=== PATIENT | male | born 1990 | race Hispanic/Latino ===

== ENCOUNTER 2017-08-03 19:24 | Emergency (ER) | payer SELFPAY ==
--- NOTE | 2017-08-03 22:21 | Emergency Department Report ---
HPI - General Chief Complaint: Hyperglycemia Time Seen by Provider: 08/03/17 21:55 - HPI HPI: 26 year-old female presents to the emergency department with complaint of some weakness but he says he thinks is diabetic neuropathy. He says that he gets this numbness and weakness sensation in his arms to the point where he will try and lift something but has to drop it. He says that his eyelids droop in general lately they have been hanging lower than usual. Although he denies any vision problems. He says that he feels like his eyes are heavy. He feels like his jaw "locks up" and that he has some trouble chewing. There is a family member who is bedside who said that she had to help him get his seatbelt on recently. He has a history of insulin-dependent diabetes for which he takes Novolin 70/30 and says he has been compliant with his medication. He also says that he has a history of myasthenia gravis "which I have had since childhood." He does not have a primary care physician. He denies any illicit drug use, tobacco use or recent alcohol use. ED Past Medical Hx - Past Medical History Hx Diabetes: Yes Additional medical history: Myasthenia gravis - Surgical History Past Surgical History?: No - Social History Smoking Status: Never Smoker Substance Use Type: None ED Review of Systems ROS: Stated complaint: DIEBETES,BODY PAIN Other details as noted in HPI Comment: All other systems reviewed and negative Constitutional: weakness. denies: chills, fever Eyes: denies: eye pain, eye discharge, vision change ENT: denies: ear pain, throat pain Respiratory: denies: cough, shortness of breath, wheezing Cardiovascular: denies: chest pain, palpitations Gastrointestinal: denies: abdominal pain, nausea, diarrhea Genitourinary: denies: urgency, dysuria Musculoskeletal: denies: back pain, joint swelling, arthralgia Skin: denies: rash, lesions Neurological: weakness, numbness. denies: headache Physical Exam - Physical Exam Vital Signs: Vital Signs 08/03/17 19:44 Temperature 98.1 F Pulse Rate 107 H Respiratory 16 Rate Blood Pressure 139/92 O2 Sat by Pulse 99 Oximetry Physical Exam: GENERAL: The patient is well-developed well-nourished. HENT: Normocephalic. Atraumatic. Patient has moist mucous membranes. EYES: Extraocular motions are intact. Pupils equal reactive to light bilaterally. There is bilateral ptosis that is worse on the right than the left. NECK: Supple. Trachea is midline. CHEST/LUNGS: Clear to auscultation. There is no respiratory distress noted. HEART/CARDIOVASCULAR: Regular. There is no tachycardia. There is no murmur. ABDOMEN: Abdomen is soft, nontender. Patient has normal bowel sounds. There is no abdominal distention. SKIN: Skin is warm and dry. NEURO: The patient is awake, alert, and oriented. The patient is cooperative. The patient has no sensory deficits. The patient has normal speech and gait. He has some weakness of the proximal bilateral upper extremities. MUSCULOSKELETAL: There is no tenderness or deformity. There is no limitation range of motion. There is no evidence of acute injury. ED Course Vital Signs 08/03/17 19:44 Temperature 98.1 F Pulse Rate 107 H Respiratory 16 Rate Blood Pressure 139/92 O2 Sat by Pulse 99 Oximetry - Reevaluation(s) Reevaluation #1: After the patient was told that he will be admitted to the hospital for further evaluation of his uncontrolled diabetes and probable exacerbation of myasthenia gravis, the patient has decided that he does not want to be admitted and instead wants to leave the hospital. He feels as if nothing has been done for him, except for he has already seen both a emergency and internal medicine physician, had multiple labs, EKG, CT of the head, and his hyperglycemia has been treated. The patient has received 2 different doses of insulin and IV fluid. The patient understands that leaving AGAINST MEDICAL ADVICE could result in worsening of his uncontrolled diabetes and it could turn into diabetic ketoacidosis. He also has intermittent weakness and that could progress into issues with ambulation, causing falls, respiratory depression. Despite understanding of these risks, the patient has the capacity to make decisions for himself and has still decided to leave AGAINST MEDICAL ADVICE. Despite this fact, the patient was given a referral for local clinics, a neurologist, and has been encouraged to return to the emergency department if he changes his mind about admission, needs reevaluation, or with any acute distress. 08/04/17 02:34 ED Medical Decision Making - Lab Data Result diagrams: 08/03/17 Unknown 08/03/17 Unknown - EKG Data -: EKG Interpreted by Me EKG shows normal: sinus rhythm, axis, intervals, QRS complexes, ST-T waves ( early repolarization) Rate: normal - EKG Data When compared to previous EKG there are: previous EKG unavailable Interpretation: normal EKG (with early repolarization) - Radiology Data Radiology results: report reviewed EXAM: CT HEAD/BRAIN WO CON HISTORY: Weakness TECHNIQUE: Standard unenhanced CT of the head at 5.0 millimeter axial increments PRIORS: None. FINDINGS: The ventricular system is normal in size and configuration. There is no evidence for parenchymal volume loss. There is no evidence for mass lesion, mass effect, midline shift, acute intracranial hemorrhage, or acute ischemia/ infarction. Visualized paranasal sinuses demonstrates minimal mucosal thickening in the maxillary sinuses. IMPRESSION: Mild chronic maxillary sinusitis. No acute intracranial process noted. Transcribed By: [facility] Dictated By: MEGAN CARPENTER MD Electronically Authenticated By: MEGAN CARPENTER MD Signed Date/Time: 08/03/17 592 - Medical Decision Making The patient presents with a 2 week history of some intermittent weakness. On exam I noticed him to have bilateral ptosis that is worse on the right. There is no facial asymmetry and the forehead is not involved. It does not appear consistent with Reyez's palsy. There is a story of some intermittent weakness including having trouble holding onto things and needing help getting his seatbelt buckled. The patient himself thinks it is diabetic neuropathy but he also apparently has some questionable history of myasthenia gravis and this appears more consistent with what is going on. He had pulmonary function testing done that showed a normal forced vital capacity and he has no complaints of any shortness of breath so it does not appear to be affecting his diaphragm or his respiratory status. CT of the head does not show any bleed, shift, mass or any acute process. On top of all this, patient has hyperglycemia with a blood sugar of about 400. He does not appear to have any significant elevation in his anion gap and his blood sugar came down with some IV fluid and IV insulin. However the plan was going to be to admit the patient to the hospitalist service where potentially he would get started on Mestinon for the myasthenia gravis, possibly see neurology, and make sure that his diabetes is better controlled. At first the patient agreed to this but then started saying he refuses admission. I spoke to him in great detail about my concern for uncontrolled diabetes and the possibility of worsening weakness and his myasthenia gravis. Also stated my concern that he does not have follow-up set up at this time and that we can try and help him. However the patient is awake and alert, AA O 3 and has the capacity to make his own medical decisions. Despite the risks, which I explained could include respiratory depression, disability, diabetic coma, among others, the patient still does not want to stay in the hospital and has decided to sign out AGAINST MEDICAL ADVICE. Despite leaving AMA, the patient was given referrals for local primary care clinics, a neurologist and he understands that he can return if he changes his mind or with any acute distress. - Differential Diagnosis DKA, HHN K, myasthenia gravis, CVA, TIA Critical Care Time: No Critical care attestation.: If time is entered above; I have spent that time in minutes in the direct care of this critically ill patient, excluding procedure time. ED Disposition Clinical Impression: Myasthenia gravis, Hyperglycemia, Weakness Uncontrolled diabetes mellitus Qualifiers: Diabetes mellitus type: type 1 Diabetes mellitus complication status: with hyperglycemia Qualified Code(s): E10.65 - Type 1 diabetes mellitus with hyperglycemia Disposition: DC-07 LEFT AGAINST MED ADVICE Is pt being admited?: Yes Condition: Stable Instructions: Myasthenia Gravis (ED), Diabetic Hyperglycemia (ED) Additional Instructions: Return to the emergency department if you change your mind about admission for your myasthenia gravis, uncontrolled diabetes or with any acute distress. Referrals: CALI HERNANDEZ MD [Staff Physician] - 3-5 Days [facility] [Outside] - 3-5 Days [facility] [Outside] - 3-5 Days Forms: AMA Form
[2017-08-03 22:25] LABS: Basophils # (Auto) 0.1 K/mm3 (0.0-0.1); Basophils % (Auto) 0.9 % (0.0-1.8); Eosinophils # (Auto) 0.1 K/mm3 (0.0-0.4); Eosinophils % (Auto) 1.7 % (0.0-4.3); Hematocrit 44.9 % (35.5-45.6); Hemoglobin 14.6 gm/dl (11.8-15.2); Lymphocytes # (Auto) 1.3 K/mm3 (1.2-5.4); Lymphocytes % (Auto) 18.9 % (13.4-35.0); Mean Corpuscular HGB Conc 33 % (32-34); Mean Corpuscular Hemoglobin 30 pg (28-32); Mean Corpuscular Volume 93 fl (84-94); Monocytes # (Auto) 0.5 K/mm3 (0.0-0.8); Monocytes % (Auto) 6.8 % (0.0-7.3); Platelet Count 267 K/mm3 (140-440); Red Blood Count 4.81 M/mm3 (3.65-5.03)
[2017-08-03 22:45] LABS: Alanine Aminotransferase 12 units/L (7-56); Albumin 4.9 g/dL (3.9-5); BUN/Creatinine Ratio 17; Blood Urea Nitrogen 10 mg/dL (9-20); Calcium 9.8 mg/dL (8.4-10.2); Hemolysis Index 16
--- NOTE | 2017-08-03 23:01 | Cat Scan Report ---
FINAL REPORT EXAM: CT HEAD/BRAIN WO CON HISTORY: Weakness TECHNIQUE: Standard unenhanced CT of the head at 5.0 millimeter axial increments PRIORS: None. FINDINGS: The ventricular system is normal in size and configuration. There is no evidence for parenchymal volume loss. There is no evidence for mass lesion, mass effect, midline shift, acute intracranial hemorrhage, or acute ischemia/ infarction. Visualized paranasal sinuses demonstrates minimal mucosal thickening in the maxillary sinuses. IMPRESSION: Mild chronic maxillary sinusitis. No acute intracranial process noted.
[2017-08-03] MEDS ORDERED: NACL 0.9% 1000 ML 1,000 ML IV ONE (23:05)
[2017-08-04 03:07] VITALS: BP 118/76
== END 2017-08-04 03:00 | disposition left against medical advice (07) ==
LOC: ED 19:24
DX: G70.00 Myasthenia gravis without (acute) exacerbation (principal); E11.65 Type 2 diabetes mellitus with hyperglycemia
CPT/HCPCS: 36415; 70450; 80053; 82803; 82962; 84443; 84484; 85025; 93005; 93010; 96361; 96374; 96376; 99284; J7030; J1815

== ENCOUNTER 2019-08-18 22:58 | Inpatient (IN) | payer OTHER ==
[2019-08-18] MEDS ORDERED: DEXTROSE 50% IN WATER (25GM) 50 ML SYRINGE IV PRN (23:00)
[2019-08-18] MEDS ORDERED: SODIUM CHLORIDE 0.9% 1000 ML 1,000 ML IV ONE ×2 (23:00→23:03)
[2019-08-18] MEDS ORDERED: INSULIN REGULAR, HUMAN 100 UNITS in SODIUM CHLORIDE 0.9% 99 ML IV SCH (23:00)
[2019-08-18] MEDS ORDERED: ONDANSETRON 4 MG/2 ML INJ IV ONE (23:02)
[2019-08-18] MEDS ORDERED: TETANUS,DIPH,PERTUSS(ACELL) VACCINE 0.5 ML SYRINGE IM ONE (23:06)
--- NOTE | 2019-08-18 23:11 | Emergency Department Report ---
ED Syncope HPI - General Chief Complaint: Hyperglycemia Stated Complaint: HIGH BLOOD SUGAR/LOW BLOOD PRESSURE Time Seen by Provider: 08/18/19 23:00 Source: patient, EMS Exam Limitations: no limitations - History of Present Illness Initial Comments: 28-year-old male with a past medical history asthma and diabetes, myasthenia gravis, and hypertension presents to the hospital with complaints of elevated glucose for several days. Patient states his glucose has been reading high despite compliance with his insulin. He is having nausea, intermittent vomiting, and polyuria. Prior to arrival he passed out while sitting on the toilet. He fell forward striking his mouth and complains of anterior mouth pain. Patient denies headache, neck pain, chest pain, abdominal pain, focal numbness, or focal weakness. History of DKA in the past. PMD: [facility] clinic - Related Data Allergies/Adverse Reactions: Allergies No Known Allergies Allergy (Verified 06/02/18 09:31) Home Medications: Ambulatory Orders Amoxicillin/K Clav Tab [Augmentin 875 mg] 1 tab PO Q12HR #14 tab 06/02/18 Insulin NPH Hum/Reg Insulin Hm [HumuLIN 70-30 Vial] 20 units SUB-Q QPM 06/02/18 Insulin NPH Hum/Reg Insulin Hm [HumuLIN 70-30 Vial] 30 units SUB-Q QAM 06/02/18 Metoclopramide HCl [Reglan TAB] 5 mg PO TIDAC #21 tablet 06/02/18 ED Review of Systems ROS: Stated complaint: HIGH BLOOD SUGAR/LOW BLOOD PRESSURE Other details as noted in HPI Comment: All other systems reviewed and negative ED Past Medical Hx - Past Medical History Hx Diabetes: Yes Additional medical history: Myasthenia gravis - Surgical History Past Surgical History?: No - Social History Smoking Status: Never Smoker Substance Use Type: None - Medications Home Medications: Home Medications Medication Instructions Recorded Confirmed Last Taken Type Amoxicillin/K Clav Tab [Augmentin 1 tab PO Q12HR #14 tab 06/02/18 Unknown Rx 875 mg] Insulin NPH Hum/Reg Insulin Hm 20 units SUB-Q QPM 06/02/18 06/02/18 06/01/18 History [HumuLIN 70-30 Vial] Insulin NPH Hum/Reg Insulin Hm 30 units SUB-Q QAM 06/02/18 06/02/18 06/01/18 History [HumuLIN 70-30 Vial] Metoclopramide HCl [Reglan TAB] 5 mg PO TIDAC #21 tablet 06/02/18 Unknown Rx ED Physical Exam - General Limitations: No Limitations - Other Other exam information: General: No limitations, patient is alert in no acute distress Head exam: Atraumatic, normocephalic Eyes exam: Normal appearance ENT: Dry tongue, facial abrasion/laceration to the lower inner lip from dental trauma. Fractured tooth #8 appears acute, smaller fxt to tooth #9, missing tooth # 7 Neck exam: Normal inspection, full range of motion Respiratory exam: Clear to auscultation bilateral, no wheezes, rales, crackles Cardiovascular: Normal rate and rhythm Abdomen: Soft, nondistended, and nontender, with normal bowel sounds, no rebound, or guarding, Extremity: No deformity Back: Normal Inspection Neurologic: Alert, oriented x3, speech clear, no gross motor or sensory deficit Psychiatric: Normal mood, affect Skin: No rash ED Course Vital Signs 08/18/19 08/18/19 23:02 23:08 Temperature 98.2 F 98.2 F Pulse Rate 98 H 98 H Respiratory 17 17 Rate Blood Pressure 140/108 Blood Pressure 140/108 [Left] O2 Sat by Pulse 98 98 Oximetry - Reevaluation(s) Reevaluation #1: 08/19/19 00:50 ekg performed at this time ant t wave inv noted trop added to original blood work no cp ED Medical Decision Making - Lab Data Result diagrams: 08/19/19 00:01 08/18/19 23:09 - EKG Data -: EKG Interpreted by Hi EKG shows normal: sinus rhythm, intervals (qtc 529), ST-T waves (ant t wave inv) - EKG Data When compared to previous EKG there are: changes noted - Radiology Data Radiology results: report reviewed cxr: naf - Medical Decision Making Patient has significant hyperglycemia without acidosis and normal venous pH. Awaiting urine collection at time of disposition. Patient also has significant dehydration or renal sufficiency and mild hyperkalemia. Insulin drip initiated as well as IV normal saline hydration and Zofran for nausea. Patient received tetanus. Case discussed with hospitalist and patient will need admission for treatment. ekg shows changes, new ant t wave inv trop added and pending at dispo no cp - Differential Diagnosis DKA, hyperglycemia, hhnk, noncompliance Critical Care Time: Yes Critical care time in (mins) excluding proc time.: 35 Critical care attestation.: If time is entered above; I have spent that time in minutes in the direct care of this critically ill patient, excluding procedure time. ED Disposition Clinical Impression: Syncope, Dehydration, Insulin dependent diabetes mellitus, Hyperglycemia Disposition: OP ADMIT IP TO THIS HOSP Is pt being admited?: Yes Condition: Stable Time of Disposition: 00:28 (Dr Ibrahim/hosp)
--- NOTE | 2019-08-18 23:45 | XRay Report ---
CHEST 1 VIEW INDICATION: hyperglycemia, syncope. COMPARISON: None FINDINGS: Support devices: None. Heart: Within normal limits. Lungs/Pleura: No acute air space or interstitial disease. Additional findings: None. IMPRESSION: 1. No acute findings. Signer Name: Dante Selby MD Signed: 08/18/2019 11:41 PM Workstation Name: [id number]
[2019-08-18 23:52] LABS: Calcium 9.8 mg/dL (8.4-10.2)
[2019-08-19 00:12] LABS: Basophils % (Auto) 0.1 % (0.0-1.8); Hematocrit 52.4 % (35.5-45.6); Hemoglobin 16.8 gm/dl (11.8-15.2); Lymphocytes # (Auto) 1.1 K/mm3 (1.2-5.4); Lymphocytes % (Auto) 9.8 % (13.4-35.0); Mean Corpuscular HGB Conc 32 % (32-34); Mean Corpuscular Volume 94 fl (84-94); Monocytes # (Auto) 1.5 K/mm3 (0.0-0.8); Monocytes % (Auto) 13.1 % (0.0-7.3); Platelet Count 315 K/mm3 (140-440); Red Blood Count 5.58 M/mm3 (3.65-5.03); Red Cell Distribution Width 15.6 % (13.2-15.2)
[2019-08-19 00:17] LABS: Alanine Aminotransferase 9 units/L (7-56); Albumin 4.7 g/dL (3.9-5)
[2019-08-19 00:18] LABS: Bilirubin,Direct < 0.2 mg/dL (0-0.2)
[2019-08-19] MEDS ORDERED: DEXTROSE 50% IN WATER (25GM) 50 ML SYRINGE IV PRN ×2 (01:24→06:14)
[2019-08-19] MEDS ORDERED: ONDANSETRON 4 MG/2 ML INJ IV PRN (01:30)
[2019-08-19] MEDS ORDERED: SODIUM CHLORIDE 0.9% 1000 ML 1,000 ML IV SCH (01:30)
[2019-08-19] MEDS ORDERED: MORPHINE 4 MG/1 ML INJ IV PRN (01:30)
[2019-08-19] MEDS ORDERED: INSULIN REGULAR, HUMAN 100 UNITS in SODIUM CHLORIDE 0.9% 99 ML IV SCH ×2 (02:00)
[2019-08-19] MEDS ORDERED: D5W/0.45% NACL/KCL 20 MEQ 20 MEQ/1,000 ML BAG IV SCH (02:00)
[2019-08-19] MEDS ORDERED: ACETAMINOPHEN 325 MG TAB PO PRN (02:06)
[2019-08-19] MEDS ORDERED: SODIUM CHLORIDE 0.9% 1000 ML 1,000 ML ONE (02:11)
[2019-08-19 02:47] LABS: BUN/Creatinine Ratio 53; Blood Urea Nitrogen 63 mg/dL (9-20); Calcium 8.4 mg/dL (8.4-10.2); Hemolysis Index 5
[2019-08-19] MEDS ORDERED: SODIUM CHLORIDE 0.45% 1000 ML 1,000 ML IV ONE (03:18)
[2019-08-19 03:20] LABS: Bilirubin,Urine NEG (Negative); Blood,Urine NEG (Negative); Color,Urine Colorless (Yellow); Protein,Urine <15 mg/dL mg/dL (Negative); Urobilinogen,Urine < 2.0 mg/dL (<2.0); WBC,Urine < 1.0 /HPF (0.0-6.0)
[2019-08-19] MEDS: SODIUM CHLORIDE 0.45% 1000 ML 1,000 ML IV SCH ×3 (03:28→22:34)
[2019-08-19] MEDS ORDERED: SODIUM CHLORIDE 0.45% 1000 ML 1,000 ML IV SCH (04:00)
[2019-08-19 04:13] LABS: BUN/Creatinine Ratio 48; Blood Urea Nitrogen 58 mg/dL (9-20); Calcium 7.9 mg/dL (8.4-10.2); Hemolysis Index 6
[2019-08-19 05:58] LABS: BUN/Creatinine Ratio 52; Blood Urea Nitrogen 52 mg/dL (9-20); Calcium 8.2 mg/dL (8.4-10.2); Hemolysis Index 13
[2019-08-19] MEDS ORDERED: INSULIN GLARGINE 100 UNITS/ML SUB-Q ONE (06:16)
--- NOTE | 2019-08-19 07:35 | History and Physical Report ---
History of Present Illness Date of examination: 08/19/19 Date of admission: 08/19/19 00:33 Chief complaint: Elevated blood sugar History of present illness: Patient is a 28-year-old -Greek male with known history of diabetes mellitus presenting to the emergency room today complaining of elevated blood sugar at home. He has been compliant with his medication however blood sugar has been reading high. He has had some nausea and vomiting but denies any diarrhea denies any abdominal pain. Denies any fever or chills, no chest pain or shortness of breath. He was sitting on his commode at home today and had a syncopal episode. He had some bruises in his mouth and also had a crack on his teeth. Evaluation in the emergency room reveals blood sugar in the 1000s and also appears quite dehydrated. He was started on IV fluid and placed on insulin drip . Past History Past Medical History: diabetes, other (Myasthenia gravis) Past Surgical History: No surgical history Social history: no significant social history Family history: diabetes (Diabetes in grandmother) Medications and Allergies Allergies Allergy/AdvReac Type Severity Reaction Status Date / Time morphine Allergy Angioedema Verified 08/19/19 02:27 Home Medications Medication Instructions Recorded Confirmed Last Taken Type Amoxicillin/K Clav Tab [Augmentin 1 tab PO Q12HR #14 tab 06/02/18 Unknown Rx 875 mg] Insulin NPH Hum/Reg Insulin Hm 20 units SUB-Q QPM 06/02/18 06/02/18 06/01/18 History [HumuLIN 70-30 Vial] Insulin NPH Hum/Reg Insulin Hm 30 units SUB-Q QAM 06/02/18 06/02/18 06/01/18 History [HumuLIN 70-30 Vial] Metoclopramide HCl [Reglan TAB] 5 mg PO TIDAC #21 tablet 06/02/18 Unknown Rx Active Meds: Active Medications Acetaminophen (Tylenol) 650 mg PO Q4H PRN PRN Reason: Pain, Mild (1-3) Last Admin: 08/19/19 02:14 Dose: 650 mg Documented by: Dextrose (D50w (25gm) Syringe) 50 ml IV Q30MIN PRN; Protocol PRN Reason: Hypoglycemia Potassium Chloride/Dextrose/Sod Cl (D5w/0.45% Nacl/Kcl 20 Meq) 20 meq in 1,000 mls @ 125 mls/hr IV DIRECT BREANNE Sodium Chloride (Nacl 0.45% 1000 Ml) 1,000 mls @ 150 mls/hr IV DIRECT BREANNE Last Admin: 08/19/19 03:28 Dose: 150 mls/hr Documented by: Insulin Glargine (Lantus) 10 units SUB-Q QHS BREANNE Insulin Human Lispro (Humalog) 0 unit SUB-Q ACHS BREANNE; Protocol Ondansetron HCl (Zofran) 4 mg IV Q8H PRN PRN Reason: Nausea And Vomiting Sodium Chloride (Sodium Chloride Flush Syringe 10 Ml) 10 ml IV BID BREANNE Sodium Chloride (Sodium Chloride Flush Syringe 10 Ml) 10 ml IV PRN PRN PRN Reason: LINE FLUSH Review of Systems Constitutional: no weight loss, no weight gain, no fever, no chills Cardiovascular: no chest pain, no palpitations Respiratory: no cough, no shortness of breath Gastrointestinal: nausea, vomiting, no abdominal pain, no diarrhea Genitourinary Male: no dysuria, no hematuria Musculoskeletal: no neck pain, no low back pain Integumentary: no rash, no pruritis Neurological: syncope, no headaches, no change in mentation Exam - Constitutional Vitals: Temp Pulse Resp BP Pulse Ox 98.2 F 110 H 21 133/89 95 08/18/19 23:08 08/19/19 05:00 08/19/19 05:00 08/19/19 05:00 08/19/19 05:00 General appearance: Present: no acute distress, well-nourished - EENT Eyes: Present: PERRL, EOM intact ENT: hearing intact, clear oral mucosa, dentition normal - Neck Neck: Present: supple, normal ROM - Respiratory Respiratory effort: normal Respiratory: bilateral: CTA - Cardiovascular Rhythm: regular Heart Sounds: Present: S1 & S2 - Extremities Extremities: no ischemia, pulses symmetrical, No edema, Full ROM Peripheral Pulses: within normal limits - Abdominal General gastrointestinal: Present: soft, non-tender, non-distended, normal bowel sounds - Integumentary Integumentary: Present: clear, warm, dry - Musculoskeletal Musculoskeletal: strength equal bilaterally - Psychiatric Psychiatric: appropriate mood/affect, intact judgment & insight, cooperative - Neurologic Neurologic: CNII-XII intact, moves all extremities Results - Labs CBC & Chem 7: 08/19/19 00:01 08/19/19 05:24 Labs: Abnormal lab results 08/18/19 08/18/19 08/19/19 Range/Units 23:09 23:13 00:01 WBC 11.2 H (4.5-11.0) K/mm3 RBC 5.58 H (3.65-5.03) M/mm3 Hgb 16.8 H (11.8-15.2) gm/dl Hct 52.4 H (35.5-45.6) % RDW 15.6 H (13.2-15.2) % Lymph % (Auto) 9.8 L (13.4-35.0) % Cloud % (Auto) 13.1 H (0.0-7.3) % Lymph # 1.1 L (1.2-5.4) K/mm3 Cloud # 1.5 H (0.0-0.8) K/mm3 Seg Neutrophils % 77.0 H (40.0-70.0) % Seg Neutrophils # 8.6 H (1.8-7.7) K/mm3 Sodium 148 H (137-145) mmol/L Potassium 5.4 H (3.6-5.0) mmol/L Chloride 97.5 L (98-107) mmol/L Carbon Dioxide 31 H (22-30) mmol/L BUN 83 H (9-20) mg/dL Creatinine 1.9 H (0.8-1.5) mg/dL Glucose 1028 H* (75-100) mg/dL Calcium (8.4-10.2) mg/dL Phosphorus 5.50 H (2.5-4.5) mg/dL Magnesium 4.30 H (1.7-2.3) mg/dL Lipase 5 L (13-60) units/L 08/19/19 08/19/19 08/19/19 Range/Units 01:52 01:52 03:18 WBC (4.5-11.0) K/mm3 RBC (3.65-5.03) M/mm3 Hgb (11.8-15.2) gm/dl Hct (35.5-45.6) % RDW (13.2-15.2) % Lymph % (Auto) (13.4-35.0) % Cloud % (Auto) (0.0-7.3) % Lymph # (1.2-5.4) K/mm3 Cloud # (0.0-0.8) K/mm3 Seg Neutrophils % (40.0-70.0) % Seg Neutrophils # (1.8-7.7) K/mm3 Sodium 155 H 158 H (137-145) mmol/L Potassium (3.6-5.0) mmol/L Chloride 113.2 H 119.3 H (98-107) mmol/L Carbon Dioxide (22-30) mmol/L BUN 63 H 58 H (9-20) mg/dL Creatinine (0.8-1.5) mg/dL Glucose 577 H* 363 H (75-100) mg/dL Calcium 7.9 L (8.4-10.2) mg/dL Phosphorus 2.30 L D (2.5-4.5) mg/dL Magnesium 3.40 H (1.7-2.3) mg/dL Lipase (13-60) units/L 08/19/19 Range/Units 05:24 WBC (4.5-11.0) K/mm3 RBC (3.65-5.03) M/mm3 Hgb (11.8-15.2) gm/dl Hct (35.5-45.6) % RDW (13.2-15.2) % Lymph % (Auto) (13.4-35.0) % Cloud % (Auto) (0.0-7.3) % Lymph # (1.2-5.4) K/mm3 Cloud # (0.0-0.8) K/mm3 Seg Neutrophils % (40.0-70.0) % Seg Neutrophils # (1.8-7.7) K/mm3 Sodium 159 H (137-145) mmol/L Potassium (3.6-5.0) mmol/L Chloride 120.3 H (98-107) mmol/L Carbon Dioxide (22-30) mmol/L BUN 52 H (9-20) mg/dL Creatinine (0.8-1.5) mg/dL Glucose 156 H (75-100) mg/dL Calcium 8.2 L (8.4-10.2) mg/dL Phosphorus (2.5-4.5) mg/dL Magnesium (1.7-2.3) mg/dL Lipase (13-60) units/L Assessment and Plan - Patient Problems (1) Type 2 diabetes mellitus with hyperosmolar nonketotic hyperglycemia Current Visit: Yes Status: Acute Plan to address problem: Patient started on insulin drip. We will monitor blood glucose closely. (2) Syncope Current Visit: Yes Status: Acute Plan to address problem: Possibly secondary to dehydration. (3) DVT prophylaxis Current Visit: Yes Status: Acute Plan to address problem: We will place on subcutaneous heparin. (4) Full code status Current Visit: Yes Status: Acute
[2019-08-19] MEDS ORDERED: DEXTROSE 50% IN WATER (25GM) 50 ML SYRINGE IV ONE ×3 (09:26→09:44)
--- NOTE | 2019-08-19 10:54 | Event Note ---
Date: 08/19/19 Patient seen and examined. This is a follow-up from an admission earlier this morning. We will continue to plan as outlined in H&P. Patient with an episode of hypoglycemia and initiated D50. Time spent equals 35 minutes with greater than 50% of time spent on coordination of care
[2019-08-19] MEDS: INSULIN LISPRO 100 UNIT/ML SUB-Q SCH ×3 (11:29→22:34)
[2019-08-19] MEDS ORDERED: IBUPROFEN 600 MG TAB PO PRN (11:48)
--- NOTE | 2019-08-19 11:54 | Consultation ---
History of Present Illness Consult date: 08/19/19 History of present illness: PULMONARY AND CRITICAL CARE CONSULTATION DR. ANDRADE THANK YOU FOR ASKING US TO PARTICIPATE IN THE CARE OF THIS PATIENT. Patient is a 28-year-old -Burm[place] male with known history of diabetes mellitus presenting to the emergency room today complaining of elevated blood sugar at home. He has been compliant with his medication however blood sugar has been reading high. He has had some nausea and vomiting but denies any diarrhea denies any abdominal pain. Denies any fever or chills, no chest pain or shortness of breath. He was sitting on his commode at home today and had a syncopal episode. He had some bruises in his mouth and also had a crack on his teeth. Evaluation in the emergency room reveals blood sugar in the 1000s and also appears quite dehydrated. He was started on IV fluid and placed on insulin drip. Past History Past Medical History: diabetes, other (Myasthenia gravis) Past Surgical History: No surgical history Social history: no significant social history Family history: diabetes (Diabetes in grandmother) Medications and Allergies Allergies Allergy/AdvReac Type Severity Reaction Status Date / Time morphine Allergy Angioedema Verified 08/19/19 02:27 tomato Allergy Vomiting Verified 08/19/19 13:23 Home Medications Medication Instructions Recorded Confirmed Last Taken Type Amoxicillin/K Clav Tab [Augmentin 1 tab PO Q12HR #14 tab 06/02/18 Unknown Rx 875 mg] Insulin NPH Hum/Reg Insulin Hm 20 units SUB-Q QPM 06/02/18 06/02/18 06/01/18 History [HumuLIN 70-30 Vial] Insulin NPH Hum/Reg Insulin Hm 30 units SUB-Q QAM 06/02/18 06/02/18 06/01/18 History [HumuLIN 70-30 Vial] Metoclopramide HCl [Reglan TAB] 5 mg PO TIDAC #21 tablet 06/02/18 Unknown Rx Active Meds: Active Medications Acetaminophen (Tylenol) 650 mg PO Q4H PRN PRN Reason: Pain, Mild (1-3) Last Admin: 08/19/19 02:14 Dose: 650 mg Documented by: Dextrose (D50w (25gm) Syringe) 50 ml IV Q30MIN PRN; Protocol PRN Reason: Hypoglycemia Heparin Sodium (Porcine) (Heparin) 5,000 unit SUB-Q Q8HR BREANNE Potassium Chloride/Dextrose/Sod Cl (D5w/0.45% Nacl/Kcl 20 Meq) 20 meq in 1,000 mls @ 125 mls/hr IV DIRECT BREANNE Sodium Chloride (Nacl 0.45% 1000 Ml) 1,000 mls @ 150 mls/hr IV DIRECT BREANNE Last Admin: 08/19/19 11:38 Dose: 150 mls/hr Documented by: Ibuprofen (Ibuprofen) 600 mg PO Q6H PRN PRN Reason: Pain, Mild (1-3) Insulin Glargine (Lantus) 10 units SUB-Q QHS [facility] Insulin Human Lispro (Humalog) 0 unit SUB-Q ACHS BREANNE; Protocol Last Admin: 08/19/19 11:29 Dose: Not Given Documented by: Ondansetron HCl (Zofran) 4 mg IV Q8H PRN PRN Reason: Nausea And Vomiting Sodium Chloride (Sodium Chloride Flush Syringe 10 Ml) 10 ml IV BID [facility] Last Admin: 08/19/19 11:38 Dose: 10 ml Documented by: Sodium Chloride (Sodium Chloride Flush Syringe 10 Ml) 10 ml IV PRN PRN PRN Reason: LINE FLUSH Review of Systems All systems: negative Physical Examination Vital signs: Vital Signs Temp Pulse Resp BP Pulse Ox 98.2 F 98 H 17 140/108 98 08/18/19 23:02 08/18/19 23:02 08/18/19 23:02 08/18/19 23:02 08/18/19 23:02 Results - Laboratory Findings CBC and BMP: 08/19/19 00:01 08/19/19 11:21 Abnormal lab findings: Abnormal Labs 08/18/19 08/18/19 08/19/19 23:09 23:13 00:01 WBC 11.2 H RBC 5.58 H Hgb 16.8 H Hct 52.4 H RDW 15.6 H Lymph % (Auto) 9.8 L [place]bert % (Auto) 13.1 H Lymph # 1.1 L Colbert # 1.5 H Seg Neutrophils % 77.0 H Seg Neutrophils # 8.6 H Sodium 148 H Potassium 5.4 H Chloride 97.5 L Carbon Dioxide 31 H BUN 83 H Creatinine 1.9 H Glucose 1028 H* POC Glucose Calcium Phosphorus 5.50 H Magnesium 4.30 H Lipase 5 L 08/19/19 08/19/19 08/19/19 01:52 01:52 03:18 WBC RBC Hgb Hct RDW Lymph % (Auto) Colbert % (Auto) Lymph # Colbert # Seg Neutrophils % Seg Neutrophils # Sodium 155 H 158 H Potassium Chloride 113.2 H 119.3 H Carbon Dioxide BUN 63 H 58 H Creatinine Glucose 577 H* 363 H POC Glucose Calcium 7.9 L Phosphorus 2.30 L D Magnesium 3.40 H Lipase 08/19/19 08/19/19 05:24 05:24 WBC RBC Hgb Hct RDW Lymph % (Auto) Colbert % (Auto) Lymph # Colbert # Seg Neutrophils % Seg Neutrophils # Sodium 159 H Potassium Chloride 120.3 H Carbon Dioxide BUN 52 H Creatinine Glucose 156 H POC Glucose 171 H Calcium 8.2 L Phosphorus Magnesium Lipase - Diagnostic Findings Chest x-ray: report reviewed (NO ACUTE FINDINGS.), image reviewed Assessment and Plan - Patient Problems (1) Type 2 diabetes mellitus with hyperosmolar nonketotic hyperglycemia Current Visit: Yes Status: Acute (2) Dehydration Current Visit: Yes Status: Acute (3) Syncope Current Visit: Yes Status: Acute
[2019-08-19 12:08] LABS: BUN/Creatinine Ratio 46; Blood Urea Nitrogen 46 mg/dL (9-20); Calcium 8.9 mg/dL (8.4-10.2); Hemolysis Index 16
--- NOTE | 2019-08-19 14:18 | Event Note ---
Date: 08/19/19 Pt is alert and awake. No complaints of chest pain, shortness of breath, or cough. He denies smoking. Chest xray is normal with reported no acute findings. Since pt does no have any pulmonary symptoms, I am signing off the case. If pt needs any pulmonary help, please call us back.
[2019-08-19] MEDS: HEPARIN 5,000 UNIT/1 ML VIAL SUB-Q SCH ×2 (14:58→22:34)
[2019-08-19 16:47] LABS: BUN/Creatinine Ratio 42; Blood Urea Nitrogen 38 mg/dL (9-20); Calcium 8.5 mg/dL (8.4-10.2); Hemolysis Index 3
[2019-08-19 19:08] LABS: BUN/Creatinine Ratio 37; Blood Urea Nitrogen 37 mg/dL (9-20); Calcium 8.5 mg/dL (8.4-10.2); Hemolysis Index 5
[2019-08-19] MEDS ORDERED: INSULIN GLARGINE 100 UNITS/ML SUB-Q SCH (22:00)
[2019-08-19 23:31] LABS: BUN/Creatinine Ratio 39; Blood Urea Nitrogen 31 mg/dL (9-20); Calcium 8.2 mg/dL (8.4-10.2); Hemolysis Index 4
[2019-08-20 02:50] LABS: BUN/Creatinine Ratio 33; Blood Urea Nitrogen 26 mg/dL (9-20); Calcium 8.4 mg/dL (8.4-10.2); Hemolysis Index 5
[2019-08-20] MEDS: HEPARIN 5,000 UNIT/1 ML VIAL SUB-Q SCH (06:16)
[2019-08-20] MEDS: SODIUM CHLORIDE 0.45% 1000 ML 1,000 ML IV SCH (06:16)
--- NOTE | 2019-08-20 08:50 | Discharge Summary ---
Providers - Providers Date of Admission: 08/19/19 00:33 Date of discharge: 08/20/19 Attending physician: EMMANUEL ANDRADE 08/19/19 01:25 Consult to Dietitian/Nutrition [CONS] Routine Physician Instructions: Reason For Exam: Reason for Consult: Diet education 08/19/19 02:24 Consult to Physician [CONS] Routine Comment: Consulting Provider: CONSTANCE BENITEZ Physician Instructions: Reason For Exam: icu admission Primary care physician: CARDIAC MONITOR TECHNICIAN Hospitalization Reason for admission: hyperglycemia Condition: Stable Hospital course: Patient is a 28-year-old -N[place]ib[place] male with known history of diabetes mellitus who presented to the emergency room with complaints of elevated blood sugar at home. He has been compliant with his medication however blood sugar has been reading high. He has had some nausea and vomiting but denied any diarrhea or abdominal pain. The patient was admitted with diagnosis of hyperosmolar nonketotic hyperglycemia and treated with initially IV insulin drip. Patient blood sugar stabilized and patient was transferred to the floor. However, patient did have an episode of hypoglycemia because patient did not eat breakfast yesterday morning. Patient was monitored for 24 hours and blood sugars remained stable and thus will be discharged home. Dedicated discharge time 32 minutes. Disposition: DC-01 TO HOME OR SELFCARE Time spent for discharge: 32 - Discharge Diagnoses (1) Dehydration Status: Acute (2) Hyperglycemia Status: Acute (3) Insulin dependent diabetes mellitus Status: Acute (4) Type 2 diabetes mellitus with hyperosmolar nonketotic hyperglycemia Status: Acute Core Measure Documentation - Palliative Care Palliative Care/ Comfort Measures: Not Applicable - Core Measures Any of the following diagnoses?: none Exam - Constitutional Vitals: Temp Pulse Resp BP Pulse Ox 99.1 F 100 H 20 113/72 96 08/20/19 06:10 08/20/19 06:10 08/20/19 06:10 08/20/19 06:10 08/20/19 06:10 General appearance: Present: no acute distress, well-nourished - EENT Eyes: Present: PERRL ENT: hearing intact, clear oral mucosa - Neck Neck: Present: supple, normal ROM - Respiratory Respiratory effort: normal Respiratory: bilateral: CTA - Cardiovascular Heart Sounds: Present: S1 & S2. Absent: rub, click - Extremities Extremities: pulses symmetrical, No edema Peripheral Pulses: within normal limits - Abdominal General gastrointestinal: Present: soft, non-tender, non-distended, normal bowel sounds Male genitourinary: Present: normal - Integumentary Integumentary: Present: clear, warm, dry - Musculoskeletal Musculoskeletal: gait normal, strength equal bilaterally - Psychiatric Psychiatric: appropriate mood/affect, intact judgment & insight - Neurologic Neurologic: CNII-XII intact, moves all extremities Plan Activity: advance as tolerated Weight Bearing Status: Weight Bear as Tolerated Diet: diabetic Follow up with: PRIMARY CARE, [Primary Care Provider] - 7 Days Prescriptions: Insulin NPH Hum/Reg Insulin Hm [HumuLIN 70-30 Vial] 30 units SUB-Q QAM 30 Days vial Insulin NPH Hum/Reg Insulin Hm [HumuLIN 70-30 Vial] 20 units SUB-Q QPM 30 Days vial Metoclopramide HCl [Reglan TAB] 5 mg PO TIDAC #21 tablet
[2019-08-20] MEDS: INSULIN LISPRO 100 UNIT/ML SUB-Q SCH ×2 (09:27→12:44)
[2019-08-20 11:40] VITALS: BP 143/99
== END 2019-08-20 14:20 | disposition home or self-care (01) | DRG 639 ==
LOC: ED 22:58 → IMCU 08-19 00:33 → CC1 08-19 03:26 → 3A 08-19 07:58
PROVIDERS: ADMIT Internal Medicine Geriatric Medicine; ATTEND Hospitalist
PROC: 3E0234Z Introduction of Serum, Toxoid and Vaccine into Muscle, Percutaneous Approach (ICD-10-PCS; principal; 2019-08-18)
DX: E11.00 Type 2 diabetes mellitus with hyperosmolarity without nonketotic hyperglycemic-hyperosmolar coma (NKHHC) (principal); E86.0 Dehydration; R55 Syncope and collapse; E87.5 Hyperkalemia; I10 Essential (primary) hypertension; J45.909 Unspecified asthma, uncomplicated; Z79.4 Long term (current) use of insulin; Z83.3 Family history of diabetes mellitus; Z88.5 Allergy status to narcotic agent; Z79.899 Other long term (current) drug therapy
CPT/HCPCS: 36415; 71045; 80048; 80076; 81001; 82805; 82962; 83690; 83735; 84100; 84484; 85025; 90715; 93005; 93010; 96365; G0378; J1644; J1815; J2405; J7030

== ENCOUNTER 2019-09-24 09:52 | Inpatient (IN) | payer OTHER ==
[2019-09-24] MEDS ORDERED: SODIUM CHLORIDE 0.9% 1000 ML 1,000 ML IV ONE ×2 (10:33→11:36)
--- NOTE | 2019-09-24 10:33 | Emergency Department Report ---
ED General Adult HPI - General Chief complaint: Abdominal Pain Stated complaint: NAUSEA/VOMITING Time Seen by Provider: 09/24/19 10:29 Source: patient, EMS Mode of arrival: Stretcher Limitations: No Limitations - History of Present Illness Initial comments: 20-year-old male with a history of diabetes, hypertension myasthenia gravis presents with complaint of nausea and vomiting and diarrhea which began this morning. Patient denies fever. Patient states he has a prior history of DKA in the past. Patient received 4 mg of Zofran prior to arrival. Patient denies any recent travel denies any recent fever. Patient denies any recent close contacts who are quarantined. Patient states that he is able to drink a minimal amount of water but has had continued nausea and vomiting despite this. - Related Data Previous Rx's Medication Instructions Recorded Last Taken Type Amoxicillin/K Clav Tab [Augmentin 1 tab PO Q12HR #14 tab 06/02/18 Unknown Rx 875MG TAB] Insulin NPH Hum/Reg Insulin Hm 20 units SUB-Q QPM 30 Days vial 08/20/19 Unknown Rx [HumuLIN 70-30 Vial] Insulin NPH Hum/Reg Insulin Hm 30 units SUB-Q QAM 30 Days vial 08/20/19 Unknown Rx [HumuLIN 70-30 Vial] Metoclopramide HCl [Reglan TAB] 5 mg PO TIDAC #21 tablet 08/20/19 Unknown Rx Allergies Allergy/AdvReac Type Severity Reaction Status Date / Time morphine Allergy Angioedema Verified 08/19/19 02:27 tomato Allergy Vomiting Verified 08/19/19 13:23 ED Review of Systems ROS: Stated complaint: NAUSEA/VOMITING Other details as noted in HPI Constitutional: denies: chills, fever Eyes: denies: eye pain, eye discharge, vision change ENT: denies: ear pain, throat pain Respiratory: denies: cough, shortness of breath, wheezing Cardiovascular: denies: chest pain, palpitations Endocrine: no symptoms reported Gastrointestinal: nausea, vomiting, diarrhea Genitourinary: denies: urgency, dysuria Musculoskeletal: denies: back pain, joint swelling, arthralgia Skin: denies: rash, lesions Neurological: denies: headache, weakness, paresthesias Psychiatric: denies: anxiety, depression Hematological/Lymphatic: denies: easy bleeding, easy bruising ED Past Medical Hx - Past Medical History Hx Hypertension: Yes Hx Congestive Heart Failure: No Hx Diabetes: Yes Hx Asthma: No Additional medical history: Myasthenia gravis - Social History Smoking Status: Former Smoker - Medications Home Medications: Home Medications Medication Instructions Recorded Confirmed Last Taken Type Amoxicillin/K Clav Tab [Augmentin 1 tab PO Q12HR #14 tab 06/02/18 08/19/19 Unknown Rx 875MG TAB] Insulin NPH Hum/Reg Insulin Hm 20 units SUB-Q QPM 30 Days vial 08/20/19 Unknown Rx [HumuLIN 70-30 Vial] Insulin NPH Hum/Reg Insulin Hm 30 units SUB-Q QAM 30 Days vial 08/20/19 Unknown Rx [HumuLIN 70-30 Vial] Metoclopramide HCl [Reglan TAB] 5 mg PO TIDAC #21 tablet 08/20/19 Unknown Rx ED Physical Exam - General Limitations: No Limitations General appearance: alert, other (Uncomfortable; dehydration) - Head Head exam: Present: atraumatic, normocephalic - Eye Eye exam: Present: normal appearance - ENT ENT exam: Present: mucous membranes dry - Neck Neck exam: Present: normal inspection - Respiratory Respiratory exam: Present: normal lung sounds bilaterally. Absent: respiratory distress - Cardiovascular Cardiovascular Exam: Present: normal rhythm, tachycardia. Absent: systolic murmur, diastolic murmur, rubs, gallop - GI/Abdominal GI/Abdominal exam: Present: soft, tenderness (Mild diffuse), normal bowel sounds. Absent: guarding, rebound - Rectal Rectal exam: Present: deferred - Extremities Exam Extremities exam: Present: normal inspection - Back Exam Back exam: Present: normal inspection - Neurological Exam Neurological exam: Present: alert, oriented X3 - Psychiatric Psychiatric exam: Present: normal affect, normal mood - Skin Skin exam: Present: warm, dry, intact, normal color. Absent: rash ED Course Vital Signs 09/24/19 09/24/19 09/24/19 09:54 09:57 10:00 Temperature 98.2 F Pulse Rate 124 H 127 H Respiratory 17 16 13 Rate Blood Pressure 148/88 143/93 O2 Sat by Pulse 100 100 100 Oximetry 09/24/19 09/24/19 09/24/19 10:15 10:30 10:45 Temperature Pulse Rate 122 H 121 H 115 H Respiratory 25 H 12 12 Rate Blood Pressure 134/98 134/98 157/100 O2 Sat by Pulse 100 100 99 Oximetry 09/24/19 11:00 Temperature Pulse Rate 119 H Respiratory 11 L Rate Blood Pressure 156/94 O2 Sat by Pulse 100 Oximetry ED Medical Decision Making - Lab Data Result diagrams: 09/24/19 10:28 09/24/19 10:28 - Medical Decision Making Patient RECEIVED iv INSULIN WHILE IN THE e AND HAS RECEIVED TWO liter bolus of IV fluids. Patient noted to be in DKA and will receive insulin drip. Patient to be admitted to the hospitalist service for continued management and treatment. - Differential Diagnosis DKA; hyperosmolar hyperglycemic nonketotic state; dehydration; electrolyte Critical Care Time: Yes Critical care time in (mins) excluding proc time.: 40 Critical care attestation.: If time is entered above; I have spent that time in minutes in the direct care of this critically ill patient, excluding procedure time. Critical care time includes time spent with direct bedside care, frequent reassessment, physician consultation. ED Disposition Clinical Impression: Diabetic ketoacidosis, Dehydration Disposition: OP ADMIT IP TO THIS HOSP Is pt being admited?: Yes Does the pt Need Aspirin: No Condition: Stable Instructions: Diabetic Ketoacidosis (ED) Referrals: PRIMARY CARE, [Primary Care Provider] - 3-5 Days Time of Disposition: 11:34 Print Language: EMIRATI
[2019-09-24 10:52] LABS: Basophils % (Auto) 0.2 % (0.0-1.8); Hemoglobin 14.5 gm/dl (11.8-15.2); Lymphocytes # (Auto) 1.4 K/mm3 (1.2-5.4); Lymphocytes % (Auto) 11.8 % (13.4-35.0); Mean Corpuscular HGB Conc 32 % (32-34); Mean Corpuscular Volume 92 fl (84-94); Monocytes # (Auto) 0.5 K/mm3 (0.0-0.8); Monocytes % (Auto) 4.4 % (0.0-7.3); Platelet Count 389 K/mm3 (140-440); Red Blood Count 4.88 M/mm3 (3.65-5.03); Red Cell Distribution Width 16.1 % (13.2-15.2)
[2019-09-24] MEDS ORDERED: INSULIN REGULAR, HUMAN 100 UNITS/1 ML IV ONE (10:54)
[2019-09-24 11:02] LABS: INR 1.02 (0.87-1.13)
[2019-09-24 11:13] LABS: Alanine Aminotransferase 15 units/L (7-56); Albumin 4.9 g/dL (3.9-5); BUN/Creatinine Ratio 29; Blood Urea Nitrogen 23 mg/dL (9-20); Calcium 10.6 mg/dL (8.4-10.2); Hemolysis Index 7
[2019-09-24 11:15] LABS: Bilirubin,Direct < 0.2 mg/dL (0-0.2)
[2019-09-24] MEDS ORDERED: DEXTROSE 50% IN WATER (25GM) 50 ML SYRINGE IV PRN (11:25)
[2019-09-24] MEDS ORDERED: INSULIN REGULAR, HUMAN 100 UNITS in SODIUM CHLORIDE 0.9% 99 ML IV SCH ×2 (12:00→18:00)
[2019-09-24] MEDS ORDERED: SODIUM CHLORIDE 0.9% 1000 ML 1,000 ML ONE (12:11)
[2019-09-24 13:07] LABS: Bilirubin,Urine NEG (Negative); Blood,Urine SM (Negative); Color,Urine Straw (Yellow); Protein,Urine <15 mg/dL mg/dL (Negative); Urobilinogen,Urine < 2.0 mg/dL (<2.0); WBC,Urine < 1.0 /HPF (0.0-6.0)
[2019-09-24 13:20] LABS: BUN/Creatinine Ratio 30; Blood Urea Nitrogen 24 mg/dL (9-20); Hemolysis Index 7
[2019-09-24] MEDS: ONDANSETRON 4 MG/2 ML INJ IV PRN (15:33)
[2019-09-24] MEDS: D5W/0.45% NACL/KCL 20 MEQ 20 MEQ/1,000 ML BAG IV SCH ×2 (15:34→23:18)
[2019-09-24 15:48] LABS: BUN/Creatinine Ratio 34; Blood Urea Nitrogen 24 mg/dL (9-20); Calcium 9.9 mg/dL (8.4-10.2); Hemolysis Index 7
--- NOTE | 2019-09-24 17:21 | History and Physical Report ---
History of Present Illness Date of examination: 09/24/19 Date of admission: 09/24/19 11:29 Chief complaint: persistent vomiting since yesterday History of present illness: 20-year-old AAM with pmh of juvenile diabetes comes in for persistent vomiting since yesterday.Vomited about 6 to 7 times yesterday and today.Also some diarrhea since yesterday,Vomiting is prominent.Says he has been taking his insulin.Recently switched to Lantus and regular insulin.No fever or chillss.Says he has been compliant.No altered sensorium. Past History Past Medical History: diabetes (Type 1 DM), other (Myasthenia Gravis??) Past Surgical History: No surgical history Social history: smoking (in past) Family history: hypertension Medications and Allergies Allergies Allergy/AdvReac Type Severity Reaction Status Date / Time morphine Allergy Angioedema Verified 08/19/19 02:27 tomato Allergy Vomiting Verified 08/19/19 13:23 Home Medications Medication Instructions Recorded Confirmed Last Taken Type Amoxicillin/K Clav Tab [Augmentin 1 tab PO Q12HR #14 tab 06/02/18 09/24/19 09/22/19 Rx 875MG TAB] Insulin NPH Hum/Reg Insulin Hm 20 units SUB-Q QPM 30 Days vial 08/20/19 09/24/19 09/22/19 Rx [HumuLIN 70-30 Vial] Insulin NPH Hum/Reg Insulin Hm 30 units SUB-Q QAM 30 Days vial 08/20/19 09/24/19 09/23/19 Rx [HumuLIN 70-30 Vial] Metoclopramide HCl [Reglan TAB] 5 mg PO TIDAC #21 tablet 08/20/19 09/24/19 Unknown Rx Metoprolol 25 mg PO BID 09/24/19 09/24/19 09/22/19 History Active Meds: Active Medications Dextrose (D50w (25gm) Syringe) 0 ml IV Q30MIN PRN; Protocol PRN Reason: Hypoglycemia Insulin Human Regular 100 (units/ Sodium Chloride) 100 mls @ 1 mls/hr IV TITR BREANNE; Protocol Last Titration: 09/24/19 15:45 Dose: 4 units/hr, 4 mls/hr Documented by: Potassium Chloride/Dextrose/Sod Cl (D5w/0.45% Nacl/Kcl 20 Meq) 20 meq in 1,000 mls @ 125 mls/hr IV DIRECT BREANNE Last Admin: 09/24/19 15:34 Dose: 125 mls/hr Documented by: Ondansetron HCl (Zofran) 4 mg IV Q6H PRN PRN Reason: Nausea And Vomiting Last Admin: 09/24/19 15:33 Dose: 4 mg Documented by: Review of Systems All systems: negative Constitutional: no weight loss, no weight gain, no fever, no chills, no sweats, no night sweats Ears, nose, mouth and throat: no ear pain, no ear discharge, no tinnitis, no decreased hearing Cardiovascular: no chest pain, no orthopnea, no palpitations, no rapid/irregular heart beat, no edema, no syncope, no lightheadedness, no shortness of breath Respiratory: no cough, no cough with sputum, no excessive sputum, no hemoptysis, no shortness of breath, no dyspnea on exertion Gastrointestinal: abdominal pain, nausea, vomiting, diarrhea Genitourinary Male: no dysuria, no hematuria, no flank pain, no discharge, no urinary frequency, no urinary hesitancy, no nocturia, no incontinence, no erectile dysfunction, no genital pain Rectal: no pain Musculoskeletal: no neck stiffness, no neck pain, no shooting arm pain, no arm numbness/tingling Integumentary: no rash, no pruritis, no redness, no sores Neurological: no head injury, no seizures, no syncope Psychiatric: no anxiety, no memory loss, no change in sleep habits, no sleep disturbances, no insomnia, no hypersomnia, no change in appetite, no change in libido, no suicidal ideation Endocrine: excessive thirst, polydipsia, polyuria, no cold intolerance, no heat intolerance, no polyphagia Hematologic/Lymphatic: no easy bruising, no easy bleeding Allergic/Immunologic: no urticaria Exam - Constitutional Vitals: Temp Pulse Resp BP Pulse Ox 98.6 F 120 H 13 148/82 94 09/24/19 16:00 09/24/19 16:20 09/24/19 16:20 09/24/19 14:20 09/24/19 16:20 General appearance: Present: mild distress, well-nourished - EENT Eyes: Present: PERRL ENT: hearing intact, clear oral mucosa, other (Dry mucous membranes) - Neck Neck: Present: supple, normal ROM - Respiratory Respiratory effort: normal Respiratory: bilateral: CTA - Cardiovascular Heart rate: 78 Rhythm: regular Heart Sounds: Present: S1 & S2. Absent: rub, click - Extremities Extremities: no ischemia, pulses intact, pulses symmetrical, No edema Peripheral Pulses: within normal limits - Abdominal General gastrointestinal: Present: soft, non-tender, non-distended, normal bowel sounds Male genitourinary: Present: normal - Rectal Rectal Exam: deferred - Integumentary Integumentary: Present: clear, warm, dry - Musculoskeletal Musculoskeletal: gait normal, strength equal bilaterally - Psychiatric Psychiatric: appropriate mood/affect, intact judgment & insight - Neurologic Neurologic: CNII-XII intact, moves all extremities - Allied Health Allied health notes reviewed: nursing, case management Results - Labs CBC & Chem 7: 09/24/19 10:28 09/25/19 03:50 Labs: Laboratory Last Values WBC 11.7 K/mm3 (4.5-11.0) H 09/24/19 10:28 RBC 4.88 M/mm3 (3.65-5.03) 09/24/19 10:28 Hgb 14.5 gm/dl (11.8-15.2) 09/24/19 10:28 Hct 45.0 % (35.5-45.6) 09/24/19 10:28 MCV 92 fl (84-94) 09/24/19 10:28 MCH 30 pg (28-32) 09/24/19 10:28 MCHC 32 % (32-34) 09/24/19 10:28 RDW 16.1 % (13.2-15.2) H 09/24/19 10:28 Plt Count 389 K/mm3 (140-440) 09/24/19 10:28 Lymph % (Auto) 11.8 % (13.4-35.0) L 09/24/19 10:28 [place] % (Auto) 4.4 % (0.0-7.3) 09/24/19 10:28 Eos % (Auto) 0.0 % (0.0-4.3) 09/24/19 10:28 Baso % (Auto) 0.2 % (0.0-1.8) 09/24/19 10:28 Lymph # 1.4 K/mm3 (1.2-5.4) 09/24/19 10:28 [place] # 0.5 K/mm3 (0.0-0.8) 09/24/19 10:28 Eos # 0.0 K/mm3 (0.0-0.4) 09/24/19 10: Baso # 0.0 K/mm3 (0.0-0.1) 09/24/19 10:28 Seg Neutrophils % 83.6 % (40.0-70.0) H 09/24/19 10:28 Seg Neutrophils # 9.8 K/mm3 (1.8-7.7) H 09/24/19 10:28 PT 13.5 Sec. (12.2-14.9) 09/24/19 10:28 INR 1.02 (0.87-1.13) 09/24/19 10:28 Sodium 142 mmol/L (137-145) 09/24/19 15:03 Potassium 3.7 mmol/L (3.6-5.0) 09/24/19 15:03 Chloride 102.1 mmol/L (98-107) 09/24/19 15:03 Carbon Dioxide 17 mmol/L (22-30) L 09/24/19 15:03 Anion Gap 27 mmol/L 09/24/19 15:03 BUN 24 mg/dL (9-20) H 09/24/19 15:03 Creatinine 0.7 mg/dL (0.8-1.5) L 09/24/19 15:03 Estimated GFR > 60 ml/min 09/24/19 15:03 BUN/Creatinine Ratio 34 % 09/24/19 15:03 Glucose 231 mg/dL (75-100) H 09/24/19 15:03 POC Glucose 247 (70-105) H 09/24/19 15:56 Calcium 9.9 mg/dL (8.4-10.2) 09/24/19 15:03 Phosphorus 2.90 mg/dL (2.5-4.5) 09/24/19 12:02 Magnesium 1.80 mg/dL (1.7-2.3) 09/24/19 12:02 Total Bilirubin 0.40 mg/dL (0.1-1.2) 09/24/19 10:28 Direct Bilirubin < 0.2 mg/dL (0-0.2) 09/24/19 10:28 AST 14 units/L (5-40) 09/24/19 10:28 ALT 15 units/L (7-56) 09/24/19 10:28 Alkaline Phosphatase 95 units/L (35-129) 09/24/19 10:28 Total Protein 8.3 g/dL (6.3-8.2) H 09/24/19 10:28 Albumin 4.9 g/dL (3.9-5) 09/24/19 10:28 Albumin/Globulin Ratio 1.4 % 09/24/19 10:28 Amylase 56 units/L (27-131) 09/24/19 10:28 Lipase 4 units/L (13-60) L 09/24/19 10:28 Urine Color Straw (Yellow) 09/24/19 12:47 Urine Turbidity Clear (Clear) 09/24/19 12:47 Urine pH 5.0 (5.0-7.0) 09/24/19 12:47 Ur Specific [place] 1.030 (1.003-1.030) 09/24/19 12:47 Urine Protein <15 mg/dl mg/dL (Negative) 09/24/19 12:47 Urine Glucose (UA) >=500 mg/dL (Negative) 09/24/19 12:47 Urine Ketones 80 mg/dL (Negative) 09/24/19 12:47 Urine Blood Sm (Negative) 09/24/19 12:47 Urine Nitrite Neg (Negative) 09/24/19 12:47 Urine Bilirubin Neg (Negative) 09/24/19 12:47 Urine Urobilinogen < 2.0 mg/dL (<2.0) 09/24/19 12:47 Ur Leukocyte Esterase Neg (Negative) 09/24/19 12:47 Urine WBC (Auto) < 1.0 /HPF (0.0-6.0) 09/24/19 12:47 Urine RBC (Auto) 1.0 /HPF (0.0-6.0) 09/24/19 12:47 Short CBC 09/24/19 Range/Units 10:28 WBC 11.7 H (4.5-11.0) K/mm3 Hgb 14.5 (11.8-15.2) gm/dl Hct 45.0 (35.5-45.6) % Plt Count 389 (140-440) K/mm3 BMP 09/24/19 09/24/19 09/24/19 10:28 12:02 15:03 Sodium 137 144 D 142 Potassium 4.0 3.5 L 3.7 Chloride 92.5 L 101.4 102.1 Carbon Dioxide 14 L 17 L 17 L BUN 23 H 24 H 24 H Creatinine 0.8 0.8 0.7 L Glucose 450 H 344 H 231 H Calcium 10.6 H 10.0 9.9 09/24/19 09/24/19 09/25/19 19:00 21:30 00:02 Sodium 143 142 142 Potassium 3.7 3.9 3.9 Chloride 103.8 104.8 105.6 Carbon Dioxide 18 L 22 23 BUN 24 H 25 H 26 H Creatinine 0.7 L 0.7 L 0.7 L Glucose 181 H 171 H 178 H Calcium 10.1 9.5 9.4 09/25/19 03:50 Sodium 143 Potassium 3.7 Chloride 107.2 H Carbon Dioxide 23 BUN 27 H Creatinine 0.7 L Glucose 164 H Calcium 9.3 Liver Function 09/24/19 Range/Units 10:28 Total Bilirubin 0.40 (0.1-1.2) mg/dL Direct Bilirubin < 0.2 (0-0.2) mg/dL AST 14 (5-40) units/L ALT 15 (7-56) units/L Alkaline Phosphatase 95 (35-129) units/L Albumin 4.9 (3.9-5) g/dL Urine 09/24/19 Range/Units 12:47 Urine Color Straw (Yellow) Urine pH 5.0 (5.0-7.0) Ur Specific [place] 1.030 (1.003-1.030) Urine Protein <15 mg/dl (Negative) mg/dL Urine Glucose (UA) >=500 (Negative) mg/dL High/IV: Voiding Method Urinal IV Catheter Type [Left Upper INT / Saline Lock arm] IV Catheter Type [Left INT / Saline Lock Antecubital] Assessment and Plan Assessment and plan: Critical care time 35 minutes Advance Directives: Yes (Full code) VTE prophylaxis?: Chemical Plan of care discussed with patient/family: Yes - Patient Problems (1) Diabetic ketoacidosis Current Visit: Yes Status: Acute Qualifiers: Diabetes mellitus type: type 1 Diabetes mellitus complication detail: without coma Qualified Code(s): E10.10 - Type 1 diabetes mellitus with ketoacidosis without coma Plan to address problem: DKA protocol OV INsulin and IV FLuids for now NPO IV Zofran and IV Reglan Patient needs to be on 70/30 bid with regular insulin before Lunch for increased compliance. (2) Dehydration Current Visit: Yes Status: Acute Plan to address problem: IV fluids for now (3) HTN (hypertension) Current Visit: Yes Status: Chronic Qualifiers: Hypertension type: essential hypertension Qualified Code(s): I10 - Essential (primary) hypertension Plan to address problem: On Metoprolol (4) DVT prophylaxis Current Visit: No Status: Acute Plan to address problem: On Heparin and GI prophylaxis
[2019-09-24] MEDS ORDERED: POTASSIUM CHLORIDE 10 MEQ 10 MEQ/100 ML BAG IV PRN ×2 (18:00)
[2019-09-24 19:44] LABS: BUN/Creatinine Ratio 34; Blood Urea Nitrogen 24 mg/dL (9-20); Calcium 10.1 mg/dL (8.4-10.2); Hemolysis Index 8
[2019-09-24] MEDS ORDERED: LORazepam 2 MG/ML VIAL IV PRN (20:19)
[2019-09-24] MEDS: KETOROLAC 30 MG/1 ML INJ IV PRN (20:30)
[2019-09-24] MEDS: METOCLOPRAMIDE 10 MG/2 ML INJ IV PRN (20:31)
[2019-09-24] MEDS: METOPROLOL TARTRATE 25 MG TAB PO SCH (21:30)
[2019-09-24] MEDS ORDERED: NON-FORMULARY EACH (Metoprolol 25 MG) PO SCH (22:00)
[2019-09-24 22:03] LABS: BUN/Creatinine Ratio 36; Blood Urea Nitrogen 25 mg/dL (9-20); Calcium 9.5 mg/dL (8.4-10.2); Hemolysis Index 7
[2019-09-25 00:55] LABS: BUN/Creatinine Ratio 37; Blood Urea Nitrogen 26 mg/dL (9-20); Calcium 9.4 mg/dL (8.4-10.2); Hemolysis Index 5
[2019-09-25 04:16] LABS: BUN/Creatinine Ratio 39; Blood Urea Nitrogen 27 mg/dL (9-20); Calcium 9.3 mg/dL (8.4-10.2); Hemolysis Index 4
[2019-09-25] MEDS: INSULIN LISPRO 100 UNIT/ML SUB-Q SCH ×4 (08:58→22:46)
[2019-09-25] MEDS: METOPROLOL TARTRATE 25 MG TAB PO SCH ×2 (09:43→21:59)
[2019-09-25] MEDS: INSULIN NPH/REGULAR 70/30 INJ SUB-Q SCH ×2 (09:46→17:47)
[2019-09-25] MEDS ORDERED: PANTOPRAZOLE 40 MG TAB PO SCH (10:00)
[2019-09-25 10:22] LABS: BUN/Creatinine Ratio 38; Blood Urea Nitrogen 23 mg/dL (9-20); Calcium 9.3 mg/dL (8.4-10.2); Hemolysis Index 9
[2019-09-25] MEDS: METOCLOPRAMIDE 10 MG/2 ML INJ IV PRN ×2 (10:38→14:15)
[2019-09-25] MEDS: KETOROLAC 30 MG/1 ML INJ IV PRN ×2 (10:38→22:47)
[2019-09-25] MEDS: LOSARTAN 25 MG TAB PO SCH (11:53)
[2019-09-25] MEDS ORDERED: cloNIDine 0.1 MG TAB PO ONE (14:00)
[2019-09-25] MEDS: METOCLOPRAMIDE 10 MG/10 ML ORAL LIQD PO SCH ×3 (14:36→21:59)
[2019-09-25 14:45] LABS: BUN/Creatinine Ratio 38; Blood Urea Nitrogen 23 mg/dL (9-20); Calcium 9.4 mg/dL (8.4-10.2); Hemolysis Index 16
[2019-09-25 17:25] LABS: BUN/Creatinine Ratio 37; Blood Urea Nitrogen 22 mg/dL (9-20); Calcium 9.1 mg/dL (8.4-10.2); Hemolysis Index 8
[2019-09-25] MEDS ORDERED: INSULIN NPH/REGULAR 70/30 INJ SUB-Q SCH (18:00)
--- NOTE | 2019-09-25 19:31 | Progress Note ---
Assessment and Plan - Patient Problems (1) Dehydration Current Visit: Yes Status: Acute Plan to address problem: Patient dehydration secondary to DKA polyuria polyphagia. Will improve with aggressive IV hydration follow-up labs in a.m. (2) Diabetic ketoacidosis Current Visit: Yes Status: Acute Qualifiers: Diabetes mellitus type: type 1 Diabetes mellitus complication detail: without coma Qualified Code(s): E10.10 - Type 1 diabetes mellitus with ketoacidosis without coma Plan to address problem: Patient with diabetic ketoacidosis gap has closed. Unsure if patient was compliant with medications because usually when the insulin is introduced patient cannot really going to DKA patient will continue 70/30 insulin twice daily 30 units from home. (3) HTN (hypertension) Current Visit: Yes Status: Chronic Qualifiers: Hypertension type: essential hypertension Qualified Code(s): I10 - Essential (primary) hypertension Plan to address problem: Patient optimal control blood pressure at this particular time continue present medical management. Metoprolol. (4) Acute kidney injury Current Visit: Yes Status: Acute Plan to address problem: Has since resolved. IV hydration. History Interval history: Patient feels much better. States he could not sleep last night and therefore remains tired. Patient hospital course complicated by DKA. His gap has since resolved. Will place patient back on 70/30 insulin today. No acute concerns except epigastric pain. Patient states he takes Reglan and Protonix at home. Hospitalist Physical - Constitutional Vitals: Temp Pulse Resp BP Pulse Ox 98.3 F 101 H 22 143/101 98 09/25/19 16:21 09/25/19 16:21 09/25/19 16:21 09/25/19 16:21 09/25/19 16:21 General appearance: Present: no acute distress, well-nourished - EENT Eyes: Present: PERRL, EOM intact ENT: hearing intact, clear oral mucosa, dentition normal, other (ptosis common) - Neck Neck: Present: supple, normal ROM - Respiratory Respiratory effort: normal Respiratory: bilateral: CTA - Cardiovascular Rhythm: regular Heart Sounds: Present: S1 & S2 - Extremities Extremities: no ischemia, pulses intact, pulses symmetrical, No edema, normal temperature, normal color Peripheral Pulses: within normal limits - Abdominal General gastrointestinal: soft, non-tender, non-distended, normal bowel sounds, no hepatomegaly, no splenomegaly - Integumentary Integumentary: Present: clear, warm, dry. Absent: jaundice, rash, clammy - Psychiatric Psychiatric: appropriate mood/affect, intact judgment & insight, memory intact - Neurologic Neurologic: CNII-XII intact, moves all extremities Results - Labs CBC & Chem 7: 09/24/19 10:28 09/25/19 16:51 Labs: Laboratory Last Values WBC 11.7 K/mm3 (4.5-11.0) H 09/24/19 10: RBC 4.88 M/mm3 (3.65-5.03) 09/24/19 10:28 Hgb 14.5 gm/dl (11.8-15.2) 09/24/19 10: Hct 45.0 % (35.5-45.6) 09/24/19 10: MCV 92 fl (84-94) 09/24/19 10: MCH 30 pg (28-32) 09/24/19 10: MCHC 32 % (32-34) 09/24/19 10: RDW 16.1 % (13.2-15.2) H 09/24/19 10:28 Plt Count 389 K/mm3 (140-440) 09/24/19 10: Lymph % (Auto) 11.8 % (13.4-35.0) L 09/24/19 10: [place] % (Auto) 4.4 % (0.0-7.3) 09/24/19 10: Eos % (Auto) 0.0 % (0.0-4.3) 09/24/19 10: Baso % (Auto) 0.2 % (0.0-1.8) 09/24/19 10:28 Lymph # 1.4 K/mm3 (1.2-5.4) 09/24/19 10: [place] # 0.5 K/mm3 (0.0-0.8) 09/24/19 10: Eos # 0.0 K/mm3 (0.0-0.4) 09/24/19 10:28 Baso # 0.0 K/mm3 (0.0-0.1) 09/24/19 10:28 Seg Neutrophils % 83.6 % (40.0-70.0) H 09/24/19 10:28 Seg Neutrophils # 9.8 K/mm3 (1.8-7.7) H 09/24/19 10:28 PT 13.5 Sec. (12.2-14.9) 09/24/19 10:28 INR 1.02 (0.87-1.13) 09/24/19 10:28 Sodium 140 mmol/L (137-145) 09/25/19 16:51 Potassium 3.7 mmol/L (3.6-5.0) 09/25/19 16:51 Chloride 104.7 mmol/L (98-107) 09/25/19 16:51 Carbon Dioxide 22 mmol/L (22-30) 09/25/19 16:51 Anion Gap 17 mmol/L 09/25/19 16:51 BUN 22 mg/dL (9-20) H 09/25/19 16:51 Creatinine 0.6 mg/dL (0.8-1.5) L 09/25/19 16:51 Estimated GFR > 60 ml/min 09/25/19 16:51 BUN/Creatinine Ratio 37 % 09/25/19 16:51 Glucose 173 mg/dL (75-100) H 09/25/19 16:51 POC Glucose 138 (70-105) H 09/25/19 16:31 Hemoglobin A1c 10.4 % (4-6) H 09/24/19 19:00 Calcium 9.1 mg/dL (8.4-10.2) 09/25/19 16:51 Phosphorus 2.20 mg/dL (2.5-4.5) L D 09/24/19 19:00 Magnesium 1.70 mg/dL (1.7-2.3) 09/24/19 19:00 Total Bilirubin 0.40 mg/dL (0.1-1.2) 09/24/19 10:28 Direct Bilirubin < 0.2 mg/dL (0-0.2) 09/24/19 10:28 AST 14 units/L (5-40) 09/24/19 10:28 ALT 15 units/L (7-56) 09/24/19 10:28 Alkaline Phosphatase 95 units/L (35-129) 09/24/19 10:28 Total Protein 8.3 g/dL (6.3-8.2) H 09/24/19 10:28 Albumin 4.9 g/dL (3.9-5) 09/24/19 10:28 Albumin/Globulin Ratio 1.4 % 09/24/19 10:28 Amylase 56 units/L (27-131) 09/24/19 10:28 Lipase 4 units/L (13-60) L 09/24/19 10:28 Urine Color Straw (Yellow) 09/24/19 12:47 Urine Turbidity Clear (Clear) 09/24/19 12:47 Urine pH 5.0 (5.0-7.0) 09/24/19 12:47 Ur Specific [place] 1.030 (1.003-1.030) 09/24/19 12:47 Urine Protein <15 mg/dl mg/dL (Negative) 09/24/19 12:47 Urine Glucose (UA) >=500 mg/dL (Negative) 09/24/19 12:47 Urine Ketones 80 mg/dL (Negative) 09/24/19 12:47 Urine Blood Sm (Negative) 09/24/19 12:47 Urine Nitrite Neg (Negative) 09/24/19 12:47 Urine Bilirubin Neg (Negative) 09/24/19 12:47 Urine Urobilinogen < 2.0 mg/dL (<2.0) 09/24/19 12:47 Ur Leukocyte Esterase Neg (Negative) 09/24/19 12:47 Urine WBC (Auto) < 1.0 /HPF (0.0-6.0) 09/24/19 12:47 Urine RBC (Auto) 1.0 /HPF (0.0-6.0) 09/24/19 12:47 High/IV: Voiding Method Toilet IV Catheter Type [Left Upper INT / Saline Lock arm] IV Catheter Type [Left INT / Saline Lock Antecubital] Active Medications - Current Medications Current Medications: Generic Name Dose Route Start Last Admin Trade Name Freq PRN Reason Stop Dose Admin Dextrose 0 ml 09/24/19 11:25 D50w (25gm) Syringe IV Q30MIN PRN Hypoglycemia Protocol Insulin Human Isoph/Insulin Regular 20 unit 09/25/19 09:00 09/25/19 17:47 Humulin 70/30 SUB-Q 20 unit BIDDIAB BREANNE Administration Insulin Human Lispro 0 unit 09/25/19 09:00 09/25/19 17:15 Humalog SUB-Q Not Given ACHS [facility] Protocol Ketorolac Tromethamine 15 mg 09/24/19 20:17 09/25/19 10:38 Toradol IV 09/30/19 07:00 15 mg Q6H PRN Administration Pain, Mild (1-3) Losartan Potassium 25 mg 09/25/19 12:00 09/25/19 11:53 Cozaar PO 25 mg QDAY BREANNE Administration Metoclopramide HCl 10 mg 09/24/19 20:15 09/25/19 10:38 Reglan IV 10 mg Q6H PRN Administration Nausea And Vomiting Metoclopramide HCl 10 mg 09/25/19 14:15 09/25/19 17:48 Reglan PO 10 mg ACHS BREANNE Administration Metoprolol Tartrate 25 mg 09/24/19 22:00 09/25/19 09:43 Metoprolol PO 25 mg BID BREANNE Administration Ondansetron HCl 4 mg 09/24/19 15:09 09/24/19 15:33 Zofran IV 4 mg Q6H PRN Administration Nausea And Vomiting Pantoprazole Sodium 40 mg 09/25/19 10:00 09/25/19 09:43 Protonix PO 40 mg QDAY BREANNE Administration Nutrition/Malnutrition Assess - Dietary Evaluation Nutrition/Malnutrition Findings: Nutrition Notes Start: 09/24/19 12:42 Freq: Status: Active Protocol: Document 09/25/19 15:22 LM (Rec: 09/25/19 15:23 LM [email or web address]) Nutrition Notes Initial or Follow up Brief Note Current Diagnosis Diabetes,Hypertension Other Pertinent Diagnosis DKA, dehydration, Myasthenia Gravis Current Diet Consistent CHO Subjective/Other Information Unable to speak to pt. Diet advanced to consistent CHO. Nutrition Intervention Follow-Up By: 09/28/19 Additional Comments F/U for assessment, DM diet education needs
[2019-09-26] MEDS ORDERED: oxyCODONE /ACETAMINOPHEN 5-325MG TAB PO PRN (02:20)
[2019-09-26] MEDS: ONDANSETRON 4 MG/2 ML INJ IV PRN (02:58)
[2019-09-26] MEDS: KETOROLAC 30 MG/1 ML INJ IV PRN ×2 (06:02→12:53)
[2019-09-26] MEDS ORDERED: hydrALAZINE 20 MG/1 ML INJ IV ONE (07:10)
[2019-09-26] MEDS: METOCLOPRAMIDE 10 MG/10 ML ORAL LIQD PO SCH ×4 (08:00→22:00)
[2019-09-26] MEDS: INSULIN LISPRO 100 UNIT/ML SUB-Q SCH ×4 (08:54→22:00)
--- NOTE | 2019-09-26 09:33 | Progress Note ---
Assessment and Plan - Patient Problems (1) Dehydration Current Visit: Yes Status: Acute Plan to address problem: Most likely secondary to gastroparesis persistent nausea vomiting and recent DKA. Will start patient on aggressive IV fluid resuscitation. Attempt to treat gastroparesis Reglan and Zofran. (2) Diabetic ketoacidosis Current Visit: Yes Status: Acute Qualifiers: Diabetes mellitus type: type 1 Diabetes mellitus complication detail: without coma Qualified Code(s): E10.10 - Type 1 diabetes mellitus with ketoacidosis without coma Plan to address problem: Resolving with an insulin. Patient is gap is closed sugars normalized. Hospital course now complicated by gastroparesis. (3) HTN (hypertension) Current Visit: Yes Status: Chronic Qualifiers: Hypertension type: essential hypertension Qualified Code(s): I10 - Essential (primary) hypertension Plan to address problem: We will hold antihypertensives now. Patient nauseated vomiting. Will treat with IV because patient not able to tolerate p.o. IV hydralazine labetalol. (4) Acute kidney injury Current Visit: Yes Status: Acute Plan to address problem: Secondary to prerenal azotemia. Vasomotor nephropathy. (5) Gastroparesis due to DM Current Visit: Yes Status: Acute Plan to address problem: We will continue Reglan IV will add Protonix as well and also Zofran increased to 8 mg every 6 hours as needed. History Interval history: Patient hospital course complicated by persistent nausea and vomiting secondary to gastroparesis. Patient has had this in the past. Otherwise blood sugars are stable and gap is closed. Hospitalist Physical - Constitutional Vitals: Temp Pulse Resp BP Pulse Ox 98.4 F 107 H 18 176/117 99 09/26/19 06:25 09/26/19 07:06 09/26/19 07:07 09/26/19 07:07 09/26/19 07:06 General appearance: Present: no acute distress, well-nourished - EENT Eyes: Present: PERRL, EOM intact ENT: hearing intact, clear oral mucosa, dentition normal - Neck Neck: Present: supple, normal ROM - Respiratory Respiratory effort: normal Respiratory: bilateral: CTA - Cardiovascular Rhythm: regular - Extremities Extremities: no ischemia, pulses intact, pulses symmetrical, No edema, normal temperature, normal color Peripheral Pulses: within normal limits - Abdominal General gastrointestinal: soft, non-tender, non-distended - Integumentary Integumentary: Present: clear, warm, dry - Psychiatric Psychiatric: appropriate mood/affect - Neurologic Neurologic: CNII-XII intact Results - Labs CBC & Chem 7: 09/24/19 10:28 09/25/19 16:51 Labs: Laboratory Last Values WBC 11.7 K/mm3 (4.5-11.0) H 09/24/19 10:28 RBC 4.88 M/mm3 (3.65-5.03) 09/24/19 10:28 Hgb 14.5 gm/dl (11.8-15.2) 09/24/19 10:28 Hct 45.0 % (35.5-45.6) 09/24/19 10:28 MCV 92 fl (84-94) 09/24/19 10:28 MCH 30 pg (28-32) 09/24/19 10: MCHC 32 % (32-34) 09/24/19 10:28 RDW 16.1 % (13.2-15.2) H 09/24/19 10:28 Plt Count 389 K/mm3 (140-440) 09/24/19 10:28 Lymph % (Auto) 11.8 % (13.4-35.0) L 09/24/19 10:28 [place] % (Auto) 4.4 % (0.0-7.3) 09/24/19 10:28 Eos % (Auto) 0.0 % (0.0-4.3) 09/24/19 10:28 Baso % (Auto) 0.2 % (0.0-1.8) 09/24/19 10:28 Lymph # 1.4 K/mm3 (1.2-5.4) 09/24/19 10:28 [place] # 0.5 K/mm3 (0.0-0.8) 09/24/19 10:28 Eos # 0.0 K/mm3 (0.0-0.4) 09/24/19 10:28 Baso # 0.0 K/mm3 (0.0-0.1) 09/24/19 10:28 Seg Neutrophils % 83.6 % (40.0-70.0) H 09/24/19 10:28 Seg Neutrophils # 9.8 K/mm3 (1.8-7.7) H 09/24/19 10:28 PT 13.5 Sec. (12.2-14.9) 09/24/19 10:28 INR 1.02 (0.87-1.13) 09/24/19 10:28 Sodium 140 mmol/L (137-145) 09/25/19 16:51 Potassium 3.7 mmol/L (3.6-5.0) 09/25/19 16:51 Chloride 104.7 mmol/L (98-107) 09/25/19 16:51 Carbon Dioxide 22 mmol/L (22-30) 09/25/19 16:51 Anion Gap 17 mmol/L 09/25/19 16:51 BUN 22 mg/dL (9-20) H 09/25/19 16:51 Creatinine 0.6 mg/dL (0.8-1.5) L 09/25/19 16:51 Estimated GFR > 60 ml/min 09/25/19 16:51 BUN/Creatinine Ratio 37 % 09/25/19 16:51 Glucose 173 mg/dL (75-100) H 09/25/19 16:51 POC Glucose 194 (70-105) H 09/26/19 07:43 Hemoglobin A1c 10.4 % (4-6) H 09/24/19 19:00 Calcium 9.1 mg/dL (8.4-10.2) 09/25/19 16:51 Phosphorus 2.20 mg/dL (2.5-4.5) L D 09/24/19 19:00 Magnesium 1.70 mg/dL (1.7-2.3) 09/24/19 19:00 Total Bilirubin 0.40 mg/dL (0.1-1.2) 09/24/19 10:28 Direct Bilirubin < 0.2 mg/dL (0-0.2) 09/24/19 10:28 AST 14 units/L (5-40) 09/24/19 10:28 ALT 15 units/L (7-56) 09/24/19 10:28 Alkaline Phosphatase 95 units/L (35-129) 09/24/19 10:28 Total Protein 8.3 g/dL (6.3-8.2) H 09/24/19 10:28 Albumin 4.9 g/dL (3.9-5) 09/24/19 10:28 Albumin/Globulin Ratio 1.4 % 09/24/19 10:28 Amylase 56 units/L (27-131) 09/24/19 10:28 Lipase 4 units/L (13-60) L 09/24/19 10:28 Urine Color Straw (Yellow) 09/24/19 12:47 Urine Turbidity Clear (Clear) 09/24/19 12:47 Urine pH 5.0 (5.0-7.0) 09/24/19 12:47 Ur Specific [place] 1.030 (1.003-1.030) 09/24/19 12:47 Urine Protein <15 mg/dl mg/dL (Negative) 09/24/19 12:47 Urine Glucose (UA) >=500 mg/dL (Negative) 09/24/19 12:47 Urine Ketones 80 mg/dL (Negative) 09/24/19 12:47 Urine Blood Sm (Negative) 09/24/19 12:47 Urine Nitrite Neg (Negative) 09/24/19 12:47 Urine Bilirubin Neg (Negative) 09/24/19 12:47 Urine Urobilinogen < 2.0 mg/dL (<2.0) 09/24/19 12:47 Ur Leukocyte Esterase Neg (Negative) 09/24/19 12:47 Urine WBC (Auto) < 1.0 /HPF (0.0-6.0) 09/24/19 12:47 Urine RBC (Auto) 1.0 /HPF (0.0-6.0) 09/24/19 12:47 High/IV: Voiding Method Urinal IV Catheter Type [Left Upper INT / Saline Lock arm] IV Catheter Type [Left INT / Saline Lock Antecubital] Active Medications - Current Medications Current Medications: Generic Name Dose Route Start Last Admin Trade Name Freq PRN Reason Stop Dose Admin Dextrose 0 ml 09/24/19 11:25 D50w (25gm) Syringe IV Q30MIN PRN Hypoglycemia Protocol Insulin Human Isoph/Insulin Regular 20 unit 09/25/19 09:00 09/25/19 17:47 Humulin 70/30 SUB-Q 20 unit BIDDIAB BREANNE Administration Insulin Human Lispro 0 unit 09/25/19 09:00 09/26/19 08:54 Humalog SUB-Q Not Given ACHS [facility] Protocol Ketorolac Tromethamine 15 mg 09/24/19 20:17 09/26/19 06:02 Toradol IV 09/30/19 07:00 15 mg Q6H PRN Administration Pain, Mild (1-3) Losartan Potassium 25 mg 09/25/19 12:00 09/25/19 11:53 Cozaar PO 25 mg QDAY BREANNE Administration Metoclopramide HCl 10 mg 09/24/19 20:15 09/25/19 10:38 Reglan IV 10 mg Q6H PRN Administration Nausea And Vomiting Metoclopramide HCl 10 mg 09/25/19 14:15 09/25/19 21:59 Reglan PO 10 mg ACHS BREANNE Administration Metoprolol Tartrate 25 mg 09/24/19 22:00 09/25/19 21:59 Metoprolol PO 25 mg BID BREANNE Administration Ondansetron HCl 4 mg 09/24/19 15:09 09/26/19 02:58 Zofran IV 4 mg Q6H PRN Administration Nausea And Vomiting Oxycodone/Acetaminophen 1 tab 09/26/19 02:20 09/26/19 02:59 Percocet 5/325 PO 1 tab Q4H PRN Administration Pain, Moderate (4-6) Pantoprazole Sodium 40 mg 09/25/19 10:00 09/25/19 09:43 Protonix PO 40 mg QDAY BREANNE Administration Nutrition/Malnutrition Assess - Dietary Evaluation Nutrition/Malnutrition Findings: Nutrition Notes Start: 09/24/19 12:42 Freq: Status: Active Protocol: Document 09/25/19 15:22 LM (Rec: 09/25/19 15:23 LM [email or web address]) Nutrition Notes Initial or Follow up Brief Note Current Diagnosis Diabetes,Hypertension Other Pertinent Diagnosis DKA, dehydration, Myasthenia Gravis Current Diet Consistent CHO Subjective/Other Information Unable to speak to pt. Diet advanced to consistent CHO. Nutrition Intervention Follow-Up By: 09/28/19 Additional Comments F/U for assessment, DM diet education needs
[2019-09-26] MEDS ORDERED: ONDANSETRON 4 MG/2 ML INJ IV PRN (09:36)
[2019-09-26] MEDS: SODIUM CHLORIDE 0.9% 1000 ML 1,000 ML IV SCH ×2 (11:37→21:59)
[2019-09-26] MEDS: INSULIN NPH/REGULAR 70/30 INJ SUB-Q SCH ×2 (11:43→17:56)
[2019-09-26] MEDS: hydrALAZINE 20 MG/1 ML INJ IV SCH ×3 (11:43→23:54)
[2019-09-26] MEDS: LOSARTAN 25 MG TAB PO SCH (11:44)
[2019-09-26] MEDS: METOPROLOL TARTRATE 25 MG TAB PO SCH ×2 (11:44→22:00)
[2019-09-26] MEDS: PANTOPRAZOLE 40 MG INJ IV SCH (11:44)
[2019-09-26] MEDS: LORazepam 2 MG/ML VIAL IV PRN (12:52)
[2019-09-26 13:48] LABS: Alanine Aminotransferase 12 units/L (7-56); Albumin 4.3 g/dL (3.9-5); BUN/Creatinine Ratio 34; Blood Urea Nitrogen 24 mg/dL (9-20); Calcium 9.7 mg/dL (8.4-10.2); Hemolysis Index 6
[2019-09-27] MEDS: hydrALAZINE 20 MG/1 ML INJ IV SCH ×2 (05:27→12:29)
[2019-09-27] MEDS: SODIUM CHLORIDE 0.9% 1000 ML 1,000 ML IV SCH (05:28)
[2019-09-27] MEDS: METOCLOPRAMIDE 10 MG/10 ML ORAL LIQD PO SCH ×2 (07:30→11:30)
[2019-09-27] MEDS: INSULIN LISPRO 100 UNIT/ML SUB-Q SCH ×2 (07:30→11:30)
[2019-09-27] MEDS: INSULIN NPH/REGULAR 70/30 INJ SUB-Q SCH (08:47)
[2019-09-27] MEDS: LORazepam 2 MG/ML VIAL IV PRN (10:20)
[2019-09-27] MEDS: KETOROLAC 30 MG/1 ML INJ IV PRN (10:21)
[2019-09-27] MEDS: LOSARTAN 25 MG TAB PO SCH (10:22)
[2019-09-27] MEDS: PANTOPRAZOLE 40 MG INJ IV SCH (10:22)
[2019-09-27] MEDS: METOPROLOL TARTRATE 25 MG TAB PO SCH (10:22)
--- NOTE | 2019-09-27 11:41 | Discharge Summary ---
Providers - Providers Date of Admission: 09/24/19 11:29 Date of discharge: 09/27/19 Attending physician: RAINER SCHWARTZ 09/24/19 11:26 Consult to Dietitian/Nutrition [CONS] Routine Physician Instructions: Reason For Exam: DKA Reason for Consult: Nutrition Recommendations Reason for Consult: Poor oral intake 09/24/19 17:04 Consult to Dietitian/Nutrition [CONS] Routine Physician Instructions: Reason For Exam: DKA Reason for Consult: Nutrition Recommendations Reason for Consult: Diet education Primary care physician: [employer] Hospitalization Condition: Stable Hospital course: Patient was admitted for diabetic ketoacidosis transferred to ICU placed on insulin drip. Patient defervesced well gap closed was placed on home insulin 70/30 30 units twice daily. Patient did well with this. Hospital course was complicated by gastroparesis in which she had episodes nausea vomiting unable to keep any food down. Also complicated by panic attack. Patient responded very well to increased doses of Zofran. Aggressive IV fluid replacement Protonix IV and Ativan for anxiety. Patient stable has not had any vomiting able to tolerate foods today. Patient states he is at his baseline and usually does well with Reglan at home. Patient has long history of gastroparesis. States he knows how to deal with this. I suspect because his anxiety was high he had difficulty controlling this at this time. We will also discharged with Ativan as well. Patient told to follow-up with psychiatry as well. Disposition: DC-01 TO HOME OR SELFCARE - Discharge Diagnoses (1) Dehydration Status: Resolved Comment: secondary to DKA (2) Diabetic ketoacidosis Status: Acute Qualifiers: Diabetes mellitus type: type 1 Diabetes mellitus complication detail: without coma Qualified Code(s): E10.10 - Type 1 diabetes mellitus with ketoacidosis without coma Comment: Patient with diabetic ketoacidosis. Has since resolved with home insulin 70/30 30 units twice daily. Will discharge home with this. Gap is close no longer dehydrated. No nausea vomiting. (3) HTN (hypertension) Status: Chronic Qualifiers: Hypertension type: essential hypertension Qualified Code(s): I10 - Essent ial (primary) hypertension Comment: Now much more stable. Patient was treated with hydralazine yesterday because cannot hold food down. Now much better controlled since patient able to tolerate p.o. stable to discharge with his blood pressure. (4) Acute kidney injury Status: Acute Comment: Prerenal azotemia (5) Gastroparesis due to DM Status: Acute Comment: Will increase Zofran to 8 mg every 6 hours as needed. We will also give Protonix 40 mg twice daily follow-up with GI as outpatient. Core Measure Documentation - Palliative Care Palliative Care/ Comfort Measures: Not Applicable - Core Measures Any of the following diagnoses?: none Exam - Constitutional Vitals: Temp Pulse Resp BP Pulse Ox 97.9 F 106 H 16 147/101 98 09/27/19 05:10 09/27/19 05:10 09/27/19 05:10 09/27/19 05:10 09/27/19 05:10 General appearance: Present: no acute distress, well-nourished - EENT Eyes: Present: PERRL ENT: hearing intact, clear oral mucosa - Neck Neck: Present: supple, normal ROM - Respiratory Respiratory effort: normal Respiratory: bilateral: CTA - Cardiovascular Heart Sounds: Present: S1 & S2. Absent: rub, click - Extremities Extremities: pulses symmetrical, No edema Peripheral Pulses: within normal limits - Abdominal General gastrointestinal: Present: soft, non-tender, non-distended, normal bowel sounds Male genitourinary: Present: normal - Integumentary Integumentary: Present: clear, warm, dry - Musculoskeletal Musculoskeletal: gait normal, strength equal bilaterally - Psychiatric Psychiatric: appropriate mood/affect, intact judgment & insight - Neurologic Neurologic: CNII-XII intact, moves all extremities Plan Activity: no restrictions Weight Bearing Status: Full Weight Bearing Diet: diabetic Follow up with: PRIMARY CARE, [Primary Care Provider] - 3-5 Days Prescriptions: Losartan [Cozaar] 50 mg PO QDAY #30 tablet Insulin NPH Hum/Reg Insulin Hm [HumuLIN 70-30 Vial] 30 units SUB-Q QAM 30 Days vial Insulin NPH Hum/Reg Insulin Hm [HumuLIN 70-30 Vial] 20 units SUB-Q QPM 30 Days vial Metoprolol [Lopressor TAB] 25 mg PO BID #60 tablet Insulin NPH/Regular [NovoLIN 70/30] 30 unit SUB-Q BIDDIAB #1 units oxyCODONE /ACETAMINOPHEN [Percocet 5/325 mg] 1 tab PO Q4H PRN #20 tablet PRN Reason: Pain, Moderate (4-6) Metoclopramide HCl [Reglan TAB] 5 mg PO TIDAC #21 tablet
[2019-09-27 15:21] VITALS: BP 141/99
== END 2019-09-27 16:29 | disposition home or self-care (01) | DRG 638 ==
LOC: ED 09:52 → CC1 11:29 → 3A 09-25 15:03
PROVIDERS: ADMIT Internal Medicine; ATTEND Internal Medicine
DX: E10.10 Type 1 diabetes mellitus with ketoacidosis without coma (principal); N17.9 Acute kidney failure, unspecified; I10 Essential (primary) hypertension; E10.43 Type 1 diabetes mellitus with diabetic autonomic (poly)neuropathy; K31.84 Gastroparesis; F41.9 Anxiety disorder, unspecified; E86.0 Dehydration; G70.00 Myasthenia gravis without (acute) exacerbation; Z82.49 Family history of ischemic heart disease and other diseases of the circulatory system; Z87.891 Personal history of nicotine dependence; Z88.5 Allergy status to narcotic agent; Z91.018 Allergy to other foods; Z79.899 Other long term (current) drug therapy
CPT/HCPCS: 36415; 80048; 80053; 80076; 81001; 82150; 82962; 83036; 83690; 83735; 84100; 85025; 85610; 96360; G0378; C9113; J0360; J1815; J1885; J2060; J2405; J2765; J7030

== ENCOUNTER 2020-04-12 11:25 | Observation (INO) | payer SELFPAY ==
[2020-04-12] MEDS ORDERED: SODIUM CHLORIDE 0.9% 1000 ML 2,000 ML ONE (11:55)
--- NOTE | 2020-04-12 11:59 | Emergency Department Report ---
HPI - General Chief Complaint: Hyperglycemia Time Seen by Provider: 04/12/20 11:49 - HPI HPI: Room 19 The patient is a 79-year-old male present with a chief complaint of syncope. The patient states he has not had much of an appetite over the past week and has had decreased p.o. intake. Patient states this morning he got up to use the bathroom and while walking to the bathroom he lost consciousness. The patient states his next memory is waking up on the floor with EMS on scene. Patient denies any preceding symptoms. Patient denies chest pain, shortness of breath, nausea/vomiting or pain of any type. Patient denies diarrhea. Patient states he has been compliant with his insulin ED Past Medical Hx - Past Medical History Hx Hypertension: Yes Hx Diabetes: Yes Additional medical history: Myasthenia gravis - Social History Smoking Status: Never Smoker Substance Use Type: None - Medications Home Medications: Home Medications Medication Instructions Recorded Confirmed Last Taken Type Metoprolol 25 mg PO BID 09/24/19 09/24/19 09/22/19 History Insulin NPH Hum/Reg Insulin Hm 20 units SUB-Q QPM 30 Days vial 09/27/19 Unknown Rx [HumuLIN 70-30 Vial] Insulin NPH Hum/Reg Insulin Hm 30 units SUB-Q QAM 30 Days vial 09/27/19 Unknown Rx [HumuLIN 70-30 Vial] Insulin NPH/Regular [NovoLIN 70/30] 30 unit SUB-Q BIDDIAB #1 units 09/27/19 Unknown Rx LORazepam [Ativan] 0.5 mg PO QHS #30 tab 09/27/19 Unknown Rx Losartan [Cozaar] 50 mg PO QDAY #30 tablet 09/27/19 Unknown Rx Metoclopramide HCl [Reglan TAB] 5 mg PO TIDAC #21 tablet 09/27/19 Unknown Rx Metoprolol [Lopressor TAB] 25 mg PO BID #60 tablet 09/27/19 Unknown Rx Pantoprazole Sodium [Protonix] 40 mg PO HS #30 09/27/19 Unknown Rx oxyCODONE /ACETAMINOPHEN [Percocet 1 tab PO Q4H PRN #20 tablet 09/27/19 Unknown Rx 5/325 mg] ED Review of Systems ROS: Stated complaint: SYNCOPY Other details as noted in HPI Constitutional: denies: fever Eyes: denies: eye pain ENT: denies: throat pain Respiratory: denies: shortness of breath Cardiovascular: denies: chest pain, palpitations Endocrine: increased thirst Gastrointestinal: denies: abdominal pain, diarrhea Genitourinary: denies: dysuria Musculoskeletal: denies: back pain Neurological: denies: headache Physical Exam - Physical Exam Vital Signs: Vital Signs 04/12/20 11:38 Temperature 97.4 F L Pulse Rate 109 H Respiratory 17 Rate Blood Pressure 69/38 [Right] O2 Sat by Pulse 98 Oximetry Physical Exam: GENERAL: The patient is well-developed thin male lying on stretcher not appearing to be in acute distress HEENT: Normocephalic. Atraumatic. Extraocular motions are intact. NECK: Supple. Trachea midline CHEST/LUNGS: Clear to auscultation. There is no respiratory distress noted. HEART/CARDIOVASCULAR: Regular. There is no tachycardia. There is no gallop rub or murmur. ABDOMEN: Abdomen is soft, nontender. Patient has normal bowel sounds. There is no abdominal distention. SKIN: There is no rash. There is no edema. There is no diaphoresis. NEURO: The patient is awake, alert, and oriented. The patient is cooperative. The patient has no focal neurologic deficits. The patient has normal speech MUSCULOSKELETAL:There is no evidence of acute injury. ED Course Vital Signs 04/12/20 11:38 Temperature 97.4 F L Pulse Rate 109 H Respiratory 17 Rate Blood Pressure 69/38 [Right] O2 Sat by Pulse 98 Oximetry ED Medical Decision Making - Lab Data Result diagrams: 04/12/20 12:11 04/12/20 12:11 Laboratory Tests 04/12/20 04/12/20 04/12/20 11:48 12:11 12:11 WBC 7.2 RBC 4.81 Hgb 14.7 Hct 44.5 MCV 93 MCH 31 MCHC 33 RDW 15.5 H Plt Count 267 Lymph % (Auto) 22.7 [place] % (Auto) 8.0 H Eos % (Auto) 0.6 Baso % (Auto) 0.2 Lymph # (Auto) 1.6 [place] # (Auto) 0.6 Eos # (Auto) 0.0 Baso # (Auto) 0.0 Seg Neutrophils % 68.5 Seg Neutrophils # 4.9 D-Dimer < 135.00 VBG pH Sodium Potassium Chloride Carbon Dioxide Anion Gap BUN Creatinine Estimated GFR BUN/Creatinine Ratio Glucose POC Glucose 370 H Calcium Total Bilirubin AST ALT Alkaline Phosphatase Total Creatine Kinase CK-MB (CK-2) CK-MB (CK-2) Rel Index Troponin T Total Protein Albumin Albumin/Globulin Ratio Lipase 04/12/20 04/12/20 12:11 12:11 WBC RBC Hgb Hct MCV MCH MCHC RDW Plt Count Lymph % (Auto) [place] % (Auto) Eos % (Auto) Baso % (Auto) Lymph # (Auto) [place] # (Auto) Eos # (Auto) Baso # (Auto) Seg Neutrophils % Seg Neutrophils # D-Dimer VBG pH 7.437 H Sodium 148 H Potassium 3.8 Chloride 106.8 Carbon Dioxide 27 Anion Gap 18 BUN 28 H Creatinine 1.4 H Estimated GFR 60 BUN/Creatinine Ratio 20 Glucose 449 H POC Glucose Calcium 10.0 Total Bilirubin 0.40 AST 10 ALT 14 Alkaline Phosphatase 98 Total Creatine Kinase 63 CK-MB (CK-2) 1.4 CK-MB (CK-2) Rel Index 2.2 Troponin T < 0.010 Total Protein 7.4 Albumin 4.4 Albumin/Globulin Ratio 1.5 Lipase 8 L - Radiology Data Radiology results: report reviewed (CT head), image reviewed (CT head) Findings [facility] [address] [place] [address] Cat Scan Report Signed Patient: TIA KAUR MR#: [id number] : 1990 Acct:[id number] Age/Sex: 29 / M ADM Date: 04/12/20 Loc: ED Attending Dr: Ordering Physician: DELFIN TERRY MD Date of Service: 04/12/20 Procedure(s): CT head/brain wo con Accession Number(s): [id number] cc: DELFIN TERRY MD CT BRAIN: 04/12/2020 INDICATION / CLINICAL INFORMATION: Syncope. COMPARISON: 08/03/2017 FINDINGS: BRAIN/INTRACRANIAL STRUCTURES: Unenhanced CT images of the brain demonstrate no evidence of acute intracranial abnormality. Ventricles and sulci are slightly prominent in size for a patient of this age, which may be an indication of some mild underlying diffuse cerebral atrophy. There is no evidence of acute ischemic injury, hemorrhage, or mass. There are no abnormal extra-axial fluid collections. There is been no significant change when compared to 08/03/2017. EXTRACRANIAL STRUCTURES: Unremarkable. IMPRESSION: No acute abnormality. Mild cerebral atrophy. All CT scans at this location are performed using dose reduction to ALARA by means of automated exposure control. Signer Vance e: Dev Alegria MD Signed: 04/12/2020 1:26 PM Workstation Name: [id number] Transcribed By: MAREN Dictated By: Dev Alegria MD Electronically Authenticated By: Dev Alegria MD Signed Date/Time: 04/12/20 1326 DD/ 1324 TD/TT: - Differential Diagnosis Syncope, dehydration, DKA, ICH, ACS, PE Critical care attestation.: If time is entered above; I have spent that time in minutes in the direct care of this critically ill patient, excluding procedure time. ED Disposition Clinical Impression: Syncope, Dehydration Disposition: DC OP ADMIT IP TO THIS HOSP Is pt being admited?: Yes Does the pt Need Aspirin: No Condition: Fair Instructions: Syncope (ED) Time of Disposition: 14:16 (Hospitalist notified (Dr. Prieto))
[2020-04-12] MEDS ORDERED: SODIUM CHLORIDE 0.9% 1000 ML 1,000 ML IV ONE ×2 (12:02)
[2020-04-12 12:40] LABS: Basophils % (Auto) 0.2 % (0.0-1.8); Eosinophils % (Auto) 0.6 % (0.0-4.3); Hematocrit 44.5 % (35.5-45.6); Hemoglobin 14.7 gm/dl (11.8-15.2); Lymphocytes # (Auto) 1.6 K/mm3 (1.2-5.4); Lymphocytes % (Auto) 22.7 % (13.4-35.0); Mean Corpuscular HGB Conc 33 % (32-34); Mean Corpuscular Volume 93 fl (84-94); Monocytes # (Auto) 0.6 K/mm3 (0.0-0.8); Platelet Count 267 K/mm3 (140-440); Red Blood Count 4.81 M/mm3 (3.65-5.03); Red Cell Distribution Width 15.5 % (13.2-15.2)
[2020-04-12 12:59] LABS: Creatine Kinase MB 1.4 ng/mL (0.0-4.0)
[2020-04-12 13:01] LABS: Alanine Aminotransferase 14 units/L (7-56); Albumin 4.4 g/dL (3.9-5); BUN/Creatinine Ratio 20; Blood Urea Nitrogen 28 mg/dL (9-20); Hemolysis Index 5
--- NOTE | 2020-04-12 13:31 | Cat Scan Report ---
CT BRAIN: 04/12/2020 INDICATION / CLINICAL INFORMATION: Syncope. COMPARISON: 08/03/2017 FINDINGS: BRAIN/INTRACRANIAL STRUCTURES: Unenhanced CT images of the brain demonstrate no evidence of acute int racranial abnormality. Ventricles and sulci are slightly prominent in size for a patient of this age, which may be an indica tion of some mild underlying diffuse cerebral atrophy. There is no evidence of acute ischemic injury, hemorrhage, or mass. There are no abnormal extra-axial fluid collections. There is been no significant change when compared to 08/03/2017. EXTRACRANIAL STRUCTURES: Unremarkable. IMPRESSION: No acute abnormality. Mild cerebral atrophy. All CT scans at this location are performed using dose reduction to ALARA by means of automated expos ure control. Signer Name: Dev Alegria MD Signed: 04/12/2020 1:26 PM Workstation Name: [id number]
[2020-04-12] MEDS ORDERED: ONDANSETRON 4 MG/2 ML INJ IV PRN (15:23)
[2020-04-12] MEDS ORDERED: ALBUTEROL 2.5 MG/3 ML NEBU IH PRN (15:23)
[2020-04-12] MEDS ORDERED: ACETAMINOPHEN 325 MG TAB PO PRN (15:23)
[2020-04-12] MEDS ORDERED: SODIUM CHLORIDE 0.9% 1000 ML 2,000 ML IV ONE (15:24)
--- NOTE | 2020-04-12 15:25 | History and Physical Report ---
History of Present Illness Chief complaint: I just feel little weak History of present illness: 29 YO Male with Severe Malnutrition, DM, HTN, MG presents to ED for evaluation. Patient states that he has experienced weakness and diminished appetite over the past week as well as decreased free water intake. Patient states that he has experienced weakness for the past 2 days. Patient states that he got up this morning and while walking to his bathroom he experienced lightheadedness, and weakness which resulted in a loss of consciousness. The patient is a 79-year-old male present with a chief complaint of syncope. The patient states he has not had much of an appetite over the past week and has had decreased p.o. intake. Patient states this morning he got up to use the bathroom and while walking to the bathroom he lost consciousness. EMS was notified and upon arrival the patient was found to be in distress and subsequently transported to [facility] for further care and evaluation of the aforementioned symptoms. Patient seen and evaluated in the emergency department. Lab and imaging studies reviewed. Patient found to be hypotensive with a systolic blood pressure in the 70s while in the emergency department. Patient also fell out of his chair while undergoing triage. Patient treated with IV fluid resuscitation therapy with mild improvement in blood pressure. Patient acknowledges inability to tolerate oral diet. Patient found to have acute kidney injury volume depletion, complicated by hypotension. Patient placed in observation status and admitted to medical floor. Patient treated with IV fluid resuscitation therapy. Patient denies fever, chills, chest pain, palpitation, productive cough, skin rash, recent ill contacts, bright red blood per rectum, hematemesis, or known exposure COVID-19. All medication listed at time of admission has been reconciled. Prior admission on 09/24/2019 reviewed. Past History Past Medical History: diabetes, hypertension, other (See HPI) Past Surgical History: No surgical history, Other (Reviewed) Social history: single. denies: smoking, alcohol abuse, prescription drug abuse Family history: hypertension Medications and Allergies Allergies Allergy/AdvReac Type Severity Reaction Status Date / Time morphine Allergy Angioedema Verified 04/12/20 12:17 tomato Allergy Vomiting Verified 04/12/20 12:17 Home Medications Medication Instructions Recorded Confirmed Last Taken Type Metoprolol 25 mg PO BID 09/24/19 09/24/19 09/22/19 History Insulin NPH Hum/Reg Insulin Hm 20 units SUB-Q QPM 30 Days vial 09/27/19 Unknown Rx [HumuLIN 70-30 Vial] Insulin NPH Hum/Reg Insulin Hm 30 units SUB-Q QAM 30 Days vial 09/27/19 Unknown Rx [HumuLIN 70-30 Vial] Insulin NPH/Regular [NovoLIN 70/30] 30 unit SUB-Q BIDDIAB #1 units 09/27/19 Unknown Rx LORazepam [Ativan] 0.5 mg PO QHS #30 tab 09/27/19 Unknown Rx Losartan [Cozaar] 50 mg PO QDAY #30 tablet 09/27/19 Unknown Rx Metoclopramide HCl [Reglan TAB] 5 mg PO TIDAC #21 tablet 09/27/19 Unknown Rx Metoprolol [Lopressor TAB] 25 mg PO BID #60 tablet 09/27/19 Unknown Rx Pantoprazole Sodium [Protonix] 40 mg PO HS #30 granpkt. 09/27/19 Unknown Rx oxyCODONE /ACETAMINOPHEN [Percocet 1 tab PO Q4H PRN #20 tablet 09/27/19 Unknown Rx 5/325 mg] Active Meds: Active Medications Acetaminophen (Tylenol) 650 mg PO Q4H PRN PRN Reason: Pain MILD(1-3)/Fever >100.5/QUINTANILLA Albuterol (Proventil) 2.5 mg IH Q4HRT PRN PRN Reason: Shortness Of Breath Sodium Chloride (Nacl 0.9% 1000 Ml) 1,000 mls @ 125 mls/hr IV DIRECT BREANNE Sodium Chloride (Nacl 0.9% 1000 Ml) 2,000 mls @ 999 mls/hr IV BOLUS ONE Stop: 04/12/20 17:24 Ondansetron HCl (Zofran) 4 mg IV Q8H PRN PRN Reason: Nausea And Vomiting Sodium Chloride (Sodium Chloride Flush Syringe 10 Ml) 10 ml IV BID BREANNE Sodium Chloride (Sodium Chloride Flush Syringe 10 Ml) 10 ml IV PRN PRN PRN Reason: LINE FLUSH Review of Systems Constitutional: weakness, no weight loss, no weight gain, no fever, no chills Ears, nose, mouth and throat: no ear pain, no ear discharge, no tinnitis, no decreased hearing, no nose pain Cardiovascular: no chest pain, no orthopnea, no edema, no syncope Respiratory: no cough, no cough with sputum, no excessive sputum, no dyspnea on exertion Gastrointestinal: no abdominal pain, no nausea, no vomiting, no constipation, no melena Genitourinary Male: no hematuria, no flank pain, no discharge, no urinary frequency, no urinary hesitancy Rectal: no pain, no incontinence, no bleeding Musculoskeletal: no neck stiffness, no neck pain, no shooting arm pain Integumentary: no rash, no pruritis, no redness, no sores, no wounds, no ja undice Neurological: syncope, no head injury, no parathesias, no numbness, no tingling Psychiatric: no memory loss, no change in sleep habits, no sleep disturbances, no insomnia, no hypersomnia, no change in appetite, no change in libido Endocrine: no cold intolerance, no heat intolerance, no polyphagia, no excessive thirst, no polydipsia, no polyuria, no nocturia Hematologic/Lymphatic: no easy bruising, no easy bleeding Allergic/Immunologic: no urticaria, no allergic rhinitis Exam - Constitutional Vitals: Temp Pulse Resp BP Pulse Ox 97.4 F L 103 H 8 L 117/78 100 04/12/20 11:38 04/12/20 15:00 04/12/20 15:00 04/12/20 15:00 04/12/20 15:00 General appearance: Present: mild distress - EENT Eyes: Present: PERRL ENT: hearing intact, clear oral mucosa - Neck Neck: Present: supple, normal ROM - Respiratory Respiratory effort: normal Respiratory: bilateral: CTA - Cardiovascular Heart Sounds: Present: S1 & S2. Absent: rub, click - Extremities Extremities: pulses symmetrical, No edema Peripheral Pulses: within normal limits - Abdominal General gastrointestinal: Present: soft, non-tender, non-distended, normal bowel sounds Male genitourinary: Present: normal - Integumentary Integumentary: Present: clear, warm, dry - Musculoskeletal Musculoskeletal: gait normal, strength equal bilaterally - Psychiatric Psychiatric: appropriate mood/affect, intact judgment & insight - Neurologic Neurologic: CNII-XII intact, moves all extremities HEART Score - HEART Score Troponin: Troponin T < 0.010 ng/mL (0.00-0.029) 04/12/20 12:11 Results - Labs CBC & Chem 7: 04/12/20 12:11 04/12/20 12:11 Labs: Abnormal lab results 04/12/20 04/12/2020 Range/Units 11:48 12:11 12:11 RDW 15.5 H (13.2-15.2) % [place] % (Auto) 8.0 H (0.0-7.3) % VBG pH (7.320-7.420) Sodium 148 H (137-145) mmol/L BUN 28 H (9-20) mg/dL Creatinine 1.4 H (0.8-1.3) mg/dL Glucose 449 H (75-100) mg/dL POC Glucose 370 H (70-105) Lipase 8 L (13-60) units/L 04/12/20 Range/Units 12:11 RDW (13.2-15.2) % [place] % (Auto) (0.0-7.3) % VBG pH 7.437 H (7.320-7.420) Sodium (137-145) mmol/L BUN (9-20) mg/dL Creatinine (0.8-1.3) mg/dL Glucose (75-100) mg/dL POC Glucose (70-105) Lipase (13-60) units/L Assessment and Plan - Patient Problems (1) Acute kidney injury Current Visit: No Status: Acute Plan to address problem: BMP, IV fluid resuscitation therapy, repeat BMP in a.m., avoid nephrotoxic agents. (2) Volume depletion Current Visit: Yes Status: Acute Plan to address problem: BMP, IV fluid resuscitation therapy, encourage free water intake. (3) Severe malnutrition Current Visit: Yes Status: Acute Plan to address problem: Increase protein intake, supportive care. (4) Myasthenia gravis Current Visit: Yes Status: Acute Plan to address problem: Supportive care, outpatient neurology follow-up. (5) Diabetes mellitus Current Visit: Yes Status: Acute Plan to address problem: Sliding scale insulin therapy, Accu-Chek, consistent carbohydrate diet, hypoglycemia protocol (6) DVT prophylaxis Current Visit: No Status: Acute Plan to address problem: SCD to bilateral lower extremities while in bed, patient is ambulatory.
[2020-04-12] MEDS ORDERED: SODIUM CHLORIDE 0.9% 1000 ML 1,000 ML IV SCH (15:30)
[2020-04-12 17:10] VITALS: BP 115/87
--- NOTE | 2020-04-13 10:00 | Discharge Summary ---
Providers - Providers Date of Admission: 04/12/20 15:23 Attending physician: BRADLEY SILVER [facility] Condition: Fair Hospital course: 29 YO Male with Severe Malnutrition, DM, HTN, MG presented to ED for evaluation. Patient stated that he had experienced weakness and diminished appetite over the past week as well as decreased free water intake. Patient stated that he had experienced weakness for the past 2 days. Patient stated that he got up this morning and while walking to his bathroom he experienced lightheadedness, and weakness which resulted in a loss of consciousness. The patient stated he had not had much of an appetite over the past week and has had decreased p.o. intake. Patient stated this morning he got up to use the bathroom and while walking to the bathroom he lost consciousness. EMS was notified and upon arrival the patient was found to be in distress and subsequently transported to [facility] for further care and evaluation of the aforementioned symptoms. Patient seen and evaluated in the emergency department. Lab and imaging studies reviewed. Patient found to be hypotensive with a systolic blood pressure in the 70s while in the emergency department. Patient also fell out of his chair while undergoing triage. Patient treated with IV fluid resuscitation therapy with mild improvement in blood pressure. Patient acknowledged inability to tolerate oral diet. Patient found to have acute kidney injury volume depletion, complicated by hypotension. Patient placed in observation status and admitted to medical floor. Patient treated with IV fluid resuscitation therapy. Patient denies fever, chills, chest pain, palpitation, productive cough, skin rash, recent ill contacts, bright red blood per rectum, hematemesis, or known exposure COVID-19. All medication listed at time of admission has been reconciled. Prior admission on 09/24/2019 reviewed. Patient left AGAINST MEDICAL ADVICE prior to completion of work-up. Patient counseled regarding increased risk of worsening symptoms and even . Patient knowledges understanding instructions and signed out AMA. 35 minutes dedicated to patient discharge and coordination of care. Disposition: DC-07 LEFT AGAINST MED ADVICE - Discharge Diagnoses (1) Acute kidney injury Status: Acute Comment: Prerenal azotemia (2) Volume depletion Status: Acute (3) Severe malnutrition Status: Acute (4) Myasthenia gravis Status: Acute (5) Diabetes mellitus Status: Acute (6) DVT prophylaxis Status: Acute Core Measure Documentation - Palliative Care Palliative Care/ Comfort Measures: Not Applicable - Core Measures Any of the following diagnoses?: none Exam - Constitutional Vitals: Temp Pulse Resp BP Pulse Ox 97.4 F L 104 H 11 L 115/87 100 04/12/20 11:38 04/12/20 17:00 04/12/20 17:00 04/12/20 17:00 04/12/20 17:00 General appearance: Present: no acute distress, well-nourished - EENT Eyes: Present: PERRL ENT: hearing intact, clear oral mucosa - Neck Neck: Present: supple, normal ROM - Respiratory Respiratory effort: normal Respiratory: bilateral: CTA - Cardiovascular Heart Sounds: Present: S1 & S2. Absent: rub, click - Extremities Extremities: pulses symmetrical, No edema Peripheral Pulses: within normal limits - Abdominal General gastrointestinal: Present: soft, non-tender, non-distended, normal bowel sounds Male genitourinary: Present: normal - Integumentary Integumentary: Present: clear, warm, dry - Musculoskeletal Musculoskeletal: gait normal, strength equal bilaterally - Psychiatric Psychiatric: appropriate mood/affect, intact judgment & insight - Neurologic Neurologic: CNII-XII intact, moves all extremities Plan Follow up with: MELVA ORTIZ MD [Primary Care Provider] - 7 Days
== END 2020-04-12 17:09 | disposition left against medical advice (07) ==
LOC: ED 11:25 → 3A 15:23
PROVIDERS: ADMIT Internal Medicine; ATTEND Internal Medicine
DX: N17.9 Acute kidney failure, unspecified (principal); R55 Syncope and collapse; E86.0 Dehydration; E86.9 Volume depletion, unspecified; E11.65 Type 2 diabetes mellitus with hyperglycemia; E43 Unspecified severe protein-calorie malnutrition; G70.00 Myasthenia gravis without (acute) exacerbation; I10 Essential (primary) hypertension; Z79.4 Long term (current) use of insulin; Z79.899 Other long term (current) drug therapy; Z88.5 Allergy status to narcotic agent; Z91.018 Allergy to other foods
CPT/HCPCS: 36415; 70450; 80053; 82550; 82553; 82805; 82962; 83690; 84484; 85025; 85379; 93005; 96360; 96361; 99285; G0378; J7030

== ENCOUNTER 2020-10-27 07:06 | Inpatient (IN) | payer SELFPAY ==
--- NOTE | 2020-10-27 08:17 | Emergency Department Report ---
HPI - General Chief Complaint: Hyperglycemia Time Seen by Provider: 10/27/20 08:04 - HPI HPI: Room 22 The patient is a 29-year-old male present with a chief complaint of polyuria. The patient states he has been out of his diabetes medication for 1 day. Patient states for 1 day he has had polyuria and polydipsia. Patient states he feels as though he is dehydrated. At home the patient's glucometer read "high." Patient was administered 20 units of Humulin by the mother prior to arrival ED Past Medical Hx - Past Medical History Hx Hypertension: Yes Hx Diabetes: Yes Additional medical history: Myasthenia gravis - Surgical History Past Surgical History?: No - Family History Family history: no significant - Social History Smoking Status: Never Smoker Substance Use Type: None - Medications Home Medications: Home Medications Medication Instructions Recorded Confirmed Last Taken Type Metoprolol 25 mg PO BID 09/24/19 09/24/19 09/22/19 History Insulin NPH Hum/Reg Insulin Hm 20 units SUB-Q QPM 30 Days vial 09/27/19 Unknown Rx [HumuLIN 70-30 Vial] Insulin NPH Hum/Reg Insulin Hm 30 units SUB-Q QAM 30 Days vial 09/27/19 Un known Rx [HumuLIN 70-30 Vial] Insulin NPH/Regular [NovoLIN 70/30] 30 unit SUB-Q BIDDIAB #1 units 09/27/19 Unknown Rx LORazepam [Ativan] 0.5 mg PO QHS #30 tab 09/27/19 Unknown Rx Losartan [Cozaar] 50 mg PO QDAY #30 tablet 09/27/19 Unknown Rx Metoclopramide HCl [Reglan TAB] 5 mg PO TIDAC #21 tablet 09/27/19 Unknown Rx Metoprolol [Lopressor TAB] 25 mg PO BID #60 tablet 09/27/19 Unknown Rx Pantoprazole Sodium [Protonix] 40 mg PO HS #30 gran 09/27/19 Unknown Rx oxyCODONE /ACETAMINOPHEN [Percocet 1 tab PO Q4H PRN #20 tablet 09/27/19 Unknown Rx 5/325 mg] ED Review of Systems ROS: Stated complaint: HIGH BLOOD SUGAR Other details as noted in HPI Constitutional: malaise Eyes: denies: eye pain ENT: denies: throat pain Respiratory: no symptoms reported Cardiovascular: denies: chest pain Endocrine: increased thirst, increased urine Gastrointestinal: denies: abdominal pain Genitourinary: denies: dysuria Skin: denies: rash Neurological: denies: headache Physical Exam - Physical Exam Vital Signs: Vital Signs 10/27/20 07:41 Temperature 97.4 F L Pulse Rate 75 Respiratory 18 Rate Blood Pressure 129/85 [Right] O2 Sat by Pulse 100 Oximetry Physical Exam: GENERAL: The patient is a thin male lying on stretcher not appearing to be in acute distress HEENT: Normocephalic. Atraumatic. Extraocular motions are intact. NECK: Supple. Trachea midline CHEST/LUNGS: Clear to auscultation. There is no respiratory distress noted. HEART/CARDIOVASCULAR: Regular. There is no tachycardia. There is no gallop rub or murmur. ABDOMEN: Abdomen is soft, nontender. Patient has normal bowel sounds. There is no abdominal distention. SKIN: There is no rash. There is no edema. There is no diaphoresis. NEURO: The patient is awake, alert, and oriented. The patient is cooperative. The patient has no focal neurologic deficits. The patient has normal speech MUSCULOSKELETAL: There is no evidence of acute injury. ED Course Vital Signs 10/27/20 07:41 Temperature 97.4 F L Pulse Rate 75 Respiratory 18 Rate Blood Pressure 129/85 [Right] O2 Sat by Pulse 100 Oximetry ED Medical Decision Making - Lab Data Result diagrams: 10/27/20 08:10 10/27/20 08:10 Laboratory Tests 10/27/20 10/27/20 10/27/20 08:10 08:10 08:10 WBC 9.2 RBC 4.64 Hgb 13.8 Hct 51.8 H MCV 112 H MCH 30 MCHC 27 L RDW 17.0 H Plt Count 282 VBG pH 7.116 L* Sodium 139 Potassium 6.1 H* Chloride 88.6 L Carbon Dioxide 17 L Anion Gap 40 BUN 72 H Creatinine 2.2 H Estimated GFR 36 BUN/Creatinine Ratio 33 Calcium 9.7 Per lab glucose greater than 1600 - Differential Diagnosis DKA, hyperglycemia, dehydration Critical care attestation.: If time is entered above; I have spent that time in minutes in the direct care of this critically ill patient, excluding procedure time. ED Disposition Clinical Impression: DKA (diabetic ketoacidoses) Disposition: OP ADMIT IP TO THIS HOSP Is pt being admited?: Yes Does the pt Need Aspirin: No Condition: Fair Instructions: Diabetic Ketoacidosis (ED) Time of Disposition: 09:50 (Hospitalist paged)
[2020-10-27 08:31] LABS: Mean Corpuscular HGB Conc 27 % (32-34); Platelet Count 282 K/mm3 (140-440); Red Blood Count 4.64 M/mm3 (3.65-5.03)
[2020-10-27 08:34] LABS: Hematocrit 51.8 % (35.5-45.6); Hemoglobin 13.8 gm/dl (11.8-15.2); Mean Corpuscular Volume 112 fl (84-94)
[2020-10-27] MEDS ORDERED: SODIUM CHLORIDE 0.9% 1000 ML 1,000 ML IV ONE ×4 (08:40→13:09)
[2020-10-27 09:10] LABS: Calcium 9.7 mg/dL (8.4-10.2)
[2020-10-27] MEDS ORDERED: ALBUTEROL 2.5 MG/3 ML NEBU IH PRN (10:14)
[2020-10-27] MEDS ORDERED: oxyCODONE /ACETAMINOPHEN 5-325MG TAB PO PRN (10:14)
[2020-10-27] MEDS ORDERED: ACETAMINOPHEN 325 MG TAB PO PRN (10:14)
[2020-10-27] MEDS ORDERED: NALOXONE 0.4 MG/1 ML INJ IV PRN (10:14)
[2020-10-27] MEDS ORDERED: DEXTROSE 50% IN WATER (25GM) 50 ML SYRINGE IV PRN (10:14)
--- NOTE | 2020-10-27 10:17 | History and Physical Report ---
History of Present Illness Date of examination: 10/27/20 Date of admission: 10/27/20 Chief complaint: DKA History of present illness: Patient is a 29-year-old male with past medical history of diabetes mellitus, hypertension, myasthenia gravis presented to the hospital today with complaints of polyuria and was noted to have DKA and were requested to admit the patient for further evaluation. On my discussion with the patient he claims that he still has his medications at home that he did not run out but he told the ED doctor that he ran out for a day. He also told the ER doctor that his equivocal reading was reading high before he came to the hospital his mother had given him 20units. On arrival to the hospital he was noted to have a blood sugar of over 1600. He denies any chest pain nausea vomiting or diarrhea. In the past he has had problems with p.o. intake and has been admitted once before for volume depletion and hypotension which resolved promptly. He again denies any odynophagia or dysphagia at this time. Past History Past Medical History: hypertension, other (Myasthenia gravis) Past Surgical History: No surgical history Family history: no significant family history, diabetes Medications and Allergies Allergies Allergy/AdvReac Type Severity Reaction Status Date / Time morphine Allergy Angioedema Verified 04/12/20 12:17 tomato Allergy Vomiting Verified 04/12/20 12:17 Home Medications Medication Instructions Recorded Confirmed Last Taken Type Metoprolol 25 mg PO BID 09/24/19 10/27/20 09/22/19 History Insulin NPH Hum/Reg Insulin Hm 20 units SUB-Q QPM 30 Days vial 09/27/19 10/27/20 Unknown Rx [HumuLIN 70-30 Vial] Insulin NPH Hum/Reg Insulin Hm 30 units SUB-Q QAM 30 Days vial 09/27/19 10/27/20 Unknown Rx [HumuLIN 70-30 Vial] Insulin NPH/Regular [NovoLIN 70/30] 30 unit SUB-Q BIDDIAB #1 units 09/27/19 10/27/20 Unknown Rx LORazepam [Ativan] 0.5 mg PO QHS #30 tab 09/27/19 10/27/20 Unknown Rx Losartan [Cozaar] 50 mg PO QDAY #30 tablet 09/27/19 10/27/20 Unknown Rx Metoclopramide HCl [Reglan TAB] 5 mg PO TIDAC #21 tablet 09/27/19 10/27/20 Unknown Rx Metoprolol [Lopressor TAB] 25 mg PO BID #60 tablet 09/27/19 10/27/20 Unknown Rx Pantoprazole Sodium [Protonix] 40 mg PO HS #30 granpkt. 09/27/19 10/27/20 Unknown Rx oxyCODONE /ACETAMINOPHEN [Percocet 1 tab PO Q4H PRN #20 tablet 09/27/19 10/27/20 Unknown Rx 5/325 mg] Active Meds: Active Medications Acetaminophen (Acetaminophen 325 Mg Tab) 650 mg PO Q6H PRN PRN Reason: Pain MILD(1-3)/Fever >100.5/QUINTANILLA Albuterol (Albuterol 2.5 Mg/3 Ml Nebu) 2.5 mg IH Q3HRT PRN PRN Reason: Shortness Of Breath Dextrose (Dextrose 50% In Water (25gm) 50 Ml Syringe) 0 ml IV Q30MIN PRN; Protocol PRN Reason: Hypoglycemia Insulin Human Regular 100 (units/ Sodium Chloride) 100 mls @ 6 mls/hr IV TITR BREANNE; Protocol Oxycodone/Acetaminophen (Oxycodone /Acetaminophen 5-325mg Tab) 1 tab PO Q6H PRN PRN Reason: Pain, Moderate (4-6) Sodium Chloride (Sodium Chloride 0.9% 10 Ml Flush Syringe) 10 ml IV BID BREANNE Sodium Chloride (Sodium Chloride 0.9% 10 Ml Flush Syringe) 10 ml IV PRN PRN PRN Reason: LINE FLUSH Review of Systems Constitutional: weight loss, fatigue, weakness, lethargy, no weight gain, no fever, no chills, no sweats, no malaise, no chronic headaches, no poor appetite, no daytime sleepiness, no chronic pain, no other Ears, nose, mouth and throat: no ear pain Respiratory: no cough with sputum, no hemoptysis, no dyspnea on exertion, no w heezing Gastrointestinal: no abdominal pain, no vomiting, no change in bowel habits, no hematochezia, no belching, no dyspepsia/bloating Genitourinary Male: urinary frequency, polyuria, no hematuria, no flank pain, no discharge, no urinary hesitancy, no nocturia, no incontinence, no erectile dysfunction, no genital sores, no impotence, no urinary retention Rectal: no pain, no incontinence Musculoskeletal: no neck pain, no low back pain, no shooting leg pain, no morning stiffness, no myalgias Integumentary: no pruritis, no boils, no lesions, no depigmentation, no striae, no onychomycosis Neurological: no numbness, no seizures, no confusion Exam - Physical Exam Narrative exam: VITAL SIGNS: Reviewed. GENERAL: The patient appears currently cachectic and lethargic, Vital signs as documented. HEAD: No signs of head trauma. EYES: Pupils are equal. Extraocular motions intact. EARS: Hearing grossly intact. MOUTH: Oropharynx is normal. NECK: No adenopathy, no JVD. CHEST: Chest with clear breath sounds bilaterally. No wheezes, rales, or rhonchi. CARDIAC: Regular rate and rhythm. S1 and S2, without murmurs, gallops, or rubs. VASCULAR: No Edema. Peripheral pulses normal and equal in all extremities. ABDOMEN: Soft, non tender and non distended. No rebound or guarding, and no masses palpated. Bowel Sounds normal. MUSCULOSKELETAL: Good range of motion of all major joints. Extremities without clubbing, cyanosis or edema. NEUROLOGIC EXAM: Alert and oriented x 3 No focal sensory or strength deficits. Speech normal. Follows commands. PSYCHIATRIC: Mood normal. SKIN: detail exam as documented in skin assessment - Constitutional Vitals: Temp Pulse Resp BP Pulse Ox 97.4 F L 79 24 126/91 96 10/27/20 07:41 10/27/20 08:30 10/27/20 08:30 10/27/20 09:01 10/27/20 08:30 Results - Labs CBC & Chem 7: 10/27/20 08:10 10/27/20 11:27 Labs: Laboratory Last Values WBC 9.2 K/mm3 (4.5-11.0) 10/27/20 08:10 RBC 4.64 M/mm3 (3.65-5.03) 10/27/20 08:10 Hgb 13.8 gm/dl (11.8-15.2) 10/27/20 08:10 Hct 51.8 % (35.5-45.6) H 10/27/20 08:10 MCV 112 fl (84-94) H 10/27/20 08:10 MCH 30 pg (28-32) 10/27/20 08:10 MCHC 27 % (32-34) L 10/27/20 08:10 RDW 17.0 % (13.2-15.2) H 10/27/20 08:10 Plt Count 282 K/mm3 (140-440) 10/27/20 08:10 VBG pH 7.116 (7.320-7.420) L* 10/27/20 08:10 Sodium 139 mmol/L (137-145) 10/27/20 08:10 Potassium 6.1 mmol/L (3.6-5.0) H* 10/27/20 08:10 Chloride 88.6 mmol/L (98-107) L 10/27/20 08:10 Carbon Dioxide 17 mmol/L (22-30) L 10/27/20 08:10 Anion Gap 40 mmol/L 10/27/20 08:10 BUN 72 mg/dL (9-20) H 10/27/20 08:10 Creatinine 2.2 mg/dL (0.8-1.3) H 10/27/20 08:10 Estimated GFR 36 ml/min 10/27/20 08:10 BUN/Creatinine Ratio 33 % 10/27/20 08:10 Glucose 1654 mg/dL (75-100) H* 10/27/20 08:10 Calcium 9.7 mg/dL (8.4-10.2) 10/27/20 08:10 Assessment and Plan Assessment and plan: Patient is a 29-year-old male with past medical history of diabetes mellitus, hypertension, myasthenia gravis presented to the hospital today with complaints of polyuria and was noted to have DKA and were requested to admit the patient for further evaluation. On my discussion with the patient he claims that he still has his medications at home that he did not run out but he told the ED doctor that he ran out for a day. He also told the ER doctor that his equivocal reading was reading high before he came to the hospital his mother had given him 20units. On arrival to the hospital he was noted to have a blood sugar of over 1600. He denies any chest pain nausea vomiting or diarrhea. In the past he has had problems with p.o. intake and has been admitted once before for volume depletion and hypotension which resolved promptly. He again denies any odynophagia or dysphagia at this time. DKA Diabetes mellitus with uncontrolled blood sugar Severe protein calorie malnutrition Acute metabolic acidosis secondary to DKA Hypernatremia Acute kidney injury secondary to vasomotor nephropathy in the setting of DKA History of myasthenia gravis Plan Admit to the ICU DKA protocol Monitor bicarbonate level anticipate improvement with insulin drip but if the reverse is noted may need to give some supplemental medication. We will monitor renal function and if no improvement will obtain nephrology consultation [employer] consulted and discussed DVT and GI prophylaxis The high probability of a clinically significant, sudden or life threatening deterioration of the [endocrine] system(s) required my full and direct attention, intervention and personal management. The aggregate critical care time was [35] minutes. This time is in addition to time spent performing reported procedures but includes the following: [x] Data Review and interpretation [x] Patient assessment and monitoring of vital signs [x] Documentation [x] Medication orders and management Advance Directives: Yes Plan of care discussed with patient/family: Yes
[2020-10-27 10:43] LABS: Bilirubin,Urine NEG (Negative); Blood,Urine NEG (Negative); Color,Urine Straw (Yellow); Mucus,Urine FEW /HPF; Protein,Urine <15 mg/dL mg/dL (Negative); RBC,Urine < 1.0 /HPF (0.0-6.0); Urobilinogen,Urine < 2.0 mg/dL (<2.0)
[2020-10-27] MEDS: INSULIN REGULAR, HUMAN 100 UNITS in SODIUM CHLORIDE 0.9% 99 ML IV SCH ×2 (10:43→15:16)
[2020-10-27 15:10] LABS: Calcium 8.7 mg/dL (8.4-10.2)
[2020-10-27 16:28] LABS: Calcium 8.9 mg/dL (8.4-10.2)
[2020-10-27] MEDS ORDERED: LORazepam 2 MG/ML VIAL IV PRN ×2 (16:56)
[2020-10-27 16:58] LABS: Calcium 9.1 mg/dL (8.4-10.2)
[2020-10-27] MEDS: LORazepam 2 MG/ML VIAL IV PRN ×3 (17:20→21:25)
[2020-10-27 17:24] LABS: Band Neutrophils # (Manual) 0.2 K/mm3; Total Cells Counted 100
[2020-10-27 17:25] LABS: Large Platelets Rare; Ovalocytes Rare; Platelet Estimate Consistent w Auto; Tear Drop Cells Rare
[2020-10-27 17:31] LABS: Macrocytosis 1+
--- NOTE | 2020-10-27 18:23 | Consultation ---
History of Present Illness Consult date: 10/27/20 Requesting physician: CLARISA WHALEY Reason for consult: other (DKA) History of present illness: PULMONARY/CCM CONSULT NOTE (Full dictation # [id number]) Please see dictated notes for full details Past History Past Medical History: hypertension, other (Myasthenia gravis) Past Surgical History: No surgical history Family history: no significant family history, diabetes Medications and Allergies Allergies Allergy/AdvReac Type Severity Reaction Status Date / Time morphine Allergy Angioedema Verified 04/12/20 12:17 tomato Allergy Vomiting Verified 04/12/20 12:17 Home Medications Medication Instructions Recorded Confirmed Last Taken Type Metoprolol 25 mg PO BID 09/24/19 10/27/20 09/22/19 History Insulin NPH Hum/Reg Insulin Hm 20 units SUB-Q QPM 30 Days vial 09/27/19 10/27/20 Unknown Rx [HumuLIN 70-30 Vial] Insulin NPH Hum/Reg Insulin Hm 30 units SUB-Q QAM 30 Days vial 09/27/19 10/27/20 Unknown Rx [HumuLIN 70-30 Vial] Insulin NPH/Regular [NovoLIN 70/30] 30 unit SUB-Q BIDDIAB #1 units 09/27/19 10/27/20 Unknown Rx LORazepam [Ativan] 0.5 mg PO QHS #30 tab 09/27/19 10/27/20 Unknown Rx Losartan [Cozaar] 50 mg PO QDAY #30 tablet 09/27/19 10/27/20 Unknown Rx Metoclopramide HCl [Reglan TAB] 5 mg PO TIDAC #21 tablet 09/27/19 10/27/20 Unknown Rx Metoprolol [Lopressor TAB] 25 mg PO BID #60 tablet 09/27/19 10/27/20 Unknown Rx Pantoprazole Sodium [Protonix] 40 mg PO HS #30 granpkt.dr 09/27/19 10/27/20 Unknown Rx oxyCODONE /ACETAMINOPHEN [Percocet 1 tab PO Q4H PRN #20 tablet 09/27/19 10/27/20 Unknown Rx 5/325 mg] Active Meds: Active Medications Acetaminophen (Acetaminophen 325 Mg Tab) 650 mg PO Q6H PRN PRN Reason: Pain MILD(1-3)/Fever >100.5/QUINTANILLA Albuterol (Albuterol 2.5 Mg/3 Ml Nebu) 2.5 mg IH Q3HRT PRN PRN Reason: Shortness Of Breath Dextrose (Dextrose 50% In Water (25gm) 50 Ml Syringe) 0 ml IV Q30MIN PRN; Protocol PRN Reason: Hypoglycemia Insulin Human Regular 100 (units/ Sodium Chloride) 100 mls @ 6 mls/hr IV TITR BREANNE; Protocol Last Titration: 10/27/20 17:26 Dose: 14 units/hr, 14 mls/hr Documented by: Potassium Chloride/Dextrose/Sod Cl (D5w/0.45% Nacl/Kcl 20 Meq) 20 meq in 1,000 mls @ 125 mls/hr IV DIRECT BREANNE Sodium Chloride (Nacl 0.9% 1000 Ml) 1,000 mls @ 125 mls/hr IV ONCE ONE Stop: 10/27/20 21:08 Last Admin: 10/27/20 13:11 Dose: 125 mls/hr Documented by: Lorazepam (Lorazepam 2 Mg/Ml Vial) 2 mg IV Q1H PRN PRN Reason: CIWA-Ar 8-15 Last Admin: 10/27/20 17:20 Dose: 2 mg Documented by: Lorazepam (Lorazepam 2 Mg/Ml Vial) 2 mg IV Q1HR PRN PRN Reason: CIWA-Ar 8-15 Lorazepam (Lorazepam 2 Mg/Ml Vial) 4 mg IV Q1HR PRN PRN Reason: CIWA-Ar 16-25 Lorazepam (Lorazepam 2 Mg/Ml Vial) 4 mg IV Q15MIN PRN PRN Reason: CIWA-Ar >25 Naloxone HCl (Naloxone 0.4 Mg/1 Ml Inj) 0.1 mg IV Q2MIN PRN PRN Reason: Res Rate </= 8 or 02 SAT < 92% Oxycodone/Acetaminophen (Oxycodone /Acetaminophen 5-325mg Tab) 1 tab PO Q6H PRN PRN Reason: Pain, Moderate (4-6) Sodium Chloride (Sodium Chloride 0.9% 10 Ml Flush Syringe) 10 ml IV BID BREANNE Sodium Chloride (Sodium Chloride 0.9% 10 Ml Flush Syringe) 10 ml IV PRN PRN PRN Reason: LINE FLUSH Physical Examination Vital signs: Vital Signs Pulse Resp BP Pulse Ox 74 16 123/83 98 10/27/20 07:30 10/27/20 07:30 10/27/20 07:30 10/27/20 07:30 Results - Laboratory Findings CBC and BMP: 10/27/20 08:10 10/27/20 16:16 Abnormal lab findings: Abnormal Labs 10/27/20 10/27/20 10/27/20 08:10 08:10 08:10 Hct 51.8 H MCV 112 H MCHC 27 L RDW 17.0 H Seg Neuts % (Manual) 86.0 H Lymphocytes % (Manual) 5.0 L Seg Neutrophils # Man 7.9 H Lymphocytes # (Manual) 0.5 L VBG pH 7.116 L* Sodium Potassium 6.1 H* Chloride 88.6 L Carbon Dioxide 17 L BUN 72 H Creatinine 2.2 H Glucose 1654 H* POC Glucose Phosphorus Magnesium 10/27/20 10/27/20 10/27/20 10:25 11:27 12:00 Hct MCV MCHC RDW Seg Neuts % (Manual) Lymphocytes % (Manual) Seg Neutrophils # Man Lymphocytes # (Manual) VBG pH Sodium 150 H D Potassium Chloride 107.1 H Carbon Dioxide 12 L BUN 66 H Creatinine 2.0 H Glucose 1271 H* POC Glucose > 600 H Phosphorus 9.00 H Magnesium 3.70 H 10/27/20 10/27/20 10/27/20 12:57 14:11 15:02 Hct MCV MCHC RDW Seg Neuts % (Manual) Lymphocytes % (Manual) Seg Neutrophils # Man Lymphocytes # (Manual) VBG pH Sodium 158 H D Potassium 3.4 L D Chloride 117.4 H Carbon Dioxide BUN 57 H Creatinine 1.6 H Glucose 653 H* POC Glucose > 600 H > 600 H Phosphorus Magnesium 10/27/20 10/27/20 10/27/20 15:08 16:16 17:13 Hct MCV MCHC RDW Seg Neuts % (Manual) Lymphocytes % (Manual) Seg Neutrophils # Man Lymphocytes # (Manual) VBG pH Sodium 155 H Potassium Chloride 117.9 H Carbon Dioxide 21 L BUN 56 H Creatinine 1.6 H Glucose 502 H* POC Glucose 536 H 363 H Phosphorus Magnesium
[2020-10-27] MEDS: D5W/0.45% NACL/KCL 20 MEQ 20 MEQ/1,000 ML BAG IV SCH (19:17)
[2020-10-27] MEDS ORDERED: hydrALAZINE 20 MG/1 ML INJ IV PRN (19:23)
--- NOTE | 2020-10-27 20:01 | XRay Report ---
CHEST 1 VIEW INDICATION / CLINICAL INFORMATION: hypoxemic respiratory failure. FINDINGS: SUPPORT DEVICES: None. HEART / MEDIASTINUM: No significant abnormality. LUNGS / PLEURA: No significant pulmonary or pleural abnormality. No pneumothorax. ADDITIONAL FINDINGS: No significant additional findings. IMPRESSION: 1. No acute findings. Signer Name: Lion Tran MD Signed: 10/27/2020 7:56 PM Workstation Name: [id number]
[2020-10-27 20:58] LABS: Calcium 9.4 mg/dL (8.4-10.2)
[2020-10-27 21:02] LABS: Alanine Aminotransferase 12 units/L (7-56); Albumin 3.9 g/dL (3.9-5)
[2020-10-27 21:08] LABS: Bilirubin,Direct < 0.2 mg/dL (0-0.2)
--- NOTE | 2020-10-27 21:11 | Consultation ---
PULMONARY CRITICAL CARE CONSULT NOTE CONSULTING PHYSICIAN: Dr. Hansel Perez. REASON FOR CONSULTATION: Diabetic ketoacidosis. CHIEF COMPLAINT AND HISTORY OF PRESENT ILLNESS: As follows: The patient is a now 29-year-old male with a past medical history significant amongst other things for diabetes type 2, but also myasthenia gravis, who presented to the hospital complaining of polyuria, polydipsia. He was evaluated, diagnosed with diabetic ketoacidosis. He denied medication noncompliance. He was found with a serum blood glucose of over 1600. He was started on DKA protocol, brought into the intensive care unit. When I stopped by to see him, he was resting in bed peacefully, lethargic, but maintaining his oxygenation and ventilation as far as we could tell clinically. I do not have any history of vomiting or overt aspiration. The above of the history is as much as I can get of the history. PAST MEDICAL HISTORY: Hypertension, myasthenia gravis, diabetes. PAST SURGICAL HISTORY: None according to the records. MEDICATIONS: He was on at the time I stopped by to see him, according to medication physician record included the following: Tylenol 650 mg p.o. q.6 hours p.r.n. mild pain or fevers, albuterol 2.5 mg nebulized q.3 hours p.r.n. shortness of breath, insulin drip was going at 14 units per hour IV. He had been agitated earlier and started on a CIWA protocol, that is an alcohol withdrawal protocol. Percocet 5 mg/325 mg p.o. q. 6 hours p.r.n. moderate pain. He was on D5 half NS drip earlier at 125 per hour, I believe as part of the protocol. ALLERGIES: INCLUDE MORPHINE AND TOMATOES, NATURE OF THIS ALLERGY IS UNKNOWN. DIET: Thin gentleman, acute weight loss or gain history is unknown. FAMILY AND SOCIAL HISTORY: Apparently lives in the community. Alcohol, tobacco, or illicit drug use or abuse history is unknown. There is a family history of diabetes according to the records. REVIEW OF SYSTEMS: Unobtainable secondary to patient's medical and mental condition. Since he has been here, no gross hematochezia or melena, no gross hematuria, no hematemesis, no hemoptysis, no witnessed seizures. He has been intermittently agitated. There is a questionable history of alcohol abuse. Complete 13-system review of systems obtained as best as I could. Pertinent positives and/or negatives as in body of history above, otherwise noncontributory. PHYSICAL EXAMINATION: VITAL SIGNS: At presentation, he was afebrile, temperature 97.4 degrees Fahrenheit, pulse of 74, respiratory rate of 16, blood pressure 123/83, O2 sats were 98%, inspired oxygen concentration at that time was not recorded. When I stopped by to see him, his O2 sats were 98% on 2 liters nasal cannula. GENERAL: He is a young thin male, normocephalic, atraumatic, resting in bed without significantly increased respiratory effort at rest. HEAD, EYES, EARS, NOSE AND THROAT: Anicteric. No conjunctival erythema. Oropharynx was dry. No gross jugular venous distention, no thyromegaly. NECK: Grossly, there were no palpable lymph nodes in the supraclavicular or submandibular lymph node chains. LUNGS: Auscultation of both lung white unremarkable. Lungs were clear bilaterally. No wheezing, no rhonchi. HEART: Heart sounds 1 and 2 are heard, regular rate and rhythm at time of my evaluation without overt rubs or murmurs. ABDOMEN: Soft, flat. Bowel sounds are positive, nontender, no palpable hepatosplenomegaly. EXTREMITIES: Without overt digital clubbing, no cyanosis, no pedal edema. Pedal pulses are 2+ bilaterally. NEUROLOGIC: Pupils are equal, round, about 2-3 mm, sluggishly reactive to light. Extraocular muscle movements could not be assessed. He moves all 4 extremities spontaneously, but he was somnolent/sedated at the time of my examination. SKIN: Normal turgor in the areas examined without overt cellulitis or rash. Please see the wound care nurse's notes for full description of his skin. PSYCHIATRIC: Mood and affect could not be assessed. LABORATORY DATA: From my review are as follows: Admission white cell count 9200, hemoglobin 13.8, hematocrit 51.8, platelet count 282. No significant band forms on the manual differential. Venous blood gas at presentation showed a pH of 7.12. Serum sodium was 150, potassium 4.7, chloride 107, bicarbonate was 12, BUN was 66, creatinine was 2.0, glucose was 1271. Phosphorus 9.0, magnesium 3.7. Urinalysis unremarkable except for spilling glucose. No blood cultures. No radiographic studies for my review. ASSESSMENT: 1. Diabetic ketoacidosis. 2. History of myasthenia gravis. 3. Severe metabolic acidosis at presentation. 4. Hypernatremia. 5. Possible alcohol withdrawal. 6. Acute hypoxemic respiratory failure. PLAN: We will keep him in the intensive care unit and keep him on IV insulin therapy. Continue per protocol. I will be starting GI and DVT prophylaxis in this gentleman. I do note the history of myasthenia gravis. We will keep a close eye out for evidence of hypoventilation, especially with him on the CIWA protocol and potentially at risk for receiving Ativan. I will order an arterial blood gas now to get a better understanding of his ventilation. Flu and pneumonia vaccination will be addressed per protocol. Alcohol abuse counseling will be done. Once he is doing better and recovered from the diabetic ketoacidosis we will follow him clinically off antibiotics. Thank you very much for the consult. We will follow along and make further recommendations as picture progresses/becomes clearer. He is critically ill on life-sustaining interventions including the IV insulin therapy, at high risk of from endocrinological system and possible respiratory system decompensation. At this time, I spent about 35-40 minutes of critical care time without overlap and excluding any procedural time that may be necessary. I will also order a chest x-ray. We will follow along. We will make further recommendations as picture progresses/becomes clearer. JOB# [id number] ADOLPH/FRANCISCA HARDWICK
[2020-10-28] MEDS: D5W/0.45% NACL/KCL 20 MEQ 20 MEQ/1,000 ML BAG IV SCH (03:31)
[2020-10-28] MEDS ORDERED: INSULIN LISPRO 100 UNIT/ML SUB-Q SCH (06:00)
[2020-10-28 08:10] LABS: Hematocrit 36.3 % (35.5-45.6); Hemoglobin 12.3 gm/dl (11.8-15.2); Mean Corpuscular HGB Conc 34 % (32-34); Mean Corpuscular Volume 91 fl (84-94); Platelet Count 245 K/mm3 (140-440); Red Blood Count 3.97 M/mm3 (3.65-5.03); Red Cell Distribution Width 15.1 % (13.2-15.2)
[2020-10-28 08:24] LABS: BUN/Creatinine Ratio 34; Blood Urea Nitrogen 41 mg/dL (9-20); Calcium 9.3 mg/dL (8.4-10.2); Hemolysis Index 64
[2020-10-28] MEDS ORDERED: INSULIN NPH/REGULAR 70/30 INJ SUB-Q SCH ×2 (09:00→17:00)
[2020-10-28] MEDS: METOPROLOL TARTRATE 25 MG TAB PO SCH ×2 (09:04→22:05)
[2020-10-28] MEDS: ENOXAPARIN 40 MG/0.4 ML INJ SUB-Q SCH (09:05)
[2020-10-28] MEDS ORDERED: ENOXAPARIN 30 MG/0.3 ML INJ SUB-Q SCH (10:00)
[2020-10-28] MEDS ORDERED: FAMOTIDINE 20 MG/2 ML INJ IV SCH (10:00)
[2020-10-28 12:22] LABS: BUN/Creatinine Ratio 32; Blood Urea Nitrogen 35 mg/dL (9-20); Hemolysis Index 8
[2020-10-28] MEDS: DEXTROSE 5% IN WATER 1,000 ML IV SCH (12:25)
[2020-10-28] MEDS: LORazepam 2 MG/ML VIAL IV PRN ×2 (12:25→23:07)
[2020-10-28] MEDS: INSULIN LISPRO 100 UNIT/ML SUB-Q SCH ×3 (12:35→22:00)
--- NOTE | 2020-10-28 14:20 | Progress Note ---
<RASHIDA ARBOLEDAPadmaja - Last Filed: 10/28/20 15:42> Assessment and Plan Assessment and plan: 29-year-old male with diabetes mellitus, hypertension, myasthenia gravis who was admitted for DKA and electrolyte imbalances DKA Diabetes mellitus with uncontrolled blood sugar Severe protein calorie malnutrition Acute metabolic acidosis secondary to DKA Hypernatremia Acute kidney injury secondary to vasomotor nephropathy in the setting of DKA History of myasthenia gravis Plan -[facility] and nephrology consulted, appreciate recommendations -S/p DKA protocol -Free water oral intake 500 mL every 2 hours -D5 water drip -Trend BMP -CIWA protocol -Hemoglobin A1c pending GI/DVT prophylaxis: Protonix, SCDs to bilateral lower extremities while in bed, Lovenox subcu Disposition: transfer to [facility] The high probability of a clinically significant, sudden or life threatening deterioration of the [endocrine] system(s) required my full and direct attention, intervention and personal management. The aggregate critical care time was [35] minutes. This time is in addition to time spent performing reported procedures but includes the following: [x] Data Review and interpretation [x] Patient assessment and monitoring of vital signs [x] Documentation [x] Medication orders and management History Interval history: This is a 29-year-old male with diabetes mellitus, hypertension and myasthenia gravis who presented to the emergency department on 10/27 with complaints of polyuria. Work-up in the emergency department revealed a blood glucose level of 1654, hypochloremia, high anion gap metabolic acidosis, acute kidney injury, hypophosphatemia and hypomagnesemia. Patient was initiated on the DKA protocol and admitted to the hospitalist service with consults to [facility]. 10/28: Given persistent hypernatremia nephrology was consulted today. Patient's anion gap was closed and he was started on a consistent carbohydrate diet however the patient is somewhat agitated and p.o. intake would be unreliable so he was started on a clear liquid diet in addition. Patient has been transitioned to sliding scale insulin and long-acting. He is also been started on D5 W and we will encourage PO intake (per nephrology he will need to have 500 mL every 2 hours) Hospitalist Physical - Constitutional Vitals: Temp Pulse Resp BP Pulse Ox 98.5 F 89 13 113/79 78 L 10/28/20 07:47 10/28/20 12:15 10/28/20 12:15 10/28/20 13:00 10/28/20 13:00 General appearance: Present: no acute distress - EENT Eyes: Present: PERRL, EOM intact ENT: hearing intact, clear oral mucosa - Neck Neck: Present: supple, normal ROM - Respiratory Respiratory effort: normal Respiratory: bilateral: CTA - Cardiovascular Rhythm: regular Heart Sounds: Present: S1 & S2. Absent: systolic murmur, diastolic murmur - Extremities Extremities: no ischemia, pulses intact, pulses symmetrical, No edema, normal temperature, normal color, Full ROM Peripheral Pulses: within normal limits - Abdominal General gastrointestinal: soft, non-tender, non-distended, normal bowel sounds - Integumentary Integumentary: Present: clear, warm - Psychiatric Psychiatric: appropriate mood/affect, cooperative - Neurologic Neurologic: CNII-XII intact, no focal deficits, moves all extremities - Allied Health Allied health notes reviewed: nursing, social work Results - Labs CBC & Chem 7: 10/28/20 07:08 10/28/20 11:43 Labs: Laboratory Last Values WBC 12.4 K/mm3 (4.5-11.0) H 10/28/20 07:08 RBC 3.97 M/mm3 (3.65-5.03) 10/28/20 07:08 Hgb 12.3 gm/dl (11.8-15.2) 10/28/20 07:08 Hct 36.3 % (35.5-45.6) D 10/28/20 07:08 MCV 91 fl (84-94) 10/28/20 07:08 MCH 31 pg (28-32) 10/28/20 07:08 MCHC 34 % (32-34) 10/28/20 07:08 RDW 15.1 % (13.2-15.2) 10/28/20 07:08 Plt Count 245 K/mm3 (140-440) 10/28/20 07:08 Add Manual Diff Complete 10/27/20 08:10 Total Counted 100 10/27/20 08:10 Seg Neuts % (Manual) 86.0 % (40.0-70.0) H 10/27/20 08:10 Band Neutrophils % 2.0 % 10/27/20 08:10 Lymphocytes % (Manual) 5.0 % (13.4-35.0) L 10/27/20 08:10 Monocytes % (Manual) 4.0 % (0.0-7.3) 10/27/20 08:10 Eosinophils % (Manual) 1.0 % (0.0-4.3) 10/27/20 08:10 Metamyelocytes % 2.0 % 10/27/20 08:10 Nucleated RBC % Not Reportable 10/27/20 08:10 Seg Neutrophils # Man 7.9 K/mm3 (1.8-7.7) H 10/27/20 08:10 Band Neutrophils # 0.2 K/mm3 10/27/20 08:10 Lymphocytes # (Manual) 0.5 K/mm3 (1.2-5.4) L 10/27/20 08:10 Abs React Lymphs (Man) 0.0 K/mm3 10/27/20 08:10 Monocytes # (Manual) 0.4 K/mm3 (0.0-0.8) 10/27/20 08:10 Eosinophils # (Manual) 0.1 K/mm3 (0.0-0.4) 10/27/20 08:10 Basophils # (Manual) 0.0 K/mm3 (0.0-0.1) 10/27/20 08:10 Metamyelocytes # 0.2 K/mm3 10/27/20 08:10 Myelocytes # 0.0 K/mm3 10/27/20 08:10 Promyelocytes # 0.0 K/mm3 10/27/20 08:10 Blast Cells # 0.0 K/mm3 10/27/20 08:10 WBC Morphology Not Reportable 10/27/20 08:10 Hypersegmented Neuts Not Reportable 10/27/20 08:10 Hyposegmented Neuts Not Reportable 10/27/20 08:10 Hypogranular Neuts Not Reportable 10/27/20 08:10 Smudge Cells Not Reportable 10/27/20 08:10 Toxic Granulation Not Reportable 10/27/20 08:10 Toxic Vacuolation Not Reportable 10/27/20 08:10 Dohle Bodies Not Reportable 10/27/20 08:10 Pelger-Huet Anomaly Not Reportable 10/27/20 08:10 Emily Rods Not Reportable 10/27/20 08:10 Platelet Estimate Consistent w auto 10/27/20 08:10 Clumped Platelets Not Reportable 10/27/20 08:10 Plt Clumps, EDTA Not Reportable 10/27/20 08:10 Large Platelets Rare 10/27/20 08:10 Giant Platelets Not Reportable 10/27/20 08:10 Platelet Satelliting Not Reportable 10/27/20 08:10 Plt Morphology Comment Not Reportable 10/27/20 08:10 RBC Morphology Not Reportable 10/27/20 08:10 Dimorphic RBCs Not Reportable 10/27/20 08:10 Polychromasia Not Reportable 10/27/20 08:10 Hypochromasia Not Reportable 10/27/20 08:10 Poikilocytosis Not Reportable 10/27/20 08:10 Anisocytosis Not Reportable 10/27/20 08:10 Microcytosis Not Reportable 10/27/20 08:10 Macrocytosis 1+ 10/27/20 08:10 Spherocytes Not Reportable 10/27/20 08:10 Pappenheimer Bodies Not Reportable 10/27/20 08:10 Sickle Cells Not Reportable 10/27/20 08:10 Target Cells Not Reportable 10/27/20 08:10 Tear Drop Cells Rare 10/27/20 08:10 Ovalocytes Rare 10/27/20 08:10 Helmet Cells Not Reportable 10/27/20 08:10 [place] Bodies Not Reportable 10/27/20 08:10 [place] Rings Not Reportable 10/27/20 08:10 Phi Cells Not Reportable 10/27/20 08:10 Bite Cells Not Reportable 10/27/20 08:10 Crenated Cell Not Reportable 10/27/20 08:10 Elliptocytes Not Reportable 10/27/20 08:10 Acanthocytes (Spur) Not Reportable 10/27/20 08:10 Rouleaux Not Reportable 10/27/20 08:10 Hemoglobin C Crystals Not Reportable 10/27/20 08:10 Schistocytes Not Reportable 10/27/20 08:10 Malaria parasites Not Reportable 10/27/20 08:10 Adniel Bodies Not Reportable 10/27/20 08:10 Hem Pathologist Commnt No 10/27/20 08:10 ABG pH 7.378 (7.320-7.450) 10/27/20 19:38 POC ABG pCO2 50.1 mmHg (32.0-48.0) H 10/27/20 19:38 POC ABG pO2 141.2 mmHg (83-108) H 10/27/20 19:38 POC ABG HCO3 28.8 10/27/20 19:38 ABG O2 Saturation 98.9 (0-100) 10/27/20 19:38 POC ABG Base Excess 2.8 10/27/20 19:38 ABG Hemoglobin 13.4 (12.0-17.5) 10/27/20 19:38 ABG Oxyhemoglobin 97.8 (94-98) 10/27/20 19:38 ABG Methemoglobin 0.3 (0.0-1.5) 10/27/20 19:38 ABG Sodium 165.0 mmol/L (136.0-145.0) H 10/27/20 19:38 ABG Potassium 3.6 mmol/L (3.40-4.50) 10/27/20 19:38 ABG Chloride 127.0 mmol/L (98-107) H 10/27/20 19:38 ABG Glucose 99 mg/dL (65-95) H 10/27/20 19:38 VBG pH 7.116 (7.320-7.420) L* 10/27/20 08:10 Carboxyhemoglobin 0.8 (0.5-1.5) 10/27/20 19:38 FiO2 % 28 10/27/20 19:38 Sodium 159 mmol/L (137-145) H 10/28/20 11:43 Potassium 3.8 mmol/L (3.6-5.0) 10/28/20 11:43 Chloride 121.5 mmol/L (98-107) H 10/28/20 11:43 Carbon Dioxide 27 mmol/L (22-30) 10/28/20 11:43 Anion Gap 14 mmol/L 10/28/20 11:43 BUN 35 mg/dL (9-20) H 10/28/20 11:43 Creatinine 1.1 mg/dL (0.8-1.3) 10/28/20 11:43 Estimated GFR > 60 ml/min 10/28/20 11:43 BUN/Creatinine Ratio 32 % 10/28/20 11:43 Glucose 265 mg/dL (75-100) H 10/28/20 11:43 POC Glucose 239 mg/dL (70-105) H 10/28/20 11:51 Calcium 9.0 mg/dL (8.4-10.2) 10/28/20 11:43 Phosphorus 3.50 mg/dL (2.5-4.5) D 10/27/20 20:26 Magnesium 2.80 mg/dL (1.7-2.3) H 10/27/20 20:26 Total Bilirubin 0.20 mg/dL (0.1-1.2) 10/27/20 20:26 Direct Bilirubin < 0.2 mg/dL (0-0.2) 10/27/20 20:26 Indirect Bilirubin 0.0 mg/dL 10/27/20 20:26 AST 11 units/L (5-40) 10/27/20 20:26 ALT 12 units/L (7-56) 10/27/20 20:26 Alkaline Phosphatase 98 units/L (35-129) 10/27/20 20:26 Ammonia 46.0 umol/L (25-60) 10/27/20 20:26 Total Protein 6.3 g/dL (6.3-8.2) 10/27/20 20:26 Albumin 3.9 g/dL (3.9-5) 10/27/20 20:26 Albumin/Globulin Ratio 1.6 % 10/27/20 20:26 Arterial Blood Glucose 99 mg/dL (65-95) H 10/27/20 19:38 Arterial Blood Ionized Calcium 5.1 mg/dL (4.6-5.3) 10/27/20 19:38 Urine Color Straw (Yellow) 10/27/20 Unknown Urine Turbidity Clear (Clear) 10/27/20 Unknown Urine pH 5.0 (5.0-7.0) 10/27/20 Unknown Ur Specific [place] 1.027 (1.003-1.030) 10/27/20 Unknown Urine Protein <15 mg/dl mg/dL (Negative) 10/27/20 Unknown Urine Glucose (UA) >=500 mg/dL (Negative) 10/27/20 Unknown Urine Ketones 20 mg/dL (Negative) 10/27/20 Unknown Urine Blood Neg (Negative) 10/27/20 Unknown Urine Nitrite Neg (Negative) 10/27/20 Unknown Urine Bilirubin Neg (Negative) 10/27/20 Unknown Urine Urobilinogen < 2.0 mg/dL (<2.0) 10/27/20 Unknown Ur Leukocyte Esterase Neg (Negative) 10/27/20 Unknown Urine WBC (Auto) 3.0 /HPF (0.0-6.0) 10/27/20 Unknown Urine RBC (Auto) < 1.0 /HPF (0.0-6.0) 10/27/20 Unknown Urine Mucus Few /HPF 10/27/20 Unknown Active Medications - Current Medications Current Medications: Generic Name Dose Route Start Last Admin Trade Name Freq PRN Reason Stop Dose Admin Acetaminophen 650 mg 10/27/20 10:14 Acetaminophen 325 Mg Tab PO Q6H PRN Pain MILD(1-3)/Fever >100.5/QUINTANILLA Albuterol 2.5 mg 10/27/20 10:14 Albuterol 2.5 Mg/3 Ml Nebu IH Q3HRT PRN Shortness Of Breath Dextrose 0 ml 10/27/20 10:14 Dextrose 50% In Water (25gm) 50 Ml Syringe IV Q30MIN PRN Hypoglycemia Protocol Enoxaparin Sodium 40 mg 10/28/20 10:00 10/28/20 09:05 Enoxaparin 40 Mg/0.4 Ml Inj SUB-Q 40 mg QDAY@1000 BREANNE Administration Hydralazine HCl 10 mg 10/27/20 19:23 10/27/20 20:07 Hydralazine 20 Mg/1 Ml Inj IV 10 mg Q4HR PRN Administration Blood Pressure Dextrose 1,000 mls @ 75 mls/hr 10/28/20 09:00 10/28/20 12:25 D5w IV 125 mls/hr DIRECT BREANNE Administration Insulin Human Isoph/Insulin Regular 14 unit 10/29/20 08:00 Insulin Nph/Regular 70/30 Inj SUB-Q QDDIAB BREANNE Insulin Human Isoph/Insulin Regular 14 unit 10/29/20 17:00 Insulin Nph/Regular 70/30 Inj SUB-Q QPMDIAB BREANNE Insulin Human Lispro 0 unit 10/28/20 11:30 10/28/20 12:35 Insulin Lispro 100 Unit/Ml SUB-Q Not Given ACHS BREANNE Protocol Labetalol HCl 10 mg 10/27/20 21:03 10/27/20 21:25 Labetalol 20 Mg/4 Ml Inj IV 10 mg Q4H PRN Administration Blood Pressure Lorazepam 2 mg 10/27/20 16:56 10/28/20 12:25 Lorazepam 2 Mg/Ml Vial IV 2 mg Q1HR PRN Administration CIWA-Ar 8-15 Lorazepam 4 mg 10/27/20 16:56 Lorazepam 2 Mg/Ml Vial IV Q1HR PRN CIWA-Ar 16-25 Lorazepam 4 mg 10/27/20 16:56 Lorazepam 2 Mg/Ml Vial IV Q15MIN PRN CIWA-Ar >25 Metoprolol Tartrate 25 mg 10/28/20 10:00 10/28/20 09:04 Metoprolol Tartrate 25 Mg Tab PO 25 mg BID BREANNE Administration Naloxone HCl 0.1 mg 10/27/20 10:14 Naloxone 0.4 Mg/1 Ml Inj IV Q2MIN PRN Res Rate </= 8 or 02 SAT < 92% Oxycodone/Acetaminophen 1 tab 10/27/20 10:14 Oxycodone /Acetaminophen 5-325mg Tab PO Q6H PRN Pain, Moderate (4-6) Pantoprazole Sodium 40 mg 10/28/20 22:00 Pantoprazole 40 Mg Tab PO QHS BREANNE Sodium Chloride 10 ml 10/27/20 22:00 10/28/20 09:05 Sodium Chloride 0.9% 10 Ml Flush Syringe IV 10 ml BID BREANNE Administration Sodium Chloride 10 ml 10/27/20 10:14 Sodium Chloride 0.9% 10 Ml Flush Syringe IV PRN PRN LINE FLUSH Nutrition/Malnutrition Assess - Dietary Evaluation Nutrition/Malnutrition Findings: Nutrition Notes Start: 10/28/20 11:21 Freq: Status: Active Protocol: Document 10/28/20 11:21 CW (Rec: 10/28/20 11:43 CW [id number]) Nutrition Notes Need for Assessment generated from: MST Initial or Follow up Assessment Current Diagnosis Diabetes,Hypertension Other Pertinent Diagnosis Covid 19 PUI, DKA Current Diet NPO Labs/Tests Na 164 BUN 41 BG 272 (1654 on adm) BP 149/9/8 Pertinent Medications Insulin gtt, humalog D5 1/2 NS w/ KCl 20mEq at 125 ml/hr 3L of NS Height 5 ft 11 in Weight 52.9 kg [place] Body Weight (kg) 78.18 BMI 16.2 Weight Status Underweight Subjective/Other Information Mst screen for weight loss and MD consult for diet education . Diet educatio previous attempted by this RD team 1 year ago, multiple diabetes related handouts provided. Attempted to reinforce previos diet education and obtain nutrional hx but pt did not answer phone x2. Per RN esperanza, pt has slight mental cognition abnormalities at this time. Burn Absent Trauma Absent Current % PO Fair (50-74%) #1 Nutrition Diagnosis Limited adherence to nutrition -related recommendations Etiology excessive carbohydrate intake As Evidenced by Signs and Symptoms hx of pt refusing previous diet education Is patient on ventilator? No Is Patient Ambulatory and/or Out of Bed No REE-([facility]-confined to bed) 1821.504 Kcal/Kg value to use for calculation 38 Approximate Energy Requirements Using 2009 kcal/Kg Calculation Used for Recommendations Kcal/kg Additional Notes protein needs: 42 - 53g (1 - 1 .2g/kgBW) fluid needs: 1 ml/kcal Nutrition Intervention Change Diet Order: Cardiac Consistent Carbohydrate diet when medically feasible Goal #1 Understand importance of a following a consistent carbohydrat diet Goal #2 diet advancement Anticipated Discharge Needs: Cardiac Consistent Carbohydrate diet Follow-Up By: 10/31/20 Additional Comments F/U for diet education, diet advancement, intakes <REDDY LIMA R - Last Filed: 10/28/20 19:47> Assessment and Plan Assessment and plan: I saw and evaluated the patient. I agree with the findings and the plan of care as documented in the Nurse Practitioner's~note, Hospitalist Physical - Constitutional Vitals: Temp Pulse Resp BP Pulse Ox 98 F 105 H 14 138/82 98 10/28/20 12:00 10/28/20 18:00 10/28/20 18:00 10/28/20 17:00 10/28/20 18:00 Results - Labs CBC & Chem 7: 10/28/20 07:08 10/28/20 15:55 Labs: Laboratory Last Values WBC 12.4 K/mm3 (4.5-11.0) H 10/28/20 07:08 RBC 3.97 M/mm3 (3.65-5.03) 10/28/20 07:08 Hgb 12.3 gm/dl (11.8-15.2) 10/28/20 07:08 Hct 36.3 % (35.5-45.6) D 10/28/20 07:08 MCV 91 fl (84-94) 10/28/20 07:08 MCH 31 pg (28-32) 10/28/20 07:08 MCHC 34 % (32-34) 10/28/20 07:08 RDW 15.1 % (13.2-15.2) 10/28/20 07:08 Plt Count 245 K/mm3 (140-440) 10/28/20 07:08 Add Manual Diff Complete 10/27/20 08:10 Total Counted 100 10/27/20 08:10 Seg Neuts % (Manual) 86.0 % (40.0-70.0) H 10/27/20 08:10 Band Neutrophils % 2.0 % 10/27/20 08:10 Lymphocytes % (Manual) 5.0 % (13.4-35.0) L 10/27/20 08:10 Monocytes % (Manual) 4.0 % (0.0-7.3) 10/27/20 08:10 Eosinophils % (Manual) 1.0 % (0.0-4.3) 10/27/20 08:10 Metamyelocytes % 2.0 % 10/27/20 08:10 Nucleated RBC % Not Reportable 10/27/20 08:10 Seg Neutrophils # Man 7.9 K/mm3 (1.8-7.7) H 10/27/20 08:10 Band Neutrophils # 0.2 K/mm3 10/27/20 08:10 Lymphocytes # (Manual) 0.5 K/mm3 (1.2-5.4) L 10/27/20 08:10 Abs React Lymphs (Man) 0.0 K/mm3 10/27/20 08:10 Monocytes # (Manual) 0.4 K/mm3 (0.0-0.8) 10/27/20 08:10 Eosinophils # (Manual) 0.1 K/mm3 (0.0-0.4) 10/27/20 08:10 Basophils # (Manual) 0.0 K/mm3 (0.0-0.1) 10/27/20 08:10 Metamyelocytes # 0.2 K/mm3 10/27/20 08:10 Myelocytes # 0.0 K/mm3 10/27/20 08:10 Promyelocytes # 0.0 K/mm3 10/27/20 08:10 Blast Cells # 0.0 K/mm3 10/27/20 08:10 WBC Morphology Not Reportable 10/27/20 08:10 Hypersegmented Neuts Not Reportable 10/27/20 08:10 Hyposegmented Neuts Not Reportable 10/27/20 08:10 Hypogranular Neuts Not Reportable 10/27/20 08:10 Smudge Cells Not Reportable 10/27/20 08:10 Toxic Granulation Not Reportable 10/27/20 08:10 Toxic Vacuolation Not Reportable 10/27/20 08:10 Dohle Bodies Not Reportable 10/27/20 08:10 Pelger-Huet Anomaly Not Reportable 10/27/20 08:10 Emily Rods Not Reportable 10/27/20 08:10 Platelet Estimate Consistent w auto 10/27/20 08:10 Clumped Platelets Not Reportable 10/27/20 08:10 Plt Clumps, EDTA Not Reportable 10/27/20 08:10 Large Platelets Rare 10/27/20 08:10 Giant Platelets Not Reportable 10/27/20 08:10 Platelet Satelliting Not Reportable 10/27/20 08:10 Plt Morphology Comment Not Reportable 10/27/20 08:10 RBC Morphology Not Reportable 10/27/20 08:10 Dimorphic RBCs Not Reportable 10/27/20 08:10 Polychromasia Not Reportable 10/27/20 08:10 Hypochromasia Not Reportable 10/27/20 08:10 Poikilocytosis Not Reportable 10/27/20 08:10 Anisocytosis Not Reportable 10/27/20 08:10 Microcytosis Not Reportable 10/27/20 08:10 Macrocytosis 1+ 10/27/20 08:10 Spherocytes Not Reportable 10/27/20 08:10 Pappenheimer Bodies Not Reportable 10/27/20 08:10 Sickle Cells Not Reportable 10/27/20 08:10 Target Cells Not Reportable 10/27/20 08:10 Tear Drop Cells Rare 10/27/20 08:10 Ovalocytes Rare 10/27/20 08:10 Helmet Cells Not Reportable 10/27/20 08:10 [place] Bodies Not Reportable 10/27/20 08:10 [place] Rings Not Reportable 10/27/20 08:10 Phi Cells Not Reportable 10/27/20 08:10 Bite Cells Not Reportable 10/27/20 08:10 Crenated Cell Not Reportable 10/27/20 08:10 Elliptocytes Not Reportable 10/27/20 08:10 Acanthocytes (Spur) Not Reportable 10/27/20 08:10 Rouleaux Not Reportable 10/27/20 08:10 Hemoglobin C Crystals Not Reportable 10/27/20 08:10 Schistocytes Not Reportable 10/27/20 08:10 Malaria parasites Not Reportable 10/27/20 08:10 Daniel Bodies Not Reportable 10/27/20 08:10 Hem Pathologist Commnt No 10/27/20 08:10 ABG pH 7.378 (7.320-7.450) 10/27/20 19:38 POC ABG pCO2 50.1 mmHg (32.0-48.0) H 10/27/20 19:38 POC ABG pO2 141.2 mmHg (83-108) H 10/27/20 19:38 POC ABG HCO3 28.8 10/27/20 19:38 ABG O2 Saturation 98.9 (0-100) 10/27/20 19:38 POC ABG Base Excess 2.8 10/27/20 19:38 ABG Hemoglobin 13.4 (12.0-17.5) 10/27/20 19:38 ABG Oxyhemoglobin 97.8 (94-98) 10/27/20 19:38 ABG Methemoglobin 0.3 (0.0-1.5) 10/27/20 19:38 ABG Sodium 165.0 mmol/L (136.0-145.0) H 10/27/20 19:38 ABG Potassium 3.6 mmol/L (3.40-4.50) 10/27/20 19:38 ABG Chloride 127.0 mmol/L (98-107) H 10/27/20 19:38 ABG Glucose 99 mg/dL (65-95) H 10/27/20 19:38 VBG pH 7.116 (7.320-7.420) L* 10/27/20 08:10 Carboxyhemoglobin 0.8 (0.5-1.5) 10/27/20 19:38 FiO2 % 28 10/27/20 19:38 Sodium 159 mmol/L (137-145) H 10/28/20 15:55 Potassium 3.3 mmol/L (3.6-5.0) L 10/28/20 15:55 Chloride 124.7 mmol/L (98-107) H 10/28/20 15:55 Carbon Dioxide 28 mmol/L (22-30) 10/28/20 15:55 Anion Gap 10 mmol/L 10/28/20 15:55 BUN 30 mg/dL (9-20) H 10/28/20 15:55 Creatinine 0.9 mg/dL (0.8-1.3) 10/28/20 15:55 Estimated GFR > 60 ml/min 10/28/20 15:55 BUN/Creatinine Ratio 33 % 10/28/20 15:55 Glucose 91 mg/dL (75-100) 10/28/20 15:55 POC Glucose 84 mg/dL (70-105) 10/28/20 16:51 Hemoglobin A1c 11.4 % (4-6) H 10/28/20 15:55 Calcium 8.9 mg/dL (8.4-10.2) 10/28/20 15:55 Phosphorus 3.50 mg/dL (2.5-4.5) D 10/27/20 20:26 Magnesium 2.80 mg/dL (1.7-2.3) H 10/27/20 20:26 Total Bilirubin 0.20 mg/dL (0.1-1.2) 10/27/20 20:26 Direct Bilirubin < 0.2 mg/dL (0-0.2) 10/27/20 20:26 Indirect Bilirubin 0.0 mg/dL 10/27/20 20:26 AST 11 units/L (5-40) 10/27/20 20:26 ALT 12 units/L (7-56) 10/27/20 20:26 Alkaline Phosphatase 98 units/L (35-129) 10/27/20 20:26 Ammonia 46.0 umol/L (25-60) 10/27/20 20:26 Total Protein 6.3 g/dL (6.3-8.2) 10/27/20 20:26 Albumin 3.9 g/dL (3.9-5) 10/27/20 20:26 Albumin/Globulin Ratio 1.6 % 10/27/20 20:26 Arterial Blood Glucose 99 mg/dL (65-95) H 10/27/20 19:38 Arterial Blood Ionized Calcium 5.1 mg/dL (4.6-5.3) 10/27/20 19:38 Urine Color Straw (Yellow) 10/27/20 Unknown Urine Turbidity Clear (Clear) 10/27/20 Unknown Urine pH 5.0 (5.0-7.0) 10/27/20 Unknown Ur Specific [place] 1.027 (1.003-1.030) 10/27/20 Unknown Urine Protein <15 mg/dl mg/dL (Negative) 10/27/20 Unknown Urine Glucose (UA) >=500 mg/dL (Negative) 10/27/20 Unknown Urine Ketones 20 mg/dL (Negative) 10/27/20 Unknown Urine Blood Neg (Negative) 10/27/20 Unknown Urine Nitrite Neg (Negative) 10/27/20 Unknown Urine Bilirubin Neg (Negative) 10/27/20 Unknown Urine Urobilinogen < 2.0 mg/dL (<2.0) 10/27/20 Unknown Ur Leukocyte Esterase Neg (Negative) 10/27/20 Unknown Urine WBC (Auto) 3.0 /HPF (0.0-6.0) 10/27/20 Unknown Urine RBC (Auto) < 1.0 /HPF (0.0-6.0) 10/27/20 Unknown Urine Mucus Few /HPF 10/27/20 Unknown Coronavirus (PCR) Negative (Negative) 10/27/20 09:32 Active Medications - Current Medications Current Medications: Generic Name Dose Route Start Last Admin Trade Name Freq PRN Reason Stop Dose Admin Acetaminophen 650 mg 10/27/20 10:14 Acetaminophen 325 Mg Tab PO Q6H PRN Pain MILD(1-3)/Fever >100.5/QUINTANILLA Albuterol 2.5 mg 10/27/20 10:14 Albuterol 2.5 Mg/3 Ml Nebu IH Q3HRT PRN Shortness Of Breath Dextrose 50 ml 10/28/20 14:27 Dextrose 50% In Water (25gm) 50 Ml Syringe IV Q30MIN PRN Hypoglycemia Protocol Enoxaparin Sodium 40 mg 10/28/20 10:00 10/28/20 09:05 Enoxaparin 40 Mg/0.4 Ml Inj SUB-Q 40 mg QDAY@1000 BREANNE Administration Hydralazine HCl 10 mg 10/27/20 19:23 10/27/20 20:07 Hydralazine 20 Mg/1 Ml Inj IV 10 mg Q4HR PRN Administration Blood Pressure Dextrose 1,000 mls @ 75 mls/hr 10/28/20 09:00 10/28/20 12:25 D5w IV 125 mls/hr DIRECT BREANNE Administration Insulin Human Isoph/Insulin Regular 14 unit 10/29/20 08:00 Insulin Nph/Regular 70/30 Inj SUB-Q QDDIAB BREANNE Insulin Human Isoph/Insulin Regular 14 unit 10/29/20 17:00 Insulin Nph/Regular 70/30 Inj SUB-Q QPMDIAB BREANNE Insulin Human Lispro 0 unit 10/28/20 11:30 10/28/20 17:25 Insulin Lispro 100 Unit/Ml SUB-Q Not Given ACHS [facility] Protocol Insulin Human Regular 0 units 10/28/20 16:30 10/28/20 17:25 Insulin Regular, Human 100 Units/1 Ml SUB-Q Not Given ACHS [facility] Protocol Labetalol HCl 10 mg 10/27/20 21:03 10/27/20 21:25 Labetalol 20 Mg/4 Ml Inj IV 10 mg Q4H PRN Administration Blood Pressure Lorazepam 2 mg 10/27/20 16:56 10/28/20 12:25 Lorazepam 2 Mg/Ml Vial IV 2 mg Q1HR PRN Administration CIWA-Ar 8-15 Lorazepam 4 mg 10/27/20 16:56 Lorazepam 2 Mg/Ml Vial IV Q1HR PRN CIWA-Ar 16-25 Lorazepam 4 mg 10/27/20 16:56 Lorazepam 2 Mg/Ml Vial IV Q15MIN PRN CIWA-Ar >25 Metoprolol Tartrate 25 mg 10/28/20 10:00 10/28/20 09:04 Metoprolol Tartrate 25 Mg Tab PO 25 mg BID BREANNE Administration Naloxone HCl 0.1 mg 10/27/20 10:14 Naloxone 0.4 Mg/1 Ml Inj IV Q2MIN PRN Res Rate </= 8 or 02 SAT < 92% Oxycodone/Acetaminophen 1 tab 10/27/20 10:14 Oxycodone /Acetaminophen 5-325mg Tab PO Q6H PRN Pain, Moderate (4-6) Pantoprazole Sodium 40 mg 10/28/20 22:00 Pantoprazole 40 Mg Tab PO QHS BREANNE Sodium Chloride 10 ml 10/27/20 22:00 10/28/20 09:05 Sodium Chloride 0.9% 10 Ml Flush Syringe IV 10 ml BID BREANNE Administration Sodium Chloride 10 ml 10/27/20 10:14 Sodium Chloride 0.9% 10 Ml Flush Syringe IV PRN PRN LINE FLUSH Nutrition/Malnutrition Assess - Dietary Evaluation Nutrition/Malnutrition Findings: Nutrition Notes Start: 10/28/20 11:21 Freq: Status: Active Protocol: Document 10/28/20 11:21 CW (Rec: 10/28/20 11:43 CW [id number]) Nutrition Notes Need for Assessment generated from: MST Initial or Follow up Assessment Current Diagnosis Diabetes,Hypertension Other Pertinent Diagnosis Covid 19 PUI, DKA Current Diet NPO Labs/Tests Na 164 BUN 41 BG 272 (1654 on adm) BP 149/9/8 Pertinent Medications Insulin gtt, humalog D5 1/2 NS w/ KCl 20mEq at 125 ml/hr 3L of NS Height 5 ft 11 in Weight 52.9 kg [place] Body Weight (kg) 78.18 BMI 16.2 Weight Status Underweight Subjective/Other Information Mst screen for weight loss and MD consult for diet education . Diet educatio previous attempted by this RD team 1 year ago, multiple diabetes related handouts provided. Attempted to reinforce previos diet education and obtain nutrional hx but pt did not answer phone x2. Per RN esperanza, pt has slight mental cognition abnormalities at this time. Burn Absent Trauma Absent Current % PO Fair (50-74%) #1 Nutrition Diagnosis Limited adherence to nutrition -related recommendations Etiology excessive carbohydrate intake As Evidenced by Signs and Symptoms hx of pt refusing previous diet education Is patient on ventilator? No Is Patient Ambulatory and/or Out of Bed No REE-([facility] [facility] bed[facility] 1821.504 Kcal/Kg value to use for calculation 38 Approximate Energy Requirements Using 2010 kcal/Kg Calculation Used for Recommendations Kcal/kg Additional Notes protein needs: 42 - 53g (1 - 1 .2g/kgBW) fluid needs: 1 ml/kcal Nutrition Intervention Change Diet Order: Cardiac Consistent Carbohydrate diet when medically feasible Goal #1 Understand importance of a following a consistent carbohydrat diet Goal #2 diet advancement Anticipated Discharge Needs: Cardiac Consistent Carbohydrate diet Follow-Up By: 10/31/20 Additional Comments F/U for diet education, diet advancement, intakes
[2020-10-28] MEDS ORDERED: DEXTROSE 50% IN WATER (25GM) 50 ML SYRINGE IV PRN (14:27)
[2020-10-28 16:48] LABS: BUN/Creatinine Ratio 33; Blood Urea Nitrogen 30 mg/dL (9-20); Calcium 8.9 mg/dL (8.4-10.2); Hemolysis Index 3
[2020-10-28] MEDS ORDERED: POTASSIUM CHLORIDE ER 20 MEQ TAB PO ONE (16:58)
--- NOTE | 2020-10-28 17:12 | Progress Note ---
Assessment and Plan Diabetic ketoacidosis. History of myasthenia gravis. Severe metabolic acidosis at presentation. Hypernatremia. Possible alcohol withdrawal. Acute hypoxemic respiratory failure. - replace potassium per protocol - COVID-19 test negative - transfer to [facility] and watch overnight re: Myaesthenia Gravis issues (not on any treat; watch closely for hypoventilatioin while lethargic & hypernatremic) - D5W @ 75 mls/hr for hypernatremia - continue to watch for for DT's - supplemental oxygen to keep O2 sats > 90% - prn bronchodilators (MILAGROS) with pulm hygiene per RT - avoid nephrotoxins, renally dose all medications - continue mobility protocols to prevent pressure ulcers - PT/OT as tolerated - Wound care per RN/WCT - continue accuchecks with glycemic control per SSI for target blood glucose < 180 mg/dL - tobacco abstinence counseled at the bedside - home oxygen evaluation at discharge - GI & VTE prophylaxis - Flu & pneumovax per protocol - prn analgesia per pain score - continue other care per attending / other consultants ... re-evaluate in am & prn I have spent ( >35 ) minutes with the patient w/ >50% of the time spent counseling and/or coordinating care for this patient. Counseling topics and/or how time was spent coordinating patient's care is outlined in the impression and plan above. Subjective Date of service: 10/28/20 Principal diagnosis: DKA; H/O MG; Met. Acidosis; Hypernatremia; Ac. hypoxemic r marcelina failure Interval history: Patient is seen today for: DKA; H/O myasthenia gravis; Severe metabolic acidosis at presentation; Hypernatremia; Possible alcohol withdrawal; Acute hypoxemic respiratory failure. Seen and examined at bedside; 24hour events reviewed; nursing and respiratory care staff consulted; no adverse overnight events reported to me; resting peacefully in bed; weaned off IV insulin; No N/V/F/C Objective Vital Signs - 12hr 10/28/20 10/28/20 10/28/20 06:00 07:00 07:47 Temperature 98.5 F Pulse Rate 102 H 101 H Pulse Rate [ From Monitor] Respiratory 13 16 Rate Blood Pressure 137/100 151/107 O2 Sat by Pulse 100 100 Oximetry 10/28/20 10/28/20 10/28/20 08:00 08:11 09:00 Temperature Pulse Rate 104 H 106 H 102 H Pulse Rate [ 106 H From Monitor] Respiratory 18 11 L 12 Rate Blood Pressure 145/101 138/98 O2 Sat by Pulse 93 Oximetry 10/28/20 10/28/20 10/28/20 09:04 10:00 11:00 Temperature Pulse Rate 102 H 137 H 94 H Pulse Rate [ From Monitor] Respiratory 11 L 14 Rate Blood Pressure 138/98 149/98 149/108 O2 Sat by Pulse 99 Oximetry 10/28/20 10/28/20 10/28/20 12:00 12:15 13:00 Temperature 98 F Pulse Rate 90 89 Pulse Rate [ 89 From Monitor] Respiratory 7 L 13 Rate Blood Pressure 125/92 113/79 O2 Sat by Pulse 99 100 78 L Oximetry 10/28/20 10/28/20 10/28/20 14:00 15:00 15:31 Temperature Pulse Rate 95 H 94 H 94 H Pulse Rate [ From Monitor] Respiratory 13 14 Rate Blood Pressure 129/85 135/82 O2 Sat by Pulse 97 Oximetry 10/28/20 10/28/20 10/28/20 16:00 16:24 17:00 Temperature Pulse Rate 96 H 98 H Pulse Rate [ 97 H From Monitor] Respiratory 22 20 22 Rate Blood Pressure 125/80 138/82 O2 Sat by Pulse 97 98 Oximetry Constitutional: no acute distress Eyes: non-icteric ENT: oropharynx moist Neck: supple, no lymphadenopathy, no JVD Effort: mildly labored Ascultation: Bilateral: clear Percussion: Bilateral: not dull Cardiovascular: regular rate and rhythm Gastrointestinal: normoactive bowel sounds, soft, non-tender, non-distended Integumentary: normal Extremities: no cyanosis, no edema, pulses normal, no ischemia or petechiae Neurologic: non-focal exam (grossly), pupils equal and round, CN II-XII normal, motor strength normal and (weak) Psychiatric: mood appropriate, affect normal CBC and BMP: 10/28/20 07:08 10/29/20 11:09 ABG, PT/INR, D-dimer: ABG ABG pH 7.378 (7.320-7.450) 10/27/20 19:38 POC ABG pCO2 50.1 mmHg (32.0-48.0) H 10/27/20 19:38 POC ABG pO2 141.2 mmHg (83-108) H 10/27/20 19:38 POC ABG HCO3 28.8 10/27/20 19:38 ABG O2 Saturation 98.9 (0-100) 10/27/20 19:38 Abnormal lab findings: Abnormal Labs 10/27/20 10/27/20 10/27/20 08:10 08:10 08:10 WBC Hct 51.8 H MCV 112 H MCHC 27 L RDW 17.0 H Seg Neuts % (Manual) 86.0 H Lymphocytes % (Manual) 5.0 L Seg Neutrophils # Man 7.9 H Lymphocytes # (Manual) 0.5 L POC ABG pCO2 POC ABG pO2 ABG Sodium ABG Chloride ABG Glucose VBG pH 7.116 L* Sodium Potassium 6.1 H* Chloride 88.6 L Carbon Dioxide 17 L BUN 72 H Creatinine 2.2 H Glucose 1654 H* POC Glucose Phosphorus Magnesium Arterial Blood Glucose 10/27/20 10/27/20 10/27/20 10:25 11:27 12:00 WBC Hct MCV MCHC RDW Seg Neuts % (Manual) Lymphocytes % (Manual) Seg Neutrophils # Man Lymphocytes # (Manual) POC ABG pCO2 POC ABG pO2 ABG Sodium ABG Chloride ABG Glucose VBG pH Sodium 150 H D Potassium Chloride 107.1 H Carbon Dioxide 12 L BUN 66 H Creatinine 2.0 H Glucose 1271 H* POC Glucose > 600 H Phosphorus 9.00 H Magnesium 3.70 H Arterial Blood Glucose 10/27/20 10/27/20 10/27/20 12:57 14:11 15:02 WBC Hct MCV MCHC RDW Seg Neuts % (Manual) Lymphocytes % (Manual) Seg Neutrophils # Man Lymphocytes # (Manual) POC ABG pCO2 POC ABG pO2 ABG Sodium ABG Chloride ABG Glucose VBG pH Sodium 158 H D Potassium 3.4 L D Chloride 117.4 H Carbon Dioxide BUN 57 H Creatinine 1.6 H Glucose 653 H* POC Glucose > 600 H > 600 H Phosphorus Magnesium Arterial Blood Glucose 10/27/20 10/27/20 10/27/20 15:08 16:11 16:16 WBC Hct MCV MCHC RDW Seg Neuts % (Manual) Lymphocytes % (Manual) Seg Neutrophils # Man Lymphocytes # (Manual) POC ABG pCO2 POC ABG pO2 ABG Sodium ABG Chloride ABG Glucose VBG pH Sodium 155 H Potassium Chloride 117.9 H Carbon Dioxide 21 L BUN 56 H Creatinine 1.6 H Glucose 502 H* POC Glucose 536 H 448 H Phosphorus Magnesium Arterial Blood Glucose 10/27/20 10/27/20 10/27/20 17:13 18:13 18:49 WBC Hct MCV MCHC RDW Seg Neuts % (Manual) Lymphocytes % (Manual) Seg Neutrophils # Man Lymphocytes # (Manual) POC ABG pCO2 POC ABG pO2 ABG Sodium ABG Chloride ABG Glucose VBG pH Sodium Potassium Chloride Carbon Dioxide BUN Creatinine Glucose POC Glucose 363 H 293 H 227 H Phosphorus Magnesium Arterial Blood Glucose 10/27/20 10/27/20 10/27/20 19:38 20:26 20:26 WBC Hct MCV MCHC RDW Seg Neuts % (Manual) Lymphocytes % (Manual) Seg Neutrophils # Man Lymphocytes # (Manual) POC ABG pCO2 50.1 H POC ABG pO2 141.2 H ABG Sodium 165.0 H ABG Chloride 127.0 H ABG Glucose 99 H VBG pH Sodium 164 H* D Potassium Chloride 123.4 H Carbon Dioxide BUN 51 H Creatinine 1.4 H Glucose 163 H POC Glucose Phosphorus Magnesium 2.80 H Arterial Blood Glucose 99 H 10/27/20 10/27/20 10/28/20 21:03 22:08 05:23 WBC Hct MCV MCHC RDW Seg Neuts % (Manual) Lymphocytes % (Manual) Seg Neutrophils # Man Lymphocytes # (Manual) POC ABG pCO2 POC ABG pO2 ABG Sodium ABG Chloride ABG Glucose VBG pH Sodium Potassium Chloride Carbon Dioxide BUN Creatinine Glucose POC Glucose 113 H 115 H 259 H Phosphorus Magnesium Arterial Blood Glucose 10/28/20 10/28/20 10/28/20 07:08 07:08 11:43 WBC 12.4 H Hct MCV MCHC RDW Seg Neuts % (Manual) Lymphocytes % (Manual) Seg Neutrophils # Man Lymphocytes # (Manual) POC ABG pCO2 POC ABG pO2 ABG Sodium ABG Chloride ABG Glucose VBG pH Sodium 164 H* 159 H Potassium Chloride 124.2 H 121.5 H Carbon Dioxide BUN 41 H 35 H Creatinine Glucose 272 H 265 H POC Glucose Phosphorus Magnesium Arterial Blood Glucose 10/28/20 10/28/20 11:51 15:55 WBC Hct MCV MCHC RDW Seg Neuts % (Manual) Lymphocytes % (Manual) Seg Neutrophils # Man Lymphocytes # (Manual) POC ABG pCO2 POC ABG pO2 ABG Sodium ABG Chloride ABG Glucose VBG pH Sodium 159 H Potassium 3.3 L Chloride 124.7 H Carbon Dioxide BUN 30 H Creatinine Glucose POC Glucose 239 H Phosphorus Magnesium Arterial Blood Glucose Allied health notes reviewed: nursing
[2020-10-28] MEDS: INSULIN REGULAR, HUMAN 100 UNITS/1 ML SUB-Q SCH ×2 (17:25→22:00)
[2020-10-28] MEDS ORDERED: POTASSIUM CHLORIDE 20 MEQ PACKET FEEDTUBE ONE ×2 (18:00→23:15)
--- NOTE | 2020-10-28 21:52 | Consultation ---
History of Present Illness - Reason for Consult Consult date: 10/28/20 hypernatremia - History of Present Illness This is a 29-year-old man with diabetes mellitus1, hypertension, myasthenia gravis who presented to the hospital with complaints of polyuria. Subsequent workup was notable for diabetic ketoacidosis and he was subsequently admitted for further management. Nephrology was consulted for hypernatremia. He notes generalized weakness, fatigue and polyuria. Past History Past Medical History: hypertension, other (Myasthenia gravis) Past Surgical History: No surgical history Family history: no significant family history, diabetes Medications and Allergies Allergies Allergy/AdvReac Type Severity Reaction Status Date / Time morphine Allergy Angioedema Verified 04/12/20 12:17 tomato Allergy Vomiting Verified 04/12/20 12:17 Home Medications Medication Instructions Recorded Confirmed Last Taken Type Metoprolol 25 mg PO BID 09/24/19 10/27/20 09/22/19 History Insulin NPH Hum/Reg Insulin Hm 20 units SUB-Q QPM 30 Days vial 09/27/19 10/27/20 Unknown Rx [HumuLIN 70-30 Vial] Insulin NPH Hum/Reg Insulin Hm 30 units SUB-Q QAM 30 Days vial 09/27/19 10/27/20 Unknown Rx [HumuLIN 70-30 Vial] Insulin NPH/Regular [NovoLIN 70/30] 30 unit SUB-Q BIDDIAB #1 units 09/27/19 10/27/20 Unknown Rx LORazepam [Ativan] 0.5 mg PO QHS #30 tab 09/27/19 10/27/20 Unknown Rx Losartan [Cozaar] 50 mg PO QDAY #30 tablet 09/27/19 10/27/20 Unknown Rx Metoclopramide HCl [Reglan TAB] 5 mg PO TIDAC #21 tablet 09/27/19 10/27/20 Unknown Rx Metoprolol [Lopressor TAB] 25 mg PO BID #60 tablet 09/27/19 10/27/20 Unknown Rx Pantoprazole Sodium [Protonix] 40 mg PO HS #30 09/27/19 10/27/20 Unknown Rx oxyCODONE /ACETAMINOPHEN [Percocet 1 tab PO Q4H PRN #20 tablet 09/27/19 10/27/20 Unknown Rx 5/325 mg] Active Meds: Active Medications Acetaminophen (Acetaminophen 325 Mg Tab) 650 mg PO Q6H PRN PRN Reason: Pain MILD(1-3)/Fever >100.5/QUINTANILLA Albuterol (Albuterol 2.5 Mg/3 Ml Nebu) 2.5 mg IH Q3HRT PRN PRN Reason: Shortness Of Breath Dextrose (Dextrose 50% In Water (25gm) 50 Ml Syringe) 50 ml IV Q30MIN PRN; Protocol PRN Reason: Hypoglycemia Enoxaparin Sodium (Enoxaparin 40 Mg/0.4 Ml Inj) 40 mg SUB-Q QDAY@1000 BREANNE Last Admin: 10/28/20 09:05 Dose: 40 mg Documented by: Hydralazine HCl (Hydralazine 20 Mg/1 Ml Inj) 10 mg IV Q4HR PRN PRN Reason: Blood Pressure Last Admin: 10/27/20 20:07 Dose: 10 mg Documented by: Dextrose (D5w) 1,000 mls @ 75 mls/hr IV DIRECT BREANNE Last Admin: 10/28/20 12:25 Dose: 125 mls/hr Documented by: Insulin Human Isoph/Insulin Regular (Insulin Nph/Regular 70/30 Inj) 14 unit SUB-Q QDDIAB BREANNE Insulin Human Isoph/Insulin Regular (Insulin Nph/Regular 70/30 Inj) 14 unit SUB-Q QPMDIAB BREANNE Insulin Human Lispro (Insulin Lispro 100 Unit/Ml) 0 unit SUB-Q ACHS BREANNE; Protocol Last Admin: 10/28/20 17:25 Dose: Not Given Documented by: Insulin Human Regular (Insulin Regular, Human 100 Units/1 Ml) 0 units SUB-Q ACHS [facility]; Protocol Last Admin: 10/28/20 17:25 Dose: Not Given Documented by: Labetalol HCl (Labetalol 20 Mg/4 Ml Inj) 10 mg IV Q4H PRN PRN Reason: Blood Pressure Last Admin: 10/27/20 21:25 Dose: 10 mg Documented by: Lorazepam (Lorazepam 2 Mg/Ml Vial) 2 mg IV Q1HR PRN PRN Reason: WINSTON-Eric 8-15 Last Admin: 10/28/20 12:25 Dose: 2 mg Documented by: Lorazepam (Lorazepam 2 Mg/Ml Vial) 4 mg IV Q1HR PRN PRN Reason: WINSTON-Eric 16- Lorazepam (Lorazepam 2 Mg/Ml Vial) 4 mg IV Q15MIN PRN PRN Reason: CIWA-Ar >25 Metoprolol Tartrate (Metoprolol Tartrate 25 Mg Tab) 25 mg PO BID [facility] Last Admin: 10/28/20 09:04 Dose: 25 mg Documented by: Naloxone HCl (Naloxone 0.4 Mg/1 Ml Inj) 0.1 mg IV Q2MIN PRN PRN Reason: Res Rate </= 8 or 02 SAT < 92% Oxycodone/Acetaminophen (Oxycodone /Acetaminophen 5-325mg Tab) 1 tab PO Q6H PRN PRN Reason: Pain, Moderate (4-6) Pantoprazole Sodium (Pantoprazole 40 Mg Tab) 40 mg PO QHS [facility] Sodium Chloride (Sodium Chloride 0.9% 10 Ml Flush Syringe) 10 ml IV BID [facility] Last Admin: 10/28/20 09:05 Dose: 10 ml Documented by: Sodium Chloride (Sodium Chloride 0.9% 10 Ml Flush Syringe) 10 ml IV PRN PRN PRN Reason: LINE FLUSH Review of Systems Constitutional: weakness, malaise Ears, nose, mouth and throat: no nasal congestion, no nasal discharge Cardiovascular: no chest pain, no orthopnea Respiratory: no cough, no shortness of breath Gastrointestinal: no vomiting, no diarrhea Genitourinary Male: no dysuria, no hematuria Musculoskeletal: no neck stiffness, no neck pain Integumentary: no rash, no redness Neurological: weakness, no paralysis Psychiatric: no anxiety, no paranoia Endocrine: polyuria Hematologic/Lymphatic: no easy bruising, no easy bleeding Exam - Vital Signs Vital signs: Vital Signs Pulse Resp BP Pulse Ox 74 16 123/83 98 10/27/20 07:30 10/27/20 07:30 10/27/20 07:30 10/27/20 07:30 Results - Lab Results 10/28/20 07:08 10/28/20 15:55 Most recent lab results ABG pH 7.378 (7.320-7.450) 10/27/20 19:38 ABG O2 Saturation 98.9 (0-100) 10/27/20 19:38 Calcium 8.9 mg/dL (8.4-10.2) 10/28/20 15:55 Phosphorus 3.50 mg/dL (2.5-4.5) D 10/27/20 20:26 Magnesium 2.80 mg/dL (1.7-2.3) H 10/27/20 20:26 Assessment and Plan Assessment Severe hyponatremia Hypokalemia Diabetes mellitus type 1 Recommendations Continue IV hydration with half-normal Needs free water, recommend oral hydration with 250 ml every 2 hour Replete potassium Keep glucose less than 140-180
[2020-10-28] MEDS: PANTOPRAZOLE 40 MG TAB PO SCH (22:05)
[2020-10-29] MEDS: DEXTROSE 5% IN WATER 1,000 ML IV SCH ×2 (01:05→15:00)
[2020-10-29 01:38] LABS: BUN/Creatinine Ratio 23; Blood Urea Nitrogen 23 mg/dL (9-20); Calcium 9.1 mg/dL (8.4-10.2); Hemolysis Index 7
[2020-10-29] MEDS: LORazepam 2 MG/ML VIAL IV PRN ×2 (06:38→23:36)
[2020-10-29] MEDS ORDERED: INSULIN NPH/REGULAR 70/30 INJ SUB-Q SCH ×3 (08:00→17:00)
[2020-10-29] MEDS: INSULIN REGULAR, HUMAN 100 UNITS/1 ML SUB-Q SCH ×4 (08:52→23:36)
[2020-10-29] MEDS: INSULIN LISPRO 100 UNIT/ML SUB-Q SCH ×2 (08:52→12:41)
[2020-10-29] MEDS: ENOXAPARIN 40 MG/0.4 ML INJ SUB-Q SCH (09:01)
[2020-10-29] MEDS: METOPROLOL TARTRATE 25 MG TAB PO SCH ×2 (09:01→23:36)
[2020-10-29 11:42] LABS: BUN/Creatinine Ratio 17; Blood Urea Nitrogen 17 mg/dL (9-20); Calcium 8.8 mg/dL (8.4-10.2); Hemolysis Index 8
--- NOTE | 2020-10-29 12:31 | Progress Note ---
Assessment and Plan 29-year-old male with diabetes mellitus, hypertension, myasthenia gravis who was admitted for DKA and electrolyte imbalances DKA Diabetes mellitus with uncontrolled blood sugar Severe protein calorie malnutrition Acute metabolic acidosis secondary to DKA Severe hypernatremia Acute kidney injury secondary to vasomotor nephropathy in the setting of DKA History of myasthenia gravis Hypertension Plan -[facility] and nephrology consulted, appreciate recommendations -S/p DKA protocol, continue to adjust insulin doses for better glycemic control -Free water oral intake 500 mL every 2 hours -D5 water drip, follow serum sodium -Trend BMP, metoprolol twice daily -Continue CIWA protocol -Hemoglobin A1c 11.4 -Need diabetic education before discharge GI/DVT prophylaxis: Protonix, SCDs to bilateral lower extremities while in bed, Lovenox subcu Disposition: transfer to [facility] The high probability of a clinically significant, sudden or life threatening deterioration of the [endocrine] system(s) required my full and direct attention, intervention and personal management. The aggregate critical care time was [35] minutes. This time is in addition to time spent performing reported procedures but includes the following: [x] Data Review and interpretation [x] Patient assessment and monitoring of vital signs [x] Documentation [x] Medication orders and management Brief history: This is a 29-year-old male with diabetes mellitus, hypertension and myasthenia gravis who presented to the emergency department on 10/27 with complaints of polyuria. Work-up in the emergency department revealed a blood glucose level of 1654, hypochloremia, high anion gap metabolic acidosis, acute kidney injury, hypophosphatemia and hypomagnesemia. Patient was initiated on the DKA protocol and admitted to the hospitalist service with consults to [facility]. 10/28: Given persistent hypernatremia nephrology was consulted today. Patient's anion gap was closed and he was started on a consistent carbohydrate diet however the patient is somewhat agitated and p.o. intake would be unreliable so he was started on a clear liquid diet in addition. Patient has been transitioned to sliding scale insulin and long-acting. He is also been started on D5 W and we will encourage PO intake (per nephrology he will need to have 500 mL every 2 hours) 10/29: Patient was agitated last night and wanted to get out from the bed, he is currently on restraint appears lethargic. Sodium level improved -153 today, continue clear liquid diet as long as patient on D5W. Continue to follow sodium level. When sodium level normalizes drops below 150 with change to D5W to half-normal saline we will start consistent carb diet and adjust insulin doses according to blood glucose level. Hospitalist Physical General appearance: Present: Lethargic - EENT Eyes: Present: PERRL, EOM intact ENT: hearing intact, clear oral mucosa - Neck Neck: Present: supple, normal ROM - Respiratory Respiratory effort: normal Respiratory: bilateral: CTA - Cardiovascular Rhythm: regular Heart Sounds: Present: S1 & S2. Absent: systolic murmur, diastolic murmur - Extremities Extremities: no ischemia, pulses intact, pulses symmetrical, No edema, normal temperature, normal color, Full ROM Peripheral Pulses: within normal limits - Abdominal General gastrointestinal: soft, non-tender, non-distended, normal bowel sounds - Integumentary Integumentary: Present: clear, warm - Psychiatric Psychiatric: No appropriate mood/affect, slightly agitated - Neurologic Neurologic: CNII-XII intact, no focal deficits, moves all extremities - Allied Health Allied health notes reviewed: nursing, social work Subjective Date of service: 10/29/20 Principal diagnosis: DKA; H/O MG; Met. Acidosis; Hypernatremia; Ac. hypoxemic resp failure Interval history: Patient seen and examined. Medical records and medication list reviewed. No acute event overnight noted by the RN. Patient appears lethargic and currently restrained. Patient is tolerating clear liquid diet. Discussed plan of care at bedside with patient's RN Call patient family with phone number that is listed in the chart but unable to reach out to anyone. Objective - Constitutional Vitals: Vital Signs - 12hr 10/29/20 10/29/20 10/29/20 01:00 02:00 03:00 Temperature Pulse Rate 96 H 97 H 99 H Pulse Rate [ From Monitor] Respiratory 14 17 20 Rate Blood Pressure 138/99 131/98 142/96 O2 Sat by Pulse 99 Oximetry 10/29/20 10/29/20 10/29/20 04:00 05:00 06:00 Temperature 99.2 F Pulse Rate 99 H 100 H 102 H Pulse Rate [ 97 H From Monitor] Respiratory 20 12 13 Rate Blood Pressure 146/98 144/94 140/95 O2 Sat by Pulse 98 Oximetry 10/29/20 10/29/2010/29/21 07:00 08:00 09:00 Temperature 98.8 F Pulse Rate 101 H 103 H 104 H Pulse Rate [ From Monitor] Respiratory 18 13 22 Rate Blood Pressure 149/104 157/104 158/110 O2 Sat by Pulse 77 L Oximetry 10/29/20 10/29/20 10/29/20 09:01 10:00 11:00 Temperature Pulse Rate 106 H 93 H 97 H Pulse Rate [ From Monitor] Respiratory 21 24 Rate Blood Pressure 158/110 134/93 134/95 O2 Sat by Pulse 99 Oximetry - Labs CBC & Chem 7: 10/30/20 05:01 10/30/20 05:01 Labs: Abnormal lab results 10/28/20 10/28/20 10/28/20 Range/Units 11:51 15:55 15:55 Sodium 159 H (137-145) mmol/L Potassium 3.3 L (3.6-5.0) mmol/L Chloride 124.7 H (98-107) mmol/L BUN 30 H (9-20) mg/dL Glucose (75-100) mg/dL POC Glucose 239 H (70-105) mg/dL Hemoglobin A1c 11.4 H (4-6) % 10/28/20 10/29/20 10/29/20 Range/Units 21:56 00:44 08:19 Sodium 157 H (137-145) mmol/L Potassium (3.6-5.0) mmol/L Chloride 120.6 H (98-107) mmol/L BUN 23 H (9-20) mg/dL Glucose 124 H (75-100) mg/dL POC Glucose 120 H 357 H (70-105) mg/dL Hemoglobin A1c (4-6) % 10/29/20 Range/Units 11:09 Sodium 150 H (137-145) mmol/L Potassium (3.6-5.0) mmol/L Chloride 113.5 H (98-107) mmol/L BUN (9-20) mg/dL Glucose 213 H (75-100) mg/dL POC Glucose (70-105) mg/dL Hemoglobin A1c (4-6) %
--- NOTE | 2020-10-29 15:15 | Progress Note ---
Assessment and Plan Diabetic ketoacidosis. History of myasthenia gravis. Severe metabolic acidosis at presentation. Hypernatremia. Possible alcohol withdrawal. Acute hypoxemic respiratory failure. - stat glucose in 30's - 1 amp D50 - get stat ABG and address - deploy BIPAP scheduled qhs with prn daytime use - place feeding tube and begin glucerna - reduce dose of scheduled insulin - continue to watch in IMCU overnight - continue D5W @ 75 mls/hr for hypernatremia till tube feeds started - continue care as below otherwise; - continue to watch for for DT's - supplemental oxygen to keep O2 sats > 90% - prn bronchodilators (MILAGROS) with pulm hygiene per RT - avoid nephrotoxins, renally dose all medications - continue mobility protocols to prevent pressure ulcers - PT/OT as tolerated - Wound care per RN/WCT - continue accuchecks with glycemic control per SSI for target blood glucose < 180 mg/dL - tobacco abstinence counseled at the bedside - home oxygen evaluation at discharge - GI & VTE prophylaxis - Flu & pneumovax per protocol - prn analgesia per pain score - continue other care per attending / other consultants ... re-evaluate in am & prn I have spent ( >35 ) minutes with the patient w/ >50% of the time spent counseling and/or coordinating care for this patient. Counseling topics and/or how time was spent coordinating patient's care is outlined in the impression and plan above. Subjective Date of service: 10/29/20 Principal diagnosis: DKA; H/O MG; Met. Acidosis; Hypernatremia; Ac. hypoxemic resp failure Interval history: Patient is seen today for: DKA; H/O myasthenia gravis; Severe metabolic acidosis at presentation; Hypernatremia; Possible alcohol withdrawal; Acute hypoxemic respiratory failure. Seen and examined at bedside; 24hour events reviewed; nursing and respiratory care staff consulted; no adverse overnight events reported to me; resting peacefully in bed; lethargic really with sleep disordered breathing evident; no emesis or overt aspiration; afebrile Objective Vital Signs - 12hr 10/29/20 10/29/20 10/29/20 04:00 05:00 06:00 Temperature 99.2 F Pulse Rate 99 H 100 H 102 H Pulse Rate [ 97 H From Monitor] Respiratory 20 12 13 Rate Blood Pressure 146/98 144/94 140/95 O2 Sat by Pulse 98 Oximetry 10/29/20 10/29/20 10/29/20 07:00 08:00 09:00 Temperature 98.8 F Pulse Rate 101 H 103 H 104 H Pulse Rate [ From Monitor] Respiratory 18 13 22 Rate Blood Pressure 149/104 157/104 158/110 O2 Sat by Pulse 77 L Oximetry 10/29/20 10/29/20 10/29/20 09:01 10:00 11:00 Temperature Pulse Rate 106 H 93 H 97 H Pulse Rate [ From Monitor] Respiratory 21 24 Rate Blood Pressure 158/110 134/93 134/95 O2 Sat by Pulse 99 Oximetry 10/29/20 10/29/20 10/29/20 12:00 13:00 14:00 Temperature Pulse Rate 98 H 96 H 85 Pulse Rate [ From Monitor] Respiratory 16 15 35 H Rate Blood Pressure 125/91 143/96 124/80 O2 Sat by Pulse Oximetry Constitutional: no acute distress, other (lethargic) Eyes: non-icteric ENT: oropharynx moist Neck: supple, no lymphadenopathy, no JVD Effort: mildly labored Ascultation: Bilateral: clear, other (snoring with referred upper airway sounds) Percussion: Bilateral: not dull Cardiovascular: regular rate and rhythm Gastrointestinal: normoactive bowel sounds, soft, non-tender, non-distended Integumentary: normal Extremities: no cyanosis, no edema, pulses normal, no ischemia or petechiae Neurologic: non-focal exam (grossly), pupils equal and round, CN II-XII normal, motor strength normal and (weak) Psychiatric: other (unable to assess re: AMS) CBC and BMP: 10/28/20 07:08 10/29/20 11:09 ABG, PT/INR, D-dimer: ABG ABG pH 7.378 (7.320-7.450) 10/27/20 19:38 POC ABG pCO2 50.1 mmHg (32.0-48.0) H 10/27/20 19:38 POC ABG pO2 141.2 mmHg (83-108) H 10/27/20 19:38 POC ABG HCO3 28.8 10/27/20 19:38 ABG O2 Saturation 98.9 (0-100) 10/27/20 19:38 Abnormal lab findings: Abnormal Labs 10/27/20 10/27/20 10/27/20 08:10 08:10 08:10 WBC Hct 51.8 H MCV 112 H MCHC 27 L RDW 17.0 H Seg Neuts % (Manual) 86.0 H Lymphocytes % (Manual) 5.0 L Seg Neutrophils # Man 7.9 H Lymphocytes # (Manual) 0.5 L POC ABG pCO2 POC ABG pO2 ABG Sodium ABG Chloride ABG Glucose VBG pH 7.116 L* Sodium Potassium 6.1 H* Chloride 88.6 L Carbon Dioxide 17 L BUN 72 H Creatinine 2.2 H Glucose 1654 H* POC Glucose Hemoglobin A1c Phosphorus Magnesium Arterial Blood Glucose 10/27/20 10/27/20 10/27/20 10:25 11:27 12:00 WBC Hct MCV MCHC RDW Seg Neuts % (Manual) Lymphocytes % (Manual) Seg Neutrophils # Man Lymphocytes # (Manual) POC ABG pCO2 POC ABG pO2 ABG Sodium ABG Chloride ABG Glucose VBG pH Sodium 150 H D Potassium Chloride 107.1 H Carbon Dioxide 12 L BUN 66 H Creatinine 2.0 H Glucose 1271 H* POC Glucose > 600 H Hemoglobin A1c Phosphorus 9.00 H Magnesium 3.70 H Arterial Blood Glucose 10/27/20 10/27/20 10/27/20 12:57 14:11 15:02 WBC Hct MCV MCHC RDW Seg Neuts % (Manual) Lymphocytes % (Manual) Seg Neutrophils # Man Lymphocytes # (Manual) POC ABG pCO2 POC ABG pO2 ABG Sodium ABG Chloride ABG Glucose VBG pH Sodium 158 H D Potassium 3.4 L D Chloride 117.4 H Carbon Dioxide BUN 57 H Creatinine 1.6 H Glucose 653 H* POC Glucose > 600 H > 600 H Hemoglobin A1c Phosphorus Magnesium Arterial Blood Glucose 10/27/20 10/27/20 10/27/20 15:08 16:11 16:16 WBC Hct MCV MCHC RDW Seg Neuts % (Manual) Lymphocytes % (Manual) Seg Neutrophils # Man Lymphocytes # (Manual) POC ABG pCO2 POC ABG pO2 ABG Sodium ABG Chloride ABG Glucose VBG pH Sodium 155 H Potassium Chloride 117.9 H Carbon Dioxide 21 L BUN 56 H Creatinine 1.6 H Glucose 502 H* POC Glucose 536 H 448 H Hemoglobin A1c Phosphorus Magnesium Arterial Blood Glucose 10/27/20 10/27/2021 17:13 18:13 18:49 WBC Hct MCV MCHC RDW Seg Neuts % (Manual) Lymphocytes % (Manual) Seg Neutrophils # Man Lymphocytes # (Manual) POC ABG pCO2 POC ABG pO2 ABG Sodium ABG Chloride ABG Glucose VBG pH Sodium Potassium Chloride Carbon Dioxide BUN Creatinine Glucose POC Glucose 363 H 293 H 227 H Hemoglobin A1c Phosphorus Magnesium Arterial Blood Glucose 10/27/20 10/27/20 10/27/20 19:38 20:26 20:26 WBC Hct MCV MCHC RDW Seg Neuts % (Manual) Lymphocytes % (Manual) Seg Neutrophils # Man Lymphocytes # (Manual) POC ABG pCO2 50.1 H POC ABG pO2 141.2 H ABG Sodium 165.0 H ABG Chloride 127.0 H ABG Glucose 99 H VBG pH Sodium 164 H* D Potassium Chloride 123.4 H Carbon Dioxide BUN 51 H Creatinine 1.4 H Glucose 163 H POC Glucose Hemoglobin A1c Phosphorus Magnesium 2.80 H Arterial Blood Glucose 99 H 10/27/20 10/27/20 10/28/20 21:03 22:08 05:23 WBC Hct MCV MCHC RDW Seg Neuts % (Manual) Lymphocytes % (Manual) Seg Neutrophils # Man Lymphocytes # (Manual) POC ABG pCO2 POC ABG pO2 ABG Sodium ABG Chloride ABG Glucose VBG pH Sodium Potassium Chloride Carbon Dioxide BUN Creatinine Glucose POC Glucose 113 H 115 H 259 H Hemoglobin A1c Phosphorus Magnesium Arterial Blood Glucose 10/28/20 10/28/20 10/28/20 07:08 07:08 11:43 WBC 12.4 H Hct MCV MCHC RDW Seg Neuts % (Manual) Lymphocytes % (Manual) Seg Neutrophils # Man Lymphocytes # (Manual) POC ABG pCO2 POC ABG pO2 ABG Sodium ABG Chloride ABG Glucose VBG pH Sodium 164 H* 159 H Potassium Chloride 124.2 H 121.5 H Carbon Dioxide BUN 41 H 35 H Creatinine Glucose 272 H 265 H POC Glucose Hemoglobin A1c Phosphorus Magnesium Arterial Blood Glucose 10/28/20 10/28/20 10/28/20 11:51 15:55 15:55 WBC Hct MCV MCHC RDW Seg Neuts % (Manual) Lymphocytes % (Manual) Seg Neutrophils # Man Lymphocytes # (Manual) POC ABG pCO2 POC ABG pO2 ABG Sodium ABG Chloride ABG Glucose VBG pH Sodium 159 H Potassium 3.3 L Chloride 124.7 H Carbon Dioxide BUN 30 H Creatinine Glucose POC Glucose 239 H Hemoglobin A1c 11.4 H Phosphorus Magnesium Arterial Blood Glucose 10/28/20 10/29/20 10/29/20 21:56 00:44 08:19 WBC Hct MCV MCHC RDW Seg Neuts % (Manual) Lymphocytes % (Manual) Seg Neutrophils # Man Lymphocytes # (Manual) POC ABG pCO2 POC ABG pO2 ABG Sodium ABG Chloride ABG Glucose VBG pH Sodium 157 H Potassium Chloride 120.6 H Carbon Dioxide BUN 23 H Creatinine Glucose 124 H POC Glucose 120 H 357 H Hemoglobin A1c Phosphorus Magnesium Arterial Blood Glucose 10/29/20 10/29/20 11:09 11:34 WBC Hct MCV MCHC RDW Seg Neuts % (Manual) Lymphocytes % (Manual) Seg Neutrophils # Man Lymphocytes # (Manual) POC ABG pCO2 POC ABG pO2 ABG Sodium ABG Chloride ABG Glucose VBG pH Sodium 150 H Potassium Chloride 113.5 H Carbon Dioxide BUN Creatinine Glucose 213 H POC Glucose 152 H Hemoglobin A1c Phosphorus Magnesium Arterial Blood Glucose Chest x-ray: other (none today) Allied health notes reviewed: nursing
[2020-10-29] MEDS ORDERED: LIPASE 10,500/PROTEASE 25,000/AMYLASE 43,750 (UNITS) DR CAP FEEDTUBE PRN (16:06)
[2020-10-29] MEDS ORDERED: SIMPLE SYRUP 15 ML FEEDTUBE PRN ×2 (16:06)
[2020-10-29] MEDS ORDERED: SODIUM BICARBONATE 325 MG TAB FEEDTUBE PRN (16:06)
[2020-10-29 16:09] LABS: BUN/Creatinine Ratio 18; Blood Urea Nitrogen 14 mg/dL (9-20); Calcium 9.3 mg/dL (8.4-10.2); Hemolysis Index 10
--- NOTE | 2020-10-29 18:25 | XRay Report ---
ABDOMEN 1 VIEW INDICATION / CLINICAL INFORMATION: gastric tube placement. COMPARISON: None available. FINDINGS: TUBES / LINES: Esophagogastric tube tip and sidehole project over the left upper quadrant abdomen. BOWEL GAS PATTERN: No significant abnormality. FREE AIR / EXTRALUMINAL GAS: None seen. ADDITIONAL FINDINGS: No significant additional findings. IMPRESSION: 1. Esophagogastric tube in expected position. Signer Name: Vidal Ramirez MD Signed: 10/29/2020 6:20 PM Workstation Name: [id number]
--- NOTE | 2020-10-29 18:46 | Event Note ---
Date: 10/29/20 Continue oral and IV hydration Replete potassium Michelle Levy MD
[2020-10-29] MEDS ORDERED: POTASSIUM CHLORIDE ER 20 MEQ TAB PO ONE ×2 (19:47→23:52)
[2020-10-29] MEDS: PANTOPRAZOLE 40 MG TAB PO SCH (23:36)
--- NOTE | 2020-10-30 03:40 | XRay Report ---
ABDOMEN 1 VIEW(S) INDICATION / CLINICAL INFORMATION: Evaluate NG tube position. COMPARISON: Yesterday FINDINGS: TUBES / LINES: NG tube has been slightly retracted in the proximal stomach. Recommend advancing the t ube another 5 cm. BOWEL GAS PATTERN: No significant abnormality. FREE AIR / EXTRALUMINAL GAS: None seen. ADDITIONAL FINDINGS: No significant additional findings. IMPRESSION: 1. NGT as above. Signer Name: Dante Selby MD Signed: 10/30/2020 3:36 AM Workstation Name: [id number]
[2020-10-30 05:34] LABS: Basophils % (Auto) 0.1 % (0.0-1.8); Eosinophils % (Auto) 0.3 % (0.0-4.3); Hematocrit 35.8 % (35.5-45.6); Hemoglobin 11.3 gm/dl (11.8-15.2); Lymphocytes # (Auto) 0.8 K/mm3 (1.2-5.4); Lymphocytes % (Auto) 13.1 % (13.4-35.0); Mean Corpuscular HGB Conc 32 % (32-34); Mean Corpuscular Volume 93 fl (84-94); Monocytes # (Auto) 0.6 K/mm3 (0.0-0.8); Monocytes % (Auto) 9.6 % (0.0-7.3); Platelet Count 127 K/mm3 (140-440); Red Blood Count 3.84 M/mm3 (3.65-5.03); Red Cell Distribution Width 15.7 % (13.2-15.2)
[2020-10-30 05:52] LABS: BUN/Creatinine Ratio 24; Blood Urea Nitrogen 22 mg/dL (9-20); Calcium 8.6 mg/dL (8.4-10.2); Hemolysis Index 2
[2020-10-30] MEDS: INSULIN REGULAR, HUMAN 100 UNITS/1 ML SUB-Q SCH ×4 (06:31→22:18)
[2020-10-30] MEDS ORDERED: SODIUM CHLORIDE 0.9% 1000 ML 1,000 ML IV ONE (08:00)
[2020-10-30] MEDS ORDERED: INSULIN NPH/REGULAR 70/30 INJ SUB-Q SCH ×3 (08:00→09:18)
[2020-10-30] MEDS ORDERED: INSULIN REGULAR, HUMAN 100 UNITS/1 ML SUB-Q SCH (08:00)
[2020-10-30] MEDS: ENOXAPARIN 40 MG/0.4 ML INJ SUB-Q SCH (09:09)
[2020-10-30] MEDS: METOPROLOL TARTRATE 25 MG TAB PO SCH ×2 (09:09→22:20)
--- NOTE | 2020-10-30 11:25 | Progress Note ---
Assessment and Plan 29-year-old male with diabetes mellitus, hypertension, myasthenia gravis who was admitted for DKA and electrolyte imbalances DKA, BG was 1654 on admission Diabetes mellitus with uncontrolled blood sugar Severe protein calorie malnutrition Acute metabolic acidosis secondary to DKA Severe hypernatremia Acute kidney injury secondary to vasomotor nephropathy in the setting of DKA History of myasthenia gravis Hypertension Plan -[facility] and nephrology consulted, appreciate recommendations -S/p DKA protocol, continue to adjust insulin doses for better glycemic control -encourage Free water oral intake 500 mL every 2 hours -s/p D5 water drip, adjust insulin doses -Trend BMP, metoprolol twice daily -Continue CIWA protocol -Hemoglobin A1c 11.4 -Need diabetic education before discharge GI/DVT prophylaxis: Protonix, SCDs to bilateral lower extremities while in bed, Lovenox subcu Disposition: transfer to [facility] Brief history: This is a 29-year-old male with diabetes mellitus, hypertension and myasthenia gravis who presented to the emergency department on 10/27 with complaints of polyuria. Work-up in the emergency department revealed a blood glucose level of 1654, hypochloremia, high anion gap metabolic acidosis, acute kidney injury, hypophosphatemia and hypomagnesemia. Patient was initiated on the DKA protocol and admitted to the hospitalist service with consults to [facility]. 10/28: Given persistent hypernatremia nephrology was consulted today. Patient's anion gap was closed and he was started on a consistent carbohydrate diet however the patient is somewhat agitated and p.o. intake would be unreliable so he was started on a clear liquid diet in addition. Patient has been transitioned to sliding scale insulin and long-acting. He is also been started on D5 W and we will encourage PO intake (per nephrology he will need to have 500 mL every 2 hours) 10/29: Patient was agitated last night and wanted to get out from the bed, he is currently on restraint appears lethargic. Sodium level improved -153 today, continue clear liquid diet as long as patient on D5W. Continue to follow sodium level. When sodium level normalizes drops below 150 with change to D5W to half- normal saline we will start consistent carb diet and adjust insulin doses according to blood glucose level. 10/30: BG was >600 this am. stop D5w today, Na level improved. increase insulin dose, change fluid to 1/2 NS. Monitor BG. Transfer the pt to telemetry when BG improves. cont to follow clinically. Hospitalist Physical General appearance: Present: Lethargic - EENT Eyes: Present: PERRL, EOM intact ENT: hearing intact, clear oral mucosa - Neck Neck: Present: supple, normal ROM - Respiratory Respiratory effort: normal Respiratory: bilateral: CTA - Cardiovascular Rhythm: regular Heart Sounds: Present: S1 & S2. Absent: systolic murmur, diastolic murmur - Extremities Extremities: no ischemia, pulses intact, pulses symmetrical, No edema, normal temperature, normal color, Full ROM Peripheral Pulses: within normal limits - Abdominal General gastrointestinal: soft, non-tender, non-distended, normal bowel sounds - Integumentary Integumentary: Present: clear, warm - Psychiatric Psychiatric: No appropriate mood/affect, slightly agitated - Neurologic Neurologic: CNII-XII intact, no focal deficits, moves all extremities - Allied Health Allied health notes reviewed: nursing, social work Subjective Date of service: 10/30/20 Principal diagnosis: DKA; H/O MG; Met. Acidosis; Hypernatremia; Ac. hypoxemic resp failure Interval history: Patient seen and examined. Medical records and medication list reviewed. No acute event overnight noted by the RN. Patient wanted to leave AMA but counselled him that he is not stable for discharge b/o abnormal electrolytes and BG level Discussed plan of care at bedside with patient's RN Call patient family with phone number that is listed in the chart but unable to reach out to anyone. Objective - Constitutional Vitals: Vital Signs - 12hr 10/29/20 10/30/20 10/30/20 23:36 00:00 01:00 Temperature Pulse Rate 101 H 94 H 84 Pulse Rate [ 97 H From Monitor] Respiratory 20 22 Rate Blood Pressure 125/92 155/114 108/73 O2 Sat by Pulse 98 99 Oximetry 10/30/20 10/30/20 10/30/20 02:00 03:00 04:00 Temperature Pulse Rate 81 88 90 Pulse Rate [ 97 H From Monitor] Respiratory 21 13 17 Rate Blood Pressure 110/82 156/112 150/106 O2 Sat by Pulse 98 100 100 Oximetry 10/30/20 10/30/20 10/30/20 05:00 06:00 07:00 Temperature Pulse Rate 89 92 H 96 H Pulse Rate [ From Monitor] Respiratory 16 19 15 Rate Blood Pressure 149/104 139/102 131/98 O2 Sat by Pulse 99 Oximetry 10/30/20 10/30/20 10/30/20 07:51 08:00 09:00 Temperature 97.9 F Pulse Rate 97 H 95 H Pulse Rate [ 81 From Monitor] Respiratory 22 Rate Blood Pressure 126/98 108/68 O2 Sat by Pulse 100 100 Oximetry 10/30/20 10:00 Temperature Pulse Rate 100 H Pulse Rate [ From Monitor] Respiratory Rate Blood Pressure 125/84 O2 Sat by Pulse Oximetry - Labs CBC & Chem 7: 10/30/20 05:01 10/30/20 05:01 Labs: Abnormal lab results 10/29/20 10/29/20 10/29/20 Range/Units 11:09 11:34 15:40 Hgb (11.8-15.2) gm/dl RDW (13.2-15.2) % Plt Count (140-440) K/mm3 Lymph % (Auto) (13.4-35.0) % [place] % (Auto) (0.0-7.3) % Lymph # (Auto) (1.2-5.4) K/mm3 Seg Neutrophils % (40.0-70.0) % POC ABG pO2 (83-108) mmHg ABG Hemoglobin (12.0-17.5) ABG Sodium (136.0-145.0) mmol/L ABG Chloride (98-107) mmol/L ABG Glucose (65-95) mg/dL Carboxyhemoglobin (0.5-1.5) Sodium 150 H 153 H (137-145) mmol/L Potassium 3.0 L (3.6-5.0) mmol/L Chloride 113.5 H 116.6 H (98-107) mmol/L BUN (9-20) mg/dL Glucose 213 H 18 L* (75-100) mg/dL POC Glucose 152 H (70-105) mg/dL Arterial Blood Glucose (65-95) mg/dL 10/29/20 10/29/20 10/29/20 Range/Units 15:56 16:29 21:39 Hgb (11.8-15.2) gm/dl RDW (13.2-15.2) % Plt Count (140-440) K/mm3 Lymph % (Auto) (13.4-35.0) % [place] % (Auto) (0.0-7.3) % Lymph # (Auto) (1.2-5.4) K/mm3 Seg Neutrophils % (40.0-70.0) % POC ABG pO2 108.1 H (83-108) mmHg ABG Hemoglobin 11.9 L (12.0-17.5) ABG Sodium 150.3 H (136.0-145.0) mmol/L ABG Chloride 115.0 H (98-107) mmol/L ABG Glucose 123 H (65-95) mg/dL Carboxyhemoglobin 0.4 L (0.5-1.5) Sodium (137-145) mmol/L Potassium (3.6-5.0) mmol/L Chloride (98-107) mmol/L BUN (9-20) mg/dL Glucose (75-100) mg/dL POC Glucose 38 L 128 H (70-105) mg/dL Arterial Blood Glucose 123 H (65-95) mg/dL 10/30/20 10/30/20 10/30/20 Range/Units 05:01 05:01 06:08 Hgb 11.3 L (11.8-15.2) gm/dl RDW 15.7 H (13.2-15.2) % Plt Count 127 L (140-440) K/mm3 Lymph % (Auto) 13.1 L (13.4-35.0) % [place] % (Auto) 9.6 H (0.0-7.3) % Lymph # (Auto) 0.8 L (1.2-5.4) K/mm3 Seg Neutrophils % 76.9 H (40.0-70.0) % POC ABG pO2 (83-108) mmHg ABG Hemoglobin (12.0-17.5) ABG Sodium (136.0-145.0) mmol/L ABG Chloride (98-107) mmol/L ABG Glucose (65-95) mg/dL Carboxyhemoglobin (0.5-1.5) Sodium (137-145) mmol/L Potassium (3.6-5.0) mmol/L Chloride (98-107) mmol/L BUN 22 H (9-20) mg/dL Glucose 682 H* (75-100) mg/dL POC Glucose > 600 H (70-105) mg/dL Arterial Blood Glucose (65-95) mg/dL 10/30/20 10/30/20 10/30/20 Range/Units 07:27 08:45 09:45 Hgb (11.8-15.2) gm/dl RDW (13.2-15.2) % Plt Count (140-440) K/mm3 Lymph % (Auto) (13.4-35.0) % [place] % (Auto) (0.0-7.3) % Lymph # (Auto) (1.2-5.4) K/mm3 Seg Neutrophils % (40.0-70.0) % POC ABG pO2 (83-108) mmHg ABG Hemoglobin (12.0-17.5) ABG Sodium (136.0-145.0) mmol/L ABG Chloride (98-107) mmol/L ABG Glucose (65-95) mg/dL Carboxyhemoglobin (0.5-1.5) Sodium (137-145) mmol/L Potassium (3.6-5.0) mmol/L Chloride (98-107) mmol/L BUN (9-20) mg/dL Glucose (75-100) mg/dL POC Glucose > 600 H 486 H 375 H (70-105) mg/dL Arterial Blood Glucose (65-95) mg/dL
[2020-10-30] MEDS: SODIUM CHLORIDE 0.45% 1000 ML 1,000 ML IV SCH (12:00)
--- NOTE | 2020-10-30 13:26 | Progress Note ---
Assessment and Plan Diabetic ketoacidosis. History of myasthenia gravis. Severe metabolic acidosis at presentation. Hypernatremia. Possible alcohol withdrawal. Acute hypoxemic respiratory failure. - D5W stopped - insulin dose increased as now hyperglycemic - tolerating oral meals now - continue BIPAP scheduled qhs with prn daytime use - continue care as below otherwise; - continue to watch for for DT's - supplemental oxygen to keep O2 sats > 90% - prn bronchodilators (MILAGROS) with pulm hygiene per RT - avoid nephrotoxins, renally dose all medications - continue mobility protocols to prevent pressure ulcers - PT/OT as tolerated - Wound care per RN/WCT - continue accuchecks with glycemic control per SSI for target blood glucose < 180 mg/dL - tobacco abstinence counseled at the bedside - home oxygen evaluation at discharge - GI & VTE prophylaxis - Flu & pneumovax per protocol - prn analgesia per pain score - continue other care per attending / other consultants ... re-evaluate in am & prn .... to transfer to medical floor Subjective Date of service: 10/30/20 Principal diagnosis: DKA; H/O MG; Met. Acidosis; Hypernatremia; Ac. hypoxemic resp failure Interval history: Patient is seen today for: DKA; H/O myasthenia gravis; Severe metabolic acidosis at presentation; Hypernatremia; Possible alcohol withdrawal; Acute hypoxemic respiratory failure. Seen and examined at bedside; 24hour events reviewed; nursing and respiratory care staff consulted; no adverse overnight events reported to me; resting peacefully in bed; doing better; no more hypoglycemic spells Objective Vital Signs - 12hr 10/30/20 10/30/20 10/30/20 02:00 03:00 04:00 Temperature Pulse Rate 81 88 90 Pulse Rate [ 97 H From Monitor] Respiratory 21 13 17 Rate Blood Pressure 110/82 156/112 150/106 O2 Sat by Pulse 98 100 100 Oximetry 10/30/20 10/30/20 10/30/20 05:00 06:00 07:00 Temperature Pulse Rate 89 92 H 96 H Pulse Rate [ From Monitor] Respiratory 16 19 15 Rate Blood Pressure 149/104 139/102 131/98 O2 Sat by Pulse 99 Oximetry 10/30/20 10/30/20 10/30/20 07:51 08:00 09:00 Temperature 97.9 F Pulse Rate 97 H 95 H Pulse Rate [ 81 From Monitor] Respiratory 22 Rate Blood Pressure 126/98 108/68 O2 Sat by Pulse 100 100 Oximetry 10/30/20 10/30/20 10/30/20 10:00 11:00 12:00 Temperature Pulse Rate 100 H 95 H 93 H Pulse Rate [ 81 From Monitor] Respiratory 19 14 Rate Blood Pressure 125/84 106/67 111/77 O2 Sat by Pulse 100 Oximetry 10/30/20 12:33 Temperature 98.2 F Pulse Rate Pulse Rate [ From Monitor] Respiratory Rate Blood Pressure O2 Sat by Pulse Oximetry Constitutional: no acute distress Eyes: non-icteric ENT: oropharynx moist Neck: supple, no lymphadenopathy, no JVD Effort: mildly labored Ascultation: Bilateral: clear Percussion: Bilateral: not dull Cardiovascular: regular rate and rhythm Gastrointestinal: normoactive bowel sounds, soft, non-tender, non-distended Integumentary: normal Extremities: no cyanosis, no edema, pulses normal, no ischemia or petechiae Neurologic: non-focal exam (grossly), pupils equal and round, CN II-XII normal, motor strength normal and (weak) Psychiatric: mood appropriate, affect normal CBC and BMP: 10/30/20 05:01 10/30/20 05:01 ABG, PT/INR, D-dimer: ABG ABG pH 7.412 (7.320-7.450) 10/29/20 16:29 POC ABG pCO2 47.3 mmHg (32.0-48.0) 10/29/20 16:29 POC ABG pO2 108.1 mmHg (83-108) H 10/29/20 16:29 POC ABG HCO3 29.4 10/29/20 16:29 ABG O2 Saturation 98.3 (0-100) 10/29/20 16:29 Abnormal lab findings: Abnormal Labs 10/27/20 10/27/20 10/27/20 08:10 08:10 08:10 WBC Hgb Hct 51.8 H MCV 112 H MCHC 27 L RDW 17.0 H Plt Count Lymph % (Auto) [place] % (Auto) Lymph # (Auto) Seg Neutrophils % Seg Neuts % (Manual) 86.0 H Lymphocytes % (Manual) 5.0 L Seg Neutrophils # Man 7.9 H Lymphocytes # (Manual) 0.5 L POC ABG pCO2 POC ABG pO2 ABG Hemoglobin ABG Sodium ABG Chloride ABG Glucose VBG pH 7.116 L* Carboxyhemoglobin Sodium Potassium 6.1 H* Chloride 88.6 L Carbon Dioxide 17 L BUN 72 H Creatinine 2.2 H Glucose 1654 H* POC Glucose Hemoglobin A1c Phosphorus Magnesium Arterial Blood Glucose 10/27/20 10/27/20 10/27/20 10:25 11:27 12:00 WBC Hgb Hct MCV MCHC RDW Plt Count Lymph % (Auto) [place] % (Auto) Lymph # (Auto) Seg Neutrophils % Seg Neuts % (Manual) Lymphocytes % (Manual) Seg Neutrophils # Man Lymphocytes # (Manual) POC ABG pCO2 POC ABG pO2 ABG Hemoglobin ABG Sodium ABG Chloride ABG Glucose VBG pH Carboxyhemoglobin Sodium 150 H D Potassium Chloride 107.1 H Carbon Dioxide 12 L BUN 66 H Creatinine 2.0 H Glucose 1271 H* POC Glucose > 600 H Hemoglobin A1c Phosphorus 9.00 H Magnesium 3.70 H Arterial Blood Glucose 10/27/20 10/27/20 10/27/20 12:57 14:11 15:02 WBC Hgb Hct MCV MCHC RDW Plt Count Lymph % (Auto) [place] % (Auto) Lymph # (Auto) Seg Neutrophils % Seg Neuts % (Manual) Lymphocytes % (Manual) Seg Neutrophils # Man Lymphocytes # (Manual) POC ABG pCO2 POC ABG pO2 ABG Hemoglobin ABG Sodium ABG Chloride ABG Glucose VBG pH Carboxyhemoglobin Sodium 158 H D Potassium 3.4 L D Chloride 117.4 H Carbon Dioxide BUN 57 H Creatinine 1.6 H Glucose 653 H* POC Glucose > 600 H > 600 H Hemoglobin A1c Phosphorus Magnesium Arterial Blood Glucose 10/27/20 10/27/20 10/27/20 15:08 16:11 16:16 WBC Hgb Hct MCV MCHC RDW Plt Count Lymph % (Auto) [place] % (Auto) Lymph # (Auto) Seg Neutrophils % Seg Neuts % (Manual) Lymphocytes % (Manual) Seg Neutrophils # Man Lymphocytes # (Manual) POC ABG pCO2 POC ABG pO2 ABG Hemoglobin ABG Sodium ABG Chloride ABG Glucose VBG pH Carboxyhemoglobin Sodium 155 H Potassium Chloride 117.9 H Carbon Dioxide 21 L BUN 56 H Creatinine 1.6 H Glucose 502 H* POC Glucose 536 H 448 H Hemoglobin A1c Phosphorus Magnesium Arterial Blood Glucose 10/27/20 10/27/20 10/27/20 17:13 18:13 18:49 WBC Hgb Hct MCV MCHC RDW Plt Count Lymph % (Auto) [place] % (Auto) Lymph # (Auto) Seg Neutrophils % Seg Neuts % (Manual) Lymphocytes % (Manual) Seg Neutrophils # Man Lymphocytes # (Manual) POC ABG pCO2 POC ABG pO2 ABG Hemoglobin ABG Sodium ABG Chloride ABG Glucose VBG pH Carboxyhemoglobin Sodium Potassium Chloride Carbon Dioxide BUN Creatinine Glucose POC Glucose 363 H 293 H 227 H Hemoglobin A1c Phosphorus Magnesium Arterial Blood Glucose 10/27/20 10/27/20 10/27/20 19:38 20:26 20:26 WBC Hgb Hct MCV MCHC RDW Plt Count Lymph % (Auto) [place] % (Auto) Lymph # (Auto) Seg Neutrophils % Seg Neuts % (Manual) Lymphocytes % (Manual) Seg Neutrophils # Man Lymphocytes # (Manual) POC ABG pCO2 50.1 H POC ABG pO2 141.2 H ABG Hemoglobin ABG Sodium 165.0 H ABG Chloride 127.0 H ABG Glucose 99 H VBG pH Carboxyhemoglobin Sodium 164 H* D Potassium Chloride 123.4 H Carbon Dioxide BUN 51 H Creatinine 1.4 H Glucose 163 H POC Glucose Hemoglobin A1c Phosphorus Magnesium 2.80 H Arterial Blood Glucose 99 H 10/27/20 10/27/20 10/28/20 21:03 22:08 05:23 WBC Hgb Hct MCV MCHC RDW Plt Count Lymph % (Auto) [place] % (Auto) Lymph # (Auto) Seg Neutrophils % Seg Neuts % (Manual) Lymphocytes % (Manual) Seg Neutrophils # Man Lymphocytes # (Manual) POC ABG pCO2 POC ABG pO2 ABG Hemoglobin ABG Sodium ABG Chloride ABG Glucose VBG pH Carboxyhemoglobin Sodium Potassium Chloride Carbon Dioxide BUN Creatinine Glucose POC Glucose 113 H 115 H 259 H Hemoglobin A1c Phosphorus Magnesium Arterial Blood Glucose 10/28/20 10/28/20 10/28/20 07:08 07:08 11:43 WBC 12.4 H Hgb Hct MCV MCHC RDW Plt Count Lymph % (Auto) [place] % (Auto) Lymph # (Auto) Seg Neutrophils % Seg Neuts % (Manual) Lymphocytes % (Manual) Seg Neutrophils # Man Lymphocytes # (Manual) POC ABG pCO2 POC ABG pO2 ABG Hemoglobin ABG Sodium ABG Chloride ABG Glucose VBG pH Carboxyhemoglobin Sodium 164 H* 159 H Potassium Chloride 124.2 H 121.5 H Carbon Dioxide BUN 41 H 35 H Creatinine Glucose 272 H 265 H POC Glucose Hemoglobin A1c Phosphorus Magnesium Arterial Blood Glucose 10/28/20 10/28/20 10/28/20 11:51 15:55 15:55 WBC Hgb Hct MCV MCHC RDW Plt Count Lymph % (Auto) [place] % (Auto) Lymph # (Auto) Seg Neutrophils % Seg Neuts % (Manual) Lymphocytes % (Manual) Seg Neutrophils # Man Lymphocytes # (Manual) POC ABG pCO2 POC ABG pO2 ABG Hemoglobin ABG Sodium ABG Chloride ABG Glucose VBG pH Carboxyhemoglobin Sodium 159 H Potassium 3.3 L Chloride 124.7 H Carbon Dioxide BUN 30 H Creatinine Glucose POC Glucose 239 H Hemoglobin A1c 11.4 H Phosphorus Magnesium Arterial Blood Glucose 10/28/20 10/29/20 10/29/20 21:56 00:44 08:19 WBC Hgb Hct MCV MCHC RDW Plt Count Lymph % (Auto) [place] % (Auto) Lymph # (Auto) Seg Neutrophils % Seg Neuts % (Manual) Lymphocytes % (Manual) Seg Neutrophils # Man Lymphocytes # (Manual) POC ABG pCO2 POC ABG pO2 ABG Hemoglobin ABG Sodium ABG Chloride ABG Glucose VBG pH Carboxyhemoglobin Sodium 157 H Potassium Chloride 120.6 H Carbon Dioxide BUN 23 H Creatinine Glucose 124 H POC Glucose 120 H 357 H Hemoglobin A1c Phosphorus Magnesium Arterial Blood Glucose 10/29/20 10/29/20 10/29/20 11:09 11:34 15:40 WBC Hgb Hct MCV MCHC RDW Plt Count Lymph % (Auto) [place] % (Auto) Lymph # (Auto) Seg Neutrophils % Seg Neuts % (Manual) Lymphocytes % (Manual) Seg Neutrophils # Man Lymphocytes # (Manual) POC ABG pCO2 POC ABG pO2 ABG Hemoglobin ABG Sodium ABG Chloride ABG Glucose VBG pH Carboxyhemoglobin Sodium 150 H 153 H Potassium 3.0 L Chloride 113.5 H 116.6 H Carbon Dioxide BUN Creatinine Glucose 213 H 18 L* POC Glucose 152 H Hemoglobin A1c Phosphorus Magnesium Arterial Blood Glucose 10/29/20 10/29/20 10/29/20 15:56 16:29 21:39 WBC Hgb Hct MCV MCHC RDW Plt Count Lymph % (Auto) [place] % (Auto) Lymph # (Auto) Seg Neutrophils % Seg Neuts % (Manual) Lymphocytes % (Manual) Seg Neutrophils # Man Lymphocytes # (Manual) POC ABG pCO2 POC ABG pO2 108.1 H ABG Hemoglobin 11.9 L ABG Sodium 150.3 H ABG Chloride 115.0 H ABG Glucose 123 H VBG pH Carboxyhemoglobin 0.4 L Sodium Potassium Chloride Carbon Dioxide BUN Creatinine Glucose POC Glucose 38 L 128 H Hemoglobin A1c Phosphorus Magnesium Arterial Blood Glucose 123 H 10/30/20 10/30/20 10/30/20 05:01 05:01 06:08 WBC Hgb 11.3 L Hct MCV MCHC RDW 15.7 H Plt Count 127 L Lymph % (Auto) 13.1 L [place] % (Auto) 9.6 H Lymph # (Auto) 0.8 L Seg Neutrophils % 76.9 H Seg Neuts % (Manual) Lymphocytes % (Manual) Seg Neutrophils # Man Lymphocytes # (Manual) POC ABG pCO2 POC ABG pO2 ABG Hemoglobin ABG Sodium ABG Chloride ABG Glucose VBG pH Carboxyhemoglobin Sodium Potassium Chloride Carbon Dioxide BUN 22 H Creatinine Glucose 682 H* POC Glucose > 600 H Hemoglobin A1c Phosphorus Magnesium Arterial Blood Glucose 10/30/20 10/30/20 10/30/20 07:27 08:45 09:45 WBC Hgb Hct MCV MCHC RDW Plt Count Lymph % (Auto) [place] % (Auto) Lymph # (Auto) Seg Neutrophils % Seg Neuts % (Manual) Lymphocytes % (Manual) Seg Neutrophils # Man Lymphocytes # (Manual) POC ABG pCO2 POC ABG pO2 ABG Hemoglobin ABG Sodium ABG Chloride ABG Glucose VBG pH Carboxyhemoglobin Sodium Potassium Chloride Carbon Dioxide BUN Creatinine Glucose POC Glucose > 600 H 486 H 375 H Hemoglobin A1c Phosphorus Magnesium Arterial Blood Glucose Allied health notes reviewed: nursing
[2020-10-30] MEDS: INSULIN NPH/REGULAR 70/30 INJ SUB-Q SCH ×2 (16:51→16:54)
--- NOTE | 2020-10-30 17:55 | Progress Note ---
Assessment and Plan Assessment Severe hypernatremia Hypokalemia Diabetes mellitus type 1 Recommendations Hold further IVF Maintain oral hydration Replete potassium prn Keep glucose less than 140-180 Will sign off. Please call with questions Subjective Date of service: 10/30/20 Principal diagnosis: DKA; H/O MG; Met. Acidosis; Hypernatremia; Ac. hypoxemic resp failure Interval history: Transfer to the floor Tolerating diet Objective - Exam Narrative Exam: General: No acute distress HEENT: Oral mucosa moist Neck: Supple, no JVD Chest: Clear to auscultation bilaterally Heart: RRR, S1 and S2, no pericardial rub Abdomen: Soft, nontender, no renal bruit Extremity: No peripheral cyanosis, edema Neurological: Alert, awake, no asterixis Dermatology: No skin rash Psych: No agitation Musculoskeletal: No joint effusion - Vital Signs Vital signs: Vital Signs - 12hr 10/30/20 10/30/20 10/30/20 06:00 07:00 07:51 Temperature 97.9 F Pulse Rate 92 H 96 H Pulse Rate [ From Monitor] Respiratory 19 15 Rate Blood Pressure 139/102 131/98 O2 Sat by Pulse 99 Oximetry 10/30/20 10/30/20 10/30/20 08:00 09:00 10:00 Temperature Pulse Rate 97 H 95 H 100 H Pulse Rate [ 81 From Monitor] Respiratory 22 Rate Blood Pressure 126/98 108/68 125/84 O2 Sat by Pulse 100 100 Oximetry 10/30/20 10/30/20 10/30/20 11:00 12:00 12:33 Temperature 98.2 F Pulse Rate 95 H 91 H Pulse Rate [ 81 From Monitor] Respiratory 19 14 Rate Blood Pressure 106/67 111/77 O2 Sat by Pulse 100 Oximetry 10/30/20 10/30/20 10/30/20 13:00 14:00 15:00 Temperature Pulse Rate 88 90 92 H Pulse Rate [ From Monitor] Respiratory Rate Blood Pressure 107/73 113/80 84/52 O2 Sat by Pulse 100 100 Oximetry 10/30/20 10/30/20 10/30/20 15:57 16:00 17:00 Temperature Pulse Rate 95 H 102 H Pulse Rate [ 81 From Monitor] Respiratory 14 Rate Blood Pressure 120/84 84/52 O2 Sat by Pulse 99 99 81 L Oximetry - Lab 10/30/20 05:01 10/30/20 05:01 Most recent lab results ABG pH 7.412 (7.320-7.450) 10/29/20 16:29 ABG O2 Saturation 98.3 (0-100) 10/29/20 16:29 Calcium 8.6 mg/dL (8.4-10.2) 10/30/20 05:01 Phosphorus 3.50 mg/dL (2.5-4.5) D 10/27/20 20:26 Magnesium 2.80 mg/dL (1.7-2.3) H 10/27/20 20:26 Medications & Allergies - Medications Allergies/Adverse Reactions: Allergies morphine Allergy (Verified 04/12/20 12:17) Angioedema tomato Allergy (Verified 04/12/20 12:17) Vomiting Home Medications: Home Medications Medication Instructions Recorded Confirmed Last Taken Type Metoprolol 25 mg PO BID 09/24/19 10/27/20 09/22/19 History Insulin NPH Hum/Reg Insulin Hm 20 units SUB-Q QPM 30 Days vial 09/27/19 1 Unknown Rx [HumuLIN 70-30 Vial] Insulin NPH Hum/Reg Insulin Hm 30 units SUB-Q QAM 30 Days vial 09/27/19 10/27/20 Unknown Rx [HumuLIN 70-30 Vial] Insulin NPH/Regular [NovoLIN 70/30] 30 unit SUB-Q BIDDIAB #1 units 09/27/19 10/27/20 Unknown Rx LORazepam [Ativan] 0.5 mg PO QHS #30 tab 09/27/19 10/27/20 Unknown Rx Losartan [Cozaar] 50 mg PO QDAY #30 tablet 09/27/19 10/27/20 Unknown Rx Metoclopramide HCl [Reglan TAB] 5 mg PO TIDAC #21 tablet 09/27/19 10/27/20 Unknown Rx Metoprolol [Lopressor TAB] 25 mg PO BID #60 tablet 09/27/19 10/27/20 Unknown Rx Pantoprazole Sodium [Protonix] 40 mg PO HS #30 granpkt. 09/27/19 10/27/20 Unknown Rx oxyCODONE /ACETAMINOPHEN [Percocet 1 tab PO Q4H PRN #20 tablet 09/27/19 10/27/20 Unknown Rx 5/325 mg] Active Medications: Generic Name Dose Route Start Last Admin Trade Name Freq PRN Reason Stop Dose Admin Acetaminophen 650 mg 10/27/20 10:14 Acetaminophen 325 Mg Tab PO Q6H PRN Pain MILD(1-3)/Fever >100.5/QUINTANILLA Albuterol 2.5 mg 10/27/20 10:14 Albuterol 2.5 Mg/3 Ml Nebu IH Q3HRT PRN Shortness Of Breath Lipase/Protease/Amylase 1 each 10/29/20 16:06 Lipase 10,500/Protease 25,000/Amylase 43,750 (Units) Dr Anderson FEEDTUBE PRN PRN For Clogged Feeding Tube Dextrose 50 ml 10/28/20 14:27 10/29/20 15:50 Dextrose 50% In Water (25gm) 50 Ml Syringe IV 50 ml Q30MIN PRN Administration Hypoglycemia Protocol Enoxaparin Sodium 40 mg 10/28/20 10:00 10/30/20 09:09 Enoxaparin 40 Mg/0.4 Ml Inj SUB-Q 40 mg QDAY@1000 BREANNE Administration Hydralazine HCl 10 mg 10/27/20 19:23 10/27/20 20:07 Hydralazine 20 Mg/1 Ml Inj IV 10 mg Q4HR PRN Administration Blood Pressure Sodium Chloride 1,000 mls @ 125 mls/hr 10/30/20 10:00 10/30/20 12:00 Nacl 0.45% 1000 Ml IV 125 mls/hr DIRECT BREANNE Administration Insulin Human Isoph/Insulin Regular 20 unit 10/30/20 09:18 Insulin Nph/Regular 70/30 Inj SUB-Q QDDIAB BREANNE Insulin Human Isoph/Insulin Regular 15 unit 10/30/20 09:18 10/30/20 16:54 Insulin Nph/Regular 70/30 Inj SUB-Q 15 unit QPMDIAB BREANNE Administration Insulin Human Regular 0 units 10/28/20 16:30 10/30/20 16:50 Insulin Regular, Human 100 Units/1 Ml SUB-Q Not Given ACHS BREANNE Protocol Labetalol HCl 10 mg 10/27/20 21:03 10/27/20 21:25 Labetalol 20 Mg/4 Ml Inj IV 10 mg Q4H PRN Administration Blood Pressure Lorazepam 2 mg 10/27/20 16:56 10/29/20 23:36 Lorazepam 2 Mg/Ml Vial IV 2 mg Q1HR PRN Administration WINSTON-Eric 8- Lorazepam 4 mg 10/27/20 16:56 10/29/20 09:39 Lorazepam 2 Mg/Ml Vial IV 4 mg Q1HR PRN Administration CIWA-Ar 16-25 Lorazepam 4 mg 10/27/20 16:56 Lorazepam 2 Mg/Ml Vial IV Q15MIN PRN CIWA-Ar >25 Metoprolol Tartrate 25 mg 10/28/20 10:00 10/30/20 09:09 Metoprolol Tartrate 25 Mg Tab PO 25 mg BID BREANNE Administration Naloxone HCl 0.1 mg 10/27/20 10:14 Naloxone 0.4 Mg/1 Ml Inj IV Q2MIN PRN Res Rate </= 8 or 02 SAT < 92% Oxycodone/Acetaminophen 1 tab 10/27/20 10:14 Oxycodone /Acetaminophen 5-325mg Tab PO Q6H PRN Pain, Moderate (4-6) Pantoprazole Sodium 40 mg 10/28/20 22:00 10/29/20 23:36 Pantoprazole 40 Mg Tab PO 40 mg QHS BREANNE Administration Simple Syrup 15 ml 10/29/20 16:06 Simple Syrup 15 Ml FEEDTUBE PRN PRN Hypoglycemia Simple Syrup 30 ml 10/29/20 16:06 Simple Syrup 15 Ml FEEDTUBE PRN PRN Hypoglycemia Sodium Bicarbonate 325 mg 10/29/20 16:06 Sodium Bicarbonate 325 Mg Tab FEEDTUBE PRN PRN For Clogged Feeding Tube Sodium Chloride 10 ml 10/27/20 22:00 10/30/20 09:09 Sodium Chloride 0.9% 10 Ml Flush Syringe IV 10 ml BID BREANNE Administration Sodium Chloride 10 ml 10/27/20 10:14 Sodium Chloride 0.9% 10 Ml Flush Syringe IV PRN PRN LINE FLUSH
[2020-10-30] MEDS: PANTOPRAZOLE 40 MG TAB PO SCH (22:20)
[2020-10-31] MEDS: SODIUM CHLORIDE 0.45% 1000 ML 1,000 ML IV SCH ×2 (01:36→10:04)
[2020-10-31] MEDS: INSULIN REGULAR, HUMAN 100 UNITS/1 ML SUB-Q SCH ×2 (07:30→11:30)
[2020-10-31 08:27] LABS: BUN/Creatinine Ratio 18; Blood Urea Nitrogen 14 mg/dL (9-20); Hemolysis Index 5
[2020-10-31] MEDS ORDERED: POTASSIUM CHLORIDE ER 20 MEQ TAB PO NR (10:00)
[2020-10-31] MEDS: ENOXAPARIN 40 MG/0.4 ML INJ SUB-Q SCH (10:03)
[2020-10-31] MEDS: METOPROLOL TARTRATE 25 MG TAB PO SCH (10:03)
--- NOTE | 2020-10-31 12:36 | Progress Note ---
Assessment and Plan Diabetic ketoacidosis. History of myasthenia gravis. Severe metabolic acidosis at presentation. Hypernatremia. Possible alcohol withdrawal. Acute hypoxemic respiratory failure. - D5W stopped - insulin dose increased as now hyperglycemic - tolerating oral meals now - continue BIPAP scheduled qhs with prn daytime use - continue care as below otherwise; - continue to watch for for DT's - supplemental oxygen to keep O2 sats > 90% - prn bronchodilators (MILARGOS) with pulm hygiene per RT - avoid nephrotoxins, renally dose all medications - continue mobility protocols to prevent pressure ulcers - PT/OT as tolerated - Wound care per RN/WCT - continue accuchecks with glycemic control per SSI for target blood glucose < 180 mg/dL - tobacco abstinence counseled at the bedside - home oxygen evaluation at discharge - GI & VTE prophylaxis - Flu & pneumovax per protocol - prn analgesia per pain score - continue other care per attending / other consultants ... re-evaluate in am & prn Subjective Date of service: 10/31/20 Principal diagnosis: DKA; H/O MG; Met. Acidosis; Hypernatremia; Ac. hypoxemic resp failure Interval history: Patient is seen today for: DKA; H/O myasthenia gravis; Severe metabolic acidosis at presentation; Hypernatremia; Possible alcohol withdrawal; Acute hypoxemic respiratory failure. Seen and examined at bedside; 24hour events reviewed; nursing and respiratory care staff consulted; no adverse overnight events reported to me; resting peacefully in bed; Objective Vital Signs - 12hr 10/31/20 10/31/20 10/31/20 01:19 01:43 03:56 Temperature 99.7 F H Pulse Rate 96 H 99 H 93 H Respiratory 18 18 Rate Blood Pressure 129/80 Blood Pressure 118/61 [Right] O2 Sat by Pulse 99 99 Oximetry Constitutional: no acute distress Eyes: non-icteric ENT: oropharynx moist Neck: supple, no lymphadenopathy, no JVD Effort: mildly labored Ascultation: Bilateral: clear, other (snoring with referred upper airway sounds) Percussion: Bilateral: not dull Cardiovascular: regular rate and rhythm Gastrointestinal: normoactive bowel sounds, soft, non-tender, non-distended Integumentary: normal Extremities: no cyanosis, no edema, pulses normal, no ischemia or petechiae Neurologic: non-focal exam (grossly), pupils equal and round, CN II-XII normal, motor strength normal and (weak) Psychiatric: mood appropriate, affect normal CBC and BMP: 10/30/20 05:01 10/31/20 07:48 ABG, PT/INR, D-dimer: ABG ABG pH 7.412 (7.320-7.450) 10/29/20 16:29 POC ABG pCO2 47.3 mmHg (32.0-48.0) 10/29/20 16:29 POC ABG pO2 108.1 mmHg (83-108) H 10/29/20 16:29 POC ABG HCO3 29.4 10/29/20 16:29 ABG O2 Saturation 98.3 (0-100) 10/29/20 16:29 Abnormal lab findings: Abnormal Labs 10/27/20 10/27/20 10/27/20 08:10 08:10 08:10 WBC Hgb Hct 51.8 H MCV 112 H MCHC 27 L RDW 17.0 H Plt Count Lymph % (Auto) [place] % (Auto) Lymph # (Auto) Seg Neutrophils % Seg Neuts % (Manual) 86.0 H Lymphocytes % (Manual) 5.0 L Seg Neutrophils # Man 7.9 H Lymphocytes # (Manual) 0.5 L POC ABG pCO2 POC ABG pO2 ABG Hemoglobin ABG Sodium ABG Chloride ABG Glucose VBG pH 7.116 L* Carboxyhemoglobin Sodium Potassium 6.1 H* Chloride 88.6 L Carbon Dioxide 17 L BUN 72 H Creatinine 2.2 H Glucose 1654 H* POC Glucose Hemoglobin A1c Calcium Phosphorus Magnesium Arterial Blood Glucose 10/27/20 10/27/20 10/27/20 10:25 11:27 12:00 WBC Hgb Hct MCV MCHC RDW Plt Count Lymph % (Auto) [place] % (Auto) Lymph # (Auto) Seg Neutrophils % Seg Neuts % (Manual) Lymphocytes % (Manual) Seg Neutrophils # Man Lymphocytes # (Manual) POC ABG pCO2 POC ABG pO2 ABG Hemoglobin ABG Sodium ABG Chloride ABG Glucose VBG pH Carboxyhemoglobin Sodium 150 H D Potassium Chloride 107.1 H Carbon Dioxide 12 L BUN 66 H Creatinine 2.0 H Glucose 1271 H* POC Glucose > 600 H Hemoglobin A1c Calcium Phosphorus 9.00 H Magnesium 3.70 H Arterial Blood Glucose 10/27/20 10/27/20 10/27/20 12:57 14:11 15:02 WBC Hgb Hct MCV MCHC RDW Plt Count Lymph % (Auto) [place] % (Auto) Lymph # (Auto) Seg Neutrophils % Seg Neuts % (Manual) Lymphocytes % (Manual) Seg Neutrophils # Man Lymphocytes # (Manual) POC ABG pCO2 POC ABG pO2 ABG Hemoglobin ABG Sodium ABG Chloride ABG Glucose VBG pH Carboxyhemoglobin Sodium 158 H D Potassium 3.4 L D Chloride 117.4 H Carbon Dioxide BUN 57 H Creatinine 1.6 H Glucose 653 H* POC Glucose > 600 H > 600 H Hemoglobin A1c Calcium Phosphorus Magnesium Arterial Blood Glucose 10/27/20 10/27/20 10/27/20 15:08 16:11 16:16 WBC Hgb Hct MCV MCHC RDW Plt Count Lymph % (Auto) [place] % (Auto) Lymph # (Auto) Seg Neutrophils % Seg Neuts % (Manual) Lymphocytes % (Manual) Seg Neutrophils # Man Lymphocytes # (Manual) POC ABG pCO2 POC ABG pO2 ABG Hemoglobin ABG Sodium ABG Chloride ABG Glucose VBG pH Carboxyhemoglobin Sodium 155 H Potassium Chloride 117.9 H Carbon Dioxide 21 L BUN 56 H Creatinine 1.6 H Glucose 502 H* POC Glucose 536 H 448 H Hemoglobin A1c Calcium Phosphorus Magnesium Arterial Blood Glucose 10/27/20 10/27/20 10/27/20 17:13 18:13 18:49 WBC Hgb Hct MCV MCHC RDW Plt Count Lymph % (Auto) [place] % (Auto) Lymph # (Auto) Seg Neutrophils % Seg Neuts % (Manual) Lymphocytes % (Manual) Seg Neutrophils # Man Lymphocytes # (Manual) POC ABG pCO2 POC ABG pO2 ABG Hemoglobin ABG Sodium ABG Chloride ABG Glucose VBG pH Carboxyhemoglobin Sodium Potassium Chloride Carbon Dioxide BUN Creatinine Glucose POC Glucose 363 H 293 H 227 H Hemoglobin A1c Calcium Phosphorus Magnesium Arterial Blood Glucose 10/27/20 10/27/20 10/27/20 19:38 20:26 20:26 WBC Hgb Hct MCV MCHC RDW Plt Count Lymph % (Auto) [place] % (Auto) Lymph # (Auto) Seg Neutrophils % Seg Neuts % (Manual) Lymphocytes % (Manual) Seg Neutrophils # Man Lymphocytes # (Manual) POC ABG pCO2 50.1 H POC ABG pO2 141.2 H ABG Hemoglobin ABG Sodium 165.0 H ABG Chloride 127.0 H ABG Glucose 99 H VBG pH Carboxyhemoglobin Sodium 164 H* D Potassium Chloride 123.4 H Carbon Dioxide BUN 51 H Creatinine 1.4 H Glucose 163 H POC Glucose Hemoglobin A1c Calcium Phosphorus Magnesium 2.80 H Arterial Blood Glucose 99 H 10/27/20 10/27/20 10/28/20 21:03 22:08 05:23 WBC Hgb Hct MCV MCHC RDW Plt Count Lymph % (Auto) [place] % (Auto) Lymph # (Auto) Seg Neutrophils % Seg Neuts % (Manual) Lymphocytes % (Manual) Seg Neutrophils # Man Lymphocytes # (Manual) POC ABG pCO2 POC ABG pO2 ABG Hemoglobin ABG Sodium ABG Chloride ABG Glucose VBG pH Carboxyhemoglobin Sodium Potassium Chloride Carbon Dioxide BUN Creatinine Glucose POC Glucose 113 H 115 H 259 H Hemoglobin A1c Calcium Phosphorus Magnesium Arterial Blood Glucose 10/28/20 10/28/20 10/28/20 07:08 07:08 11:43 WBC 12.4 H Hgb Hct MCV MCHC RDW Plt Count Lymph % (Auto) [place] % (Auto) Lymph # (Auto) Seg Neutrophils % Seg Neuts % (Manual) Lymphocytes % (Manual) Seg Neutrophils # Man Lymphocytes # (Manual) POC ABG pCO2 POC ABG pO2 ABG Hemoglobin ABG Sodium ABG Chloride ABG Glucose VBG pH Carboxyhemoglobin Sodium 164 H* 159 H Potassium Chloride 124.2 H 121.5 H Carbon Dioxide BUN 41 H 35 H Creatinine Glucose 272 H 265 H POC Glucose Hemoglobin A1c Calcium Phosphorus Magnesium Arterial Blood Glucose 10/28/20 10/28/20 10/28/20 11:51 15:55 15:55 WBC Hgb Hct MCV MCHC RDW Plt Count Lymph % (Auto) [place] % (Auto) Lymph # (Auto) Seg Neutrophils % Seg Neuts % (Manual) Lymphocytes % (Manual) Seg Neutrophils # Man Lymphocytes # (Manual) POC ABG pCO2 POC ABG pO2 ABG Hemoglobin ABG Sodium ABG Chloride ABG Glucose VBG pH Carboxyhemoglobin Sodium 159 H Potassium 3.3 L Chloride 124.7 H Carbon Dioxide BUN 30 H Creatinine Glucose POC Glucose 239 H Hemoglobin A1c 11.4 H Calcium Phosphorus Magnesium Arterial Blood Glucose 10/28/20 10/29/20 10/29/20 21:56 00:44 08:19 WBC Hgb Hct MCV MCHC RDW Plt Count Lymph % (Auto) [place] % (Auto) Lymph # (Auto) Seg Neutrophils % Seg Neuts % (Manual) Lymphocytes % (Manual) Seg Neutrophils # Man Lymphocytes # (Manual) POC ABG pCO2 POC ABG pO2 ABG Hemoglobin ABG Sodium ABG Chloride ABG Glucose VBG pH Carboxyhemoglobin Sodium 157 H Potassium Chloride 120.6 H Carbon Dioxide BUN 23 H Creatinine Glucose 124 H POC Glucose 120 H 357 H Hemoglobin A1c Calcium Phosphorus Magnesium Arterial Blood Glucose 10/29/20 10/29/20 10/29/20 11:09 11:34 15:40 WBC Hgb Hct MCV MCHC RDW Plt Count Lymph % (Auto) [place] % (Auto) Lymph # (Auto) Seg Neutrophils % Seg Neuts % (Manual) Lymphocytes % (Manual) Seg Neutrophils # Man Lymphocytes # (Manual) POC ABG pCO2 POC ABG pO2 ABG Hemoglobin ABG Sodium ABG Chloride ABG Glucose VBG pH Carboxyhemoglobin Sodium 150 H 153 H Potassium 3.0 L Chloride 113.5 H 116.6 H Carbon Dioxide BUN Creatinine Glucose 213 H 18 L* POC Glucose 152 H Hemoglobin A1c Calcium Phosphorus Magnesium Arterial Blood Glucose 10/29/20 10/29/20 10/29/20 15:56 16:29 21:39 WBC Hgb Hct MCV MCHC RDW Plt Count Lymph % (Auto) [place] % (Auto) Lymph # (Auto) Seg Neutrophils % Seg Neuts % (Manual) Lymphocytes % (Manual) Seg Neutrophils # Man Lymphocytes # (Manual) POC ABG pCO2 POC ABG pO2 108.1 H ABG Hemoglobin 11.9 L ABG Sodium 150.3 H ABG Chloride 115.0 H ABG Glucose 123 H VBG pH Carboxyhemoglobin 0.4 L Sodium Potassium Chloride Carbon Dioxide BUN Creatinine Glucose POC Glucose 38 L 128 H Hemoglobin A1c Calcium Phosphorus Magnesium Arterial Blood Glucose 123 H 10/30/20 10/30/20 10/30/20 05:01 05:01 06:08 WBC Hgb 11.3 L Hct MCV MCHC RDW 15.7 H Plt Count 127 L Lymph % (Auto) 13.1 L [place] % (Auto) 9.6 H Lymph # (Auto) 0.8 L Seg Neutrophils % 76.9 H Seg Neuts % (Manual) Lymphocytes % (Manual) Seg Neutrophils # Man Lymphocytes # (Manual) POC ABG pCO2 POC ABG pO2 ABG Hemoglobin ABG Sodium ABG Chloride ABG Glucose VBG pH Carboxyhemoglobin Sodium Potassium Chloride Carbon Dioxide BUN 22 H Creatinine Glucose 682 H* POC Glucose > 600 H Hemoglobin A1c Calcium Phosphorus Magnesium Arterial Blood Glucose 10/30/20 10/30/20 10/30/20 07:27 08:45 09:45 WBC Hgb Hct MCV MCHC RDW Plt Count Lymph % (Auto) [place] % (Auto) Lymph # (Auto) Seg Neutrophils % Seg Neuts % (Manual) Lymphocytes % (Manual) Seg Neutrophils # Man Lymphocytes # (Manual) POC ABG pCO2 POC ABG pO2 ABG Hemoglobin ABG Sodium ABG Chloride ABG Glucose VBG pH Carboxyhemoglobin Sodium Potassium Chloride Carbon Dioxide BUN Creatinine Glucose POC Glucose > 600 H 486 H 375 H Hemoglobin A1c Calcium Phosphorus Magnesium Arterial Blood Glucose 10/30/20 10/30/20 10/31/20 11:56 21:29 07:48 WBC Hgb Hct MCV MCHC RDW Plt Count Lymph % (Auto) [place] % (Auto) Lymph # (Auto) Seg Neutrophils % Seg Neuts % (Manual) Lymphocytes % (Manual) Seg Neutrophils # Man Lymphocytes # (Manual) POC ABG pCO2 POC ABG pO2 ABG Hemoglobin ABG Sodium ABG Chloride ABG Glucose VBG pH Carboxyhemoglobin Sodium Potassium 3.4 L D Chloride Carbon Dioxide BUN Creatinine Glucose 373 H POC Glucose 201 H 119 H Hemoglobin A1c Calcium 8.0 L Phosphorus Magnesium Arterial Blood Glucose 10/31/20 08:17 WBC Hgb Hct MCV MCHC RDW Plt Count Lymph % (Auto) [place] % (Auto) Lymph # (Auto) Seg Neutrophils % Seg Neuts % (Manual) Lymphocytes % (Manual) Seg Neutrophils # Man Lymphocytes # (Manual) POC ABG pCO2 POC ABG pO2 ABG Hemoglobin ABG Sodium ABG Chloride ABG Glucose VBG pH Carboxyhemoglobin Sodium Potassium Chloride Carbon Dioxide BUN Creatinine Glucose POC Glucose 347 H Hemoglobin A1c Calcium Phosphorus Magnesium Arterial Blood Glucose Allied health notes reviewed: nursing
--- NOTE | 2020-10-31 13:11 | Discharge Summary ---
Providers - Providers Date of Admission: 10/27/20 09:55 Date of discharge: 10/31/20 Attending physician: REDDY LIMA 10/27/20 10:14 Consult to Dietitian/Nutrition [CONS] Routine Physician Instructions: Reason For Exam: Reason for Consult: Diet education Consult to Physician [CONS] Routine Comment: Consulting Provider: CONSTANCE BENITEZ Physician Instructions: Reason For Exam: DKA 10/28/20 09:23 Consult to Physician [CONS] Routine Comment: Consulting Provider: BRAVO COLEMAN Physician Instructions: Reason For Exam: Hypernatremia 10/29/20 16:06 Consult to Dietitian/Nutrition [CONS] Routine Physician Instructions: Reason For Exam: Reason for Consult: Write/Manage Tube Feeding Consult to Dietitian/Nutrition [CONS] Routine Physician Instructions: Assess nutrtn needs, initiate, modify, manage TF Reason For Exam: Reason for Consult: Write/Manage Tube Feeding Reason for Consult: Write/Manage Tube Feeding 10/31/20 11:13 Physical Therapy Evaluation and Treat [CONS] Routine Comment: Reason For Exam: Debility Primary care physician: ENGINE [employer]SEM[employer]Y SUPERVISOR Hospitalization Condition: Fair Pertinent studies: Chest x-ray, abdomen x-ray Hospital course: This is a 29-year-old male with diabetes mellitus, hypertension and myasthenia gravis who presented to the emergency department on 10/27 with complaints of polyuria. Work-up in the emergency department revealed a blood glucose level of 1654, hypochloremia, high anion gap metabolic acidosis, acute kidney injury, hypophosphatemia and hypomagnesemia. Patient was initiated on the DKA protocol and admitted to the hospitalist service with consults to CCM. -CCM and nephrology consulted, appreciate recommendations -S/p DKA protocol, continue to adjust insulin doses for better glycemic control -encourage Free water oral intake 500 mL every 2 hours -s/p D5 water drip and encourage Free water oral intake 500 mL every 2 hours for hypernatremia, -adjusted insulin doses for better glycemic control -Trended BMP, started on metoprolol twice daily -Placed on CIWA protocol for alcohol withdrawal -Hemoglobin A1c 11.4 -Provided diabetic education before discharge Daily clinical course: 10/28: Given persistent hypernatremia nephrology was consulted today. Patient's anion gap was closed and he was started on a consistent carbohydrate diet however the patient is somewhat agitated and p.o. intake would be unreliable so he was started on a clear liquid diet in addition. Patient has been transitioned to sliding scale insulin and long-acting. He is also been started on D5 W and we will encourage PO intake (per nephrology he will need to have 500 mL every 2 hours) 10/29: Patient was agitated last night and wanted to get out from the bed, he is currently on restraint appears lethargic. Sodium level improved -153 today, continue clear liquid diet as long as patient on D5W. Continue to follow sodium level. When sodium level normalizes drops below 150 with change to D5W to half-normal saline we will start consistent carb diet and adjust insulin doses according to blood glucose level. 10/30: BG was >600 this am. stop D5w today, Na level improved. increase insulin dose, change fluid to 1/2 NS. Monitor BG. Transfer the pt to telemetry when BG improves. cont to follow clinically. 10/31: Sodium and creatinine level stable. Blood glucose significantly improved. Adjusted insulin doses for appropriate glycemic control. Patient was recommended to be compliant with his insulin regimen. Home health was set up. Patient was discharged home in stable condition with outpatient follow-up. Disposition: [id number] TO HOME OR SELFCARE Final Discharge Diagnosis (Prints w/discharge instructions): DKA, BG was 1654 on admission. Diabetes mellitus with uncontrolled blood sugar. Severe protein calorie malnutrition. Acute metabolic acidosis secondary to DKA. Severe hypernatremia. Acute kidney injury secondary to vasomotor nephropathy in the setting of DKA. History of myasthenia gravis. Hypertension. Noncompliance Core Measure Documentation - Palliative Care Palliative Care/ Comfort Measures: Not Applicable - Core Measures Any of the following diagnoses?: none Exam - Physical Exam Narrative exam: General appearance: Present: No acute distress - EENT Eyes: Present: PERRL, EOM intact ENT: hearing intact, clear oral mucosa - Neck Neck: Present: supple, normal ROM - Respiratory Respiratory effort: normal Respiratory: bilateral: CTA - Cardiovascular Rhythm: regular Heart Sounds: Present: S1 & S2. Absent: systolic murmur, diastolic murmur - Extremities Extremities: no ischemia, pulses intact, pulses symmetrical, No edema, normal temperature, normal color, Full ROM Peripheral Pulses: within normal limits - Abdominal General gastrointestinal: soft, non-tender, non-distended, normal bowel sounds - Integumentary Integumentary: Present: clear, warm - Psychiatric Psychiatric: No appropriate mood/affect, slightly agitated - Neurologic Neurologic: CNII-XII intact, no focal deficits, moves all extremities - Allied Health Allied health notes reviewed: nursing, social work - Constitutional Vitals: Temp Pulse Resp BP Pulse Ox 99.7 F H 93 H 18 129/80 99 10/31/20 03:56 10/31/20 03:56 10/31/20 03:56 10/31/20 03:56 10/31/20 03:56 Plan Activity: advance as tolerated Weight Bearing Status: Weight Bear as Tolerated Diet: diabetic Special Instructions: record daily BP diary, record blood sugar diary Follow up with: PRIMARY CAREMD [Primary Care Provider] - 3-5 Days LANDEN FAM MD [Staff Physician] - 7 Days Prescriptions: Insulin NPH/Regular [NovoLIN 70/30] 18 unit SUB-Q QDDIAB 30 Days Insulin NPH/Regular [NovoLIN 70/30] 18 unit SUB-Q QPMDIAB 30 Days Metoclopramide HCl [Reglan TAB] 5 mg PO TIDAC #21 tablet
[2020-10-31 13:31] VITALS: BP 160/102
[2020-10-31] MEDS ORDERED: INSULIN NPH/REGULAR 70/30 INJ SUB-Q SCH (17:00)
[2020-11-01] MEDS ORDERED: INSULIN NPH/REGULAR 70/30 INJ SUB-Q SCH (08:00)
== END 2020-10-31 16:43 | disposition home or self-care (01) | DRG 637 ==
LOC: ED 07:06 → CC1 09:55 → IMCU 10-28 18:26 → 3A 10-30 16:41
PROVIDERS: ADMIT Internal Medicine; ATTEND Internal Medicine
PROC: 5A09357 Assistance with Respiratory Ventilation, Less than 24 Consecutive Hours, Continuous Positive Airway Pressure (ICD-10-PCS; principal; 2020-10-31)
DX: E10.10 Type 1 diabetes mellitus with ketoacidosis without coma (principal); N17.0 Acute kidney failure with tubular necrosis; E43 Unspecified severe protein-calorie malnutrition; G93.41 Metabolic encephalopathy; J96.01 Acute respiratory failure with hypoxia; E87.0 Hyperosmolality and hypernatremia; Z68.1 Body mass index [BMI] 19.9 or less, adult; Z20.822 Contact with and (suspected) exposure to COVID-19; E83.39 Other disorders of phosphorus metabolism; E83.42 Hypomagnesemia; Z91.14 Patient's other noncompliance with medication regimen; Z88.5 Allergy status to narcotic agent; Z91.018 Allergy to other foods; Z79.4 Long term (current) use of insulin; Z79.899 Other long term (current) drug therapy; Z83.3 Family history of diabetes mellitus
CPT/HCPCS: 36415; 71045; 74018; 80048; 80076; 81001; 82140; 82805; 82962; 83036; 83735; 84100; 85007; 85025; 85027; 94660; 96365; 96375; G0378; J0360; J1650; J1815; J2060; J7030; J7070; U0003

== ENCOUNTER 2021-01-10 22:00 | Observation (INO) | payer OTHER ==
[2021-01-10] MEDS ORDERED: PANTOPRAZOLE 40 MG INJ IV ONE (23:21)
[2021-01-10] MEDS ORDERED: METOCLOPRAMIDE 10 MG/2 ML INJ IV ONE (23:21)
[2021-01-10] MEDS ORDERED: LACTATED RINGERS 1,000 ML IV ONE (23:21)
[2021-01-10] MEDS ORDERED: LORazepam 2 MG/ML VIAL IV PRN ×3 (23:22)
--- NOTE | 2021-01-10 23:23 | Emergency Department Report ---
ED General Adult HPI - General Chief complaint: Weakness Stated complaint: Abdominal pain, nausea vomiting, back pain and upper shoulder pain PUI?: No Time Seen by Provider: 01/10/21 23:19 Source: patient, EMS ( EMS documentation not available at time of chart dictation ), RN notes reviewed, old records reviewed Mode of arrival: Stretcher Limitations: Physical Limitation - History of Present Illness Initial comments: The patient is a 30-year-old gentleman. He has a past medical history of myasthenia gravis, diabetic ketoacidosis. He has been admitted to this hospital multiple times in the past for diabetic ketoacidosis and dehydration. It is also suspected as per recent discharge summaries that he may have a component of alcoholism, and possible alcohol withdrawal. Recent hemoglobin A1c has been over 10.5. The patient presents to the ER today with a complaint of abdominal cramping, nausea vomiting, and upper back pain/upper shoulder pain. These particular set of symptoms have been going on for the past day or so. He denies headache and neck pain. He denies chest pain. He has no significant shortness of breath. He denies Covid symptomatology. His symptoms occasionally get better with a hot bath and a hot shower. He has mild muscle cramps, but denies focal extremity weakness/numbness. -: Gradual Location: back, abdomen Radiation: other (Pain radiates from the lower back up to the bilateral shoulder blades) Quality: aching Consistency: constant Improves with: rest Worsens with: movement - Related Data Home Medications Medication Instructions Recorded Confirmed Last Taken Metoprolol 25 mg PO BID 09/24/19 10/27/20 09/22/19 Previous Rx's Medication Instructions Recorded Last Taken Type Pantoprazole Sodium [Protonix] 40 mg PO HS #30 granpkt. 09/27/19 Unknown Rx Insulin NPH/Regular [NovoLIN 70/30] 18 unit SUB-Q QDDIAB 30 Days 10/31/20 Unk nown Rx Insulin NPH/Regular [NovoLIN 70/30] 18 unit SUB-Q QPMDIAB 30 Days 10/31/20 Unknown Rx Insulin Regular, Human [HumuLIN R] See Protocol SUB-Q ACHS 30 Days 10/31/20 Unknown Rx Metoclopramide HCl [Reglan TAB] 5 mg PO TIDAC #21 tablet 10/31/20 Unknown Rx Allergies Allergy/AdvReac Type Severity Reaction Status Date / Time codeine Allergy Hives Verified 01/10/21 23:46 morphine Allergy Angioedema Verified 01/10/21 23:46 tomato Allergy Vomiting Verified 01/10/21 23:46 ED Review of Systems ROS: Stated complaint: HYPERGLYCEMIA, N/V Other details as noted in HPI Constitutional: malaise, weakness. denies: fever Eyes: denies: vision change ENT: denies: epistaxis Respiratory: denies: cough Cardiovascular: palpitations. denies: chest pain Gastrointestinal: nausea, vomiting Musculoskeletal: back pain Neurological: weakness ED Past Medical Hx - Past Medical History Hx Hypertension: Yes Hx Congestive Heart Failure: No Hx Diabetes: Yes Hx Asthma: No Additional medical history: Myasthenia gravis - Social History Smoking Status: Never Smoker - Medications Home Medications: Home Medications Medication Instructions Recorded Confirmed Last Taken Type Metoprolol 25 mg PO BID 09/24/19 10/27/20 09/22/19 History Pantoprazole Sodium [Protonix] 40 mg PO HS #30 09/27/19 10/27/20 Unknown Rx Insulin NPH/Regular [NovoLIN 70/30] 18 unit SUB-Q QDDIAB 30 Days 10/31/20 Unknown Rx Insulin NPH/Regular [NovoLIN 70/30] 18 unit SUB-Q QPMDIAB 30 Days 10/31/20 Unknown Rx Insulin Regular, Human [HumuLIN R] See Protocol SUB-Q ACHS 30 Days 10/31/20 Unknown Rx Metoclopramide HCl [Reglan TAB] 5 mg PO TIDAC #21 tablet 10/31/20 Unknown Rx ED Physical Exam - General Limitations: Physical Limitation General appearance: alert, anxious, in distress - Head Head exam: Present: atraumatic, normocephalic - Eye Eye exam: Present: normal appearance, EOMI. Absent: nystagmus - ENT ENT exam: Present: normal exam, normal orophraynx, mucous membranes moist, normal external ear exam - Neck Neck exam: Present: normal inspection, full ROM. Absent: tenderness, meningismus - Respiratory Respiratory exam: Present: normal lung sounds bilaterally. Absent: respiratory distress, wheezes, rales, rhonchi, stridor, decreased breath sounds - Cardiovascular Cardiovascular Exam: Present: normal rhythm, tachycardia, normal heart sounds. Absent: bradycardia, irregular rhythm, systolic murmur, diastolic murmur, rubs, gallop - GI/Abdominal GI/Abdominal exam: Present: soft, tenderness, pulsatile mass. Absent: distended, guarding, rebound, rigid - Rectal Rectal exam: Present: deferred - Extremities Exam Extremities exam: Present: normal inspection, full ROM, other (2+ pulses noted in the bilateral upper and lower extremities. There is no palpable cord. negative Homans sign. Muscular compartments are soft. The pelvis is stable.). Absent: pedal edema, calf tenderness - Back Exam Back exam: Present: normal inspection. Absent: tenderness, CVA tenderness (R), CVA tenderness (L), paraspinal tenderness, vertebral tenderness - Neurological Exam Neurological exam: Present: alert, other (No facial droop. Tongue midline. Ext raocular movements intact bilaterally. Facial sensation intact to light touch in V1, V2, V3 distribution bilaterally. 5 and a 5 strength in 4 extremities. Sensation intact to light touch in 4 extremities.). Absent: motor sensory deficit - Psychiatric Psychiatric exam: Present: anxious - Skin Skin exam: Present: warm, dry, intact, normal color. Absent: rash ED Course Vital Signs 01/10/21 01/10/21 01/10/21 23:36 23:37 23:46 Temperature 98.3 F 98.3 F Pulse Rate 120 H 119 H 118 H Respiratory 12 Rate Blood Pressure 142/98 Blood Pressure 143/95 [Left] O2 Sat by Pulse 99 100 Oximetry 01/11/21 01/11/21 01/11/21 01:03 02:00 03:55 Temperature Pulse Rate 107 H 100 H 113 H Respiratory 12 12 14 Rate Blood Pressure Blood Pressure 113/62 136/88 166/97 [Left] O2 Sat by Pulse 100 100 100 Oximetry 01/11/21 04:17 Temperature Pulse Rate 116 H Respiratory 13 Rate Blood Pressure Blood Pressure 168/106 [Left] O2 Sat by Pulse 100 Oximetry - Reevaluation(s) Reevaluation #1: 01/11/21 00:49 Differential diagnosis, including but not limited to: Hyperglycemia, diabetic ketoacidosis, hyperosmolar state, metabolic acidosis, dehydration, narcotic bowel syndrome, cyclic vomiting syndrome, gastroparesis, cannabinoid hyperemesis syndrome, AAA/aortic disease, mechanical back pain Assessment and plan: 30-year-old gentleman, who is tachycardic, initially actively nauseous, retching, appears to be uncomfortable, with abdominal cramping, nausea, vomiting, lower back pain that radiates up to his bilateral shoulder blades. He is quite slender, but also has a pulsatile abdominal mass. Obtain emergent CT angiogram chest, abdomen, pelvis to exclude aortic disease. Treat supportively and symptomatically. Patient believes he can tolerate hydromorphone. Start IV fluids, and initiate insulin therapy. Laboratory studies demonstrate leukocytosis and hemoconcentration, likely secondary to nausea and vomiting, likely secondary to a combination of the aforementioned. He does appear to have a metabolic acidosis. Patient will be admitted to the medical service once initial diagnostics have resulted. Place patient on alcohol withdrawal protocol empirically. The patient at this moment is clinically sober, awake, alert, and exhibits decision-making capacity. He does not meet criteria for 1013 hold or involuntary hold at this time. Reevaluation #2: 01/11/21 00:54 We appreciate that the patient is ruling in for systemic inflammatory response syndrome. This is likely physiologic response secondary to his hyperglycemic crisis. We do not suspect invasive bacterial illness at this time 01/11/21 02:47 CT angiogram shows esophagitis, no dissection, or aneurysm. Mildly dilated aortic root noted, less than 6 cm. With current dimensions, this will be followed and observed. Hospital physician, Dr. Hodge to admit to [facility] ED Medical Decision Making - Lab Data Result diagrams: 01/10/21 23:35 01/11/21 03:16 Vital Signs 01/10/21 01/10/21 01/10/21 23:36 23:37 23:46 Temperature 98.3 F 98.3 F Pulse Rate 120 H 119 H 118 H Respiratory 12 Rate Blood Pressure 142/98 Blood Pressure 143/95 [Left] O2 Sat by Pulse 99 100 Oximetry Temp Pulse Resp BP Pulse Ox 98.3 F 118 H 12 143/95 100 01/10/21 23:46 01/10/21 23:46 01/10/21 23:37 01/10/21 23:46 01/10/21 23:46 Lab Results 01/10/21 01/10/21 01/10/21 Range/Units 23:35 23:35 23:35 WBC 18.5 H (4.5-11.0) K/mm3 RBC 4.20 (3.65-5.03) M/mm3 Hgb 11.5 L (11.8-15.2) gm/dl Hct 35.9 (35.5-45.6) % MCV 85 (84-94) fl MCH 27 L (28-32) pg MCHC 32 (32-34) % RDW 17.6 H (13.2-15.2) % Plt Count 450 H (140-440) K/mm3 VBG pH (7.320-7.420) Sodium 139 (137-145) mmol/L Potassium 4.2 (3.6-5.0) mmol/L Chloride 94.7 L (98-107) mmol/L Carbon Dioxide 21 L (22-30) mmol/L Anion Gap 28 mmol/L BUN 31 H (9-20) mg/dL Creatinine 1.0 (0.8-1.3) mg/dL Estimated GFR > 60 ml/min BUN/Creatinine Ratio 31 % Glucose 399 H (75-100) mg/dL POC Glucose (70-105) mg/dL Calcium 10.3 H (8.4-10.2) mg/dL Magnesium 2.20 (1.7-2.3) mg/dL Total Bilirubin 0.30 (0.1-1.2) mg/dL AST 15 (5-40) units/L ALT 17 (7-56) units/L Alkaline Phosphatase 117 (35-129) units/L Total Creatine Kinase 132 (55-170) units/L Troponin T < 0.010 (0.00-0.029) ng/mL Total Protein 8.1 (6.3-8.2) g/dL Albumin 4.8 (3.9-5) g/dL Albumin/Globulin Ratio 1.5 % Lipase 12 L (13-60) units/L Salicylates (2.8-20.0) mg/dL Acetaminophen (10.0-30.0) ug/mL Plasma/Serum Alcohol (0-0.07) % 01/10/21 01/10/21 01/10/21 Range/Units 23:35 23:35 23:35 WBC (4.5-11.0) K/mm3 RBC (3.65-5.03) M/mm3 Hgb (11.8-15.2) gm/dl Hct (35.5-45.6) % MCV (84-94) fl MCH (28-32) pg MCHC (32-34) % RDW (13.2-15.2) % Plt Count (140-440) K/mm3 VBG pH 7.375 (7.320-7.420) Sodium (137-145) mmol/L Potassium (3.6-5.0) mmol/L Chloride (98-107) mmol/L Carbon Dioxide (22-30) mmol/L Anion Gap mmol/L BUN (9-20) mg/dL Creatinine (0.8-1.3) mg/dL Estimated GFR ml/min BUN/Creatinine Ratio % Glucose (75-100) mg/dL POC Glucose (70-105) mg/dL Calcium (8.4-10.2) mg/dL Magnesium (1.7-2.3) mg/dL Total Bilirubin (0.1-1.2) mg/dL AST (5-40) units/L ALT (7-56) units/L Alkaline Phosphatase (35-129) units/L Total Creatine Kinase (55-170) units/L Troponin T (0.00-0.029) ng/mL Total Protein (6.3-8.2) g/dL Albumin (3.9-5) g/dL Albumin/Globulin Ratio % Lipase (13-60) units/L Salicylates 6.2 (2.8-20.0) mg/dL Acetaminophen (10.0-30.0) ug/mL Plasma/Serum Alcohol < 0.01 (0-0.07) % 01/10/21 01/10/21 Range/Units 23:35 23:54 WBC (4.5-11.0) K/mm3 RBC (3.65-5.03) M/mm3 Hgb (11.8-15.2) gm/dl Hct (35.5-45.6) % MCV (84-94) fl MCH (28-32) pg MCHC (32-34) % RDW (13.2-15.2) % Plt Count (140-440) K/mm3 VBG pH (7.320-7.420) Sodium (137-145) mmol/L Potassium (3.6-5.0) mmol/L Chloride (98-107) mmol/L Carbon Dioxide (22-30) mmol/L Anion Gap mmol/L BUN (9-20) mg/dL Creatinine (0.8-1.3) mg/dL Estimated GFR ml/min BUN/Creatinine Ratio % Glucose (75-100) mg/dL POC Glucose 361 H (70-105) mg/dL Calcium (8.4-10.2) mg/dL Magnesium (1.7-2.3) mg/dL Total Bilirubin (0.1-1.2) mg/dL AST (5-40) units/L ALT (7-56) units/L Alkaline Phosphatase (35-129) units/L Total Creatine Kinase (55-170) units/L Troponin T (0.00-0.029) ng/mL Total Protein (6.3-8.2) g/dL Albumin (3.9-5) g/dL Albumin/Globulin Ratio % Lipase (13-60) units/L Salicylates (2.8-20.0) mg/dL Acetaminophen 5.0 L (10.0-30.0) ug/mL Plasma/Serum Alcohol (0-0.07) % - EKG Data -: EKG Interpreted by Vt EKG shows normal: sinus rhythm Rate: tachycardia - EKG Data 01/11/21 00:48 EKG interpreted at 23: 24 This is a sinus rhythm, tachycardia, 120 bpm. QTC prolonged, 496 ms. High left ventricular voltage. Symmetric peak T waves. Poor R wave progression. Abnormal EKG. Not a STEMI. Negatively deflected QRS complex aVL. When compared to prior EKG from 04/12/2020; poor R wave progression V3 is new. Otherwise, unchanged from prior, symmetric peak T waves in V4, V5 also more prominent - Radiology Data Radiology results: pending, report reviewed, image reviewed CTA CHEST, ABDOMEN, AND PELVIS (AORTIC DISSECTION FOLLOW-UP) INDICATION / CLINICAL INFORMATION: Patient complains of ACUTE UPPER BACK and shoulder pain. Clinical concern for aortic dissection of the chest abdomen and pelvis. TECHNIQUE: Axial CT images were obtained through the chest, abdomen, and pelvis before and after injection of 100 mL IV contrast. 3 plane MIP and/or 3D reconst ructions were produced. All CT scans at this location are performed using CT dose reduction for ALARA by means of automated exposure control. Exam limited within the mid abdominal region secondary to motion artifact. COMPARISON: None available. FINDINGS: Arterial measurements are unchanged from recent prior CTA dated . Please see the original CTA report for further details. HEART: - Size: Normal. - [place] Coronary Atherosclerosis: None. - Pericardium: No pericardial effusion. THORACIC AORTA: - Dissection: No dissection. - Aneurysm: Mildly dilated aortic root measuring about 4.4 cm in diameter. - Atherosclerosis: No significant atherosclerosis. GREAT VESSELS: No acute abnormality. No sig nificant atherosclerosis. PULMONARY ARTERIES: No pulmonary emboli. CHEST VEINS: Single SVC of normal caliber as visualized to the right of midline. No significant abnormality. ABDOMINAL AORTA: - Dissection: No dissection. - Aneurysm: No aneurysm or pseudoaneurysm. - Atherosclerosis: Mild atherosc lerosis. CELIAC TRUNK: No significant abnormality. SUPERIOR MESENTERIC ARTERY: No significant abnormality. RENAL ARTERIES: No significant abnormality. INFERIOR MESENTERIC ARTERY: No significant abnormality. RIGHT ILIAC ARTERIES: No acute abnormality. No significant atherosclerosis. LEFT ILIAC ARTERIES: No acute abnormality. No significant atherosclerosis. RIGHT FEMORAL ARTERIES: No acute abnormality. No significant atherosclerosis. LEFT FEMORAL ARTERIES: No acute abnormality. No significant atherosclerosis. ABDOMINOPELVIC VEINS: Single IVC of normal caliber to the right of midline. No significant abnormality. ADDITIONAL CHEST FINDINGS: Mild mucosal thickening of the mid and distal th oracic esophagus concerning for esophagitis.. ADDITIONAL ABDOMINOPELVIC FINDINGS: No significant additional findings. Few sigmoid diverticula SKELETAL SYSTEM: No significant abnormality. IMPRESSION: 1. No thoracic or abdominal aortic dissection. 2. Mildly dilated aortic root. 3. Thickened thoracic esophagus concerning for esophagitis Signer Name: Lion Tran MD Signed: 01/11/2021 1:27 AM Workstation Name: [id number] Critical Care Time: Yes Critical care time in (mins) excluding proc time.: 35 Critical care attestation.: If time is entered above; I have spent that time in minutes in the direct care of this critically ill patient, excluding procedure time. ED Disposition Clinical Impression: Hyperglycemia, Volume depletion, Metabolic acidosis, Back pain, Abdominal pulsatile mass Disposition: OP ADMIT IP TO THIS HOSP Is pt being admited?: Yes Does the pt Need Aspirin: No Condition: Good
[2021-01-10 23:55] LABS: Hematocrit 35.9 % (35.5-45.6); Hemoglobin 11.5 gm/dl (11.8-15.2); Mean Corpuscular HGB Conc 32 % (32-34); Mean Corpuscular Volume 85 fl (84-94); Platelet Count 450 K/mm3 (140-440); Red Cell Distribution Width 17.6 % (13.2-15.2)
[2021-01-11 00:18] LABS: Alanine Aminotransferase 17 units/L (7-56); Albumin 4.8 g/dL (3.9-5); BUN/Creatinine Ratio 31; Blood Urea Nitrogen 31 mg/dL (9-20); Calcium 10.3 mg/dL (8.4-10.2); Hemolysis Index 31
[2021-01-11] MEDS ORDERED: HYDROmorphone 1 MG/1 ML INJ IV ONE (00:18)
[2021-01-11] MEDS ORDERED: INSULIN REGULAR, HUMAN 100 UNITS/1 ML IV ONE (00:27)
[2021-01-11] MEDS ORDERED: LACTATED RINGERS 1,000 ML IV ONE (00:55)
[2021-01-11 01:03] LABS: Bilirubin,Urine NEG (Negative); Blood,Urine SM (Negative); Color,Urine Straw (Yellow); Protein,Urine <15 mg/dL mg/dL (Negative); Urobilinogen,Urine < 2.0 mg/dL (<2.0)
[2021-01-11 01:11] LABS: Amphetamine Screen,Urine Negative; Benzodiazepines Screen,Urine Negative; Cocaine Screen,Urine Negative; Methadone Screen,Urine Negative; Opiate Screen,Urine Negative
[2021-01-11 01:18] LABS: Total Cells Counted 100
[2021-01-11 01:19] LABS: RBC Morphology Normal
[2021-01-11 01:26] LABS: Cannabinoid Screen,Urine Positive
--- NOTE | 2021-01-11 02:32 | Cat Scan Report ---
CTA CHEST, ABDOMEN, AND PELVIS (AORTIC DISSECTION FOLLOW-UP) INDICATION / CLINICAL INFORMATION: Patient complains of ACUTE UPPER BACK and shoulder pain. Clinical concern for aortic dissection of the chest abdomen and pelvis. TECHNIQUE: Axial CT images were obtained through the chest, abdomen, and pelvis before and after inje ction of 100 mL IV contrast. 3 plane MIP and/or 3D reconstructions were produced. All CT scans at [facility] location are performed using CT dose reduction for ALARA by means of automated exposure control. Ex am limited within the mid abdominal region secondary to motion artifact. COMPARISON: None available. FINDINGS: Arterial measurements are unchanged from recent prior CTA dated . Please see the original CTA report for further details. HEART: - Size: Normal. - [place] Coronary Atherosclerosis: None. - Pericardium: No pericardial effusion. THORACIC AORTA: - Dissection: No dissection. - Aneurysm: Mildly dilated aortic root measuring about 4.4 cm in diameter. - Atherosclerosis: No significant atherosclerosis. GREAT VESSELS: No acute abnormality. No significant atherosclerosis. PULMONARY ARTERIES: No pulmonary emboli. CHEST VEINS: Single SVC of normal caliber as visualized to the right of midline. No significant abnor mality. ABDOMINAL AORTA: - Dissection: No dissection. - Aneurysm: No aneurysm or pseudoaneurysm. - Atherosclerosis: Mild atherosclerosis. CELIAC TRUNK: No significant abnormality. SUPERIOR MESENTERIC ARTERY: No significant abnormality. RENAL ARTERIES: No significant abnormality. INFERIOR MESENTERIC ARTERY: No significant abnormality. RIGHT ILIAC ARTERIES: No acute abnormality. No significant atherosclerosis. LEFT ILIAC ARTERIES: No acute abnormality. No significant atherosclerosis. RIGHT FEMORAL ARTERIES: No acute abnormality. No significant atherosclerosis. LEFT FEMORAL ARTERIES: No acute abnormality. No significant atherosclerosis. ABDOMINOPELVIC VEINS: Single IVC of normal caliber to the right of midline. No significant abnormalit y. ADDITIONAL CHEST FINDINGS: Mild mucosal thickening of the mid and distal thoracic esophagus concernin g for esophagitis.. ADDITIONAL ABDOMINOPELVIC FINDINGS: No significant additional findings. Few sigmoid diverticula SKELETAL SYSTEM: No significant abnormality. IMPRESSION: 1. No thoracic or abdominal aortic dissection. 2. Mildly dilated aortic root. 3. Thickened thoracic esophagus concerning for esophagitis Signer Name: Lion Tran MD Signed: 01/11/2021 2:27 AM Workstation Name: [id number]
--- NOTE | 2021-01-11 02:32 | Cat Scan Report ---
CTA CHEST, ABDOMEN, AND PELVIS (AORTIC DISSECTION FOLLOW-UP) INDICATION / CLINICAL INFORMATION: Patient complains of ACUTE UPPER BACK and shoulder pain. Clinical concern for aortic dissection of the chest abdomen and pelvis. TECHNIQUE: Axial CT images were obtained through the chest, abdomen, and pelvis before and after inje ction of 100 mL IV contrast. 3 plane MIP and/or 3D reconstructions were produced. All CT scans at [facility] s location are performed using CT dose reduction for ALARA by means of automated exposure control. Ex am limited within the mid abdominal region secondary to motion artifact. COMPARISON: None available. FINDINGS: Arterial measurements are unchanged from recent prior CTA dated . Please see the original CTA report for further details. HEART: - Size: Normal. - [place] Coronary Atherosclerosis: None. - Pericardium: No pericardial effusion. THORACIC AORTA: - Dissection: No dissection. - Aneurysm: Mildly dilated aortic root measuring about 4.4 cm in diameter. - Atherosclerosis: No significant atherosclerosis. GREAT VESSELS: No acute abnormality. No significant atherosclerosis. PULMONARY ARTERIES: No pulmonary emboli. CHEST VEINS: Single SVC of normal caliber as visualized to the right of midline. No significant abnor mality. ABDOMINAL AORTA: - Dissection: No dissection. - Aneurysm: No aneurysm or pseudoaneurysm. - Atherosclerosis: Mild atherosclerosis. CELIAC TRUNK: No significant abnormality. SUPERIOR MESENTERIC ARTERY: No significant abnormality. RENAL ARTERIES: No significant abnormality. INFERIOR MESENTERIC ARTERY: No significant abnormality. RIGHT ILIAC ARTERIES: No acute abnormality. No significant atherosclerosis. LEFT ILIAC ARTERIES: No acute abnormality. No significant atherosclerosis. RIGHT FEMORAL ARTERIES: No acute abnormality. No significant atherosclerosis. LEFT FEMORAL ARTERIES: No acute abnormality. No significant atherosclerosis. ABDOMINOPELVIC VEINS: Single IVC of normal caliber to the right of midline. No significant abnormalit y. ADDITIONAL CHEST FINDINGS: Mild mucosal thickening of the mid and distal thoracic esophagus concernin g for esophagitis.. ADDITIONAL ABDOMINOPELVIC FINDINGS: No significant additional findings. Few sigmoid diverticula SKELETAL SYSTEM: No significant abnormality. IMPRESSION: 1. No thoracic or abdominal aortic dissection. 2. Mildly dilated aortic root. 3. Thickened thoracic esophagus concerning for esophagitis Signer Name: Lion Tran MD Signed: 01/11/2021 2:27 AM Workstation Name: [id number]
[2021-01-11 03:44] LABS: BUN/Creatinine Ratio 34; Blood Urea Nitrogen 31 mg/dL (9-20); Calcium 10.2 mg/dL (8.4-10.2); Hemolysis Index 6
[2021-01-11] MEDS ORDERED: MORPHINE 2 MG/1 ML INJ IV PRN (04:53)
[2021-01-11] MEDS ORDERED: ALBUTEROL 2.5 MG/3 ML NEBU IH PRN (04:53)
[2021-01-11] MEDS ORDERED: ACETAMINOPHEN 325 MG TAB PO PRN (04:53)
[2021-01-11] MEDS ORDERED: DEXTROSE 50% IN WATER (25GM) 50 ML SYRINGE IV PRN (04:53)
[2021-01-11] MEDS ORDERED: hydrALAZINE 20 MG/1 ML INJ IV PRN (04:56)
[2021-01-11] MEDS ORDERED: SODIUM CHLORIDE 0.9% 1000 ML 1,000 ML IV SCH (05:00)
--- NOTE | 2021-01-11 05:01 | History and Physical Report ---
History of Present Illness Date of examination: 01/11/21 Date of admission: 01/11/21 02:48 Chief complaint: Abdominal pain, nausea vomiting back pain and upper shoulder pain and weakness History of present illness: 30-year-old male with past medical history of myasthenia gravis, diabetic ketoacidosis and alcoholism was brought to the emergency room because of abd ominal cramping, nausea vomiting, and upper back pain/upper shoulder pain. These particular set of symptoms have been going on for the past day or so. He denies headache and neck pain. He denies chest pain. He has no significant shortness of breath. He denies Covid symptomatology. His symptoms occasionally get better with a hot bath and a hot shower. Patient also complaining of mild muscle cramps, but denies focal extremity weakness/numbness. In the emergency room patient is found to have WBC of 18.5 bicarb 21, BUN 31 and creatinine 1.0 glucose 399 ketones was negative Past History Past Medical History: diabetes, other (Myasthenia gravis and alcoholism) Medications and Allergies Allergies Allergy/AdvReac Type Severity Reaction Status Date / Time codeine Allergy Hives Verified 01/10/21 23:46 morphine Allergy Angioedema Verified 01/10/21 23:46 tomato Allergy Vomiting Verified 01/10/21 23:46 Home Medications Medication Instructions Recorded Confirmed Last Taken Type Metoprolol 25 mg PO BID 09/24/19 10/27/20 09/22/19 History Pantoprazole Sodium [Protonix] 40 mg PO HS #30 carlospkt 09/27/19 10/27/20 Unknown Rx Insulin NPH/Regular [NovoLIN 70/30] 18 unit SUB-Q QDDIAB 30 Days 10/31/20 Unknown Rx Insulin NPH/Regular [NovoLIN 70/30] 18 unit SUB-Q QPMDIAB 30 Days 10/31/20 Unknown Rx Insulin Regular, Human [HumuLIN R] See Protocol SUB-Q ACHS 30 Days 10/31/20 Unknown Rx Metoclopramide HCl [Reglan TAB] 5 mg PO TIDAC #21 tablet 10/31/20 Unknown Rx Active Meds: Active Medications Acetaminophen (Acetaminophen 325 Mg Tab) 650 mg PO Q4H PRN PRN Reason: Pain MILD(1-3)/Fever >100.5/QUINTANILLA Dextrose (Dextrose 50% In Water (25gm) 50 Ml Syringe) 50 ml IV Q30MIN PRN; Protocol PRN Reason: Hypoglycemia Lorazepam (Lorazepam 2 Mg/Ml Vial) 2 mg IV Q1HR PRN PRN Reason: CIWA-Ar 8-15 Lorazepam (Lorazepam 2 Mg/Ml Vial) 4 mg IV Q1HR PRN PRN Reason: CIWA-Ar 16-25 Lorazepam (Lorazepam 2 Mg/Ml Vial) 4 mg IV Q15MIN PRN PRN Reason: CIWA-Ar >25 Ondansetron HCl (Ondansetron 4 Mg/2 Ml Inj) 4 mg IV Q8H PRN PRN Reason: Nausea And Vomiting Sodium Chloride (Sodium Chloride 0.9% 10 Ml Flush Syringe) 10 ml IV BID BREANNE Sodium Chloride (Sodium Chloride 0.9% 10 Ml Flush Syringe) 10 ml IV PRN PRN PRN Reason: LINE FLUSH Review of Systems Gastrointestinal: abdominal pain, nausea, vomiting Musculoskeletal: other (Back pain/upper shoulder pain and muscle cramps) Exam - Constitutional Vitals: Temp Pulse Resp BP Pulse Ox 98.3 F 116 H 13 168/106 100 01/10/21 23:46 01/11/21 04:17 01/11/21 04:17 01/11/21 04:17 01/11/21 04:17 General appearance: Present: no acute distress, well-nourished - EENT Eyes: Present: PERRL ENT: hearing intact, clear oral mucosa - Neck Neck: Present: supple, normal ROM - Respiratory Respiratory effort: normal Respiratory: bilateral: CTA - Cardiovascular Heart Sounds: Present: S1 & S2. Absent: rub, click - Extremities Extremities: pulses symmetrical, No edema Peripheral Pulses: within normal limits - Abdominal General gastrointestinal: Present: soft, non-tender, non-distended, normal bowel sounds Male genitourinary: Present: normal - Integumentary Integumentary: Present: clear, warm, dry - Musculoskeletal Musculoskeletal: gait normal, strength equal bilaterally - Psychiatric Psychiatric: appropriate mood/affect, intact judgment & insight - Neurologic Neurologic: CNII-XII intact, moves all extremities HEART Score - HEART Score Troponin: Troponin T < 0.010 ng/mL (0.00-0.029) 01/10/21 23:35 Results - Labs CBC & Chem 7: 01/10/21 23:35 01/11/21 03:16 Labs: Laboratory Last Values WBC 18.5 K/mm3 (4.5-11.0) H 01/10/21 23:35 RBC 4.20 M/mm3 (3.65-5.03) 01/10/21 23:35 Hgb 11.5 gm/dl (11.8-15.2) L 01/10/21 23:35 Hct 35.9 % (35.5-45.6) 01/10/21 23:35 MCV 85 fl (84-94) 01/10/21 23:35 MCH 27 pg (28-32) L 01/10/21 23:35 MCHC 32 % (32-34) 01/10/21 23:35 RDW 17.6 % (13.2-15.2) H 01/10/21 23:35 Plt Count 450 K/mm3 (140-440) H 01/10/21 23:35 Add Manual Diff Complete 01/10/21 23:35 Total Counted 100 01/10/21 23:35 Seg Neuts % (Manual) 78.0 % (40.0-70.0) H 01/10/21 23:35 Lymphocytes % (Manual) 14.0 % (13.4-35.0) 01/10/21 23:35 Monocytes % (Manual) 8.0 % (0.0-7.3) H 01/10/21 23:35 Nucleated RBC % Not Reportable 01/10/21 23:35 Seg Neutrophils # Man 14.4 K/mm3 (1.8-7.7) H 01/10/21 23:35 Band Neutrophils # 0.0 K/mm3 01/10/21 23:35 Lymphocytes # (Manual) 2.6 K/mm3 (1.2-5.4) 01/10/21 23:35 Abs React Lymphs (Man) 0.0 K/mm3 01/10/21 23:35 Monocytes # (Manual) 1.5 K/mm3 (0.0-0.8) H 01/10/21 23:35 Eosinophils # (Manual) 0.0 K/mm3 (0.0-0.4) 01/10/21 23:35 Basophils # (Manual) 0.0 K/mm3 (0.0-0.1) 01/10/21 23:35 Metamyelocytes # 0.0 K/mm3 01/10/21 23:35 Myelocytes # 0.0 K/mm3 01/10/21 23:35 Promyelocytes # 0.0 K/mm3 01/10/21 23:35 Blast Cells # 0.0 K/mm3 01/10/21 23:35 WBC Morphology Not Reportable 01/10/21 23:35 Hypersegmented Neuts Not Reportable 01/10/21 23:35 Hyposegmented Neuts Not Reportable 01/10/21 23:35 Hypogranular Neuts Not Reportable 01/10/21 23:35 Smudge Cells Not Reportable 01/10/21 23:35 Toxic Granulation Not Reportable 01/10/21 23:35 Toxic Vacuolation Not Reportable 01/10/21 23:35 Dohle Bodies Not Reportable 01/10/21 23:35 Pelger-Huet Anomaly Not Reportable 01/10/21 23:35 Emily Rods Not Reportable 01/10/21 23:35 Platelet Estimate Not Reportable 01/10/21 23:35 Clumped Platelets Not Reportable 01/10/21 23:35 Plt Clumps, EDTA Not Reportable 01/10/21 23:35 Large Platelets Not Reportable 01/10/21 23:35 Giant Platelets Not Reportable 01/10/21 23:35 Platelet Satelliting Not Reportable 01/10/21 23:35 Plt Morphology Comment Not Reportable 01/10/21 23:35 RBC Morphology Normal 01/10/21 23:35 Dimorphic RBCs Not Reportable 01/10/21 23:35 Polychromasia Not Reportable 01/10/21 23:35 Hypochromasia Not Reportable 01/10/21 23:35 Poikilocytosis Not Reportable 01/10/21 23:35 Anisocytosis Not Reportable 01/10/21 23:35 Microcytosis Not Reportable 01/10/21 23:35 Macrocytosis Not Reportable 01/10/21 23:35 Spherocytes Not Reportable 01/10/21 23:35 Pappenheimer Bodies Not Reportable 01/10/21 23:35 Sickle Cells Not Reportable 01/10/21 23:35 Target Cells Not Reportable 01/10/21 23:35 Tear Drop Cells Not Reportable 01/10/21 23:35 Ovalocytes Not Reportable 01/10/21 23:35 Helmet Cells Not Reportable 01/10/21 23:35 Elliott-[place] Bodies Not Reportable 01/10/21 23:35 [place] Rings Not Reportable 01/10/21 23:35 Carrie[place] Cells Not Reportable 01/10/21 23:35 Bite Cells Not Reportable 01/10/21 23:35 Crenated Cell Not Reportable 01/10/21 23:35 Elliptocytes Not Reportable 01/10/21 23:35 Acanthocytes (Spur) Not Reportable 01/10/21 23:35 Rouleaux Not Reportable 01/10/21 23:35 Hemoglobin C Crystals Not Reportable 01/10/21 23:35 Schistocytes Not Reportable 01/10/21 23:35 Malaria parasites Not Reportable 01/10/21 23:35 Daniel Bodies Not Reportable 01/10/21 23:35 Hem Pathologist Commnt No 01/10/21 23:35 VBG pH 7.375 (7.320-7.420) 01/10/21 23:35 Sodium 141 mmol/L (137-145) 01/11/21 03:16 Potassium 4.1 mmol/L (3.6-5.0) 01/11/21 03:16 Chloride 100.2 mmol/L (98-107) 01/11/21 03:16 Carbon Dioxide 26 mmol/L (22-30) 01/11/21 03:16 Anion Gap 19 mmol/L 01/11/21 03:16 BUN 31 mg/dL (9-20) H 01/11/21 03:16 Creatinine 0.9 mg/dL (0.8-1.3) 01/11/21 03:16 Estimated GFR > 60 ml/min 01/11/21 03:16 BUN/Creatinine Ratio 34 % 01/11/21 03:16 Glucose 245 mg/dL (75-100) H 01/11/21 03:16 POC Glucose 229 mg/dL (70-105) H 01/11/21 03:59 Ketones Quantitative Negative (Negative) 01/11/21 03:16 Calcium 10.2 mg/dL (8.4-10.2) 01/11/21 03:16 Magnesium 2.20 mg/dL (1.7-2.3) 01/10/21 23:35 Total Bilirubin 0.30 mg/dL (0.1-1.2) 01/10/21 23:35 AST 15 units/L (5-40) 01/10/21 23:35 ALT 17 units/L (7-56) 01/10/21 23:35 Alkaline Phosphatase 117 units/L (35-129) 01/10/21 23:35 Total Creatine Kinase 132 units/L (55-170) 01/10/21 23:35 Troponin T < 0.010 ng/mL (0.00-0.029) 01/10/21 23:35 Total Protein 8.1 g/dL (6.3-8.2) 01/10/21 23:35 Albumin 4.8 g/dL (3.9-5) 01/10/21 23:35 Albumin/Globulin Ratio 1.5 % 01/10/21 23:35 Lipase 12 units/L (13-60) L 01/10/21 23:35 Urine Color Straw (Yellow) 01/11/21 00:55 Urine Turbidity Clear (Clear) 01/11/21 00:55 Urine pH 5.0 (5.0-7.0) 01/11/21 00:55 Ur Specific Hessel 1.026 (1.003-1.030) 01/11/21 00:55 Urine Protein <15 mg/dl mg/dL (Negative) 01/11/21 00:55 Urine Glucose (UA) >=500 mg/dL (Negative) 01/11/21 00:55 Urine Ketones 80 mg/dL (Negative) 01/11/21 00:55 Urine Blood Sm (Negative) 01/11/21 00:55 Urine Nitrite Neg (Negative) 01/11/21 00:55 Urine Bilirubin Neg (Negative) 01/11/21 00:55 Urine Urobilinogen < 2.0 mg/dL (<2.0) 01/11/21 00:55 Ur Leukocyte Esterase Neg (Negative) 01/11/21 00:55 Urine WBC (Auto) 1.0 /HPF (0.0-6.0) 01/11/21 00:55 Urine RBC (Auto) 1.0 /HPF (0.0-6.0) 01/11/21 00:55 Salicylates 6.2 mg/dL (2.8-20.0) 01/10/21 23:35 Urine Opiates Screen Negative 01/11/21 00:45 Urine Methadone Screen Negative 01/11/21 00:45 Acetaminophen 5.0 ug/mL (10.0-30.0) L 01/10/21 23:35 Ur Barbiturates Screen Negative 01/11/21 00:45 Ur Phencyclidine Scrn Negative 01/11/21 00:45 Ur Amphetamines Screen Negative 01/11/21 00:45 U Benzodiazepines Scrn Negative 01/11/21 00:45 Urine Cocaine Screen Negative 01/11/21 00:45 U Marijuana (THC) Screen Positive 01/11/21 00:45 Drugs of Abuse Note Disclamer 01/11/21 00:45 Plasma/Serum Alcohol < 0.01 % (0-0.07) 01/10/21 23:35 - Imaging and Cardiology CT scan - abdomen: report reviewed Assessment and Plan VTE prophylaxis?: Chemical Plan of care discussed with patient/family: Yes - Patient Problems (1) Insulin dependent diabetes mellitus Current Visit: No Status: Acute Plan to address problem: Admit the patient to the medical floor. Put the patient on 1800 kcal ADA diet. Humalog sliding scale high dose with Accu-Chek coverage before meals and at bedtime. We continue the home medication. Diabetic education. Recheck CBC BMP in the morning (2) Metabolic acidosis Current Visit: Yes Status: Acute Plan to address problem: Most likely secondary to diabetes we will put the patient normal saline at the rate of 125 cc/h and Humalog sliding scale high dose. Diabetic education recheck BMP in the morning (3) Volume depletion Current Visit: Yes Status: Acute Plan to address problem: Slowly rehydrate the patient. Normal saline at the rate of 125 cc/h recheck BMP in the morning (4) Myasthenia gravis Current Visit: No Status: Acute Plan to address problem: Stable we will continue the home medication (5) Back pain Current Visit: Yes Status: Acute Plan to address problem: Tylenol 650 mg p.o. every 6 hours as needed. Morphine 2 mg IV every 4 hours as needed. We will monitor the blood pressure closely (6) Leukocytosis Current Visit: Yes Status: Acute Plan to address problem: Rocephin 2 g IV daily. Normal saline at the rate of 125 cc/h. We will recheck the CBC in the morning (7) DVT prophylaxis Current Visit: No Status: Acute Plan to address problem: Heparin 5000 units subcu every 8 hours for DVT prophylaxis. Pepcid 20 mg IV every 12 hours for GI prophylaxis. Patient is a full code
[2021-01-11] MEDS: HYDROmorphone 1 MG/1 ML INJ IV PRN (06:08)
[2021-01-11] MEDS ORDERED: amLODIPine 5 MG TAB PO ONE (06:22)
[2021-01-11] MEDS: HEPARIN 5,000 UNIT/1 ML VIAL SUB-Q SCH ×3 (06:26→22:21)
[2021-01-11] MEDS: cefTRIAXone/NS 2 GM/100 ML 2 GM/100 ML BAG IV SCH (06:26)
[2021-01-11] MEDS: INSULIN NPH/REGULAR 70/30 INJ SUB-Q SCH ×2 (09:52→17:40)
[2021-01-11] MEDS: FAMOTIDINE 20 MG/2 ML INJ IV SCH ×2 (09:54→22:21)
[2021-01-11] MEDS: METOCLOPRAMIDE 10 MG TAB PO SCH ×3 (09:55→16:50)
[2021-01-11] MEDS: METOPROLOL TARTRATE 25 MG TAB PO SCH ×2 (09:55→22:20)
--- NOTE | 2021-01-11 09:59 | Electrocardiograph Report ---
[facility] Test Date: 2021-01-10 Test Time: 23:24:38 Pat Name: TIA KAUR Department: Room: A379 1 Gender: M Day Care Supervisor: FOREIGN : 1990 Requested By: KEHINDE HUGGINS Order Number: [id number] Reading MD: Hadley Tucker Measurements Intervals [place] Rate: 120 P: 34 OK: 137 QRS: 86 QRSD: 89 T: 64 QT: 351 QTc: 496 Interpretive Statements Sinus tachycardia non specific st-t No previous ECG available for comparison Electronically Signed On 01-11-2021 9:58:46 EDT by Hadley Tucker
[2021-01-11] MEDS: INSULIN LISPRO 100 UNIT/ML SUB-Q SCH ×4 (10:24→22:21)
--- NOTE | 2021-01-11 10:53 | Event Note ---
Date: 01/11/21 Patient was seen and evaluated this morning. Patient admitted earlier this morning for hyperglycemia and persistent nausea and vomiting. Patient's nausea and vomiting is getting better. Abdominal pain is getting better. Patient started on clear liquid diet and advance as tolerated. Possible discharge in a.m. if he continue to improve.
[2021-01-11] MEDS: D5W/0.45% NACL 1,000 ML IV SCH (22:27)
[2021-01-12] MEDS: cefTRIAXone/NS 2 GM/100 ML 2 GM/100 ML BAG IV SCH (05:40)
[2021-01-12] MEDS: D5W/0.45% NACL 1,000 ML IV SCH ×3 (05:41→20:55)
[2021-01-12] MEDS: HEPARIN 5,000 UNIT/1 ML VIAL SUB-Q SCH ×3 (05:41→21:01)
[2021-01-12] MEDS: ONDANSETRON 4 MG/2 ML INJ IV PRN ×2 (07:46→13:28)
[2021-01-12 07:53] LABS: Basophils # (Auto) 0.1 K/mm3 (0.0-0.1); Basophils % (Auto) 0.6 % (0.0-1.8); Eosinophils % (Auto) 0.4 % (0.0-4.3); Hematocrit 30.4 % (35.5-45.6); Hemoglobin 10.2 gm/dl (11.8-15.2); Lymphocytes # (Auto) 1.7 K/mm3 (1.2-5.4); Lymphocytes % (Auto) 13.9 % (13.4-35.0); Mean Corpuscular HGB Conc 34 % (32-34); Mean Corpuscular Volume 83 fl (84-94); Monocytes # (Auto) 0.8 K/mm3 (0.0-0.8); Monocytes % (Auto) 6.6 % (0.0-7.3); Platelet Count 361 K/mm3 (140-440); Red Blood Count 3.68 M/mm3 (3.65-5.03); Red Cell Distribution Width 17.5 % (13.2-15.2)
[2021-01-12 08:10] LABS: Blood Urea Nitrogen 10 mg/dL (9-20); Calcium 9.1 mg/dL (8.4-10.2)
[2021-01-12] MEDS: METOCLOPRAMIDE 10 MG TAB PO SCH ×3 (08:13→17:30)
[2021-01-12] MEDS: INSULIN NPH/REGULAR 70/30 INJ SUB-Q SCH ×2 (08:14→17:30)
[2021-01-12] MEDS: HYDROmorphone 1 MG/1 ML INJ IV PRN ×3 (08:14→21:18)
[2021-01-12] MEDS: INSULIN LISPRO 100 UNIT/ML SUB-Q SCH ×4 (08:15→23:16)
[2021-01-12 08:27] LABS: BUN/Creatinine Ratio 17
[2021-01-12] MEDS: FAMOTIDINE 20 MG/2 ML INJ IV SCH (10:31)
[2021-01-12] MEDS: METOPROLOL TARTRATE 25 MG TAB PO SCH ×2 (10:31→21:00)
[2021-01-12] MEDS: FAMOTIDINE 20 MG TAB PO SCH ×2 (10:35→21:00)
--- NOTE | 2021-01-12 17:59 | Progress Note ---
Assessment and Plan - Patient Problems (1) Back pain Current Visit: Yes Status: Acute Plan to address problem: Pain resolving currently. Continue to treat as needed morphine (2) Leukocytosis Current Visit: Yes Status: Acute Plan to address problem: Secondary to hypoglycemia no clear evidence of infection no fever at this time. Will follow CBC a.m. (3) Metabolic acidosis Current Visit: Yes Status: Acute Plan to address problem: Secondary to hyperglycemia resolving. (4) Acute kidney injury Current Visit: No Status: Acute Plan to address problem: Secondary to prerenal azotemia uncontrolled blood sugars as well as contraction with nausea and vomiting. (5) Gastroparesis due to DM Current Visit: No Status: Acute Plan to address problem: We will continue patient on Reglan also add Zofran for control of nausea from gastroparesis. (6) Insulin dependent diabetes mellitus Current Visit: No Status: Acute Plan to address problem: Patient blood sugars remain suboptimally controlled. Will advance as tolerated. Much better than admission. (7) Myasthenia gravis Current Visit: No Status: Acute Plan to address problem: Continue supportive care. Subjective Date of service: 01/12/21 Principal diagnosis: Hyperglycemia Interval history: 30-year-old male with past medical history of myasthenia gravis, diabetic ketoacidosis and alcoholism was brought to the emergency room because of abdominal cramping, nausea vomiting, and upper back pain/upper shoulder pain. These particular set of symptoms have been going on for the past day or so. He denies headache and neck pain. He denies chest pain. He has no significant shortness of breath. He denies Covid symptomatology. His symptoms occasionally get better with a hot bath and a hot shower. Patient also complaining of mild muscle cramps, but denies focal extremity weakness/numbness. In the emergency room patient is found to have WBC of 18.5 bicarb 21, BUN 31 and creatinine 1.0 glucose 399 ketones was negative Patient complains today of nausea. Unable to hold any food down. Symptoms consistent with gastroparesis. Objective - Constitutional Vitals: Vital Signs - 12hr 01/12/21 01/12/21 01/12/21 08:38 10:27 10:31 Pulse Rate 97 H 94 H O2 Sat by Pulse 99 100 Oximetry General appearance: Present: no acute distress, well-nourished - EENT Eyes: PERRL, EOM intact ENT: hearing intact, clear oral mucosa Ears: bilateral: normal - Neck Neck: supple, normal ROM - Respiratory Respiratory effort: normal Respiratory: bilateral: CTA - Breasts Breasts: normal - Cardiovascular Rhythm: regular Heart Sounds: Present: S1 & S2. Absent: gallop, rub Extremities: pulses intact, No edema, normal color, Full ROM - Gastrointestinal General gastrointestinal: Present: soft, non-tender, non-distended, normal bowel sounds - Genitourinary Male genitourinary: normal - Integumentary Integumentary: clear, warm, dry - Musculoskeletal Musculoskeletal: 1, strength equal bilaterally - Neurologic Neurologic: moves all extremities - Psychiatric Psychiatric: memory intact, appropriate mood/affect, intact judgment & insight - Labs CBC & Chem 7: 01/12/21 07:15 01/12/21 07:15 Labs: Abnormal lab results 01/11/21 01/12/21 01/12/21 Range/Units 21:41 00:08 07:15 WBC 12.5 H (4.5-11.0) K/mm3 Hgb 10.2 L (11.8-15.2) gm/dl Hct 30.4 L (35.5-45.6) % MCV 83 L (84-94) fl RDW 17.5 H (13.2-15.2) % Seg Neutrophils % 78.5 H (40.0-70.0) % Seg Neutrophils # 9.8 H (1.8-7.7) K/mm3 Potassium (3.6-5.0) mmol/L Creatinine (0.8-1.3) mg/dL Glucose (75-100) mg/dL POC Glucose 58 L 204 H (70-105) mg/dL 01/12/21 01/12/21 01/12/21 Range/Units 07:15 07:23 10:26 WBC (4.5-11.0) K/mm3 Hgb (11.8-15.2) gm/dl Hct (35.5-45.6) % MCV (84-94) fl RDW (13.2-15.2) % Seg Neutrophils % (40.0-70.0) % Seg Neutrophils # (1.8-7.7) K/mm3 Potassium 3.5 L (3.6-5.0) mmol/L Creatinine 0.6 L (0.8-1.3) mg/dL Glucose 295 H (75-100) mg/dL POC Glucose 271 H 164 H (70-105) mg/dL 01/12/21 Range/Units 16:33 WBC (4.5-11.0) K/mm3 Hgb (11.8-15.2) gm/dl Hct (35.5-45.6) % MCV (84-94) fl RDW (13.2-15.2) % Seg Neutrophils % (40.0-70.0) % Seg Neutrophils # (1.8-7.7) K/mm3 Potassium (3.6-5.0) mmol/L Creatinine (0.8-1.3) mg/dL Glucose (75-100) mg/dL POC Glucose 148 H (70-105) mg/dL HEART Score - HEART Score Troponin: Troponin T < 0.010 ng/mL (0.00-0.029) 01/10/21 23:35
[2021-01-12] MEDS: hydrALAZINE 20 MG/1 ML INJ IV PRN (18:47)
[2021-01-13] MEDS: HYDROmorphone 1 MG/1 ML INJ IV PRN ×2 (02:19→09:51)
[2021-01-13] MEDS: ONDANSETRON 4 MG/2 ML INJ IV PRN (02:19)
[2021-01-13] MEDS: D5W/0.45% NACL 1,000 ML IV SCH (02:23)
[2021-01-13] MEDS: cefTRIAXone/NS 2 GM/100 ML 2 GM/100 ML BAG IV SCH (05:08)
[2021-01-13] MEDS: HEPARIN 5,000 UNIT/1 ML VIAL SUB-Q SCH ×3 (05:09→13:11)
[2021-01-13] MEDS: hydrALAZINE 20 MG/1 ML INJ IV PRN (05:48)
[2021-01-13] MEDS: INSULIN NPH/REGULAR 70/30 INJ SUB-Q SCH (09:40)
[2021-01-13] MEDS: INSULIN LISPRO 100 UNIT/ML SUB-Q SCH ×2 (09:40→13:11)
[2021-01-13] MEDS: METOCLOPRAMIDE 10 MG TAB PO SCH ×2 (09:41→13:12)
[2021-01-13] MEDS: FAMOTIDINE 20 MG TAB PO SCH (09:41)
[2021-01-13] MEDS ORDERED: NIFEdipine XL 60 MG TAB PO SCH (10:00)
[2021-01-13] MEDS ORDERED: LOSARTAN 50 MG TAB PO SCH (10:00)
--- NOTE | 2021-01-13 12:21 | Discharge Summary ---
Providers - Providers Date of Admission: 01/11/21 02:48 Date of discharge: 01/13/21 Attending physician: RAINER SCHWARTZ 01/11/21 04:53 Consult to Dietitian/Nutrition [CONS] Routine Physician Instructions: Reason For Exam: Reason for Consult: Diet education Primary care physician: [employer] Hospitalization Condition: Good Hospital course: 30-year-old male with history of hypertension, diabetes, gastroparesis presented with persistent nausea and vomiting and abdominal pain. It was discovered that it was secondary gastroparesis. Patient was treated with more aggressive blood glucose control as well as judicious intravascular volume replacement and treatment of nausea and vomiting with Reglan and Zofran. After 24 hours patient began to feel much better abdominal pain resolved nausea resolved. Patient hospital course was complicated by uncontrolled blood pressure amlodipine was discontinued patient was placed on Procardia 60 mg XL once daily as well as losartan 50 mg 1 tab p.o. daily follow-up primary care physician in 5 to 7 days. Patient also given Zofran for nausea. Already had insulin doses at home and has adequate follow-up. Disposition: DC- TO HOME OR SELFCARE Final Discharge Diagnosis (Prints w/discharge instructions): Gastroparesis uncontrolled diabetes. - Discharge Diagnoses (1) Back pain Status: Acute Comment: Resolved secondary to nausea and vomiting. (2) Leukocytosis Status: Acute Comment: Secondary to DKA hyperglycemia is resolved. (3) Metabolic acidosis Status: Acute Comment: Secondary to DKA. Patient also had contraction alkalosis as well. (4) Acute kidney injury Status: Acute Comment: Prerenal azotemia (5) Gastroparesis due to DM Status: Acute Comment: Will increase Zofran to 8 mg every 6 hours as needed. We will also give Protonix 40 mg twice daily follow-up with GI as outpatient. (6) Insulin dependent diabetes mellitus Status: Acute (7) Myasthenia gravis Status: Acute Core Measure Documentation - Palliative Care Palliative Care/ Comfort Measures: Not Applicable - Core Measures Any of the following diagnoses?: none Exam - Constitutional Vitals: Temp Pulse Resp BP Pulse Ox 97.3 F L 91 H 18 189/130 98 01/13/21 03:43 01/13/21 05:48 01/13/21 03:43 01/13/21 05:48 01/13/21 03:43 General appearance: Present: no acute distress, well-nourished - EENT Eyes: Present: PERRL ENT: hearing intact, clear oral mucosa - Neck Neck: Present: supple, normal ROM - Respiratory Respiratory effort: normal Respiratory: bilateral: CTA - Cardiovascular Heart Sounds: Present: S1 & S2. Absent: rub, click - Extremities Extremities: pulses symmetrical, No edema Peripheral Pulses: within normal limits - Abdominal General gastrointestinal: Present: soft, non-tender, non-distended, normal bowel sounds Male genitourinary: Present: normal - Integumentary Integumentary: Present: clear, warm, dry - Musculoskeletal Musculoskeletal: gait normal, strength equal bilaterally - Psychiatric Psychiatric: appropriate mood/affect, intact judgment & insight - Neurologic Neurologic: CNII-XII intact, moves all extremities Plan Activity: no restrictions, other (Can only full liquid diet for the next 24 hours and advance as tolerated.) Diet: diabetic, other (Full liquid advance as tolerated patient understands.) Follow up with: PRIMARY CARE, [Primary Care Provider] - 3-5 Days Prescriptions: Losartan [Cozaar] 100 mg PO QDAY #30 tablet Insulin NPH/Regular [NovoLIN 70/30] 18 unit SUB-Q QDDIAB 30 Days units Famotidine [Pepcid] 20 mg PO BID #60 tablet NIFEdipine XL [Procardia Xl] 60 mg PO QDAY #30 tablet Metoclopramide HCl [Reglan TAB] 5 mg PO TIDAC #21 tablet
[2021-01-13 14:29] VITALS: BP 118/85
== END 2021-01-13 16:55 | disposition home or self-care (01) ==
LOC: ED 22:00 → 3A 01-11 02:48
PROVIDERS: ADMIT Hospitalist; ATTEND Internal Medicine
DX: E87.2 Acidosis (principal); E11.9 Type 2 diabetes mellitus without complications; N17.9 Acute kidney failure, unspecified; K31.84 Gastroparesis; E86.9 Volume depletion, unspecified; M54.9 Dorsalgia, unspecified; R19.00 Intra-abdominal and pelvic swelling, mass and lump, unspecified site; G70.00 Myasthenia gravis without (acute) exacerbation; D72.829 Elevated white blood cell count, unspecified; Z79.4 Long term (current) use of insulin; Z79.899 Other long term (current) drug therapy; Z98.890 Other specified postprocedural states
CPT/HCPCS: 36415; 71275; 74174; 80048; 80053; 80307; 81001; 82010; 82550; 82805; 82962; 83036; 83690; 83735; 84484; 85007; 85025; 87040; 93005; 96361; 96365; 96366; 96372; 96375; 96376; 99291; C9113; G0378; J0360; J0696; J1170; J1644; J2060; J2405; J2765; J7030; J7120; Q9967; 80320; J7070; G0480; J1815

== ENCOUNTER 2021-08-24 13:10 | Emergency (ER) | payer SELFPAY ==
[2021-08-24] MEDS ORDERED: KETOROLAC 30 MG/1 ML INJ IV ONE (13:20)
[2021-08-24] MEDS ORDERED: ONDANSETRON 4 MG/2 ML INJ IV ONE (13:20)
[2021-08-24 13:47] LABS: Basophils % (Auto) 0.4 % (0.0-1.8); Eosinophils % (Auto) 0.2 % (0.0-4.3); Hematocrit 42.8 % (35.5-45.6); Hemoglobin 13.8 gm/dl (11.8-15.2); Lymphocytes # (Auto) 1.6 K/mm3 (1.2-5.4); Lymphocytes % (Auto) 17.6 % (13.4-35.0); Mean Corpuscular HGB Conc 32 % (32-34); Mean Corpuscular Volume 82 fl (84-94); Monocytes # (Auto) 0.8 K/mm3 (0.0-0.8); Monocytes % (Auto) 8.5 % (0.0-7.3); Platelet Count 359 K/mm3 (140-440); Red Blood Count 5.23 M/mm3 (3.65-5.03)
[2021-08-24 13:48] LABS: Red Cell Distribution Width 20.2 % (13.2-15.2)
--- NOTE | 2021-08-24 13:56 | Emergency Department Report ---
ED General Adult HPI - General Stated complaint: WEAKNESS/NAUSEA/HIGH GLUCOSE Time Seen by Provider: 08/24/21 13:17 - History of Present Illness Initial comments: Chief complaint: Weakness, back pain, nausea vomiting HPI: This is a 30-year-old male history of insulin-dependent diabetes, gastroparesis due to diabetes mellitus, myasthenia gravis who presents with 3 days of weakness left back pain and vomiting. Severe sharp left back pain without radiation. He denies fever, chest pain, abdominal pain. -: Gradual, days(s) (3 days) Location: back (Left back) Severity scale (0 -10): 7 Quality: sharp, dull Consistency: constant Improves with: none Worsens with: none Associated Symptoms: malaise, nausea/vomiting - Related Data Previous Rx's Medication Instructions Recorded Last Taken Type Pantoprazole Sodium [Protonix] 40 mg PO HS #30 granpkt. 09/27/19 Unknown Rx Insulin NPH/Regular [NovoLIN 70/30] 18 unit SUB-Q QPMDIAB 30 Days 10/31/20 Unknown Rx Insulin Regular, Human [HumuLIN R] See Protocol SUB-Q ACHS 30 Days 10/31/20 Unknown Rx Famotidine [Pepcid] 20 mg PO BID #60 tablet 01/13/21 Unknown Rx Insulin NPH/Regular [NovoLIN 70/30] 18 unit SUB-Q QDDIAB 30 Days units 01/13/21 Unknown Rx Losartan [Cozaar] 100 mg PO QDAY #30 tablet 01/13/21 Unknown Rx Metoclopramide HCl [Reglan TAB] 5 mg PO TIDAC #21 tablet 01/13/21 Unknown Rx NIFEdipine XL [Procardia Xl] 60 mg PO QDAY #30 tablet 01/13/21 Unknown Rx Losartan [Cozaar] 100 mg PO QDAY #30 08/24/21 Unknown Rx Metoclopramide HCl [Reglan TAB] 5 mg PO TIDAC #120 08/24/21 Unknown Rx NIFEdipine XL [Procardia Xl] 60 mg PO Q24H #30 tab 08/24/21 Unknown Rx Allergies Allergy/AdvReac Type Severity Reaction Status Date / Time codeine Allergy Hives Verified 01/10/21 23:46 morphine Allergy Angioedema Verified 01/10/21 23:46 tomato Allergy Vomiting Verified 01/10/21 23:46 ED Review of Systems ROS: Stated complaint: WEAKNESS/NAUSEA/HIGH GLUCOSE Other details as noted in HPI Comment: All other systems reviewed and negative Constitutional: malaise. denies: chills, fever Respiratory: denies: cough, shortness of breath Gastrointestinal: nausea, vomiting. denies: abdominal pain Musculoskeletal: back pain ED Past Medical Hx - Past Medical History Previous Medical History?: Yes Hx Hypertension: Yes Hx Congestive Heart Failure: No Hx Diabetes: Yes Hx Asthma: No Additional medical history: Myasthenia gravis - Surgical History Past Surgical History?: No - Social History Smoking Status: Never Smoker Substance Use Type: None - Medications Home Medications: Home Medications Medication Instructions Recorded Confirmed Last Taken Type Pantoprazole Sodium [Protonix] 40 mg PO HS #30 09/27/19 10/27/20 Unknown Rx Insulin NPH/Regular [NovoLIN 70/30] 18 unit SUB-Q QPMDIAB 30 Days 10/31/20 Unknown Rx Insulin Regular, Human [HumuLIN R] See Protocol SUB-Q ACHS 30 Days 10/31/20 Unknown Rx Famotidine [Pepcid] 20 mg PO BID #60 tablet 01/13/21 Unknown Rx Insulin NPH/Regular [NovoLIN 70/30] 18 unit SUB-Q QDDIAB 30 Days units 01/13/21 Unknown Rx Losartan [Cozaar] 100 mg PO QDAY #30 tablet 01/13/21 Unknown Rx Metoclopramide HCl [Reglan TAB] 5 mg PO TIDAC #21 tablet 01/13/21 Unknown Rx NIFEdipine XL [Procardia Xl] 60 mg PO QDAY #30 tablet 01/13/21 Unknown Rx Losartan [Cozaar] 100 mg PO QDAY #30 08/24/21 Unknown Rx Metoclopramide HCl [Reglan TAB] 5 mg PO TIDAC #120 08/24/21 Unknown Rx NIFEdipine XL [Procardia Xl] 60 mg PO Q24H #30 tab 08/24/21 Unknown Rx ED Physical Exam - General Limitations: No Limitations General appearance: alert, in no apparent distress - Head Head exam: Present: atraumatic, normocephalic - Eye Eye exam: Present: normal appearance - ENT ENT exam: Present: mucous membranes moist - Neck Neck exam: Present: normal inspection, full ROM - Respiratory Respiratory exam: Present: normal lung sounds bilaterally. Absent: respiratory distress, wheezes, rales, rhonchi - Cardiovascular Cardiovascular Exam: Present: regular rate, normal rhythm, normal heart sounds. Absent: systolic murmur, diastolic murmur, rubs, gallop - GI/Abdominal GI/Abdominal exam: Present: soft, normal bowel sounds. Absent: distended, tenderness, guarding, rebound - Rectal Rectal exam: Present: deferred - Extremities Exam Extremities exam: Present: normal inspection - Neurological Exam Neurological exam: Present: alert, oriented X3 - Psychiatric Psychiatric exam: Present: normal affect, normal mood - Skin Skin exam: Present: warm, dry, intact, normal color. Absent: rash ED Course Vital Signs 08/24/21 08/24/21 08/24/21 15:31 15:35 15:40 Pulse Rate 116 H 119 H Respiratory 18 Rate Blood Pressure Blood Pressure 141/117 [Left] O2 Sat by Pulse 100 100 Oximetry 08/24/21 08/24/21 08/24/21 15:44 15:46 16:00 Pulse Rate 114 H 115 H Respiratory 11 L 12 Rate Blood Pressure 141/117 176/135 Blood Pressure [Left] O2 Sat by Pulse 100 96 100 Oximetry 08/24/21 08/24/21 08/24/21 16:16 16:56 17:00 Pulse Rate 118 H 116 H 114 H Respiratory 11 L 13 9 L Rate Blood Pressure 176/135 147/121 147/121 Blood Pressure [Left] O2 Sat by Pulse 100 100 99 Oximetry 08/24/21 08/24/21 08/24/21 17:16 17:30 17:46 Pulse Rate 116 H 112 H 111 H Respiratory 6 L 9 L 13 Rate Blood Pressure 147/121 140/113 140/113 Blood Pressure [Left] O2 Sat by Pulse 100 90 94 Oximetry 08/24/21 08/24/21 08/24/21 18:00 18:16 18:30 Pulse Rate 112 H 109 H 108 H Respiratory 8 L 8 L 9 L Rate Blood Pressure 135/100 135/100 180/126 Blood Pressure [Left] O2 Sat by Pulse 100 99 99 Oximetry 08/24/21 18:45 Pulse Rate 110 H Respiratory Rate Blood Pressure Blood Pressure [Left] O2 Sat by Pulse Oximetry ED Medical Decision Making - Lab Data Result diagrams: 08/24/21 13:32 08/24/21 13:32 - Radiology Data Radiology results: report reviewed Patient Name: TIA KAUR Gender: Male Date of : 1990 Referring Provider: JUAN LUIS BROWN Organization: [facility] Accession Number: [id number] Requested Date: August 24, 2021 13:18 Report Status: Final Requested Procedure: 1 Procedure Description: CT abdomen pelvis wo con Modality: CT Findings Reporting MD: Teddy Estrada Dictation Time: August 24, 2021 15:45 Relations Mgr: Not available Project Systems Engineer Date: CT ABDOMEN AND PELVIS WITHOUT CONTRAST INDICATION / CLINICAL INFORMATION: back pain. TECHNIQUE: Axial CT images were obtained through the abdomen and pelvis without IV contrast. All CT scans at this location are performed using CT dose reduction for ALARA by means of automated exposure control. COMPARISON: 02/10/2021. FINDINGS: LOWER CHEST: No significant abnormality LIVER: No significant abnormality GALLBLADDER/BILIARY TREE: No significant abnormality PANCREAS: No significant abnormality SPLEEN: No significant abnormality ADRENALS: No significant abnormality KIDNEYS / URETER: No significant abnormality. There is no urolithiasis or hydronephrosis. URINARY BLADDER: No significant abnormality REPRODUCTIVE ORGANS: No significant abnormality STOMACH / BOWEL: Small bowel is normal in caliber. The colon is unremarkable. The appendix is normal in caliber. LYMPH NODES: No significant adenopathy. VASCULATURE: No significant abnormality. OTHER: No free air, free fluid, or focal fluid collection is identified. SKELETAL SYSTEM: No acute osseous findings. IMPRESSION: No acute abnormality of the abdomen or pelvis. Signer Name: Teddy Estrada MD Signed: 08/24/2021 3:45 PM Workstation Name: [id number] - Medical Decision Making 1. Dehydration in the setting of gastroparesis: No vomiting observed in emergency department. Patient received 2 L normal saline. 2. Back pain without trauma: CT abdomen pelvis ruled out ureteral stone. 3. Hypertensive urgency without evidence of endorgan damage. Prescribed Reglan. Prescribed nifedipine. Prescribed losartan. Patient informed me that he is unemployed without health insurance. It has been difficult to obtain medical care. Critical care attestation.: If time is entered above; I have spent that time in minutes in the direct care of this critically ill patient, excluding procedure time. ED Disposition Clinical Impression: Hypertensive urgency, Insulin dependent diabetes mellitus, Gastroparesis due to DM, Dehydration Disposition: HOME / SELF CARE / HOMELESS Is pt being admited?: No Does the pt Need Aspirin: No Condition: Stable Instructions: Diabetes Mellitus Type 2 in Adults (ED), Gastroparesis, Dehy dration, Adult Prescriptions: Losartan [Cozaar] 100 mg PO QDAY #30 NIFEdipine XL [Procardia Xl] 60 mg PO Q24H #30 tab Metoclopramide HCl [Reglan TAB] 5 mg PO TIDAC #120 Referrals: SHARITA JACKSON MD [Staff Physician] - 3-5 Days
[2021-08-24 14:09] LABS: Alanine Aminotransferase 8 units/L (7-56); Albumin 4.4 g/dL (3.9-5); BUN/Creatinine Ratio 39; Blood Urea Nitrogen 47 mg/dL (9-20); Calcium 9.5 mg/dL (8.4-10.2); Hemolysis Index 5
[2021-08-24 14:13] LABS: Bilirubin,Direct < 0.2 mg/dL (0-0.2)
[2021-08-24] MEDS ORDERED: KETOROLAC 30 MG/1 ML INJ ONE (15:55)
[2021-08-24] MEDS ORDERED: ONDANSETRON 4 MG/2 ML INJ ONE (15:55)
[2021-08-24] MEDS ORDERED: SODIUM CHLORIDE 0.9% 1000 ML 1,000 ML IV ONE ×2 (16:07)
--- NOTE | 2021-08-24 16:49 | Cat Scan Report ---
CT ABDOMEN AND PELVIS WITHOUT CONTRAST INDICATION / CLINICAL INFORMATION: back pain. TECHNIQUE: Axial CT images were obtained through the abdomen and pelvis without IV contrast. All CT scans at this location are performed using CT dose reduction for ALARA by means of automated exposure control. COMPARISON: 02/10/2021. FINDINGS: LOWER CHEST: No significant abnormality LIVER: No significant abnormality GALLBLADDER/BILIARY TREE: No significant abnormality PANCREAS: No significant abnormality SPLEEN: No significant abnormality ADRENALS: No significant abnormality KIDNEYS / URETER: No significant abnormality. There is no urolithiasis or hydronephrosis. URINARY BLADDER: No significant abnormality REPRODUCTIVE ORGANS: No significant abnormality STOMACH / BOWEL: Small bowel is normal in caliber. The colon is unremarkable. The appendix is normal in caliber. LYMPH NODES: No significant adenopathy. VASCULATURE: No significant abnormality. OTHER: No free air, free fluid, or focal fluid collection is identified. SKELETAL SYSTEM: No acute osseous findings. IMPRESSION: No acute abnormality of the abdomen or pelvis. Signer Name: Teddy Estrada MD Signed: 08/24/2021 4:45 PM Workstation Name: [id number]
[2021-08-24 19:52] VITALS: BP 181/130
== END 2021-08-24 19:54 | disposition home or self-care (01) ==
LOC: ED 13:10
DX: I16.0 Hypertensive urgency (principal); E11.9 Type 2 diabetes mellitus without complications; E11.43 Type 2 diabetes mellitus with diabetic autonomic (poly)neuropathy; E86.0 Dehydration; Z88.5 Allergy status to narcotic agent; Z91.018 Allergy to other foods
CPT/HCPCS: 36415; 74176; 80048; 80076; 82962; 83690; 85025; 96361; 96374; 96375; 99284; J1885; J2405; J7030; Q0162

== ENCOUNTER 2021-12-18 15:01 | Inpatient (IN) | payer SELFPAY ==
[2021-12-18] MEDS ORDERED: SODIUM CHLORIDE 0.9% 1000 ML 1,000 ML IV ONE (15:12)
[2021-12-18] MEDS ORDERED: SODIUM CHLORIDE 0.9% 1000 ML 2,000 ML IV ONE ×2 (15:12→17:21)
[2021-12-18] MEDS ORDERED: SODIUM CHLORIDE 0.9% 1000 ML 3,000 ML ONE (15:13)
--- NOTE | 2021-12-18 15:13 | Emergency Department Report ---
ED General Adult HPI - General Chief complaint: Weakness Stated complaint: HYPERGLYCEMIA Time Seen by Provider: 12/18/21 15:06 Source: patient, EMS (Verbal report received from emergency medical services. EMS documentation not available at time of chart dictation ), RN notes reviewed, old records reviewed Mode of arrival: Stretcher Limitations: Physical Limitation - History of Present Illness Initial comments: The patient was evaluated in the emergency department for symptoms described in the history of present illness. He/she was evaluated in the context of the global COVID-19 pandemic, which necessitated consideration that the patient might be at risk for infection with the virus that causes COVID-19. Institutional protocols and algorithms that pertain to the evaluation of patients at risk for COVID-19 are in a state of rapid change based on information released by regulatory bodies including the CDC and federal and state organizations. These policies and algorithms were followed during the patient's care in the emergency department. Please note that these policies, procedures and recommendations changed on a rapid basis. This patient is a 31-year-old gentleman, with a history of poorly controlled diabetes mellitus, hemoglobin A1c of 11.6, gastroparesis, dehydration and hypertension, possible myasthenia gravis, who presents to the department today with EMS, with the patient and EMS particularly complaint of weakness, malaise and fatigue. The patient reports left-sided shoulder pain where he fell onto his shoulder. He did not hit his head. He reports his father caught him. He endorses mild nausea. He denies headache, neck pain, chest pain, abdominal pain, urinary symptoms, hematemesis and bright red blood per rectum. Patient has been admitted to this hospital multiple times for dehydration, hypoglycemia, and diabetic ketoacidosis. The patient does not believe he had a fever. The patient is not COVID-19 vac cinated. EMS reports low blood pressure in the field, as well as very high blood sugar. -: Gradual Consistency: constant Improves with: none Worsens with: movement - Related Data Previous Rx's Medication Instructions Recorded Last Taken Type Pantoprazole Sodium [Protonix] 40 mg PO HS #30 09/27/19 Unknown Rx Insulin NPH/Regular [NovoLIN 70/30] 18 unit SUB-Q QPMDIAB 30 Days 10/31/20 Unknown Rx Insulin Regular, Human [HumuLIN R] See Protocol SUB-Q ACHS 30 Days 10/31/20 Unknown Rx Famotidine [Pepcid] 20 mg PO BID #60 tablet 01/13/21 Unknown Rx Insulin NPH/Regular [NovoLIN 70/30] 18 unit SUB-Q QDDIAB 30 Days units 01/13/21 Unknown Rx Losartan [Cozaar] 100 mg PO QDAY #30 tablet 01/13/21 Unknown Rx Metoclopramide HCl [Reglan TAB] 5 mg PO TIDAC #21 tablet 01/13/21 Unknown Rx NIFEdipine XL [Procardia Xl] 60 mg PO QDAY #30 tablet 01/13/21 Unknown Rx Losartan [Cozaar] 100 mg PO QDAY #30 08/24/21 Unknown Rx Metoclopramide HCl [Reglan TAB] 5 mg PO TIDAC #120 08/24/21 Unknown Rx NIFEdipine XL [Procardia Xl] 60 mg PO Q24H #30 tab 08/24/21 Unknown Rx Allergies Allergy/AdvReac Type Severity Reaction Status Date / Time codeine Allergy Hives Verified 01/10/21 23:46 morphine Allergy Angioedema Verified 01/10/21 23:46 tomato Allergy Vomiting Verified 01/10/21 23:46 ED Review of Systems ROS: Stated complaint: HYPERGLYCEMIA Other details as noted in HPI Constitutional: malaise, weakness. denies: fever Eyes: denies: eye discharge Respiratory: denies: cough Cardiovascular: denies: chest pain Gastrointestinal: denies: abdominal pain, hematemesis, melena, hematochezia Neurological: weakness Hematological/Lymphatic: denies: easy bleeding ED Past Medical Hx - Past Medical History Hx Hypertension: Yes Hx Congestive Heart Failure: No Hx Diabetes: Yes Hx Asthma: No Additional medical history: Myasthenia gravis - Social History Smoking Status: Never Smoker Substance Use Type: None - Medications Home Medications: Home Medications Medication Instructions Recorded Confirmed Last Taken Type Pantoprazole Sodium [Protonix] 40 mg PO HS #30 09/27/19 10/27/20 Unknown Rx Insulin NPH/Regular [NovoLIN 70/30] 18 unit SUB-Q QPMDIAB 30 Days 10/31/20 Unknown Rx Insulin Regular, Human [HumuLIN R] See Protocol SUB-Q ACHS 30 Days 10/31/20 Unknown Rx Famotidine [Pepcid] 20 mg PO BID #60 tablet 01/13/21 Unknown Rx Insulin NPH/Regular [NovoLIN 70/30] 18 unit SUB-Q QDDIAB 30 Days units 01/13/21 Unknown Rx Losartan [Cozaar] 100 mg PO QDAY #30 tablet 01/13/21 Unknown Rx Metoclopramide HCl [Reglan TAB] 5 mg PO TIDAC #21 tablet 01/13/21 Unknown Rx NIFEdipine XL [Procardia Xl] 60 mg PO QDAY #30 tablet 01/13/21 Unknown Rx Losartan [Cozaar] 100 mg PO QDAY #30 08/24/21 Unknown Rx Metoclopramide HCl [Reglan TAB] 5 mg PO TIDAC #120 08/24/21 Unknown Rx NIFEdipine XL [Procardia Xl] 60 mg PO Q24H #30 tab 08/24/21 Unknown Rx ED Physical Exam - General Limitations: Physical Limitation General appearance: alert, other (The patient is listless but arousable) - Head Head exam: Present: atraumatic, normocephalic - Eye Eye exam: Present: normal appearance, PERRL, EOMI. Absent: nystagmus - ENT ENT exam: Present: normal orophraynx, mucous membranes dry, normal external ear exam - Neck Neck exam: Present: normal inspection, full ROM. Absent: tenderness, meningismus - Respiratory Respiratory exam: Present: normal lung sounds bilaterally. Absent: respiratory distress, wheezes, rales, rhonchi, stridor, decreased breath sounds - Cardiovascular Cardiovascular Exam: Present: regular rate, normal rhythm, normal heart sounds. Absent: bradycardia, tachycardia, irregular rhythm, systolic murmur, diastolic murmur, rubs, gallop - GI/Abdominal GI/Abdominal exam: Present: soft. Absent: distended, tenderness, guarding, rebound, rigid, pulsatile mass - Rectal Rectal exam: Present: normal inspection, normal rectal tone, heme (-) stool, normal prostate, other (Chaperoned by Annalisa Hayward). Absent: black stool, bloody stool, fecal impaction, hemorrhoids, mass, tenderness, prostate tenderness, prostate enlargement - Extremities Exam Extremities exam: Present: normal inspection, full ROM, other (2+ pulses noted in the bilateral upper and lower extremities. There is no palpable cord. negative Homans sign. Muscular compartments are soft. The pelvis is stable.). Absent: pedal edema, calf tenderness - Back Exam Back exam: Present: normal inspection. Absent: tenderness, CVA tenderness (R), CVA tenderness (L), paraspinal tenderness, vertebral tenderness - Neurological Exam Neurological exam: Present: alert, oriented X3, other (No facial droop. Tongue midline. Extraocular movements intact bilaterally. Facial sensation intact to light touch in V1, V2, V3 distribution bilaterally. 5 and a 5 strength in 4 extremities. Sensation intact to light touch in 4 extremities.) - Psychiatric Psychiatric exam: Present: flat affect - Skin Skin exam: Present: warm ED Course Vital Signs 12/18/21 12/18/21 12/18/21 15:16 15:31 15:45 Temperature Pulse Rate 76 77 78 Respiratory 8 L 7 L 14 Rate Blood Pressure 51/31 58/28 Blood Pressure [Left] O2 Sat by Pulse 100 100 99 Oximetry 12/18/21 15:53 Temperature 97.7 F Pulse Rate 75 Respiratory 10 L Rate Blood Pressure Blood Pressure 91/64 [Left] O2 Sat by Pulse 100 Oximetry - Reevaluation(s) Reevaluation #1: 12/18/21 15:59 Differential diagnosis, including but not limited to: Dehydration, DKA, hyperglycemia state, electrolyte derangement, thyroid derangement, pneumonia, UTI Assessment and plan: 31-year-old gentleman with hypotension, weakness and hyperglycemia, consistent with prior episodes of hypotension, weakness and hyperglycemia. Place patient on quality assurance monitor final. Obtain x-ray of the chest. EKG reviewed and appreciated. Obtain appropriate laboratory studies. Start aggressive IV fluid resuscitation. Patient is listless but arousable, and not encephalopathic. Reassess after laboratory studies and initial volume resuscitation have been initiated. Anticipate admission to the medical service. I discussed this with the patient. He is agreeable to this plan of care Reevaluation #2: 12/18/21 18:24 The patient is reexamined. He feels much improved. Venous pH is pending. He is found to have hyperglycemia as expected, along with renal insufficiency. He also has a lactic acidosis which I suspect is a type II lactic acidosis, likely secondary to hyperglycemia, dehydration, and renal insufficiency. He reports that he feels "a lot better." Mild anemia appreciated. No blood on rectal exam. Guaiac pending. IV fluids have been ordered, ceftriaxone ordered, although I do not suspect invasive bacterial infection at this time. Insulin has been ordered. Endorsed to hospital physician, Dr. Prieto, who will assume care. Patient endorses agreeability to being admitted. Admitting diagnosis renal insufficiency, hyperglycemia, type II lactic acidosis, dehydration ED Medical Decision Making - Lab Data Result diagrams: 12/18/21 17:04 12/18/21 17:04 Vital Signs 12/18/21 12/18/21 12/18/21 15:16 15:31 15:45 Temperature Pulse Rate 76 77 78 Respiratory 8 L 7 L 14 Rate Blood Pressure 51/31 58/28 Blood Pressure [Left] O2 Sat by Pulse 100 100 99 Oximetry 12/18/21 15:53 Temperature 97.7 F Pulse Rate 75 Respiratory 10 L Rate Blood Pressure Blood Pressure 91/64 [Left] O2 Sat by Pulse 100 Oximetry Lab Results 12/18/21 12/18/21 12/18/21 Range/Units 17:04 17:04 17:04 WBC 8.4 (4.5-11.0) K/mm3 RBC 3.35 L (3.65-5.03) M/mm3 Hgb 9.1 L (11.8-15.2) gm/dl Hct 27.9 L (35.5-45.6) % MCV 83 L (84-94) fl MCH 27 L (28-32) pg MCHC 33 (32-34) % RDW 20.0 H (13.2-15.2) % Plt Count 321 (140-440) K/mm3 Lymph % (Auto) 20.1 (13.4-35.0) % [place] % (Auto) 7.9 H (0.0-7.3) % Eos % (Auto) 0.4 (0.0-4.3) % Baso % (Auto) 0.2 (0.0-1.8) % Lymph # (Auto) 1.7 (1.2-5.4) K/mm3 [place] # (Auto) 0.7 (0.0-0.8) K/mm3 Eos # (Auto) 0.0 (0.0-0.4) K/mm3 Baso # (Auto) 0.0 (0.0-0.1) K/mm3 Seg Neutrophils % 71.4 H (40.0-70.0) % Seg Neutrophils # 6.0 (1.8-7.7) K/mm3 PT 14.8 (12.2-14.9) Sec. INR 1.04 (0.87-1.13) Sodium 148 H (137-145) mmol/L Potassium 3.8 (3.6-5.0) mmol/L Chloride 107.0 (98-107) mmol/L Carbon Dioxide 26 (22-30) mmol/L Anion Gap 19 mmol/L BUN 56 H (9-20) mg/dL Creatinine 3.1 H (0.8-1.3) mg/dL Estimated GFR 29 ml/min BUN/Creatinine Ratio 18 % Glucose 435 H (75-100) mg/dL Lactic Acid (0.7-2.0) mmol/L Calcium 8.9 (8.4-10.2) mg/dL Phosphorus 2.80 (2.5-4.5) mg/dL Magnesium 2.50 H (1.7-2.3) mg/dL Total Bilirubin < 0.20 (0.1-1.2) mg/dL AST 6 (5-40) units/L ALT 5 L (7-56) units/L Alkaline Phosphatase 97 (35-129) units/L Total Creatine Kinase 46 L (55-170) units/L Troponin T < 0.010 (0.00-0.029) ng/mL Total Protein 6.0 L (6.3-8.2) g/dL Albumin 3.7 L (3.9-5) g/dL Albumin/Globulin Ratio 1.6 % TSH (0.270-4.200) mlU/mL 12/18/21 12/18/21 Range/Units 17:04 17:04 WBC (4.5-11.0) K/mm3 RBC (3.65-5.03) M/mm3 Hgb (11.8-15.2) gm/dl Hct (35.5-45.6) % MCV (84-94) fl MCH (28-32) pg MCHC (32-34) % RDW (13.2-15.2) % Plt Count (140-440) K/mm3 Lymph % (Auto) (13.4-35.0) % [place] % (Auto) (0.0-7.3) % Eos % (Auto) (0.0-4.3) % Baso % (Auto) (0.0-1.8) % Lymph # (Auto) (1.2-5.4) K/mm3 [place] # (Auto) (0.0-0.8) K/mm3 Eos # (Auto) (0.0-0.4) K/mm3 Baso # (Auto) (0.0-0.1) K/mm3 Seg Neutrophils % (40.0-70.0) % Seg Neutrophils # (1.8-7.7) K/mm3 PT (12.2-14.9) Sec. INR (0.87-1.13) Sodium (137-145) mmol/L Potassium (3.6-5.0) mmol/L Chloride (98-107) mmol/L Carbon Dioxide (22-30) mmol/L Anion Gap mmol/L BUN (9-20) mg/dL Creatinine (0.8-1.3) mg/dL Estimated GFR ml/min BUN/Creatinine Ratio % Glucose (75-100) mg/dL Lactic Acid 4.50 H* (0.7-2.0) mmol/L Calcium (8.4-10.2) mg/dL Phosphorus (2.5-4.5) mg/dL Magnesium (1.7-2.3) mg/dL Total Bilirubin (0.1-1.2) mg/dL AST (5-40) units/L ALT (7-56) units/L Alkaline Phosphatase (35-129) units/L Total Creatine Kinase (55-170) units/L Troponin T (0.00-0.029) ng/mL Total Protein (6.3-8.2) g/dL Albumin (3.9-5) g/dL Albumin/Globulin Ratio % TSH 1.010 (0.270-4.200) mlU/mL - EKG Data -: EKG Interpreted by Ri EKG shows normal: sinus rhythm Rate: normal - EKG Data 12/18/21 15:58 The EKG is interpreted at 15: 15 Sinus rhythm, 75 bpm. Normal axis, normal P wave axis, high left ventricular voltage, nonspecific T wave inversions and abnormalities. The QTC is prolonged at 5 5 5 ms. The patient denies chest pain. This is an abnormal EKG. This is not a STEMI - Radiology Data Radiology results: pending, report reviewed, image reviewed CHEST 1 VIEW 12/18/2021 3:53 PM INDICATION / CLINICAL INFORMATION: Weakness. COMPARISON: 10/27/2020 FINDINGS: SUPPORT DEVICES: None. HEART / MEDIASTINUM: No significant abnormality. LUNGS / PLEURA: No significant pulmonary or pleural abnormality. No pneumothorax. ADDITIONAL FINDINGS: No significant additional findings. IMPRESSION: 1. No acute findings. Signer Name: Roger Espinal Jr, MD Signed: 12/18/2021 3:06 PM Workstation Name: [id number] Critical Care Time: Yes Critical care time in (mins) excluding proc time.: 35 Critical care attestation.: If time is entered above; I have spent that time in minutes in the direct care of this critically ill patient, excluding procedure time. ED Disposition Clinical Impression: Volume depletion, Hyperglycemia, Acute renal insufficiency, Severe malnutrition Disposition: 09 ADMITTED INPATIENT Is pt being admited?: Yes Does the pt Need Aspirin: No Condition: Fair Referrals: PRIMARY CAREMD [Primary Care Provider] - 3-5 Days
--- NOTE | 2021-12-18 16:10 | XRay Report ---
CHEST 1 VIEW 12/18/2021 3:53 PM INDICATION / CLINICAL INFORMATION: Weakness. COMPARISON: 10/27/2020 FINDINGS: SUPPORT DEVICES: None. HEART / MEDIASTINUM: No significant abnormality. LUNGS / PLEURA: No significant pulmonary or pleural abnormality. No pneumothorax. ADDITIONAL FINDINGS: No significant additional findings. IMPRESSION: 1. No acute findings. Signer Name: Roger Espinal Jr, MD Signed: 12/18/2021 4:06 PM Workstation Name: [id number]
[2021-12-18 17:35] LABS: Basophils % (Auto) 0.2 % (0.0-1.8); Eosinophils % (Auto) 0.4 % (0.0-4.3); Hematocrit 27.9 % (35.5-45.6); Hemoglobin 9.1 gm/dl (11.8-15.2); Lymphocytes # (Auto) 1.7 K/mm3 (1.2-5.4); Lymphocytes % (Auto) 20.1 % (13.4-35.0); Mean Corpuscular HGB Conc 33 % (32-34); Mean Corpuscular Volume 83 fl (84-94); Monocytes # (Auto) 0.7 K/mm3 (0.0-0.8); Monocytes % (Auto) 7.9 % (0.0-7.3); Platelet Count 321 K/mm3 (140-440); Red Blood Count 3.35 M/mm3 (3.65-5.03)
[2021-12-18 17:49] LABS: INR 1.04 (0.87-1.13)
[2021-12-18 17:58] LABS: Alanine Aminotransferase 5 units/L (7-56); Albumin 3.7 g/dL (3.9-5); BUN/Creatinine Ratio 18; Blood Urea Nitrogen 56 mg/dL (9-20); Calcium 8.9 mg/dL (8.4-10.2); Hemolysis Index 4
[2021-12-18] MEDS ORDERED: INSULIN REGULAR, HUMAN 100 UNITS/1 ML IV ONE (18:17)
[2021-12-18] MEDS ORDERED: cefTRIAXone/NS 2 GM/100 ML 2 GM/100 ML BAG IV ONE (18:17)
--- NOTE | 2021-12-18 18:18 | History and Physical Report ---
History of Present Illness Chief complaint: I feel weak and I passed out History of present illness: 31 YO Male with Severe Malnutrition, DM complicated by Gastroparesis, HTN, MG. Pt reports "I feel weak".. Patient patient states that for the past week he has experienced generalized muscular weakness, diminished oral intake, and diminished appetite. Patient states that while trying to ambulate he got dizzy and subsequently lost consciousness and falling to the floor and landing on his shoulder. Patient father was standing nearby and caught the patient and broke his fall. Over the past week as well as decreased free water intake. Patient states that he has experienced weakness for the past 2 days. Patient states that he got up this morning and while walking to his bathroom he experienced lightheadedness, and weakness which resulted in a loss of consciousness. EMS was notified and upon arrival the patient was found to be in distress and subsequent transported to [facility] for further care and evaluation of the aforementioned symptoms. Patient seen and evaluated in the emergency department. Lab and imaging studies reviewed. Patient found to be hypotensive with a systolic blood pressure in the 50's while in the emergency department. Patient found to have acute kidney injury, volume depletion, complicated by hypotension with subsequent loss of consciousness, metabolic acidosis. Patient admitted to medical floor for medical stabilization due to increased risk of worsening symptoms. Patient treated with IV fluid resuscitation therapy. Patient denies fever, chills, chest pain, palpitation, productive cough, skin rash, recent ill contacts, bright red blood per rectum, hematemesis, or known exposure COVID-19. All medication listed at time of admission has been reconciled. Prior admission on 01/11/2021 reviewed. Advanced care planning conducted in ED. Past History Past Medical History: diabetes, hypertension, other (See HPI) Past Surgical History: No surgical history, Other (Reviewed) Social history: single, Lives alone. denies: smoking, alcohol abuse, prescription drug abuse Family history: diabetes, hypertension Medications and Allergies Allergies Allergy/AdvReac Type Severity Reaction Status Date / Time codeine Allergy Hives Verified 01/10/21 23:46 morphine Allergy Angioedema Verified 01/10/21 23:46 tomato Allergy Vomiting Verified 01/10/21 23:46 Home Medications Medication Instructions Recorded Confirmed Last Taken Type Pantoprazole Sodium [Protonix] 40 mg PO HS #30 09/27/19 10/27/20 Unknown Rx Insulin NPH/Regular [NovoLIN 70/30] 18 unit SUB-Q QPMDIAB 30 Days 10/31/20 Unknown Rx Insulin Regular, Human [HumuLIN R] See Protocol SUB-Q ACHS 30 Days 10/31/20 Unknown Rx Famotidine [Pepcid] 20 mg PO BID #60 tablet 01/13/21 Unknown Rx Insulin NPH/Regular [NovoLIN 70/30] 18 unit SUB-Q QDDIAB 30 Days units 01/13/21 Unknown Rx Losartan [Cozaar] 100 mg PO QDAY #30 tablet 01/13/21 Unknown Rx Metoclopramide HCl [Reglan TAB] 5 mg PO TIDAC #21 tablet 01/13/21 Unknown Rx NIFEdipine XL [Procardia Xl] 60 mg PO QDAY #30 tablet 01/13/21 Unknown Rx Losartan [Cozaar] 100 mg PO QDAY #30 08/24/21 Unknown Rx Metoclopramide HCl [Reglan TAB] 5 mg PO TIDAC #120 08/24/21 Unknown Rx NIFEdipine XL [Procardia Xl] 60 mg PO Q24H #30 tab 08/24/21 Unknown Rx Active Meds: Active Medications Ceftriaxone Sodium (Rocephin/Ns 2 Gm/100 Ml) 2 gm in 100 mls @ 200 mls/hr IV ONCE ONE; Protocol Stop: 12/18/21 18:46 Review of Systems Constitutional: weakness, no weight loss, no weight gain, no chills Ears, nose, mouth and throat: no ear pain, no tinnitis, no decreased hearing, no nose pain Cardiovascular: syncope, no chest pain, no orthopnea, no palpitations Respiratory: no cough, no cough with sputum, no hemoptysis Gastrointestinal: no abdominal pain, no diarrhea, no change in bowel habits, no hematemesis Genitourinary Male: no hematuria, no discharge, no urinary hesitancy Rectal: no pain, no incontinence Musculoskeletal: no neck stiffness, no arm numbness/tingling, no low back pain Integumentary: no rash, no redness, no sores, no jaundice Neurological: no head injury, no paralysis, no parathesias, no seizures, no syncope Psychiatric: no anxiety, no memory loss, no sleep disturbances, no insomnia, no change in appetite Endocrine: no cold intolerance, no heat intolerance, no polyphagia, no polydipsia, no excessive sweating Hematologic/Lymphatic: no easy bruising, no lymphedema Allergic/Immunologic: no wheezing, no angioedema Exam - Constitutional Vitals: Temp Pulse Resp BP Pulse Ox 97.7 F 75 10 L 91/64 100 12/18/21 15:53 12/18/21 15:53 12/18/21 15:53 12/18/21 15:53 12/18/21 15:53 General appearance: Present: mild distress, cachectic - EENT Eyes: Present: PERRL ENT: hearing intact, clear oral mucosa - Neck Neck: Present: supple, normal ROM - Respiratory Respiratory effort: normal Respiratory: bilateral: CTA - Cardiovascular Heart Sounds: Present: S1 & S2. Absent: rub, click - Extremities Extremities: pulses symmetrical, No edema Peripheral Pulses: within normal limits - Abdominal General gastrointestinal: Present: soft, non-tender, non-distended, normal bowel sounds Male genitourinary: Present: normal - Integumentary Integumentary: Present: clear, warm, dry - Musculoskeletal Musculoskeletal: gait normal, strength equal bilaterally - Psychiatric Psychiatric: appropriate mood/affect, intact judgment & insight - Neurologic Neurologic: CNII-XII intact, moves all extremities HEART Score - HEART Score Troponin: Troponin T < 0.010 ng/mL (0.00-0.029) 12/18/21 17:04 Results - Labs CBC & Chem 7: 12/18/21 17:04 12/18/21 17:04 Labs: Abnormal lab results 12/18/21 12/18/21 12/18/21 Range/Units 17:04 17:04 17:04 RBC 3.35 L (3.65-5.03) M/mm3 Hgb 9.1 L (11.8-15.2) gm/dl Hct 27.9 L (35.5-45.6) % MCV 83 L (84-94) fl MCH 27 L (28-32) pg RDW 20.0 H (13.2-15.2) % [place] % (Auto) 7.9 H (0.0-7.3) % Seg Neutrophils % 71.4 H (40.0-70.0) % Sodium 148 H (137-145) mmol/L BUN 56 H (9-20) mg/dL Creatinine 3.1 H (0.8-1.3) mg/dL Glucose 435 H (75-100) mg/dL Lactic Acid 4.50 H* (0.7-2.0) mmol/L Magnesium 2.50 H (1.7-2.3) mg/dL ALT 5 L (7-56) units/L Total Creatine Kinase 46 L (55-170) units/L Total Protein 6.0 L (6.3-8.2) g/dL Albumin 3.7 L (3.9-5) g/dL Assessment and Plan - Patient Problems (1) Acute kidney injury Current Visit: No Status: Acute Plan to address problem: IV fluid resuscitation therapy, monitor urine output every shift, daily weight, afterload reduction, urine electrolytes, supportive care. Blood pressure control. (2) Severe malnutrition Current Visit: Yes Status: Acute Plan to address problem: Encourage increased protein intake, dietary supplementation when awake and alert only. (3) Diabetes mellitus Current Visit: No Status: Acute Plan to address problem: Consistent carbohydrate diet, Accu-Chek, insulin protocol, hypoglycemia protocol. (4) Gastroparesis due to DM Current Visit: No Status: Acute Plan to address problem: Frequent small meals, supportive care, glucose control, antiemetic therapy as clinically indicated. (5) Metabolic acidosis Current Visit: No Status: Acute Plan to address problem: BMP, IV fluid resuscitation therapy, repeat BMP in AM. (6) Myasthenia gravis Current Visit: No Status: Acute Plan to address problem: Supportive care, continue medical management, outpatient neurology follow-up. No acute exacerbation at this time. (7) DVT prophylaxis Current Visit: No Status: Acute Plan to address problem: SCD to bilateral lower extremities while in bed (8) Advance care planning Current Visit: Yes Status: Acute Plan to address problem: Disease education conducted, care plan discussed, diagnoses discussed, prognosis discussed, patient is full code. Patient acknowledges understanding and agreement with care plan, +30 minutes. (9) Preventative health care Current Visit: Yes Status: Acute Plan to address problem: Patient counseled regarding increase protein intake, meal planning, dietary supplementation. +30 minutes.
[2021-12-18] MEDS ORDERED: oxyCODONE /ACETAMINOPHEN 5-325MG TAB PO PRN (18:21)
[2021-12-18] MEDS ORDERED: HYDROmorphone 0.5 MG/0.5 ML INJ IV PRN (18:21)
[2021-12-18] MEDS ORDERED: ACETAMINOPHEN 325 MG TAB PO PRN (18:21)
[2021-12-18] MEDS ORDERED: ONDANSETRON 4 MG/2 ML INJ IV PRN (18:21)
[2021-12-18] MEDS ORDERED: ALBUTEROL 2.5 MG/3 ML NEBU IH PRN (18:21)
[2021-12-18] MEDS ORDERED: DEXTROSE 50% IN WATER (25GM) 50 ML SYRINGE IV PRN (18:24)
[2021-12-18] MEDS ORDERED: SODIUM CHLORIDE 0.45% 2,000 ML IV SCH (21:00)
[2021-12-18] MEDS ORDERED: PANTOPRAZOLE 40 MG TAB PO SCH (22:00)
[2021-12-18] MEDS ORDERED: NON-FORMULARY EACH (Pantoprazole Sodium [Protonix] 40 MG Granpkt.Dr) PO SCH (22:00)
[2021-12-18] MEDS ORDERED: FAMOTIDINE 20 MG TAB PO SCH (22:00)
[2021-12-19] MEDS: SODIUM CHLORIDE 0.45% 1000 ML 1,000 ML IV SCH ×2 (00:32→17:56)
[2021-12-19] MEDS: NIFEdipine XL 60 MG TAB PO SCH ×2 (00:33→21:16)
[2021-12-19] MEDS: INSULIN LISPRO 100 UNIT/ML SUB-Q SCH ×4 (00:48→17:56)
[2021-12-19 06:02] LABS: Basophils % (Auto) 0.5 % (0.0-1.8); Eosinophils # (Auto) 0.2 K/mm3 (0.0-0.4); Eosinophils % (Auto) 1.8 % (0.0-4.3); Hematocrit 25.3 % (35.5-45.6); Hemoglobin 8.1 gm/dl (11.8-15.2); Lymphocytes # (Auto) 2.3 K/mm3 (1.2-5.4); Lymphocytes % (Auto) 24.6 % (13.4-35.0); Mean Corpuscular HGB Conc 32 % (32-34); Mean Corpuscular Volume 82 fl (84-94); Monocytes # (Auto) 0.6 K/mm3 (0.0-0.8); Monocytes % (Auto) 6.6 % (0.0-7.3); Platelet Count 283 K/mm3 (140-440); Red Blood Count 3.07 M/mm3 (3.65-5.03)
[2021-12-19 06:05] LABS: Red Cell Distribution Width 20.2 % (13.2-15.2)
[2021-12-19 06:22] LABS: BUN/Creatinine Ratio 23; Blood Urea Nitrogen 36 mg/dL (9-20); Hemolysis Index 10
[2021-12-19] MEDS ORDERED: NON-FORMULARY EACH (Metoclopramide Hcl [Reglan Tab] 5 MG Tablet) PO SCH (07:30)
[2021-12-19] MEDS: LOSARTAN 50 MG TAB PO SCH (09:35)
[2021-12-19] MEDS: METOCLOPRAMIDE 10 MG TAB PO SCH ×3 (09:35→16:19)
[2021-12-19] MEDS: FAMOTIDINE 20 MG TAB PO SCH ×2 (09:37→16:19)
--- NOTE | 2021-12-19 12:05 | Progress Note ---
Assessment and Plan Assessment and plan: 31 YO Male with Severe Malnutrition, DM complicated by Gastroparesis, HTN, MG presented through the emergency department with complaints of generalized muscular weakness, diminished oral intake, and diminished appetite. Patient states that while trying to ambulate he got dizzy and subsequently lost con sciousness and falling to the floor and landing on his shoulder. Patient father was standing nearby and caught the patient and broke his fall. Over the past week as well as decreased free water intake. Patient states that he has experienced weakness for the past 2 days. Patient states that he got up this morning and while walking to his bathroom he experienced lightheadedness, and weakness which resulted in a loss of consciousness. EMS was notified and upon arrival the patient was found to be in distress and subsequent transported to [facility] for further care and evaluation of the aforementioned symptoms. Patient seen and evaluated in the emergency department. Lab and imaging studies reviewed. Patient found to be hypotensive with a systolic blood pressure in the 50's while in the emergency department. Acute kidney injury secondary to vasomotor nephropathy/dehydration Myasthenia gravis exacerbation severe protein calorie malnutrition DM gastroparesis Diabetes mellitus type 2 Metabolic acidosis 12/19/2021. Patient has improvement in his creatinine from 3.1--> 1.6. Continue IV fluid hydration and monitor closely. Patient reports that he takes Mestinon but it is not listed as his home medication. We will consult neurology for further evaluation. PT/OT evaluation. History Interval history: No new issues overnight Hospitalist Physical - Constitutional Vitals: Temp Pulse Resp BP Pulse Ox 98.6 F 96 H 18 101/59 99 12/19/21 04:40 12/19/21 04:40 12/19/21 04:40 12/19/21 04:40 12/19/21 11:12 General appearance: Present: mild distress, cachectic - EENT Eyes: Present: PERRL, EOM intact ENT: hearing intact, clear oral mucosa, dentition normal - Neck Neck: Present: supple, normal ROM - Respiratory Respiratory effort: normal Respiratory: bilateral: CTA - Cardiovascular Rhythm: regular Heart Sounds: Present: S1 & S2. Absent: gallop, rub - Extremities Extremities: no ischemia, No edema, Full ROM - Abdominal General gastrointestinal: soft, non-tender, non-distended, normal bowel sounds - Integumentary Integumentary: Present: clear, warm, dry - Neurologic Neurologic: CNII-XII intact, moves all extremities HEART Score - HEART Score Troponin: Troponin T < 0.010 ng/mL (0.00-0.029) 12/18/21 17:04 Results - Labs CBC & Chem 7: 12/19/21 05:21 12/19/21 05:21 Labs: Laboratory Last Values WBC 9.4 K/mm3 (4.5-11.0) 12/19/21 05:21 RBC 3.07 M/mm3 (3.65-5.03) L 12/19/21 05:21 Hgb 8.1 gm/dl (11.8-15.2) L 12/19/21 05:21 Hct 25.3 % (35.5-45.6) L 12/19/21 05:21 MCV 82 fl (84-94) L 12/19/21 05:21 MCH 26 pg (28-32) L 12/19/21 05:21 MCHC 32 % (32-34) 12/19/21 05:21 RDW 20.2 % (13.2-15.2) H 12/19/21 05:21 Plt Count 283 K/mm3 (140-440) 12/19/21 05:21 Lymph % (Auto) 24.6 % (13.4-35.0) 12/19/21 05:21 [place] % (Auto) 6.6 % (0.0-7.3) 12/19/21 05:21 Eos % (Auto) 1.8 % (0.0-4.3) 12/19/21 05:21 Baso % (Auto) 0.5 % (0.0-1.8) 12/19/21 05:21 Lymph # (Auto) 2.3 K/mm3 (1.2-5.4) 12/19/21 05:21 [place] # (Auto) 0.6 K/mm3 (0.0-0.8) 12/19/21 05:21 Eos # (Auto) 0.2 K/mm3 (0.0-0.4) 12/19/21 05:21 Baso # (Auto) 0.0 K/mm3 (0.0-0.1) 12/19/21 05:21 Seg Neutrophils % 66.5 % (40.0-70.0) 12/19/21 05:21 Seg Neutrophils # 6.2 K/mm3 (1.8-7.7) 12/19/21 05:21 PT 14.8 Sec. (12.2-14.9) 12/18/21 17:04 INR 1.04 (0.87-1.13) 12/18/21 17:04 VBG pH 7.376 (7.320-7.420) 12/18/21 17:04 Sodium 141 mmol/L (137-145) 12/19/21 05:21 Potassium 3.2 mmol/L (3.6-5.0) L 12/19/21 05:21 Chloride 109.1 mmol/L (98-107) H 12/19/21 05:21 Carbon Dioxide 22 mmol/L (22-30) 12/19/21 05:21 Anion Gap 13 mmol/L 12/19/21 05:21 BUN 36 mg/dL (9-20) H 12/19/21 05:21 Creatinine 1.6 mg/dL (0.8-1.3) H 12/19/21 05:21 Estimated GFR > 60 ml/min 12/19/21 05:21 BUN/Creatinine Ratio 23 % 12/19/21 05:21 Glucose 259 mg/dL (75-100) H 12/19/21 05:21 POC Glucose 310 mg/dL (70-105) H 12/19/21 11:17 Lactic Acid 4.50 mmol/L (0.7-2.0) H* 12/18/21 17:04 Calcium 8.0 mg/dL (8.4-10.2) L 12/19/21 05:21 Phosphorus 2.80 mg/dL (2.5-4.5) 12/18/21 17:04 Magnesium 2.50 mg/dL (1.7-2.3) H 12/18/21 17:04 Total Bilirubin < 0.20 mg/dL (0.1-1.2) 12/18/21 17:04 AST 6 units/L (5-40) 12/18/21 17:04 ALT 5 units/L (7-56) L 12/18/21 17:04 Alkaline Phosphatase 97 units/L (35-129) 12/18/21 17:04 Total Creatine Kinase 46 units/L (55-170) L 12/18/21 17:04 Troponin T < 0.010 ng/mL (0.00-0.029) 12/18/21 17:04 Total Protein 6.0 g/dL (6.3-8.2) L 12/18/21 17:04 Albumin 3.7 g/dL (3.9-5) L 12/18/21 17:04 Albumin/Globulin Ratio 1.6 % 12/18/21 17:04 TSH 1.010 mlU/mL (0.270-4.200) 12/18/21 17:04 Microbiology: Microbiology 12/18/21 18:19 Stool - Stool Aspirate Stool Occult Blood (GOKUL) - Final 12/18/21 17:04 Peripheral/Venous Blood Culture - Preliminary Culture in Progress 12/18/21 17:04 Peripheral/Venous Blood Culture - Preliminary Culture in Progress High/IV: Voiding Method Urinal Active Medications - Current Medications Current Medications: Generic Name Dose Route Start Last Admin Trade Name Freq PRN Reason Stop Dose Admin Acetaminophen 650 mg 12/18/21 18:21 Acetaminophen 325 Mg Tab PO Q4H PRN Pain MILD(1-3)/Fever >100.5/QUINTANILLA Albuterol 2.5 mg 12/18/21 18:21 Albuterol 2.5 Mg/3 Ml Nebu IH Q4HRT PRN Shortness Of Breath Dextrose 50 ml 12/18/21 18:24 Dextrose 50% In Water (25gm) 50 Ml Syringe IV Q30MIN PRN Hypoglycemia Protocol Famotidine 20 mg 12/19/21 08:00 12/19/21 09:37 Famotidine 20 Mg Tab PO 20 mg BIDAC BREANNE Administration Hydromorphone HCl 0.5 mg 12/18/21 18:21 Hydromorphone 0.5 Mg/0.5 Ml Inj IV Q13H PRN Pain , Severe (7-10) Sodium Chloride 1,000 mls @ 125 mls/hr 12/18/21 19:00 12/19/21 00:32 Nacl 0.45% 1000 Ml IV 125 mls/hr DIRECT BREANNE Administration Insulin Human Lispro 0 unit 12/19/21 00:00 12/19/21 11:58 Insulin Lispro 100 Unit/Ml SUB-Q 6 unit Q6HR BREANNE Administration Protocol Losartan Potassium 100 mg 12/19/21 10:00 12/19/21 09:35 Losartan 50 Mg Tab PO 100 mg QDAY BREANNE Administration Metoclopramide HCl 5 mg 12/19/21 07:30 12/19/21 11:58 Metoclopramide 10 Mg Tab PO 5 mg TIDAC BREANNE Administration Nifedipine 60 mg 12/18/21 19:00 12/19/21 00:33 Nifedipine Xl 60 Mg Tab PO Not Given Q24H BREANNE Ondansetron HCl 4 mg 12/18/21 18:21 Ondansetron 4 Mg/2 Ml Inj IV Q8H PRN Nausea And Vomiting Oxycodone/Acetaminophen 1 tab 12/18/21 18:21 Oxycodone /Acetaminophen 5-325mg Tab PO Q6H PRN Pain, Moderate (4-6) Sodium Chloride 10 ml 12/18/21 22:00 12/19/21 09:35 Sodium Chloride 0.9% 10 Ml Flush Syringe IV 10 ml BID BREANNE Administration Sodium Chloride 10 ml 12/18/21 18:21 Sodium Chloride 0.9% 10 Ml Flush Syringe IV PRN PRN LINE FLUSH
--- NOTE | 2021-12-19 12:29 | Electrocardiograph Report ---
[facility] Test Date: 2021-12-18 Test Time: 15:15:28 Pat Name: TIA KAUR Department: Room: A386 1 Gender: M [employer] Machinist: JANNETH : 1990 Requested By: KEHINDE HUGGINS Order Number: [id number] Reading MD: Chet Min Measurements Intervals [place] Rate: 75 P: 49 PA: 138 QRS: 82 QRSD: 89 T: 107 QT: 496 QTc: 555 Interpretive Statements Sinus rhythm Anterior T wave inversions, consider ischemia Prolonged QT interval Compared to ECG 01/10/2021 23:24:38 Possible anterior ischemia now present Electronically Signed On 12-19-2021 12:29:21 EDT by hCet Min
--- NOTE | 2021-12-19 23:48 | Consultation ---
History of Present Illness Consult date: 12/19/21 Reason for Consult: Myasthenia Gravis History of present illness: Such advanced complex neurologic cases are not supported in the literature for evaluation by teleneurology. Recommend transfer of patient to a hospital with bedside neurology. Past History Past Medical History: diabetes, hypertension, other (See HPI) Past Surgical History: No surgical history, Other (Reviewed) Social history: single, Lives alone. denies: smoking, alcohol abuse, pres cription drug abuse Family history: diabetes, hypertension Medications and Allergies Allergies Allergy/AdvReac Type Severity Reaction Status Date / Time codeine Allergy Hives Verified 01/10/21 23:46 morphine Allergy Angioedema Verified 01/10/21 23:46 tomato Allergy Vomiting Verified 01/10/21 23:46 Home Medications Medication Instructions Recorded Confirmed Last Taken Type Pantoprazole Sodium [Protonix] 40 mg PO HS #30 granpkt. 09/27/19 10/27/20 Unknown Rx Insulin NPH/Regular [NovoLIN 70/30] 18 unit SUB-Q QPMDIAB 30 Days 10/31/20 Unknown Rx Insulin Regular, Human [HumuLIN R] See Protocol SUB-Q ACHS 30 Days 10/31/20 Unknown Rx Famotidine [Pepcid] 20 mg PO BID #60 tablet 01/13/21 Unknown Rx Insulin NPH/Regular [NovoLIN 70/30] 18 unit SUB-Q QDDIAB 30 Days units 01/13/21 Unknown Rx Losartan [Cozaar] 100 mg PO QDAY #30 tablet 01/13/21 Unknown Rx Metoclopramide HCl [Reglan TAB] 5 mg PO TIDAC #21 tablet 01/13/21 Unknown Rx NIFEdipine XL [Procardia Xl] 60 mg PO QDAY #30 tablet 01/13/21 Unknown Rx Losartan [Cozaar] 100 mg PO QDAY #30 08/24/21 Unknown Rx Metoclopramide HCl [Reglan TAB] 5 mg PO TIDAC #120 08/24/21 Unknown Rx NIFEdipine XL [Procardia Xl] 60 mg PO Q24H #30 tab 08/24/21 Unknown Rx Active Meds: Active Medications Acetaminophen (Acetaminophen 325 Mg Tab) 650 mg PO Q4H PRN PRN Reason: Pain MILD(1-3)/Fever >100.5/QUINTANILLA Albuterol (Albuterol 2.5 Mg/3 Ml Nebu) 2.5 mg IH Q4HRT PRN PRN Reason: Shortness Of Breath Dextrose (Dextrose 50% In Water (25gm) 50 Ml Syringe) 50 ml IV Q30MIN PRN; Protocol PRN Reason: Hypoglycemia Famotidine (Famotidine 20 Mg Tab) 20 mg PO BIDAC [facility] Last Admin: 12/19/21 16:19 Dose: 20 mg Hydromorphone HCl (Hydromorphone 0.5 Mg/0.5 Ml Inj) 0.5 mg IV Q13H PRN PRN Reason: Pain , Severe (7-10) Sodium Chloride (Nacl 0.45% 1000 Ml) 1,000 mls @ 125 mls/hr IV DIRECT [facility] Last Admin: 12/19/21 17:56 Dose: 125 mls/hr Insulin Human Lispro (Insulin Lispro 100 Unit/Ml) 0 unit SUB-Q Q6HR [facility]; Protocol Last Admin: 12/19/21 17:56 Dose: 8 unit Losartan Potassium (Losartan 50 Mg Tab) 100 mg PO QDAY [facility] Last Admin: 12/19/21 09:35 Dose: 100 mg Metoclopramide HCl (Metoclopramide 10 Mg Tab) 5 mg PO TIDAC [facility] Last Admin: 12/19/21 16:19 Dose: 5 mg Nifedipine (Nifedipine Xl 60 Mg Tab) 60 mg PO Q24H [facility] Last Admin: 12/19/21 21:16 Dose: 60 mg Ondansetron HCl (Ondansetron 4 Mg/2 Ml Inj) 4 mg IV Q8H PRN PRN Reason: Nausea And Vomiting Oxycodone/Acetaminophen (Oxycodone /Acetaminophen 5-325mg Tab) 1 tab PO Q6H PRN PRN Reason: Pain, Moderate (4-6) Sodium Chloride (Sodium Chloride 0.9% 10 Ml Flush Syringe) 10 ml IV BID [facility] Last Admin: 12/19/21 21:17 Dose: 10 ml Sodium Chloride (Sodium Chloride 0.9% 10 Ml Flush Syringe) 10 ml IV PRN PRN PRN Reason: LINE FLUSH Physical Examination - Vital Signs Vital Signs: Vital Signs Pulse Resp Pulse Ox 76 8 L 100 12/18/21 15:16 12/18/21 15:16 12/18/21 15:16 Results - Laboratory Findings CBC and BMP: 12/19/21 05:21 12/19/21 05:21 Abnormal Lab Findings: Abnormal Labs 12/18/21 12/18/21 12/18/21 17:04 17:04 17:04 RBC 3.35 L Hgb 9.1 L Hct 27.9 L MCV 83 L MCH 27 L RDW 20.0 H [place] % (Auto) 7.9 H Seg Neutrophils % 71.4 H Sodium 148 H Potassium Chloride BUN 56 H Creatinine 3.1 H Glucose 435 H POC Glucose Lactic Acid 4.50 H* Calcium Magnesium 2.50 H ALT 5 L Total Creatine Kinase 46 L Total Protein 6.0 L Albumin 3.7 L 12/19/21 12/19/21 12/19/21 05:21 05:21 05:56 RBC 3.07 L Hgb 8.1 L Hct 25.3 L MCV 82 L MCH 26 L RDW 20.2 H [place] % (Auto) Seg Neutrophils % Sodium Potassium 3.2 L Chloride 109.1 H BUN 36 H Creatinine 1.6 H Glucose 259 H POC Glucose 246 H Lactic Acid Calcium 8.0 L Magnesium ALT Total Creatine Kinase Total Protein Albumin 12/19/21 12/19/21 12/19/21 11:17 16:29 21:07 RBC Hgb Hct MCV MCH RDW [place] % (Auto) Seg Neutrophils % Sodium Potassium Chloride BUN Creatinine Glucose POC Glucose 310 H 363 H 351 H Lactic Acid Calcium Magnesium ALT Total Creatine Kinase Total Protein Albumin Assessment and Plan Such advanced complex neurologic cases are not supported in the literature for evaluation by teleneurology. Recommend transfer of patient to a hospital with bedside neurology.
[2021-12-20] MEDS: INSULIN LISPRO 100 UNIT/ML SUB-Q SCH ×6 (00:43→22:24)
[2021-12-20] MEDS: SODIUM CHLORIDE 0.45% 1000 ML 1,000 ML IV SCH ×3 (01:51→19:20)
[2021-12-20 05:17] LABS: Basophils % (Auto) 0.4 % (0.0-1.8); Eosinophils # (Auto) 0.1 K/mm3 (0.0-0.4); Hematocrit 24.9 % (35.5-45.6); Lymphocytes # (Auto) 1.5 K/mm3 (1.2-5.4); Lymphocytes % (Auto) 24.3 % (13.4-35.0); Mean Corpuscular HGB Conc 32 % (32-34); Mean Corpuscular Volume 81 fl (84-94); Monocytes # (Auto) 0.5 K/mm3 (0.0-0.8); Monocytes % (Auto) 8.2 % (0.0-7.3); Platelet Count 236 K/mm3 (140-440); Red Blood Count 3.07 M/mm3 (3.65-5.03); Red Cell Distribution Width 19.8 % (13.2-15.2)
[2021-12-20 05:38] LABS: BUN/Creatinine Ratio 17; Blood Urea Nitrogen 20 mg/dL (9-20); Calcium 7.9 mg/dL (8.4-10.2); Hemolysis Index 3
[2021-12-20] MEDS: LOSARTAN 50 MG TAB PO SCH (09:01)
[2021-12-20] MEDS: METOCLOPRAMIDE 10 MG TAB PO SCH ×3 (09:01→17:10)
[2021-12-20] MEDS: FAMOTIDINE 20 MG TAB PO SCH ×2 (09:01→17:10)
[2021-12-20] MEDS: NIFEdipine XL 60 MG TAB PO SCH (19:20)
[2021-12-20] MEDS ORDERED: INSULIN GLARGINE 100 UNITS/ML SUB-Q SCH (22:00)
--- NOTE | 2021-12-21 07:36 | Progress Note ---
Assessment and Plan Acute kidney injury secondary to vasomotor nephropathy/dehydration Improved Myasthenia gravis exacerbation imProved severe protein calorie malnutrition DM gastroparesis Improved Diabetes mellitus type 2 Dose adjusted Metabolic acidosis Improved Possible discharge in 24 to 48 hours Does not need transfer to another facility Subjective Date of service: 12/20/21 Principal diagnosis: Uncontrolled diabetes Interval history: 31 YO Male with Severe Malnutrition, DM complicated by Gastroparesis, HTN, MG presented through the emergency department with complaints of generalized muscular weakness, diminished oral intake, and diminished appetite. Patient states that while trying to ambulate he got dizzy and subsequently lost consciousness and falling to the floor and landing on his shoulder. Patient father was standing nearby and caught the patient and broke his fall. Over the past week as well as decreased free water intake. Patient states that he has experienced weakness for the past 2 days. Patient states that he got up this morning and while walking to his bathroom he experienced lightheadedness, and weakness which resulted in a loss of consciousness. EMS was notified and upon arrival the patient was found to be in distress and subsequent transported to [facility] for further care and evaluation of the aforementioned symptoms. Patient seen and evaluated in the emergency department. Lab and imaging studies reviewed. Patient found to be hypotensive with a systolic blood pressure in the 50's while in the emergency department. 12/19/2021. Patient has improvement in his creatinine from 3.1--> 1.6. Continue IV fluid hydration and monitor closely. Patient reports that he takes Mestinon but it is not listed as his home medication. We will consult neurology for further evaluation. PT/OT evaluation. 12/20/2021 Blood sugars are still running high around 300 Insulin adjusted Possible discharge tomorrow Objective - Constitutional Vitals: Vital Signs - 12hr 12/20/21 12/21/21 21:05 00:58 Temperature 97.6 F Pulse Rate 97 H Respiratory 20 Rate Blood Pressure 148/99 O2 Sat by Pulse 100 99 Oximetry General appearance: Present: no acute distress, well-nourished - EENT Eyes: PERRL, EOM intact ENT: hearing intact, clear oral mucosa Ears: bilateral: normal - Neck Neck: supple, normal ROM - Respiratory Respiratory effort: normal Respiratory: bilateral: CTA - Breasts Breasts: normal - Cardiovascular Heart rate: 78 Rhythm: regular Heart Sounds: Present: S1 & S2. Absent: gallop, rub Extremities: pulses intact, No edema, normal color, Full ROM - Gastrointestinal General gastrointestinal: Present: soft, non-tender, non-distended, normal bowel sounds - Genitourinary Male genitourinary: normal - Integumentary Integumentary: clear, warm, dry - Musculoskeletal Musculoskeletal: 1, strength equal bilaterally - Neurologic Neurologic: moves all extremities - Psychiatric Psychiatric: memory intact, appropriate mood/affect, intact judgment & insight - Labs CBC & Chem 7: 12/20/21 04:56 12/20/21 04:56 Labs: Abnormal lab results 12/20/21 12/20/21 12/20/21 Range/Units 11:53 16:34 22:19 POC Glucose 356 H 218 H 309 H (70-105) mg/dL 12/21/21 Range/Units 06:30 POC Glucose 120 H (70-105) mg/dL HEART Score - HEART Score Troponin: Troponin T < 0.010 ng/mL (0.00-0.029) 12/18/21 17:04
[2021-12-21] MEDS: INSULIN LISPRO 100 UNIT/ML SUB-Q SCH ×3 (08:56→20:34)
[2021-12-21] MEDS: LOSARTAN 50 MG TAB PO SCH (09:06)
[2021-12-21] MEDS: METOCLOPRAMIDE 10 MG TAB PO SCH ×3 (09:10→20:34)
[2021-12-21] MEDS: SODIUM CHLORIDE 0.45% 1000 ML 1,000 ML IV SCH (09:10)
[2021-12-21 09:11] VITALS: BP 161/114
[2021-12-21] MEDS: FAMOTIDINE 20 MG TAB PO SCH ×2 (09:11→20:34)
--- NOTE | 2021-12-21 11:48 | Progress Note ---
Assessment and Plan Assessment and plan: 31 YO Male with Severe Malnutrition, DM complicated by Gastroparesis, HTN, MG presented through the emergency department with complaints of generalized muscular weakness, diminished oral intake, and diminished appetite. Patient states that while trying to ambulate he got dizzy and subsequently lost con sciousness and falling to the floor and landing on his shoulder. Patient father was standing nearby and caught the patient and broke his fall. Over the past week as well as decreased free water intake. Patient states that he has experienced weakness for the past 2 days. Patient states that he got up this morning and while walking to his bathroom he experienced lightheadedness, and weakness which resulted in a loss of consciousness. EMS was notified and upon arrival the patient was found to be in distress and subsequent transported to [facility] for further care and evaluation of the aforementioned symptoms. Patient seen and evaluated in the emergency department. Lab and imaging studies reviewed. Patient found to be hypotensive with a systolic blood pressure in the 50's while in the emergency department. Acute kidney injury secondary to vasomotor nephropathy/dehydration Myasthenia gravis exacerbation severe protein calorie malnutrition DM gastroparesis Diabetes mellitus type 2 Metabolic acidosis 12/19/2021. Patient has improvement in his creatinine from 3.1--> 1.6. Continue IV fluid hydration and monitor closely. Patient reports that he takes Mestinon but it is not listed as his home medication. We will consult neurology for further evaluation. PT/OT evaluation. 12/20/2021 Blood sugars are still running high around 300 Insulin adjusted Possible discharge tomorrow 12/21/2021. Follow-up BMP to assess creatinine. Continue IV fluid hydration. PT evaluation to assess for disposition. History Interval history: No new issues overnight Hospitalist Physical - Constitutional Vitals: Temp Pulse Resp BP Pulse Ox 98.4 F 102 H 13 161/114 100 12/21/21 09:02 12/21/21 09:06 12/21/21 09:02 12/21/21 09:06 12/21/21 09:02 General appearance: Present: no acute distress, well-nourished - EENT Eyes: Present: PERRL, EOM intact ENT: hearing intact, clear oral mucosa, dentition normal - Neck Neck: Present: supple, normal ROM - Respiratory Respiratory effort: normal Respiratory: bilateral: CTA - Cardiovascular Rhythm: regular Heart Sounds: Present: S1 & S2. Absent: gallop, rub - Extremities Extremities: no ischemia, No edema, Full ROM - Abdominal General gastrointestinal: soft, non-tender, non-distended, normal bowel sounds - Integumentary Integumentary: Present: clear, warm, dry - Neurologic Neurologic: CNII-XII intact, moves all extremities HEART Score - HEART Score Troponin: Troponin T < 0.010 ng/mL (0.00-0.029) 12/18/21 17:04 Results - Labs CBC & Chem 7: 12/20/21 04:56 12/20/21 04:56 Labs: Laboratory Last Values WBC 6.2 K/mm3 (4.5-11.0) 12/20/21 04:56 RBC 3.07 M/mm3 (3.65-5.03) L 12/20/21 04:56 Hgb 8.0 gm/dl (11.8-15.2) L 12/20/21 04:56 Hct 24.9 % (35.5-45.6) L 12/20/21 04:56 MCV 81 fl (84-94) L 12/20/21 04:56 MCH 26 pg (28-32) L 12/20/21 04:56 MCHC 32 % (32-34) 12/20/21 04:56 RDW 19.8 % (13.2-15.2) H 12/20/21 04:56 Plt Count 236 K/mm3 (140-440) 12/20/21 04:56 Lymph % (Auto) 24.3 % (13.4-35.0) 12/20/21 04:56 Desha % (Auto) 8.2 % (0.0-7.3) H 12/20/21 04:56 Eos % (Auto) 2.0 % (0.0-4.3) 12/20/21 04:56 Baso % (Auto) 0.4 % (0.0-1.8) 12/20/21 04:56 Lymph # (Auto) 1.5 K/mm3 (1.2-5.4) 12/20/21 04:56 Desha # (Auto) 0.5 K/mm3 (0.0-0.8) 12/20/21 04:56 Eos # (Auto) 0.1 K/mm3 (0.0-0.4) 12/20/21 04:56 Baso # (Auto) 0.0 K/mm3 (0.0-0.1) 12/20/21 04:56 Seg Neutrophils % 65.1 % (40.0-70.0) 12/20/21 04:56 Seg Neutrophils # 4.0 K/mm3 (1.8-7.7) 12/20/21 04:56 PT 14.8 Sec. (12.2-14.9) 12/18/21 17:04 INR 1.04 (0.87-1.13) 12/18/21 17:04 VBG pH 7.376 (7.320-7.420) 12/18/21 17:04 Sodium 140 mmol/L (137-145) 12/20/21 04:56 Potassium 3.8 mmol/L (3.6-5.0) 12/20/21 04:56 Chloride 109.0 mmol/L (98-107) H 12/20/21 04:56 Carbon Dioxide 22 mmol/L (22-30) 12/20/21 04:56 Anion Gap 13 mmol/L 12/20/21 04:56 BUN 20 mg/dL (9-20) 12/20/21 04:56 Creatinine 1.2 mg/dL (0.8-1.3) 12/20/21 04:56 Estimated GFR > 60 ml/min 12/20/21 04:56 BUN/Creatinine Ratio 17 % 12/20/21 04:56 Glucose 421 mg/dL (75-100) H 12/20/21 04:56 POC Glucose 142 mg/dL (70-105) H 12/21/21 08:54 Lactic Acid 4.50 mmol/L (0.7-2.0) H* 12/18/21 17:04 Calcium 7.9 mg/dL (8.4-10.2) L 12/20/21 04:56 Phosphorus 2.80 mg/dL (2.5-4.5) 12/18/21 17:04 Magnesium 2.50 mg/dL (1.7-2.3) H 12/18/21 17:04 Total Bilirubin < 0.20 mg/dL (0.1-1.2) 12/18/21 17:04 AST 6 units/L (5-40) 12/18/21 17:04 ALT 5 units/L (7-56) L 12/18/21 17:04 Alkaline Phosphatase 97 units/L (35-129) 12/18/21 17:04 Total Creatine Kinase 46 units/L (55-170) L 12/18/21 17:04 Troponin T < 0.010 ng/mL (0.00-0.029) 12/18/21 17:04 Total Protein 6.0 g/dL (6.3-8.2) L 12/18/21 17:04 Albumin 3.7 g/dL (3.9-5) L 12/18/21 17:04 Albumin/Globulin Ratio 1.6 % 12/18/21 17:04 TSH 1.010 mlU/mL (0.270-4.200) 12/18/21 17:04 Microbiology: Microbiology 12/18/21 01:00 Stool - Stool Aspirate Stool Occult Blood (GOKUL) - Final 12/18/21 17:04 Peripheral/Venous Blood Culture - Preliminary NO GROWTH AFTER 48 HOURS 12/18/21 17:04 Peripheral/Venous Blood Culture - Preliminary NO GROWTH AFTER 48 HOURS High/IV: Voiding Method Urinal Active Medications - Current Medications Current Medications: Generic Name Dose Route Start Last Admin Trade Name Freq PRN Reason Stop Dose Admin Acetaminophen 650 mg 12/18/21 18:21 Acetaminophen 325 Mg Tab PO Q4H PRN Pain MILD(1-3)/Fever >100.5/QUINTANILLA Albuterol 2.5 mg 12/18/21 18:21 Albuterol 2.5 Mg/3 Ml Nebu IH Q4HRT PRN Shortness Of Breath Dextrose 50 ml 12/18/21 18:24 Dextrose 50% In Water (25gm) 50 Ml Syringe IV Q30MIN PRN Hypoglycemia Protocol Famotidine 20 mg 12/19/21 08:00 12/21/21 09:11 Famotidine 20 Mg Tab PO 20 mg BIDAC BREANNE Administration Hydromorphone HCl 0.5 mg 12/18/21 18:21 Hydromorphone 0.5 Mg/0.5 Ml Inj IV Q13H PRN Pain , Severe (7-10) Sodium Chloride 1,000 mls @ 125 mls/hr 12/18/21 19:00 12/21/21 09:10 Nacl 0.45% 1000 Ml IV 125 mls/hr DIRECT BREANNE Administration Insulin Glargine 20 units 12/20/21 22:00 12/20/21 22:13 Insulin Glargine 100 Units/Ml SUB-Q 20 units QHS BREANNE Administration Insulin Human Lispro 0 unit 12/20/21 12:30 12/21/21 08:56 Insulin Lispro 100 Unit/Ml SUB-Q Not Given ACHS BREANNE Protocol Losartan Potassium 100 mg 12/19/21 10:00 12/21/21 09:06 Losartan 50 Mg Tab PO 100 mg QDAY BREANNE Administration Metoclopramide HCl 5 mg 12/19/21 07:30 12/21/21 09:10 Metoclopramide 10 Mg Tab PO 5 mg TIDAC BREANNE Administration Nifedipine 60 mg 12/18/21 19:00 12/20/21 19:20 Nifedipine Xl 60 Mg Tab PO 60 mg Q24H BREANNE Administration Ondansetron HCl 4 mg 12/18/21 18:21 Ondansetron 4 Mg/2 Ml Inj IV Q8H PRN Nausea And Vomiting Oxycodone/Acetaminophen 1 tab 12/18/21 18:21 Oxycodone /Acetaminophen 5-325mg Tab PO Q6H PRN Pain, Moderate (4-6) Sodium Chloride 10 ml 12/18/21 22:00 12/21/21 09:13 Sodium Chloride 0.9% 10 Ml Flush Syringe IV 10 ml BID BREANNE Administration Sodium Chloride 10 ml 12/18/21 18:21 Sodium Chloride 0.9% 10 Ml Flush Syringe IV PRN PRN LINE FLUSH
[2021-12-21 13:57] LABS: BUN/Creatinine Ratio 9; Blood Urea Nitrogen 8 mg/dL (9-20); Calcium 8.4 mg/dL (8.4-10.2); Hemolysis Index 4
[2021-12-21] MEDS: NIFEdipine XL 60 MG TAB PO SCH (20:34)
== END 2021-12-21 19:00 | disposition left against medical advice (07) | DRG 682 ==
LOC: ED 15:01 → 3A 18:21
PROVIDERS: ADMIT Internal Medicine; ATTEND Hospitalist
DX: N17.0 Acute kidney failure with tubular necrosis (principal); E43 Unspecified severe protein-calorie malnutrition; E87.2 Acidosis; Z68.1 Body mass index [BMI] 19.9 or less, adult; E86.0 Dehydration; G70.00 Myasthenia gravis without (acute) exacerbation; R55 Syncope and collapse; E86.9 Volume depletion, unspecified; K31.84 Gastroparesis; Z83.3 Family history of diabetes mellitus; Z82.49 Family history of ischemic heart disease and other diseases of the circulatory system; Z88.5 Allergy status to narcotic agent; E11.43 Type 2 diabetes mellitus with diabetic autonomic (poly)neuropathy
CPT/HCPCS: 36415; 71045; 80048; 80053; 82140; 82270; 82550; 82805; 82962; 83735; 84100; 84443; 84484; 85025; 85610; 87040; 93005; G0378; J3490; Q9967; J0696; J1815; J7030

== ENCOUNTER 2022-01-22 15:13 | Inpatient (IN) | payer SELFPAY ==
[2022-01-22] MEDS ORDERED: SODIUM CHLORIDE 0.9% 1000 ML 1,000 ML IV ONE (17:11)
[2022-01-22 18:33] LABS: Basophils # (Auto) 0.1 K/mm3 (0.0-0.1); Basophils % (Auto) 0.6 % (0.0-1.8); Eosinophils % (Auto) 0.1 % (0.0-4.3); Hematocrit 26.5 % (35.5-45.6); Hemoglobin 8.5 gm/dl (11.8-15.2); Lymphocytes # (Auto) 1.6 K/mm3 (1.2-5.4); Lymphocytes % (Auto) 15.4 % (13.4-35.0); Mean Corpuscular HGB Conc 32 % (32-34); Mean Corpuscular Volume 73 fl (84-94); Monocytes # (Auto) 1.4 K/mm3 (0.0-0.8); Monocytes % (Auto) 13.2 % (0.0-7.3); Platelet Count 584 K/mm3 (140-440); Red Blood Count 3.63 M/mm3 (3.65-5.03)
[2022-01-22 18:40] LABS: Red Cell Distribution Width 22.5 % (13.2-15.2)
[2022-01-22 18:50] LABS: Alanine Aminotransferase 7 units/L (7-56); Albumin 4.8 g/dL (3.9-5); BUN/Creatinine Ratio 56; Blood Urea Nitrogen 79 mg/dL (9-20); Calcium 10.2 mg/dL (8.4-10.2); Hemolysis Index 1
--- NOTE | 2022-01-22 19:46 | XRay Report ---
XR chest 1V ap INDICATION / CLINICAL INFORMATION: syncope. COMPARISON: 12/18/2021 FINDINGS: SUPPORT DEVICES: None. HEART /PULMONARY VASCULATURE: No significant abnormality. LUNGS / PLEURA: No significant pulmonary or pleural abnormality. No pneumothorax. ADDITIONAL FINDINGS: No significant additional findings. IMPRESSION: 1. No acute findings. Signer Name: Teddy Estrada MD Signed: 01/22/2022 7:41 PM Workstation Name: [id number]
--- NOTE | 2022-01-22 20:11 | Emergency Department Report ---
ED General Adult HPI - General Chief complaint: Hyperglycemia Stated complaint: HYPERGLYCEMIA Time Seen by Provider: 01/22/22 17:10 Source: patient, EMS Mode of arrival: Stretcher Limitations: No Limitations - History of Present Illness Initial comments: Is a 31-year-old male presented to the emergency department with complaint of elevated blood sugars. Patient also had a syncopal episode. He states he fell hitting his head. Patient reports that he felt bad since yesterday and on today he was trying to ambulate to the restroom when he syncopized. He states he hit his back. He notes that he did have loss of consciousness. He notes back pain started after a fall. He states he takes insulin and he was given insulin in and by EMS prior to arrival. Severity scale (0 -10): 0 - Related Data Previous Rx's Medication Instructions Recorded Last Taken Type Pantoprazole Sodium [Protonix] 40 mg PO HS #30 granpkt. 09/27/19 Unknown Rx Insulin NPH/Regular [NovoLIN 70/30] 18 unit SUB-Q QPMDIAB 30 Days 10/31/20 Unknown Rx Insulin Regular, Human [HumuLIN R] See Protocol SUB-Q ACHS 30 Days 10/31/20 Unknown Rx Famotidine [Pepcid] 20 mg PO BID #60 tablet 01/13/21 Unknown Rx Metoclopramide HCl [Reglan TAB] 5 mg PO TIDAC #21 tablet 01/13/21 Unknown Rx Losartan [Cozaar] 100 mg PO QDAY #30 tab 01/24/22 Unknown Rx NIFEdipine XL [Procardia Xl] 60 mg PO QDAY #30 tablet 01/24/22 Unknown Rx Allergies Allergy/AdvReac Type Severity Reaction Status Date / Time codeine Allergy Hives Verified 01/22/22 15:36 morphine Allergy Angioedema Verified 01/22/22 15:36 tomato Allergy Vomiting Verified 01/22/22 15:36 ED Review of Systems ROS: Stated complaint: HYPERGLYCEMIA Other details as noted in HPI Constitutional: denies: chills, fever Eyes: denies: eye pain, eye discharge, vision change ENT: denies: ear pain, throat pain Respiratory: denies: cough, shortness of breath, wheezing Cardiovascular: syncope. denies: chest pain, palpitations Endocrine: no symptoms reported Gastrointestinal: nausea, vomiting. denies: abdominal pain, diarrhea Genitourinary: denies: urgency, dysuria Musculoskeletal: back pain. denies: joint swelling, arthralgia Skin: denies: rash, lesions Neurological: denies: headache, weakness, paresthesias Psychiatric: denies: anxiety, depression Hematological/Lymphatic: denies: easy bleeding, easy bruising ED Past Medical Hx - Past Medical History Hx Hypertension: Yes Hx Congestive Heart Failure: No Hx Diabetes: Yes Hx Asthma: No Additional medical history: Myasthenia gravis - Social History Smoking Status: Never Smoker - Medications Home Medications: Home Medications Medication Instructions Recorded Confirmed Last Taken Type Pantoprazole Sodium [Protonix] 40 mg PO HS #30 granpkt. 09/27/19 01/23/22 Unknown Rx Insulin NPH/Regular [NovoLIN 70/30] 18 unit SUB-Q QPMDIAB 30 Days 10/31/20 01/23/22 Unknown Rx Insulin Regular, Human [HumuLIN R] See Protocol SUB-Q ACHS 30 Days 10/31/20 01/23/22 Unknown Rx Famotidine [Pepcid] 20 mg PO BID #60 tablet 01/13/21 01/23/22 Unknown Rx Metoclopramide HCl [Reglan TAB] 5 mg PO TIDAC #21 tablet 01/13/21 01/23/22 Unknown Rx Losartan [Cozaar] 100 mg PO QDAY #30 tab 01/24/22 Unknown Rx NIFEdipine XL [Procardia Xl] 60 mg PO QDAY #30 tablet 01/24/22 Unknown Rx ED Physical Exam - General Limitations: No Limitations General appearance: alert, in no apparent distress - Head Head exam: Present: atraumatic, normocephalic - Eye Eye exam: Present: normal appearance - ENT ENT exam: Present: mucous membranes moist - Neck Neck exam: Present: normal inspection - Respiratory Respiratory exam: Present: normal lung sounds bilaterally. Absent: respiratory distress - Cardiovascular Cardiovascular Exam: Present: regular rate, normal rhythm. Absent: systolic murmur, diastolic murmur, rubs, gallop - GI/Abdominal GI/Abdominal exam: Present: soft, tenderness (RUQ/RLQ), normal bowel sounds - Rectal Rectal exam: Present: deferred - Extremities Exam Extremities exam: Present: normal inspection - Back Exam Back exam: Present: CVA tenderness (R) - Neurological Exam Neurological exam: Present: alert, oriented X3 - Psychiatric Psychiatric exam: Present: normal affect, normal mood - Skin Skin exam: Present: warm, dry, intact, normal color. Absent: rash ED Course Vital Signs 01/22/22 01/22/22 01/22/22 15:32 17:48 19:19 Temperature 97.7 F 98.2 F Pulse Rate 100 H 104 H 105 H Pulse Rate [ Anterior Bilateral Throughout] Respiratory 18 11 L 10 L Rate Respiratory Rate [Anterior Bilateral Throughout] Blood Pressure 148/102 Blood Pressure 152/110 148/102 193/108 [Left] O2 Sat by Pulse 100 100 99 Oximetry 01/22/22 01/23/22 01/23/22 19:31 01:26 01:27 Temperature Pulse Rate 92 H Pulse Rate [ 101 H Anterior Bilateral Throughout] Respiratory Rate Respiratory 16 Rate [Anterior Bilateral Throughout] Blood Pressure 193/130 Blood Pressure [Left] O2 Sat by Pulse 100 Oximetry 01/23/22 01/23/22 01/23/22 09:16 09:17 11:41 Temperature Pulse Rate 107 H Pulse Rate [ 107 H Anterior Bilateral Throughout] Respiratory Rate Respiratory 16 Rate [Anterior Bilateral Throughout] Blood Pressure 129/94 Blood Pressure [Left] O2 Sat by Pulse 100 98 Oximetry 01/23/22 01/23/22 01/23/22 11:51 12:01 12:11 Temperature Pulse Rate 104 H 107 H 105 H Pulse Rate [ Anterior Bilateral Throughout] Respiratory Rate Respiratory Rate [Anterior Bilateral Throughout] Blood Pressure 129/94 129/94 129/94 Blood Pressure [Left] O2 Sat by Pulse 100 100 99 Oximetry 01/23/22 01/23/22 01/23/22 12:21 12:31 12:41 Temperature Pulse Rate Pulse Rate [ Anterior Bilateral Throughout] Respiratory Rate Respiratory Rate [Anterior Bilateral Throughout] Blood Pressure 129/94 129/94 129/94 Blood Pressure [Left] O2 Sat by Pulse 99 100 100 Oximetry 01/23/22 01/23/22 01/23/22 12:51 13:01 13:11 Temperature Pulse Rate Pulse Rate [ Anterior Bilateral Throughout] Respiratory Rate Respiratory Rate [Anterior Bilateral Throughout] Blood Pressure 129/94 129/94 129/94 Blood Pressure [Left] O2 Sat by Pulse 100 100 100 Oximetry 01/23/22 01/23/22 01/23/22 13:21 13:31 13:41 Temperature Pulse Rate Pulse Rate [ Anterior Bilateral Throughout] Respiratory Rate Respiratory Rate [Anterior Bilateral Throughout] Blood Pressure 129/94 129/94 129/94 Blood Pressure [Left] O2 Sat by Pulse 100 100 100 Oximetry 01/23/22 01/23/22 01/23/22 13:46 13:51 14:00 Temperature Pulse Rate 92 H Pulse Rate [ Anterior Bilateral Throughout] Respiratory 15 Rate Respiratory Rate [Anterior Bilateral Throughout] Blood Pressure 127/93 166/114 Blood Pressure 127/93 [Left] O2 Sat by Pulse 100 99 99 Oximetry 01/23/22 01/23/22 01/23/22 14:11 14:21 14:30 Temperature Pulse Rate Pulse Rate [ Anterior Bilateral Throughout] Respiratory Rate Respiratory Rate [Anterior Bilateral Throughout] Blood Pressure 166/114 169/115 166/119 Blood Pressure [Left] O2 Sat by Pulse 98 98 100 Oximetry 01/23/22 01/23/22 01/23/22 14:41 14:51 15:01 Temperature Pulse Rate Pulse Rate [ Anterior Bilateral Throughout] Respiratory Rate Respiratory Rate [Anterior Bilateral Throughout] Blood Pressure 166/114 157/112 155/108 Blood Pressure [Left] O2 Sat by Pulse 95 100 99 Oximetry 01/23/22 01/23/22 01/23/22 15:05 15:11 15:21 Temperature Pulse Rate Pulse Rate [ 109 H Anterior Bilateral Throughout] Respiratory Rate Respiratory 16 Rate [Anterior Bilateral Throughout] Blood Pressure 155/108 147/107 Blood Pressure [Left] O2 Sat by Pulse 100 100 Oximetry 01/23/22 01/23/22 01/23/22 15:30 15:41 15:51 Temperature Pulse Rate Pulse Rate [ Anterior Bilateral Throughout] Respiratory Rate Respiratory Rate [Anterior Bilateral Throughout] Blood Pressure 152/109 152/109 149/105 Blood Pressure [Left] O2 Sat by Pulse 99 100 100 Oximetry 01/23/22 01/23/22 01/23/22 16:01 16:11 16:21 Temperature Pulse Rate Pulse Rate [ Anterior Bilateral Throughout] Respiratory Rate Respiratory Rate [Anterior Bilateral Throughout] Blood Pressure 155/104 155/104 125/85 Blood Pressure [Left] O2 Sat by Pulse 98 99 99 Oximetry 01/23/22 01/23/22 01/23/22 16:31 16:41 16:51 Temperature Pulse Rate Pulse Rate [ Anterior Bilateral Throughout] Respiratory Rate Respiratory Rate [Anterior Bilateral Throughout] Blood Pressure 160/113 160/113 164/114 Blood Pressure [Left] O2 Sat by Pulse 97 100 100 Oximetry 01/23/22 01/23/22 01/23/22 17:00 17:11 17:21 Temperature Pulse Rate Pulse Rate [ Anterior Bilateral Throughout] Respiratory Rate Respiratory Rate [Anterior Bilateral Throughout] Blood Pressure 163/111 163/111 156/113 Blood Pressure [Left] O2 Sat by Pulse 99 100 99 Oximetry 01/23/22 01/23/22 01/23/22 17:31 17:40 17:51 Temperature Pulse Rate 114 H Pulse Rate [ Anterior Bilateral Throughout] Respiratory 17 Rate Respiratory Rate [Anterior Bilateral Throughout] Blood Pressure 160/108 156/113 128/84 Blood Pressure [Left] O2 Sat by Pulse 100 99 97 Oximetry 01/23/22 01/23/22 01/23/22 18:01 18:11 18:21 Temperature Pulse Rate Pulse Rate [ Anterior Bilateral Throughout] Respiratory 26 H 26 H 27 H Rate Respiratory Rate [Anterior Bilateral Throughout] Blood Pressure 128/84 134/82 135/82 Blood Pressure [Left] O2 Sat by Pulse 99 96 98 Oximetry - Reevaluation(s) Reevaluation #1: 01/22/22 20:10 Patient with hypernatremia. Given this we will give half-normal saline as patient is a diabetic and I do not wish to give dextrose with water. ED Medical Decision Making - Lab Data Result diagrams: 01/24/22 08:07 01/24/22 08:07 - Medical Decision Making This is a 31-year-old male presenting to the emergency department with complaints of syncope, fall, elevated blood sugars and abdominal pain and flank pain. Differential includes pyelonephritis, nephrolithiasis, back fracture. Differential for syncope includes ACS, electrolyte abnormality, intracranial hemorrhage. Plan for CT brain, chest x-ray, CT abdomen pelvis, basic labs. Critical care attestation.: If time is entered above; I have spent that time in minutes in the direct care of this critically ill patient, excluding procedure time. ED Disposition Clinical Impression: Syncope, Hyperglycemia, Hypernatremia Disposition: ADMITTED INPATIENT Is pt being admited?: Yes Does the pt Need Aspirin: No Condition: Good
--- NOTE | 2022-01-22 20:33 | Cat Scan Report ---
CT abdomen pelvis w con INDICATION / CLINICAL INFORMATION: RUQ/RLQ abdominal pain; r flank pain. TECHNIQUE: Axial CT images were obtained through the abdomen and pelvis after 100 cc of Omnipaque [address] scans at this location are performed using CT dose reduction for ALARA by means of automated exposure control. COMPARISON: CT from 08/24/2021 FINDINGS: LOWER CHEST: No significant abnormality LIVER: No significant abnormality GALLBLADDER/BILIARY TREE: No significant abnormality PANCREAS: No significant abnormality SPLEEN: No significant abnormality ADRENALS: No significant abnormality RIGHT KIDNEY / URETER: No significant abnormality. There is no urolithiasis or hydronephrosis. LEFT KIDNEY / URETER: Stable calcification along the superomedial left upper pole, reflect dystrophic calcification. No urolithiasis or hydronephrosis. URINARY BLADDER: No significant abnormality REPRODUCTIVE ORGANS: No significant abnormality STOMACH / BOWEL: Small bowel is normal in caliber. There is mild wall thickening of the ascending col on near the hepatic flexure. The remainder of the colon is unremarkable. Normal appendix. LYMPH NODES: No significant adenopathy. VASCULATURE: No significant abnormality. OTHER: No free air, free fluid, or focal fluid collection is identified. SKELETAL SYSTEM: No acute osseous findings. IMPRESSION: 1. Mild mural thickening of the ascending colon near the hepatic flexure, favored to reflect mild col itis. 2. No other acute findings of the abdomen or pelvis. No urolithiasis or hydronephrosis. Signer Name: Teddy Estrada MD Signed: 01/22/2022 8:29 PM Workstation Name: [id number]
--- NOTE | 2022-01-22 20:42 | Cat Scan Report ---
CT head/brain wo con INDICATION / CLINICAL INFORMATION: 31 years Male; syncope. TECHNIQUE: Routine CT head without contrast. All CT scans at this location are performed using CT dos e reduction for ALARA by means of automated exposure control. COMPARISON: 04/12/2020 FINDINGS: BRAIN / INTRACRANIAL CONTENTS: No acute hemorrhage, mass effect, midline shift, hydrocephalus, or acu te, large territorial infarct. No signs of significant atrophy or chronic infarct. No significant whi te matter abnormality seen. CRANIOCERVICAL JUNCTION: No significant abnormality. ORBITS: No significant abnormality of visualized orbits. SINUSES / MASTOIDS: Visualized paranasal sinuses and mastoid air cells are essentially clear. ADDITIONAL FINDINGS: None. IMPRESSION: 1. No focal mass, hemorrhage, hydrocephalus, or acute, large territorial infarct. Signer Name: Darren Falcon MD, III Signed: 01/22/2022 8:38 PM Workstation Name: [id number]
[2022-01-22] MEDS ORDERED: SODIUM CHLORIDE 0.45% 1000 ML 1,000 ML IV SCH ×2 (21:00→23:00)
[2022-01-22] MEDS ORDERED: ONDANSETRON 4 MG/2 ML INJ IV PRN (22:50)
[2022-01-22] MEDS ORDERED: ALBUTEROL 2.5 MG/3 ML NEBU IH PRN (22:50)
[2022-01-22] MEDS ORDERED: MORPHINE 4 MG/1 ML INJ IV PRN (22:50)
[2022-01-22] MEDS ORDERED: MORPHINE 2 MG/1 ML INJ IV PRN (22:50)
[2022-01-22] MEDS ORDERED: ACETAMINOPHEN 325 MG TAB PO PRN (22:50)
[2022-01-22] MEDS ORDERED: DEXTROSE 50% IN WATER (25GM) 50 ML SYRINGE IV PRN (22:54)
--- NOTE | 2022-01-22 22:58 | History and Physical Report ---
History of Present Illness Date of examination: 01/22/22 Date of admission: 01/22/22 Chief complaint: Hyperglycemia History of present illness: 31-year-old male with past medical history of hypertension, diabetes type 2, myasthenia gravis was brought to the emergency room because of elevated blood sugars. Patient also had a syncopal episode. He states he fell hitting his head. Patient reports that he felt bad since yesterday and on today he was trying to ambulate to the restroom when he syncopized. He states he hit his back. He notes that he did have loss of consciousness. He notes back pain started after a fall. He states he takes insulin and he was given insulin in and by EMS prior to arrival. In the emergency room patient is found to have sodium of 152, BUN of 79 creatinine 1.4 and glucose 184. We are going to admit the patient we will put the patient on IV fluid insulin sliding scale Past History Past Medical History: diabetes, hypertension, other (Myasthenia gravis) Past Surgical History: No surgical history Social history: no significant social history Family history: diabetes Medications and Allergies Allergies Allergy/AdvReac Type Severity Reaction Status Date / Time codeine Allergy Hives Verified 01/22/22 15:36 morphine Allergy Angioedema Verified 01/22/22 15:36 tomato Allergy Vomiting Verified 01/22/22 15:36 Home Medications Medication Instructions Recorded Confirmed Last Taken Type Pantoprazole Sodium [Protonix] 40 mg PO HS #30 granpkt. 09/27/19 12/20/21 Unknown Rx Insulin NPH/Regular [NovoLIN 70/30] 18 unit SUB-Q QPMDIAB 30 Days 10/31/20 12/20/21 Unknown Rx Insulin Regular, Human [HumuLIN R] See Protocol SUB-Q ACHS 30 Days 10/31/20 12/20/21 Unknown Rx Famotidine [Pepcid] 20 mg PO BID #60 tablet 01/13/21 12/20/21 Unknown Rx Insulin NPH/Regular [NovoLIN 70/30] 18 unit SUB-Q QDDIAB 30 Days units 01/13/21 12/20/21 Unknown Rx Losartan [Cozaar] 100 mg PO QDAY #30 tablet 01/13/21 12/20/21 Unknown Rx Metoclopramide HCl [Reglan TAB] 5 mg PO TIDAC #21 tablet 01/13/21 12/20/21 Unknown Rx NIFEdipine XL [Procardia Xl] 60 mg PO QDAY #30 tablet 01/13/21 12/20/21 Unknown Rx Losartan [Cozaar] 100 mg PO QDAY #30 08/24/21 12/20/21 Unknown Rx Metoclopramide HCl [Reglan TAB] 5 mg PO TIDAC #120 08/24/21 12/20/21 Unknown Rx NIFEdipine XL [Procardia Xl] 60 mg PO Q24H #30 tab 08/24/21 12/20/21 Unknown Rx Active Meds: Active Medications Acetaminophen (Acetaminophen 325 Mg Tab) 650 mg PO Q4H PRN PRN Reason: Pain MILD(1-3)/Fever >100.5/QUINTANILLA Albuterol (Albuterol 2.5 Mg/3 Ml Nebu) 2.5 mg IH Q3HRT PRN PRN Reason: Shortness Of Breath Albuterol/Ipratropium (Ipratropium/Albuterol Sulfate 3 Ml Ampul.Neb) 1 ampul IH Q6HRT BREANNE Dextrose (Dextrose 50% In Water (25gm) 50 Ml Syringe) 50 ml IV Q30MIN PRN; Protocol PRN Reason: Hypoglycemia Famotidine (Famotidine 20 Mg/2 Ml Inj) 20 mg IV BID BREANNE Heparin Sodium (Porcine) (Heparin 5,000 Unit/1 Ml Vial) 5,000 unit SUB-Q Q12HR BREANNE Sodium Chloride (Nacl 0.45% 1000 Ml) 1,000 mls @ 150 mls/hr IV DIRECT BREANNE Sodium Chloride (Nacl 0.45% 1000 Ml) 1,000 mls @ 125 mls/hr IV DIRECT BREANNE Insulin Human Lispro (Insulin Lispro 100 Unit/Ml) 0 unit SUB-Q ACHS BREANNE; Protocol Morphine Sulfate (Morphine 2 Mg/1 Ml Inj) 2 mg IV Q4H PRN PRN Reason: Pain, Moderate (4-6) Morphine Sulfate (Morphine 4 Mg/1 Ml Inj) 4 mg IV Q4H PRN PRN Reason: Pain , Severe (7-10) Ondansetron HCl (Ondansetron 4 Mg/2 Ml Inj) 4 mg IV Q8H PRN PRN Reason: Nausea And Vomiting Sodium Chloride (Sodium Chloride 0.9% 10 Ml Flush Syringe) 10 ml IV BID BREANNE Sodium Chloride (Sodium Chloride 0.9% 10 Ml Flush Syringe) 10 ml IV PRN PRN PRN Reason: LINE FLUSH Review of Systems All systems: negative Constitutional: other (Hyperglycemia syncope, nausea vomiting) Exam - Constitutional Vitals: Temp Pulse Resp BP Pulse Ox 98.2 F 92 H 10 L 193/130 99 01/22/22 17:48 01/22/22 19:31 01/22/22 19:19 01/22/22 19:31 01/22/22 19:19 General appearance: Present: no acute distress, well-nourished - EENT Eyes: Present: PERRL ENT: hearing intact, clear oral mucosa - Neck Neck: Present: supple, normal ROM - Respiratory Respiratory effort: normal Respiratory: bilateral: CTA - Cardiovascular Heart Sounds: Present: S1 & S2. Absent: rub, click - Extremities Extremities: pulses symmetrical, No edema Peripheral Pulses: within normal limits - Abdominal General gastrointestinal: Present: soft, non-tender, non-distended, normal bowel sounds Male genitourinary: Present: normal - Integumentary Integumentary: Present: clear, warm, dry - Musculoskeletal Musculoskeletal: gait normal, strength equal bilaterally - Psychiatric Psychiatric: appropriate mood/affect, intact judgment & insight - Neurologic Neurologic: CNII-XII intact, moves all extremities HEART Score - HEART Score Troponin: Troponin T < 0.010 ng/mL (0.00-0.029) 01/22/22 18:08 Results - Labs CBC & Chem 7: 01/22/22 18:08 01/22/22 18:08 Labs: Laboratory Last Values WBC 10.4 K/mm3 (4.5-11.0) 01/22/22 18:08 RBC 3.63 M/mm3 (3.65-5.03) L 01/22/22 18:08 Hgb 8.5 gm/dl (11.8-15.2) L 01/22/22 18:08 Hct 26.5 % (35.5-45.6) L 01/22/22 18:08 MCV 73 fl (84-94) L 01/22/22 18:08 MCH 23 pg (28-32) L 01/22/22 18:08 MCHC 32 % (32-34) 01/22/22 18:08 RDW 22.5 % (13.2-15.2) H 01/22/22 18:08 Plt Count 584 K/mm3 (140-440) H 01/22/22 18:08 Lymph % (Auto) 15.4 % (13.4-35.0) 01/22/22 18:08 [place] % (Auto) 13.2 % (0.0-7.3) H 01/22/22 18:08 Eos % (Auto) 0.1 % (0.0-4.3) 01/22/22 18:08 Baso % (Auto) 0.6 % (0.0-1.8) 01/22/22 18:08 Lymph # (Auto) 1.6 K/mm3 (1.2-5.4) 01/22/22 18:08 [place] # (Auto) 1.4 K/mm3 (0.0-0.8) H 01/22/22 18:08 Eos # (Auto) 0.0 K/mm3 (0.0-0.4) 01/22/22 18:08 Baso # (Auto) 0.1 K/mm3 (0.0-0.1) 01/22/22 18:08 Seg Neutrophils % 70.7 % (40.0-70.0) H 01/22/22 18:08 Seg Neutrophils # 7.3 K/mm3 (1.8-7.7) 01/22/22 18:08 VBG pH 7.445 (7.320-7.420) H 01/22/22 18:08 Sodium 152 mmol/L (137-145) H 01/22/22 18:08 Potassium 4.0 mmol/L (3.6-5.0) 01/22/22 18:08 Chloride 105.8 mmol/L (98-107) 01/22/22 18:08 Carbon Dioxide 32 mmol/L (22-30) H 01/22/22 18:08 Anion Gap 18 mmol/L 01/22/22 18:08 BUN 79 mg/dL (9-20) H 01/22/22 18:08 Creatinine 1.4 mg/dL (0.8-1.3) H 01/22/22 18:08 Estimated GFR > 60 ml/min 01/22/22 18:08 BUN/Creatinine Ratio 56 % 01/22/22 18:08 Glucose 184 mg/dL (75-100) H 01/22/22 18:08 Ketones Quantitative Negative (Negative) 01/22/22 18:08 Lactic Acid 1.70 mmol/L (0.7-2.0) 01/22/22 18:08 Calcium 10.2 mg/dL (8.4-10.2) 01/22/22 18:08 Total Bilirubin 0.20 mg/dL (0.1-1.2) 01/22/22 18:08 AST 8 units/L (5-40) 01/22/22 18:08 ALT 7 units/L (7-56) 01/22/22 18:08 Alkaline Phosphatase 133 units/L (35-129) H 01/22/22 18:08 Troponin T < 0.010 ng/mL (0.00-0.029) 01/22/22 18:08 Total Protein 7.9 g/dL (6.3-8.2) 01/22/22 18:08 Albumin 4.8 g/dL (3.9-5) 01/22/22 18:08 Albumin/Globulin Ratio 1.5 % 01/22/22 18:08 - Imaging and Cardiology Chest x-ray: report reviewed CT Scan - head: report reviewed Assessment and Plan VTE prophylaxis?: Chemical Plan of care discussed with patient/family: Yes - Patient Problems (1) Acute kidney injury Current Visit: No Status: Acute Plan to address problem: Admit the patient to the medical telemetry. Half-normal saline at the rate of 125 cc/h. Avoid nephrotoxic drug. Renally dose medication. Recheck BMP in the morning. Consult nephrology if needed (2) Dehydration Current Visit: No Status: Acute Plan to address problem: Half-normal saline at the rate of 125 cc/h. Recheck BMP in the morning. Consult nephrology if needed (3) Diabetes mellitus Current Visit: No Status: Acute Plan to address problem: 1800 kcal ADA diet. Humalog sliding scale moderate dose coverage Accu-Chek before meals and at bedtime. Diabetic education (4) Myasthenia gravis Current Visit: No Status: Acute Plan to address problem: Stable. We will continue the home medication (5) Syncope Current Visit: No Status: Acute Plan to address problem: Half-normal saline at the rate of 125 cc/h. Recheck BMP in the morning. We will monitor the patient closely (6) HTN (hypertension) Current Visit: No Status: Chronic Plan to address problem: Hydralazine 10 mg IV every 6 hours as needed. We continue the home medication (7) DVT prophylaxis Current Visit: No Status: Acute Plan to address problem: Heparin 5000 units subcu every 12 hours for DVT prophylaxis. Pepcid 20 mg IV every 12 hours for GI prophylaxis. Patient is a full code
[2022-01-22] MEDS ORDERED: hydrALAZINE 20 MG/1 ML INJ IV PRN (23:01)
[2022-01-22] MEDS ORDERED: HYDROmorphone 0.5 MG/0.5 ML INJ IV PRN (23:48)
[2022-01-23] MEDS: IPRATROPIUM/ALBUTEROL SULFATE 3 ML AMPUL.NEB IH SCH ×3 (01:25→15:00)
[2022-01-23 05:55] LABS: Monocytes # (Auto) 0.8 K/mm3 (0.0-0.8); Monocytes % (Auto) 11.5 % (0.0-7.3)
[2022-01-23 06:17] LABS: Alanine Aminotransferase 6 units/L (7-56); Albumin 4.2 g/dL (3.9-5); BUN/Creatinine Ratio 48; Blood Urea Nitrogen 62 mg/dL (9-20); Calcium 9.7 mg/dL (8.4-10.2); Hemolysis Index 0
[2022-01-23 06:25] LABS: Basophils % (Auto) 0.2 % (0.0-1.8); Hematocrit 25.1 % (35.5-45.6); Hemoglobin 7.6 gm/dl (11.8-15.2); Lymphocytes # (Auto) 1.3 K/mm3 (1.2-5.4); Lymphocytes % (Auto) 18.3 % (13.4-35.0); Mean Corpuscular HGB Conc 30 % (32-34); Mean Corpuscular Volume 74 fl (84-94); Platelet Count 546 K/mm3 (140-440); Red Blood Count 3.41 M/mm3 (3.65-5.03)
[2022-01-23 06:34] LABS: Red Cell Distribution Width 22.3 % (13.2-15.2)
[2022-01-23] MEDS ORDERED: INSULIN LISPRO 100 UNIT/ML SUB-Q SCH (07:30)
--- NOTE | 2022-01-23 08:19 | Progress Note ---
Assessment and Plan Assessment and plan: 31-year-old male with past medical history of hypertension, diabetes type 2, myasthenia gravis was brought to the emergency room because of elevated blood sugars. Patient also had a syncopal episode. He states he fell hitting his head. Patient reports that he felt bad since yesterday and on today he was trying to ambulate to the restroom when he syncopized. He states he hit his back. He notes that he did have loss of consciousness. He notes back pain started after a fall. He states he takes insulin and he was given insulin in and by EMS prior to arrival. In the emergency room patient is found to have sodium of 152, BUN of 79 creatinine 1.4 and glucose 184. We are going to admit the patient we will put the patient on IV fluid insulin sliding scale and Lantus 10 units subcu twice a day. Consult nephrology for evaluation - Patient Problems (1) Acute kidney injury Current Visit: No Status: Acute Plan to address problem: Admit the patient to the medical telemetry. Half-normal saline at the rate of 125 cc/h. Avoid nephrotoxic drug. Renally dose medication. Recheck BMP in the morning. Consult nephrology for evaluation (2) Dehydration Current Visit: No Status: Acute Plan to address problem: Half-normal saline at the rate of 125 cc/h. Recheck BMP in the morning. Consult nephrology if needed (3) Diabetes mellitus Current Visit: No Status: Acute Plan to address problem: 1800 kcal ADA diet. Humalog sliding scale moderate dose coverage Accu-Chek before meals and at bedtime. Lantus 10 units subcu twice a day. Diabetic education (4) Myasthenia gravis Current Visit: No Status: Acute Plan to address problem: Stable. We will continue the home medication (5) Syncope Current Visit: No Status: Acute Plan to address problem: Half-normal saline at the rate of 125 cc/h. Recheck BMP in the morning. We will monitor the patient closely (6) HTN (hypertension) Current Visit: No Status: Chronic Plan to address problem: Hydralazine 10 mg IV every 6 hours as needed. We continue the home medication (7) DVT prophylaxis Current Visit: No Status: Acute Plan to address problem: Heparin 5000 units subcu every 12 hours for DVT prophylaxis. Pepcid 20 mg IV every 12 hours for GI prophylaxis. Patient is a full code History Interval history: Patient is seen and examined. Lab and data reviewed. Denied any shortness of breath no chest pain. Patient blood glucose is 359 and hemoglobin is 7.6 Consulted nephrology for evaluation Hospitalist Physical - Constitutional Vitals: Temp Pulse Resp BP Pulse Ox 98.2 F 101 H 16 193/130 100 01/22/22 17:48 01/23/22 01:27 01/23/22 01:27 01/22/22 19:31 01/23/22 01:26 General appearance: Present: no acute distress, well-nourished - EENT Eyes: Present: PERRL, EOM intact ENT: hearing intact, clear oral mucosa, dentition normal - Neck Neck: Present: supple, normal ROM - Respiratory Respiratory effort: normal - Cardiovascular Rhythm: regular Heart Sounds: Present: S1 & S2 - Extremities Extremities: no ischemia, No edema Peripheral Pulses: within normal limits - Abdominal General gastrointestinal: soft, non-tender, non-distended - Integumentary Integumentary: Present: clear, warm, dry - Psychiatric Psychiatric: appropriate mood/affect, intact judgment & insight - Neurologic Neurologic: CNII-XII intact, moves all extremities - Allied Health Allied health notes reviewed: nursing HEART Score - HEART Score Troponin: Troponin T < 0.010 ng/mL (0.00-0.029) 01/22/22 18:08 Results - Labs CBC & Chem 7: 01/23/22 05:12 01/23/22 05:12 Labs: Laboratory Last Values WBC 7.2 K/mm3 (4.5-11.0) 01/23/22 05:12 RBC 3.41 M/mm3 (3.65-5.03) L 01/23/22 05:12 Hgb 7.6 gm/dl (11.8-15.2) L 01/23/22 05:12 Hct 25.1 % (35.5-45.6) L 01/23/22 05:12 MCV 74 fl (84-94) L 01/23/22 05:12 MCH 22 pg (28-32) L 01/23/22 05:12 MCHC 30 % (32-34) L 01/23/22 05:12 RDW 22.3 % (13.2-15.2) H 01/23/22 05:12 Plt Count 546 K/mm3 (140-440) H 01/23/22 05:12 Lymph % (Auto) 18.3 % (13.4-35.0) 01/23/22 05:12 [place] % (Auto) 11.5 % (0.0-7.3) H 01/23/22 05:12 Eos % (Auto) 0.0 % (0.0-4.3) 01/23/22 05:12 Baso % (Auto) 0.2 % (0.0-1.8) 01/23/22 05:12 Lymph # (Auto) 1.3 K/mm3 (1.2-5.4) 01/23/22 05:12 [place] # (Auto) 0.8 K/mm3 (0.0-0.8) 01/23/22 05:12 Eos # (Auto) 0.0 K/mm3 (0.0-0.4) 01/23/22 05:12 Baso # (Auto) 0.0 K/mm3 (0.0-0.1) 01/23/22 05:12 Seg Neutrophils % 69.5 % (40.0-70.0) 01/23/22 05:12 Seg Neutrophils # 4.8 K/mm3 (1.8-7.7) 01/23/22 05:12 VBG pH 7.445 (7.320-7.420) H 01/22/22 18:08 Sodium 151 mmol/L (137-145) H 01/23/22 05:12 Potassium 4.1 mmol/L (3.6-5.0) 01/23/22 05:12 Chloride 106.4 mmol/L (98-107) 01/23/22 05:12 Carbon Dioxide 28 mmol/L (22-30) 01/23/22 05:12 Anion Gap 21 mmol/L 01/23/22 05:12 BUN 62 mg/dL (9-20) H 01/23/22 05:12 Creatinine 1.3 mg/dL (0.8-1.3) 01/23/22 05:12 Estimated GFR > 60 ml/min 01/23/22 05:12 BUN/Creatinine Ratio 48 % 01/23/22 05:12 Glucose 359 mg/dL (75-100) H 01/23/22 05:12 Ketones Quantitative Negative (Negative) 01/22/22 18:08 Lactic Acid 1.70 mmol/L (0.7-2.0) 01/22/22 18:08 Calcium 9.7 mg/dL (8.4-10.2) 01/23/22 05:12 Magnesium 3.30 mg/dL (1.7-2.3) H 01/22/22 22:31 Total Bilirubin 0.20 mg/dL (0.1-1.2) 01/23/22 05:12 AST 11 units/L (5-40) 01/23/22 05:12 ALT 6 units/L (7-56) L 01/23/22 05:12 Alkaline Phosphatase 113 units/L (35-129) 01/23/22 05:12 Troponin T < 0.010 ng/mL (0.00-0.029) 01/22/22 18:08 Total Protein 7.4 g/dL (6.3-8.2) 01/23/22 05:12 Albumin 4.2 g/dL (3.9-5) 01/23/22 05:12 Albumin/Globulin Ratio 1.3 % 01/23/22 05:12 - Imaging and Cardiology Chest x-ray: report reviewed CT Scan - head: report reviewed Active Medications - Current Medications Current Medications: Generic Name Dose Route Start Last Admin Trade Name Freq PRN Reason Stop Dose Admin Acetaminophen 650 mg 01/22/22 22:50 Acetaminophen 325 Mg Tab PO Q4H PRN Pain MILD(1-3)/Fever >100.5/QUINTANILLA Albuterol 2.5 mg 01/22/22 22:50 Albuterol 2.5 Mg/3 Ml Nebu IH Q3HRT PRN Shortness Of Breath Albuterol/Ipratropium 1 ampul 01/23/22 02:00 01/23/22 01:25 Ipratropium/Albuterol Sulfate 3 Ml Ampul.Neb IH 1 ampul Q6HRT BREANNE Administration Dextrose 0 ml 01/22/22 22:54 Dextrose 50% In Water (25gm) 50 Ml Syringe IV Q30MIN PRN Hypoglycemia Protocol Famotidine 20 mg 01/23/22 10:00 Famotidine 20 Mg/2 Ml Inj IV BID BREANNE Heparin Sodium (Porcine) 5,000 unit 01/23/22 10:00 Heparin 5,000 Unit/1 Ml Vial SUB-Q Q12HR [facility] Hydralazine HCl 10 mg 01/22/22 23:01 Hydralazine 20 Mg/1 Ml Inj IV Q6H PRN Blood Pressure Hydromorphone HCl 0.5 mg 01/22/22 23:48 Hydromorphone 0.5 Mg/0.5 Ml Inj IV Q4H PRN Pain , Severe (7-10) Sodium Chloride 1,000 mls @ 125 mls/hr 01/22/22 23:00 Nacl 0.45% 1000 Ml IV DIRECT [facility] Insulin Glargine 10 units 01/23/22 10:00 Insulin Glargine 100 Units/Ml SUB-Q BID [facility] Insulin Human Lispro 0 unit 01/23/22 07:30 Insulin Lispro 100 Unit/Ml SUB-Q ACHS [facility] Protocol Ondansetron HCl 4 mg 01/22/22 22:50 Ondansetron 4 Mg/2 Ml Inj IV Q8H PRN Nausea And Vomiting Sodium Chloride 10 ml 01/23/22 10:00 Sodium Chloride 0.9% 10 Ml Flush Syringe IV BID [facility] Sodium Chloride 10 ml 01/22/22 22:50 Sodium Chloride 0.9% 10 Ml Flush Syringe IV PRN PRN LINE FLUSH Nutrition/Malnutrition Assess - Malnutrition Assessment Minimum of two criteria: No physical signs of malnutrition - Attestation Statement I have reviewed and agreed w/ Malnutrition eval & tx plan: Yes
[2022-01-23] MEDS ORDERED: hydrALAZINE 20 MG/1 ML INJ IV PRN (08:44)
[2022-01-23] MEDS: FAMOTIDINE 20 MG/2 ML INJ IV SCH ×2 (09:58→22:54)
[2022-01-23] MEDS: INSULIN GLARGINE 100 UNITS/ML SUB-Q SCH ×2 (09:58→23:59)
[2022-01-23] MEDS: HEPARIN 5,000 UNIT/1 ML VIAL SUB-Q SCH ×2 (09:58→22:54)
[2022-01-23] MEDS ORDERED: amLODIPine 5 MG TAB PO SCH (10:00)
[2022-01-23] MEDS: INSULIN LISPRO 100 UNIT/ML SUB-Q SCH (11:54)
[2022-01-23 12:51] LABS: Bilirubin,Urine NEG (Negative); Blood,Urine NEG (Negative); Color,Urine Straw (Yellow); Urobilinogen,Urine < 2.0 mg/dL (<2.0)
[2022-01-23 13:03] LABS: RBC,Urine < 1.0 /HPF (0.0-6.0); WBC,Urine < 1.0 /HPF (0.0-6.0)
--- NOTE | 2022-01-23 14:41 | Consultation ---
History of Present Illness - Reason for Consult Consult date: 01/23/22 acute renal failure - History of Present Illness This is a 31 year old male who presented to the hospital with a chief complaint of Hyperglycemia and Syncope. On evaluation pertinent labs revealed and elevated sodium level of 151 and serum creatinine 1.4 and glucose was 184 that jason to the 400's today. Patient has history of MyHypertension and Diabetes Mellitus. We are being consulted for management of this patient's ARF. Past History Past Medical History: diabetes, hypertension, other (Myasthenia gravis) Past Surgical History: No surgical history Social history: no significant social history Family history: diabetes Medications and Allergies Allergies Allergy/AdvReac Type Severity Reaction Status Date / Time codeine Allergy Hives Verified 01/22/22 15:36 morphine Allergy Angioedema Verified 01/22/22 15:36 tomato Allergy Vomiting Verified 01/22/22 15:36 Home Medications Medication Instructions Recorded Confirmed Last Taken Type Pantoprazole Sodium [Protonix] 40 mg PO HS #30 gran 09/27/19 12/20/21 Unknown Rx Insulin NPH/Regular [NovoLIN 70/30] 18 unit SUB-Q QPMDIAB 30 Days 10/31/2012/20 Unknown Rx Insulin Regular, Human [HumuLIN R] See Protocol SUB-Q ACHS 30 Days 10/31/20 12/20/21 Unknown Rx Famotidine [Pepcid] 20 mg PO BID #60 tablet 01/13/21 12/20/21 Unknown Rx Insulin NPH/Regular [NovoLIN 70/30] 18 unit SUB-Q QDDIAB 30 Days units 01/13/21 12/20/21 Unknown Rx Losartan [Cozaar] 100 mg PO QDAY #30 tablet 01/13/21 12/20/21 Unknown Rx Metoclopramide HCl [Reglan TAB] 5 mg PO TIDAC #21 tablet 01/13/21 12/20/21 Unknown Rx NIFEdipine XL [Procardia Xl] 60 mg PO QDAY #30 tablet 01/13/21 12/20/21 Unknown Rx Losartan [Cozaar] 100 mg PO QDAY #30 08/24/21 12/20/21 Unknown Rx Metoclopramide HCl [Reglan TAB] 5 mg PO TIDAC #120 08/24/21 12/20/21 Unknown Rx NIFEdipine XL [Procardia Xl] 60 mg PO Q24H #30 tab 08/24/21 12/20/21 Unknown Rx Active Meds: Active Medications Acetaminophen (Acetaminophen 325 Mg Tab) 650 mg PO Q4H PRN PRN Reason: Pain MILD(1-3)/Fever >100.5/QUINTANILLA Albuterol (Albuterol 2.5 Mg/3 Ml Nebu) 2.5 mg IH Q3HRT PRN PRN Reason: Shortness Of Breath Albuterol/Ipratropium (Ipratropium/Albuterol Sulfate 3 Ml Ampul.Neb) 1 ampul IH Q6HRT [facility] Last Admin: 01/23/22 09:15 Dose: 1 ampul Amlodipine Besylate (Amlodipine 5 Mg Tab) 5 mg PO QDAY [facility] Last Admin: 01/23/22 09:58 Dose: 5 mg Dextrose (Dextrose 50% In Water (25gm) 50 Ml Syringe) 0 ml IV Q30MIN PRN; Protocol PRN Reason: Hypoglycemia Famotidine (Famotidine 20 Mg/2 Ml Inj) 20 mg IV BID [facility] Last Admin: 01/23/22 09:58 Dose: 20 mg Heparin Sodium (Porcine) (Heparin 5,000 Unit/1 Ml Vial) 5,000 unit SUB-Q Q12HR [facility] Last Admin: 01/23/22 09:58 Dose: 5,000 unit Hydralazine HCl (Hydralazine 20 Mg/1 Ml Inj) 10 mg IV Q6H PRN PRN Reason: Blood Pressure Hydromorphone HCl (Hydromorphone 0.5 Mg/0.5 Ml Inj) 0.5 mg IV Q4H PRN PRN Reason: Pain , Severe (7-10) Sodium Chloride (Nacl 0.45% 1000 Ml) 1,000 mls @ 125 mls/hr IV DIRECT [facility] Insulin Glargine (Insulin Glargine 100 Units/Ml) 10 units SUB-Q BID [facility] Last Admin: 01/23/22 09:58 Dose: 10 units Insulin Human Lispro (Insulin Lispro 100 Unit/Ml) 0 unit SUB-Q Q6HR [facility]; Protocol Last Admin: 01/23/22 11:54 Dose: 10 unit Ondansetron HCl (Ondansetron 4 Mg/2 Ml Inj) 4 mg IV Q8H PRN PRN Reason: Nausea And Vomiting Sodium Chloride (Sodium Chloride 0.9% 10 Ml Flush Syringe) 10 ml IV BID [facility]AN[facility] Last Admin: 01/23/22 09:58 Dose: 10 ml Sodium Chloride (Sodium Chloride 0.9% 10 Ml Flush Syringe) 10 ml IV PRN PRN PRN Reason: LINE FLUSH Review of Systems Constitutional: fatigue, weakness, no weight loss, no weight gain, no fever, no chills, no sweats Ears, nose, mouth and throat: no ear pain, no ear discharge, no tinnitis, no decreased hearing, no nose pain, no nasal congestion, no nasal discharge Cardiovascular: no chest pain, no orthopnea, no palpitations, no rapid/irregular heart beat, no edema, no syncope, no lightheadedness Respiratory: no cough with sputum, no excessive sputum, no hemoptysis, no shortness of breath, no dyspnea on exertion Gastrointestinal: no abdominal pain, no nausea, no vomiting, no diarrhea, no constipation, no change in bowel habits Genitourinary Male: no hematuria, no flank pain, no discharge, no urinary frequency, no urinary hesitancy Musculoskeletal: no neck stiffness, no neck pain, no shooting arm pain, no arm numbness/tingling, no low back pain, no shooting leg pain Integumentary: no rash, no pruritis, no redness, no sores, no wounds, no jaundice Neurological: weakness, syncope, no tingling, no seizures, no tremors Psychiatric: no anxiety, no memory loss, no change in sleep habits, no sleep disturbances, no insomnia Endocrine: no cold intolerance, no heat intolerance, no polyphagia, no excessive thirst, no polydipsia Exam - Vital Signs Vital signs: Vital Signs Temp Pulse Resp BP Pulse Ox 97.7 F 100 H 18 152/110 100 01/22/22 15:32 01/22/22 15:32 01/22/22 15:32 01/22/22 15:32 01/22/22 15:32 - General Appearance General appearance: well-developed, appears stated age EENT: ATNC, PERRL, hearing intact, vision intact Neck: Present: neck supple, trachea midline Respiratory: Decreased Breath Sounds Heart: S1S2 Gastrointestinal: Present: normoactive bowel sounds Integumentary: warm and dry Neurologic: alert and oriented x3 Musculoskeletal: Present: other (No edemaq) Results - Lab Results 01/23/22 05:12 01/23/22 05:12 Most recent lab results WBC 7.2 K/mm3 (4.5-11.0) 01/23/22 05:12 RBC 3.41 M/mm3 (3.65-5.03) L 01/23/22 05:12 Hgb 7.6 gm/dl (11.8-15.2) L 01/23/22 05:12 Hct 25.1 % (35.5-45.6) L 01/23/22 05:12 MCV 74 fl (84-94) L 01/23/22 05:12 MCH 22 pg (28-32) L 01/23/22 05:12 MCHC 30 % (32-34) L 01/23/22 05:12 RDW 22.3 % (13.2-15.2) H 01/23/22 05:12 Plt Count 546 K/mm3 (140-440) H 01/23/22 05:12 Lymph % (Auto) 18.3 % (13.4-35.0) 01/23/22 05:12 [place] % (Auto) 11.5 % (0.0-7.3) H 01/23/22 05:12 Eos % (Auto) 0.0 % (0.0-4.3) 01/23/22 05:12 Baso % (Auto) 0.2 % (0.0-1.8) 01/23/22 05:12 Lymph # (Auto) 1.3 K/mm3 (1.2-5.4) 01/23/22 05:12 [place] # (Auto) 0.8 K/mm3 (0.0-0.8) 01/23/22 05:12 Eos # (Auto) 0.0 K/mm3 (0.0-0.4) 01/23/22 05:12 Baso # (Auto) 0.0 K/mm3 (0.0-0.1) 01/23/22 05:12 Seg Neutrophils % 69.5 % (40.0-70.0) 01/23/22 05:12 Seg Neutrophils # 4.8 K/mm3 (1.8-7.7) 01/23/22 05:12 VBG pH 7.445 (7.320-7.420) H 01/22/22 18:08 Sodium 151 mmol/L (137-145) H 01/23/22 05:12 Potassium 4.1 mmol/L (3.6-5.0) 01/23/22 05:12 Chloride 106.4 mmol/L (98-107) 01/23/22 05:12 Carbon Dioxide 28 mmol/L (22-30) 01/23/22 05:12 Anion Gap 21 mmol/L 01/23/22 05:12 BUN 62 mg/dL (9-20) H 01/23/22 05:12 Creatinine 1.3 mg/dL (0.8-1.3) 01/23/22 05:12 Estimated GFR > 60 ml/min 01/23/22 05:12 BUN/Creatinine Ratio 48 % 01/23/22 05:12 Glucose 359 mg/dL (75-100) H 01/23/22 05:12 POC Glucose 466 mg/dL (70-105) H 01/23/22 11:50 Ketones Quantitative Negative (Negative) 01/22/22 18:08 Lactic Acid 1.70 mmol/L (0.7-2.0) 01/22/22 18:08 Calcium 9.7 mg/dL (8.4-10.2) 01/23/22 05:12 Magnesium 3.30 mg/dL (1.7-2.3) H 01/22/22 22:31 Total Bilirubin 0.20 mg/dL (0.1-1.2) 01/23/22 05:12 AST 11 units/L (5-40) 01/23/22 05:12 ALT 6 units/L (7-56) L 01/23/22 05:12 Alkaline Phosphatase 113 units/L (35-129) 01/23/22 05:12 Troponin T < 0.010 ng/mL (0.00-0.029) 01/22/22 18:08 Total Protein 7.4 g/dL (6.3-8.2) 01/23/22 05:12 Albumin 4.2 g/dL (3.9-5) 01/23/22 05:12 Albumin/Globulin Ratio 1.3 % 01/23/22 05:12 Urine Color Straw (Yellow) 01/23/22 12:40 Urine Turbidity Clear (Clear) 01/23/22 12:40 Urine pH 6.0 (5.0-7.0) 01/23/22 12:40 Ur Specific [place] 1.027 (1.003-1.030) 01/23/22 12:40 Urine Protein 30 mg/dl mg/dL (Negative) 01/23/22 12:40 Urine Glucose (UA) >=500 mg/dL (Negative) 01/23/22 12:40 Urine Ketones 20 mg/dL (Negative) 01/23/22 12:40 Urine Blood Neg (Negative) 01/23/22 12:40 Urine Nitrite Neg (Negative) 01/23/22 12:40 Urine Bilirubin Neg (Negative) 01/23/22 12:40 Urine Urobilinogen < 2.0 mg/dL (<2.0) 01/23/22 12:40 Ur Leukocyte Esterase Neg (Negative) 01/23/22 12:40 Urine WBC (Auto) < 1.0 /HPF (0.0-6.0) 01/23/22 12:40 Urine RBC (Auto) < 1.0 /HPF (0.0-6.0) 01/23/22 12:40 Assessment and Plan Assessment: Acute Renal Failure Diabetes Mellitus Hypertension Myasthenia Gravis Anemia Hypernatremia Plan: Renal labs reviewed. Serum creatinine 1.3 today, yesterday's was 1.4. Serum creatinine 12/21/[address] Abdomen- No hydronephrosis noted On 2NS@ 125 ml/hr Obtain urine lytes Monitor I/O's daily Renally dose medications Avoid nephrotoxic agents Continue to monitor renal function Plan of care reviewed by Dr. Banuelos
[2022-01-24] MEDS: IPRATROPIUM/ALBUTEROL SULFATE 3 ML AMPUL.NEB IH SCH (05:15)
[2022-01-24] MEDS: INSULIN LISPRO 100 UNIT/ML SUB-Q SCH ×2 (06:25)
--- NOTE | 2022-01-24 08:54 | Electrocardiograph Report ---
[facility] Test Date: 2022-01-22 Test Time: 21:13:34 Pat Name: TIA KAUR Department: Room: A466 Gender: M Operations Manager/Coordinator: IVORY : 1990 Requested By: DEBBIE DIEZ Order Number: [id number] Reading MD: Hadley Tucker Measurements Intervals [place] Rate: 90 P: 45 [place]: 131 QRS: 76 QRSD: 83 T: 144 QT: 434 QTc: 531 Interpretive Statements Sinus rhythm Repol abnrm, prob ischemia, anterolateral lds Prolonged QT interval Compared to ECG 12/18/2021 15:15:28 Early repolarization now present Possible ischemia still present Electronically Signed On 01-24-2022 8:54:14 EDT by Hadley Tucker
[2022-01-24 09:08] LABS: BUN/Creatinine Ratio 28; Blood Urea Nitrogen 31 mg/dL (9-20); Calcium 9.7 mg/dL (8.4-10.2); Hemolysis Index 0; Iron 27 ug/dL (49-181); Total Iron Binding Capacity 463 mcg/dL (250-450)
[2022-01-24 09:14] LABS: Hematocrit 23.1 % (35.5-45.6); Hemoglobin 7.5 gm/dl (11.8-15.2); Mean Corpuscular HGB Conc 33 % (32-34); Mean Corpuscular Volume 74 fl (84-94); Platelet Count 454 K/mm3 (140-440); Red Blood Count 3.15 M/mm3 (3.65-5.03); Red Cell Distribution Width 23.1 % (13.2-15.2)
[2022-01-24] MEDS ORDERED: FAMOTIDINE 20 MG TAB PO SCH (10:00)
[2022-01-24] MEDS ORDERED: NIFEdipine XL 60 MG TAB PO SCH (10:00)
[2022-01-24] MEDS ORDERED: LOSARTAN 50 MG TAB PO SCH (10:00)
[2022-01-24] MEDS: HEPARIN 5,000 UNIT/1 ML VIAL SUB-Q SCH (11:05)
[2022-01-24] MEDS ORDERED: INSULIN LISPRO 100 UNIT/ML SUB-Q SCH (11:30)
[2022-01-24] MEDS ORDERED: SODIUM FERRIC GLUCON/SUCRO 125 MG in SODIUM CHLORIDE 0.9% 100 ML IV ONE (12:16)
--- NOTE | 2022-01-24 12:30 | Progress Note ---
Assessment and Plan Assessment: Acute Renal Failure Diabetes Mellitus Hypertension Myasthenia Gravis Anemia Hypernatremia Plan: Renal labs reviewed. Serum creatinine 1.1 today, yesterday's was 1.3. Serum creatinine 12/21/[address] Abdomen- No hydronephrosis noted On 12NS@125 ml/hr Obtain urine lytes Monitor I/O's daily Renally dose medications Avoid nephrotoxic agents Continue to monitor renal function Plan of care reviewed by Dr. Banuelos Subjective Date of service: 01/24/22 Interval history: Patient seen lying in bed. No family at bedside. Objective - Vital Signs Vital signs: Vital Signs - 12hr 01/24/22 03:33 Temperature 98.4 F Pulse Rate 109 H Respiratory 16 Rate Blood Pressure 148/106 O2 Sat by Pulse 99 Oximetry - General Appearance General appearance: well-developed, appears stated age EENT: ATNC, PERRL, hearing intact Neck: no JVD, supple Respiratory: Present: Decreased Breath Sounds Cardiology: S1S2 Gastrointestinal: normoactive bowel sounds Integumentary: warm and dry Neurologic: alert and oriented x3 Musculoskeletal: other (No edema) - Lab 01/24/22 08:07 01/24/22 08:07 Most recent lab results Calcium 9.7 mg/dL (8.4-10.2) 01/24/22 08:07 Magnesium 3.30 mg/dL (1.7-2.3) H 01/22/22 22:31 Medications & Allergies - Medications Allergies/Adverse Reactions: Allergies codeine Allergy (Verified 01/22/22 15:36) Hives morphine Allergy (Verified 01/22/22 15:36) Angioedema tomato Allergy (Verified 01/22/22 15:36) Vomiting Home Medications: Home Medications Medication Instructions Recorded Confirmed Last Taken Type Pantoprazole Sodium [Protonix] 40 mg PO HS #30 carlospkt. 09/27/19 01/23/22 Unknown Rx Insulin NPH/Regular [NovoLIN 70/30] 18 unit SUB-Q QPMDIAB 30 Days 10/31/20 01/23/22 Unknown Rx Insulin Regular, Human [HumuLIN R] See Protocol SUB-Q ACHS 30 Days 10/31/20 01/23/22 Unknown Rx Famotidine [Pepcid] 20 mg PO BID #60 tablet 01/13/21 01/23/22 Unknown Rx Losartan [Cozaar] 100 mg PO QDAY #30 tablet 01/13/21 01/23/22 Unknown Rx Metoclopramide HCl [Reglan TAB] 5 mg PO TIDAC #21 tablet 01/13/21 01/23/22 Unknown Rx NIFEdipine XL [Procardia Xl] 60 mg PO QDAY #30 tablet 01/13/21 01/23/22 Unknown Rx Active Medications: Generic Name Dose Route Start Last Admin Trade Name Maurice PRN Reason Stop Dose Admin Acetaminophen 650 mg 01/22/22 22:50 Acetaminophen 325 Mg Tab PO Q4H PRN Pain MILD(1-3)/Fever >100.5/QUINTANILLA Albuterol 2.5 mg 01/22/22 22:50 Albuterol 2.5 Mg/3 Ml Nebu IH Q3HRT PRN Shortness Of Breath Dextrose 0 ml 01/22/22 22:54 Dextrose 50% In Water (25gm) 50 Ml Syringe IV Q30MIN PRN Hypoglycemia Protocol Famotidine 20 mg 01/24/22 10:00 01/24/22 11:04 Famotidine 20 Mg Tab PO 20 mg BID BREANNE Administration Heparin Sodium (Porcine) 5,000 unit 01/23/22 10:00 01/24/22 11:05 Heparin 5,000 Unit/1 Ml Vial SUB-Q 5,000 unit Q12HR BREANNE Administration Hydralazine HCl 10 mg 01/22/22 23:01 01/23/22 23:58 Hydralazine 20 Mg/1 Ml Inj IV 10 mg Q6H PRN Administration Blood Pressure Hydromorphone HCl 0.5 mg 01/22/22 23:48 Hydromorphone 0.5 Mg/0.5 Ml Inj IV Q4H PRN Pain , Severe (7-10) Insulin Glargine 10 units 01/23/22 10:00 01/23/22 23:59 Insulin Glargine 100 Units/Ml SUB-Q 10 units BID BREANNE Administration Insulin Human Lispro 0 unit 01/24/22 11:30 Insulin Lispro 100 Unit/Ml SUB-Q ACHS BREANNE Protocol Losartan Potassium 50 mg 01/24/22 10:00 01/24/22 11:04 Losartan 50 Mg Tab PO 50 mg QDAY BREANNE Administration Nifedipine 60 mg 01/24/22 10:00 01/24/22 11:04 Nifedipine Xl 60 Mg Tab PO 60 mg QDAY BREANNE Administration Ondansetron HCl 4 mg 01/22/22 22:50 Ondansetron 4 Mg/2 Ml Inj IV Q8H PRN Nausea And Vomiting Sodium Chloride 10 ml 01/23/22 10:00 01/24/22 11:08 Sodium Chloride 0.9% 10 Ml Flush Syringe IV 10 ml BID BREANNE Administration Sodium Chloride 10 ml 01/22/22 22:50 Sodium Chloride 0.9% 10 Ml Flush Syringe IV PRN PRN LINE FLUSH
--- NOTE | 2022-01-24 14:31 | Discharge Summary ---
Providers - Providers Date of Admission: 01/22/22 22:51 Date of discharge: 01/24/22 Attending physician: WASHINGTON ZULUAGA MD 01/22/22 22:54 Consult to Dietitian/Nutrition [CONS] Routine Physician Instructions: Reason For Exam: Reason for Consult: Diet education 01/23/22 08:13 Consult to Physician [CONS] Routine Comment: Consulting Provider: NEHA ZAMORA Physician Instructions: Reason For Exam: isha Primary care physician: TEXTILE KNITTER Hospitalization Reason for admission: Hypernatremia, ISHA, dehydration Condition: Stable Pertinent studies: Reviewed. Procedures: None. Hospital course: Patient is a 31-year-old male past medical history of hypertension, insulin- dependent type 1 diabetes mellitus, and myasthenia gravis who presented to the emergency department with elevated blood sugars after syncopal episode. The patient states that he fell and hit his head and had reports of "feeling bad" since the day prior to presentation. Patient denied having any loss of consciousness but did endorse having back pain after his ground-level fall. In the ED, the patient was found to have a sodium of 152, creatinine 1.4, glucose 184. The patient was admitted for further management patient received IV fluid resuscitation with resolution of his ISHA. The patient's hypernatremia also resolved, with his most recent sodium being 146. Patient was found to have iron deficiency anemia, and he was transfused with IV Ferrlecit prior to discharge. The patient is medically clear for discharge. Disposition: 01 HOME / SELF CARE / HOMELESS Final Discharge Diagnosis (Prints w/discharge instructions): ISHA, hypernatremia, insulin-dependent type 1 diabetes mellitus with hyperglycemia, hypertension, myasthenia gravis, iron deficiency anemia, dehydration Time spent for discharge: 45 min Core Measure Documentation - Palliative Care Palliative Care/ Comfort Measures: Not Applicable - Core Measures Any of the following diagnoses?: none Exam - Constitutional Vitals: Temp Pulse Resp BP Pulse Ox 98.4 F 109 H 16 148/106 99 01/24/22 03:33 01/24/22 03:33 01/24/22 03:33 01/24/22 03:33 01/24/22 10:00 General appearance: Present: no acute distress, well-nourished - EENT Eyes: Present: PERRL, EOM intact ENT: hearing intact, clear oral mucosa, dentition normal - Neck Neck: Present: supple, normal ROM - Respiratory Respiratory effort: normal Respiratory: bilateral: CTA - Cardiovascular Rhythm: regular Heart Sounds: Present: S1 & S2 - Extremities Extremities: no ischemia, pulses intact, pulses symmetrical, No edema, normal temperature, normal color, Full ROM Peripheral Pulses: within normal limits - Abdominal General gastrointestinal: Present: soft, non-tender, non-distended, normal bowel sounds Male genitourinary: Present: deferred - Rectal Rectal Exam: deferred - Integumentary Integumentary: Present: clear, warm, dry - Musculoskeletal Musculoskeletal: strength equal bilaterally - Psychiatric Psychiatric: appropriate mood/affect, intact judgment & insight, memory intact, cooperative - Neurologic Neurologic: CNII-XII intact, moves all extremities - Allied Health Allied health notes reviewed: nursing Plan Activity: no restrictions Diet: low salt, diabetic Additional Instructions: Patient is a 31-year-old male past medical history of hypertension, insulin-dependent type 1 diabetes mellitus, and myasthenia gravis who presented to the emergency department with elevated blood sugars after syncopal episode. The patient states that he fell and hit his head and had reports of "feeling bad" since the day prior to presentation. Patient denied having any loss of consciousness but did endorse having back pain after his ground-level fall. In the ED, the patient was found to have a sodium of 152, creatinine 1.4, glucose 184. The patient was admitted for further management patient received IV fluid resuscitation with resolution of his ISHA. The patient's hypernatremia also resolved, with his most recent sodium being 146. Patient was found to have iron deficiency anemia, and he was transfused with IV Ferrlecit prior to discharge. The patient is medically clear for discharge. Care Plan Goals: Patient is medically cleared for discharge. Assessment: Patient is a 31-year-old male past medical history of hypertension, insulin- dependent type 1 diabetes mellitus, and myasthenia gravis who presented to the emergency department with elevated blood sugars after syncopal episode. The patient states that he fell and hit his head and had reports of "feeling bad" since the day prior to presentation. Patient denied having any loss of consciousness but did endorse having back pain after his ground-level fall. In the ED, the patient was found to have a sodium of 152, creatinine 1.4, glucose 184. The patient was admitted for further management patient received IV fluid resuscitation with resolution of his ISHA. The patient's hypernatremia also resolved, with his most recent sodium being 146. Patient was found to have iron deficiency anemia, and he was transfused with IV Ferrlecit prior to discharge. The patient is medically clear for discharge. Follow up with: RAINER SCHWARTZ MD [Staff Physician] - 14 Days Forms: Work/School Release Form Prescriptions: Losartan [Cozaar] 100 mg PO QDAY #30 tab NIFEdipine XL [Procardia Xl] 60 mg PO QDAY #30 tablet
[2022-01-24] MEDS: INSULIN GLARGINE 100 UNITS/ML SUB-Q SCH (14:49)
[2022-01-24 17:37] LABS: Creatinine,Urine 113.1 mg/dL (0.1-20.0); Protein/Creatinine Ratio,Urine 0.45
[2022-01-24 20:46] VITALS: BP 133/94
== END 2022-01-24 19:00 | disposition home or self-care (01) | DRG 683 ==
LOC: ED 15:13 → 4A 22:51
PROVIDERS: ADMIT Hospitalist; ATTEND Student in an Organized Health Care Education/Training Program
DX: N17.9 Acute kidney failure, unspecified (principal); E87.0 Hyperosmolality and hypernatremia; G70.00 Myasthenia gravis without (acute) exacerbation; W18.39XA Other fall on same level, initial encounter; Y93.89 Activity, other specified; Y92.89 Other specified places as the place of occurrence of the external cause; Y99.8 Other external cause status; I10 Essential (primary) hypertension; E86.0 Dehydration; E11.65 Type 2 diabetes mellitus with hyperglycemia; D64.9 Anemia, unspecified; Z88.6 Allergy status to analgesic agent; Z79.899 Other long term (current) drug therapy; Z79.4 Long term (current) use of insulin; Z83.3 Family history of diabetes mellitus; Z88.5 Allergy status to narcotic agent; Z91.018 Allergy to other foods
CPT/HCPCS: 36415; 70450; 71045; 74177; 80048; 80053; 81001; 82010; 82140; 82570; 82728; 82805; 82962; 83550; 83735; 84156; 84300; 84484; 85025; 85027; 89050; 93005; 94640; G0378; J3490; Q9967; J0360; J1644; J1815; J2916; J7030

== ENCOUNTER 2022-03-07 13:39 | Inpatient (IN) | payer OTHER ==
[2022-03-07] MEDS ORDERED: SODIUM CHLORIDE 0.9% 1000 ML 1,000 ML IV ONE ×5 (13:58→19:09)
--- NOTE | 2022-03-07 14:11 | Emergency Department Report ---
ED General Adult HPI - General Chief complaint: Hyperglycemia Stated complaint: AMS Time Seen by Provider: 03/07/22 13:58 Source: patient, EMS Mode of arrival: Stretcher Limitations: Altered Mental Status - History of Present Illness Initial comments: Patient is a 31-year-old male with history of diabetes and DKA brought in by EMS for evaluation of altered mental status. Per EMS family reports that they have been trying to control his elevated blood sugar for the past several days and noticed that his mentation has steadily declined over that time. EMS arrived to find patient confused/altered. He was also hypotensive and started on IV fluids. Fingerstick glucose read high. - Related Data Previous Rx's Medication Instructions Recorded Last Taken Type Pantoprazole Sodium [Protonix] 40 mg PO HS #30 granpkt. 09/27/19 Unknown Rx Insulin NPH/Regular [NovoLIN 70/30] 18 unit SUB-Q QPMDIAB 30 Days 10/31/20 Unknown Rx Insulin Regular, Human [HumuLIN R] See Protocol SUB-Q ACHS 30 Days 10/31/20 Unknown Rx Famotidine [Pepcid] 20 mg PO BID #60 tablet 01/13/21 Unknown Rx Metoclopramide HCl [Reglan TAB] 5 mg PO TIDAC #21 tablet 01/13/21 Unknown Rx Losartan [Cozaar] 100 mg PO QDAY #30 tab 01/24/22 Unknown Rx NIFEdipine XL [Procardia Xl] 60 mg PO QDAY #30 tablet 01/24/22 Unknown Rx Allergies Allergy/AdvReac Type Severity Reaction Status Date / Time codeine Allergy Hives Verified 01/22/22 15:36 morphine Allergy Angioedema Verified 01/22/22 15:36 tomato Allergy Vomiting Verified 01/22/22 15:36 ED Review of Systems ROS: Stated complaint: AMS Other details as noted in HPI Comment: Unobtainable due to pts medical conditions ED Past Medical Hx - Past Medical History Hx Hypertension: Yes Hx Congestive Heart Failure: No Hx Diabetes: Yes Hx Asthma: No Additional medical history: Myasthenia gravis - Social History Smoking Status: Never Smoker - Medications Home Medications: Home Medications Medication Instructions Recorded Confirmed Last Taken Type Pantoprazole Sodium [Protonix] 40 mg PO HS #30 granpkt. 09/27/19 01/23/22 Unknown Rx Insulin NPH/Regular [NovoLIN 70/30] 18 unit SUB-Q QPMDIAB 30 Days 10/31/20 0 01/23/22 Unknown Rx Insulin Regular, Human [HumuLIN R] See Protocol SUB-Q ACHS 30 Days 10/31/2007/05 Unknown Rx Famotidine [Pepcid] 20 mg PO BID #60 tablet 01/13/21 01/23/22 Unknown Rx Metoclopramide HCl [Reglan TAB] 5 mg PO TIDAC #21 tablet 01/13/21 01/23/22 Unknown Rx Losartan [Cozaar] 100 mg PO QDAY #30 tab 01/24/22 Unknown Rx NIFEdipine XL [Procardia Xl] 60 mg PO QDAY #30 tablet 01/24/22 Unknown Rx ED Physical Exam - General Limitations: Altered Mental Status General appearance: other (Patient disoriented and lethargic) - Head Head exam: Present: atraumatic, normocephalic - Respiratory Respiratory exam: Present: normal lung sounds bilaterally. Absent: respiratory distress - Cardiovascular Cardiovascular Exam: Present: regular rate, normal rhythm, normal heart sounds - GI/Abdominal GI/Abdominal exam: Present: soft. Absent: distended, tenderness - Rectal Rectal exam: Present: deferred - Neurological Exam Neurological exam: Present: altered - Skin Skin exam: Present: warm, dry, intact, normal color ED Course Vital Signs 03/07/22 03/07/22 03/07/22 14:03 14:06 14:16 Temperature Pulse Rate 90 89 89 Respiratory 17 18 17 Rate Blood Pressure 97/37 103/46 Blood Pressure [Right] O2 Sat by Pulse 100 100 100 Oximetry 03/07/22 03/07/22 03/07/22 14:22 14:30 14:46 Temperature Pulse Rate 86 87 Respiratory 18 21 18 Rate Blood Pressure 103/44 100/55 Blood Pressure [Right] O2 Sat by Pulse 100 100 100 Oximetry 03/07/22 03/07/22 03/07/22 15:00 15:09 15:18 Temperature 90.7 F L Pulse Rate Respiratory 17 Rate Blood Pressure 90/42 Blood Pressure 93/40 [Right] O2 Sat by Pulse 100 Oximetry 03/07/22 15:49 Temperature 90.5 F L Pulse Rate Respiratory Rate Blood Pressure Blood Pressure [Right] O2 Sat by Pulse Oximetry - Central Line Placement Right IJ Consent Obtained: emergent situation Time Out Performed: Yes Patient Placed on Monitor/Pulse Ox: Yes Prep: mask, gown, gloves Central Line Prep: Chlorhexidine scrub Ultrasound Used for Placement: Yes Central Line Lumen Inserted: triple Reason for Insertion: Emergency Venous Access Central Line Position: good blood return, all ports aspirated, flus, sutured in place with 2-0 Dressing Applied: Tegaderm Post Procedure X-Ray: tip of catheter in good p Patient Tolerated Procedure: well Complications: none ED Medical Decision Making - Lab Data Result diagrams: 03/07/22 15:27 03/07/22 15:27 - Medical Decision Making Patient presenting to ED for hyperglycemia and altered mental status. Likely DKA. He was started on aggressive IV fluid resuscitation. Labs were obtained. WBC count 18,000. Patient hypothermic and hypotensive. Chest x-ray shows nonspecific bilateral pulmonary opacities. Code sepsis paged. He was given empiric antibiotics. Bear hugger applied. He was also started on Levophed infusion. Central line was placed. Serum glucose 1592. pH on ABG 6.96. Bicarb is 3. Serum potassium 6.6. Will start on insulin infusion and admit to ICU. Critical Care Time: Yes Critical care time in (mins) excluding proc time.: 45 Critical care attestation.: If time is entered above; I have spent that time in minutes in the direct care of this critically ill patient, excluding procedure time. ED Disposition Clinical Impression: DKA (diabetic ketoacidosis), Sepsis, Abnormal chest x-ray Disposition: ADMITTED INPATIENT Is pt being admited?: Yes Condition: Stable Instructions: Diabetic Ketoacidosis (ED)
[2022-03-07] MEDS ORDERED: PIPERACILLIN/TAZOBACTAM 3.375 3.375 GM/50 ML BAG IV ONE (15:25)
[2022-03-07 15:59] LABS: Mean Corpuscular HGB Conc 23 % (32-34); Mean Corpuscular Volume 92 fl (84-94); Platelet Count 568 K/mm3 (140-440); Red Blood Count 2.96 M/mm3 (3.65-5.03)
[2022-03-07] MEDS ORDERED: NORepinephrine/NS 8 MG-250 ML 8 MG/250 ML INFUS..BTL IV SCH (16:00)
--- NOTE | 2022-03-07 16:00 | XRay Report ---
CHEST 1 VIEW 03/07/2022 3:38 PM INDICATION / CLINICAL INFORMATION: Sepsis. COMPARISON: One view of the chest from 01/22/2022. FINDINGS: SUPPORT DEVICES: None. HEART / MEDIASTINUM: No significant abnormality. LUNGS / PLEURA: There are mild generalized bilateral interstitial opacities. No dense area of consoli dation. No significant pleural effusion. No pneumothorax. ADDITIONAL FINDINGS: No significant additional findings. IMPRESSION: Nonspecific mild bilateral pulmonary opacities could represent early pneumonia or edema. Continued cl ose attention on follow-up imaging is recommended. Signer Name: Chau Collins MD Signed: 03/07/2022 3:56 PM Workstation Name: [id number]
[2022-03-07 16:07] LABS: Hematocrit 27.1 % (35.5-45.6); Hemoglobin 6.2 gm/dl (11.8-15.2); Red Cell Distribution Width 25.5 % (13.2-15.2)
[2022-03-07 16:18] LABS: Alanine Aminotransferase 10 units/L (7-56); Albumin 3.7 g/dL (3.9-5); BUN/Creatinine Ratio 33; Blood Urea Nitrogen 86 mg/dL (9-20); Calcium 7.5 mg/dL (8.4-10.2); Hemolysis Index 6
[2022-03-07 16:20] LABS: ABG Base Excess -26.4 mmol/L (-2.0-3.0); ABG HCO3 3.1 mmol/L (20.0-26.0); ABG Methemoglobin 0.6 % (0.0-1.5); ABG Oxygen Saturation 98.3 % (95.0-99.0); ABG PCO2 14.1 mm Hg; ABG PO2 155.3 mm Hg (80.0-90.0)
[2022-03-07 16:22] LABS: Bilirubin,Direct < 0.2 mg/dL (0-0.2)
[2022-03-07 16:22] LABS: ABG PH 6.965 pH Units (7.350-7.450)
[2022-03-07] MEDS ORDERED: DEXTROSE 50% IN WATER (25GM) 50 ML SYRINGE IV PRN (16:26)
[2022-03-07] MEDS: POTASSIUM CHLORIDE 20 MEQ 20 MEQ/100 ML BAG IV SCH ×4 (16:39→19:40)
[2022-03-07] MEDS: INSULIN REGULAR, HUMAN 100 UNITS in SODIUM CHLORIDE 0.9% 99 ML IV SCH (16:50)
--- NOTE | 2022-03-07 16:59 | XRay Report ---
XR chest 1V ap INDICATION / CLINICAL INFORMATION: Line placement. COMPARISON: Radiograph from earlier same day. FINDINGS: SUPPORT DEVICES: Right IJ central venous catheter projects over the lower SVC. HEART /PULMONARY VASCULATURE: No significant abnormality. LUNGS / PLEURA: Mild increased opacity within the medial right lung base, may reflect atelectasis. Ana ng parenchyma is otherwise stable. No pneumothorax. IMPRESSION: 1. Right IJ central venous catheter projects over the lower SVC. 2. Mild increased medial right lung opacity, may reflect atelectasis Signer Name: Teddy Estrada MD Signed: 03/07/2022 4:55 PM Workstation Name: [id number]
[2022-03-07 17:09] LABS: Anisocytosis 2+; Basophils % (Manual) 0 % (0.0-1.8); Eosinophils % (Manual) 0 % (0.0-4.3); Hypochromasia 2+; Platelet Estimate Consistent w Auto; Total Cells Counted 100
[2022-03-07 18:48] LABS: Calcium 7.6 mg/dL (8.4-10.2)
[2022-03-07] MEDS ORDERED: SODIUM CHLORIDE 0.9% 1000 ML 2,000 ML ONE (19:00)
[2022-03-07] MEDS ORDERED: SODIUM CHLORIDE 0.9% 500 ML 500 ML IV ONE (20:05)
[2022-03-07] MEDS ORDERED: ONDANSETRON 4 MG/2 ML INJ IV PRN (20:29)
[2022-03-07] MEDS ORDERED: ACETAMINOPHEN 325 MG TAB PO PRN (20:29)
[2022-03-07] MEDS ORDERED: METOCLOPRAMIDE 10 MG/2 ML INJ IV PRN (20:29)
[2022-03-07] MEDS ORDERED: MORPHINE 2 MG/1 ML INJ IV PRN (20:29)
[2022-03-07] MEDS ORDERED: SODIUM BICARB 8.4% 50 MEQ/50 ML SYRINGE IV ONE ×3 (20:36→22:55)
--- NOTE | 2022-03-07 20:52 | History and Physical Report ---
History of Present Illness Date of examination: 03/07/22 Date of admission: 03/07/2022 Chief complaint: Altered mental status for 1 day History of present illness: 31-year-old male with history of insulin-dependent diabetes, hypertension and GERD brought in by EMS for altered mental status. As per family patient has been with high blood glucose levels and ultrasound for couple of days. Patient has been trying to control his blood glucose levels but unable to. No fever or chills. Nausea present ,no vomiting. In the emergency room patient has blood glucose level of 1582, BUN/creatinine of 86/2.6 and with severe metabolic acidosis Hence admission to ICU for IV insulin critical care - Past Medical History --Hypertension: Yes --Diabetes: Yes --Additional medical history: Myasthenia gravis - Social History --Smoking Status: Never Smoker - Medications Home Medications: Home Medications Medication Instructions Recorded Confirmed Last Taken Type Pantoprazole Sodium [Protonix] 40 mg PO HS #30 granpkt. 09/27/19 01/23/22 Unknown Rx Insulin NPH/Regular [NovoLIN 70/30] 18 unit SUB-Q QPMDIAB 30 Days 10/31/20 01/23/22 Unknown Rx Insulin Regular, Human [HumuLIN R] See Protocol SUB-Q ACHS 30 Days 10/31/20 01/23/22 Unknown Rx Famotidine [Pepcid] 20 mg PO BID #60 tablet 01/13/21 01/23/22 Unknown Rx Metoclopramide HCl [Reglan TAB] 5 mg PO TIDAC #21 tablet 01/13/21 01/23/22 Unknown Rx Losartan [Cozaar] 100 mg PO QDAY #30 tab 01/24/22 Unknown Rx NIFEdipine XL [Procardia Xl] 60 mg PO QDAY #30 tablet 01/24/22 Unknown Rx Review of Systems ROS: Constitutional no weight loss or weight gain no fever or chills HEENT no sore throat no post nasal drip no diplopia Neck no neck stiffness no lymph gland enlargement Chest and lungs no shortness of breath cough or wheezing CVS no chest pain no diaphoresis no palpitations GI no nausea no vomiting no diarrhea Genitourinary system no dysuria no flank pain Musculoskeletal system no muscle pains no joint pains PRE CODER altered sensorium for couple days Skin no rash no itching Psychiatric no depression no homicidal or suicidal tendencies Hematologic no lymphedema or bruising Endocrine polydipsia and polyuria present. Medications and Allergies Allergies Allergy/AdvReac Type Severity Reaction Status Date / Time codeine Allergy Hives Verified 01/22/22 15:36 morphine Allergy Angioedema Verified 01/22/22 15:36 tomato Allergy Vomiting Verified 01/22/22 15:36 Home Medications Medication Instructions Recorded Confirmed Last Taken Type Pantoprazole Sodium [Protonix] 40 mg PO HS #30 gran 09/27/19 01/23/22 Unknown Rx Insulin NPH/Regular [NovoLIN 70/30] 18 unit SUB-Q QPMDIAB 30 Days 10/31/20 01/23/22 Unknown Rx Insulin Regular, Human [HumuLIN R] See Protocol SUB-Q ACHS 30 Days 10/31/20 01/23/22 Unknown Rx Famotidine [Pepcid] 20 mg PO BID #60 tablet 01/13/21 01/23/22 Unknown Rx Metoclopramide HCl [Reglan TAB] 5 mg PO TIDAC #21 tablet 01/13/21 01/23/22 Unknown Rx Losartan [Cozaar] 100 mg PO QDAY #30 tab 01/24/22 Unknown Rx NIFEdipine XL [Procardia Xl] 60 mg PO QDAY #30 tablet 01/24/22 Unknown Rx Active Meds: Active Medications Dextrose (Dextrose 50% In Water (25gm) 50 Ml Syringe) 0 ml IV Q30MIN PRN; Protocol PRN Reason: Hypoglycemia NORepinephrine/NS 8 MG-250 ML (Norepinephrine/Ns 8 Mg-250 Ml (Double Conc)) 8 mg in 250 mls @ 3.75 mls/hr IV TITRATE BREANNE; Protocol Last Titration: 03/07/22 17:51 Dose: 8 mcg/min, 15 mls/hr Insulin Human Regular 100 (units/ Sodium Chloride) 100 mls @ 7 mls/hr IV TITR BREANNE; Protocol Last Admin: 03/07/22 16:50 Dose: 8 units/hr, 8 mls/hr Potassium Chloride/Dextrose/Sod Cl (D5w/0.45% Nacl/Kcl 20 Meq) 20 meq in 1,000 mls @ 125 mls/hr IV DIRECT BREANNE Exam - Constitutional Vitals: Temp Pulse Resp BP Pulse Ox 93.3 F L 103 H 19 117/56 100 03/07/22 16:58 03/07/22 20:16 03/07/22 20:16 03/07/22 20:16 03/07/22 20:16 General appearance: Present: mild distress, well-nourished - EENT Eyes: Present: PERRL ENT: hearing intact, clear oral mucosa - Neck Neck: Present: supple, normal ROM - Respiratory Respiratory effort: normal Respiratory: bilateral: CTA - Cardiovascular Heart rate: 98 Rhythm: regular Heart Sounds: Present: S1 & S2. Absent: rub, click - Extremities Extremities: no ischemia, pulses intact, pulses symmetrical, No edema Peripheral Pulses: within normal limits - Abdominal General gastrointestinal: Present: soft, non-tender, non-distended, normal bowel sounds Male genitourinary: Present: normal - Integumentary Integumentary: Present: clear, warm, dry - Musculoskeletal Musculoskeletal: strength equal bilaterally, generalized weakness - Psychiatric Psychiatric: other (Altered sensorium) - Neurologic Neurologic: CNII-XII intact, moves all extremities, other (Altered sensorium) - Allied Health Allied health notes reviewed: nursing, case management Results - Labs CBC & Chem 7: 03/08/22 03:45 03/08/22 03:45 Labs: Laboratory Last Values WBC 18.4 K/mm3 (4.5-11.0) H 03/07/22 15:27 RBC 2.96 M/mm3 (3.65-5.03) L 03/07/22 15:27 Hgb 6.2 gm/dl (11.8-15.2) L 03/07/22 15:27 Hct 27.1 % (35.5-45.6) L 03/07/22 15:27 MCV 92 fl (84-94) 03/07/22 15:27 MCH 21 pg (28-32) L 03/07/22 15:27 MCHC 23 % (32-34) L 03/07/22 15:27 RDW 25.5 % (13.2-15.2) H 03/07/22 15:27 Plt Count 568 K/mm3 (140-440) H 03/07/22 15:27 Add Manual Diff Complete 03/07/22 15:27 Total Counted 100 03/07/22 15:27 Seg Neuts % (Manual) 96.0 % (40.0-70.0) H 03/07/22 15:27 Band Neutrophils % 0 % 03/07/22 15:27 Lymphocytes % (Manual) 0 % (13.4-35.0) L 03/07/22 15:27 Reactive Lymphs % (Man) 0 % 03/07/22 15:27 Monocytes % (Manual) 3.0 % (0.0-7.3) 03/07/22 15:27 Eosinophils % (Manual) 0 % (0.0-4.3) 03/07/22 15:27 Basophils % (Manual) 0 % (0.0-1.8) 03/07/22 15:27 Metamyelocytes % 1.0 % 03/07/22 15:27 Myelocytes % 0 % 03/07/22 15:27 Promyelocytes % 0 % 03/07/22 15:27 Blast Cells % 0 % 03/07/22 15:27 Nucleated RBC % Not Reportable 03/07/22 15:27 Seg Neutrophils # Man 17.7 K/mm3 (1.8-7.7) H 03/07/22 15:27 Band Neutrophils # 0.0 K/mm3 03/07/22 15:27 Lymphocytes # (Manual) 0.0 K/mm3 (1.2-5.4) L 03/07/22 15:27 Abs React Lymphs (Man) 0.0 K/mm3 03/07/22 15:27 Monocytes # (Manual) 0.6 K/mm3 (0.0-0.8) 03/07/22 15:27 Eosinophils # (Manual) 0.0 K/mm3 (0.0-0.4) 03/07/22 15:27 Basophils # (Manual) 0.0 K/mm3 (0.0-0.1) 03/07/22 15:27 Metamyelocytes # 0.2 K/mm3 03/07/22 15:27 Myelocytes # 0.0 K/mm3 03/07/22 15:27 Promyelocytes # 0.0 K/mm3 03/07/22 15:27 Blast Cells # 0.0 K/mm3 03/07/22 15:27 WBC Morphology Not Reportable 03/07/22 15:27 Hypersegmented Neuts Not Reportable 03/07/22 15:27 Hyposegmented Neuts Not Reportable 03/07/22 15:27 Hypogranular Neuts Not Reportable 03/07/22 15:27 Smudge Cells Not Reportable 03/07/22 15:27 Toxic Granulation Not Reportable 03/07/22 15:27 Toxic Vacuolation Not Reportable 03/07/22 15:27 Dohle Bodies Not Reportable 03/07/22 15:27 Pelger-Huet Anomaly Not Reportable 03/07/22 15:27 Emily Rods Not Reportable 03/07/22 15:27 Platelet Estimate Consistent w auto 03/07/22 15:27 Clumped Platelets Not Reportable 03/07/22 15:27 Plt Clumps, EDTA Not Reportable 03/07/22 15:27 Large Platelets Not Reportable 03/07/22 15:27 Giant Platelets Not Reportable 03/07/22 15:27 Platelet Satelliting Not Reportable 03/07/22 15:27 Plt Morphology Comment Not Reportable 03/07/22 15:27 RBC Morphology Not Reportable 03/07/22 15:27 Dimorphic RBCs Not Reportable 03/07/22 15:27 Polychromasia Not Reportable 03/07/22 15:27 Hypochromasia 2+ 03/07/22 15:27 Poikilocytosis Not Reportable 03/07/22 15:27 Anisocytosis 2+ 03/07/22 15:27 Microcytosis Not Reportable 03/07/22 15:27 Macrocytosis Not Reportable 03/07/22 15:27 Spherocytes Not Reportable 03/07/22 15:27 Pappenheimer Bodies Not Reportable 03/07/22 15:27 Sickle Cells Not Reportable 03/07/22 15:27 Target Cells Not Reportable 03/07/22 15:27 Tear Drop Cells Not Reportable 03/07/22 15:27 Ovalocytes Not Reportable 03/07/22 15:27 Helmet Cells Not Reportable 03/07/22 15:27 [place] Bodies Not Reportable 03/07/22 15:27 [place] Rings Not Reportable 03/07/22 15:27 [place] Cells Not Reportable 03/07/22 15:27 Bite Cells Not Reportable 03/07/22 15:27 Crenated Cell Not Reportable 03/07/22 15:27 Elliptocytes Not Reportable 03/07/22 15:27 Acanthocytes (Spur) Not Reportable 03/07/22 15:27 Rouleaux Not Reportable 03/07/22 15:27 Hemoglobin C Crystals Not Reportable 03/07/22 15:27 Schistocytes Not Reportable 03/07/22 15:27 Malaria parasites Not Reportable 03/07/22 15:27 Daniel Bodies Not Reportable 03/07/22 15:27 Hem Pathologist Commnt No 03/07/22 15:27 ABG pH 6.965 pH Units (7.350-7.450) L* 03/07/22 16:01 ABG pCO2 14.1 mm Hg 03/07/22 16:01 ABG pO2 155.3 mm Hg (80.0-90.0) H 03/07/22 16:01 ABG HCO3 3.1 mmol/L (20.0-26.0) L 03/07/22 16:01 ABG O2 Saturation 98.3 % (95.0-99.0) 03/07/22 16:01 ABG O2 Content 9.0 (0.0-44) 03/07/22 16:01 ABG Base Excess -26.4 mmol/L (-2.0-3.0) L 03/07/22 16:01 ABG Hemoglobin 6.4 gm/dl (14.0-18.0) L 03/07/22 16:01 ABG Carboxyhemoglobin 2.3 % (0.0-5.0) 03/07/22 16:01 ABG Methemoglobin 0.6 % (0.0-1.5) 03/07/22 16:01 Oxyhemoglobin 95.4 % (95.0-99.0) 03/07/22 16:01 FiO2 21 % 03/07/22 16:01 Sodium 126 mmol/L (137-145) L 03/07/22 18:16 Potassium 6.2 mmol/L (3.6-5.0) H* 03/07/22 18:16 Chloride 85.7 mmol/L (98-107) L 03/07/22 18:16 Carbon Dioxide 3 mmol/L (22-30) L* 03/07/22 18:16 Anion Gap 44 mmol/L 03/07/22 18:16 BUN 89 mg/dL (9-20) H 03/07/22 18:16 Creatinine 2.6 mg/dL (0.8-1.3) H 03/07/22 18:16 Estimated GFR 35 ml/min 03/07/22 18:16 BUN/Creatinine Ratio 34 % 03/07/22 18:16 Glucose 1484 mg/dL (75-100) H* 03/07/22 18:16 POC Glucose > 600 mg/dL (70-105) H 03/07/22 13:52 Ketones Quantitative Large (Negative) 03/07/22 15:27 Calcium 7.6 mg/dL (8.4-10.2) L 03/07/22 18:16 Phosphorus 10.70 mg/dL (2.5-4.5) H 03/07/22 18:16 Magnesium 3.20 mg/dL (1.7-2.3) H 03/07/22 18:16 Total Bilirubin < 0.20 mg/dL (0.1-1.2) 03/07/22 15:27 Direct Bilirubin < 0.2 mg/dL (0-0.2) 03/07/22 15:27 Indirect Bilirubin 0.0 mg/dL 03/07/22 15:27 AST 11 units/L (5-40) 03/07/22 15:27 ALT 10 units/L (7-56) 03/07/22 15:27 Alkaline Phosphatase 132 units/L (35-129) H 03/07/22 15:27 Total Protein 5.9 g/dL (6.3-8.2) L 03/07/22 15:27 Albumin 3.7 g/dL (3.9-5) L 03/07/22 15:27 Albumin/Globulin Ratio 1.7 % 03/07/22 15:27 Short CBC 03/07/22 Range/Units 15:27 WBC 18.4 H (4.5-11.0) K/mm3 Hgb 6.2 L (11.8-15.2) gm/dl Hct 27.1 L (35.5-45.6) % Plt Count 568 H (140-440) K/mm3 BMP 03/07/22 03/07/22 15:27 18:16 Sodium 125 L 126 L Potassium 6.6 H* 6.2 H* Chloride 83.8 L 85.7 L Carbon Dioxide 3 L* 3 L* BUN 86 H 89 H Creatinine 2.6 H 2.6 H Glucose 1582 H* 1484 H* Calcium 7.5 L 7.6 L Liver Function 03/07/22 Range/Units 15:27 Total Bilirubin < 0.20 (0.1-1.2) mg/dL Direct Bilirubin < 0.2 (0-0.2) mg/dL AST 11 (5-40) units/L ALT 10 (7-56) units/L Alkaline Phosphatase 132 H (35-129) units/L Albumin 3.7 L (3.9-5) g/dL Short CBC 03/07/22 03/08/22 Range/Units 15:27 03:45 WBC 18.4 H 15.0 H (4.5-11.0) K/mm3 Hgb 6.2 L 7.8 L (11.8-15.2) gm/dl Hct 27.1 L 24.9 L (35.5-45.6) % Plt Count 568 H 445 H (140-440) K/mm3 BMP 03/07/22 03/07/22 03/07/22 15:27 18:16 20:47 Sodium 125 L 126 L 130 L Potassium 6.6 H* 6.2 H* 5.2 H Chloride 83.8 L 85.7 L 91.7 L Carbon Dioxide 3 L* 3 L* 6 L* BUN 86 H 89 H 86 H Creatinine 2.6 H 2.6 H 2.7 H Glucose 1582 H* 1484 H* 1176 H* Calcium 7.5 L 7.6 L 7.5 L 03/07/22 03/08/22 03/08/22 22:30 00:46 03:45 Sodium 137 D 140 146 H Potassium 4.7 4.4 4.0 Chloride 96.7 L 100.3 107.2 H Carbon Dioxide 12 L 17 L 22 BUN 81 H 82 H 75 H Creatinine 2.6 H 2.5 H 2.3 H Glucose 976 H* 726 H* 321 H Calcium 7.1 L 7.3 L 7.6 L Liver Function 03/07/22 Range/Units 15:27 Total Bilirubin < 0.20 (0.1-1.2) mg/dL Direct Bilirubin < 0.2 (0-0.2) mg/dL AST 11 (5-40) units/L ALT 10 (7-56) units/L Alkaline Phosphatase 132 H (35-129) units/L Albumin 3.7 L (3.9-5) g/dL Urine 03/07/ Range/Units 22:05 Urine Color Colorless (Yellow) - Imaging and Cardiology Imaging and Cardiology: Chest x-ray Nonspecific mild bilateral pulmonary opacities could represent early pneumonia or edema. Continued close attention on follow-up imaging is recommended Assessment and Plan Assessment and plan: Critical care statement The high probability OF a clinically significant sudden or life-threatening deterioration of the cardiorespiratory system and endocrine system required my full and direct attention, intervention and postoperative management. The aggregate critical care time was 62 minutes. The time is in addition to time spent performing reported procedures but includes the followin: Data review and interpretation 2: Patient assessment and monitoring of vital signs 3: Documentation 4:: Medication orders and management Advance Directives: Yes (Full code) VTE prophylaxis?: Chemical Plan of care discussed with patient/family: Yes - Patient Problems (1) Diabetic ketoacidosis Current Visit: Yes Status: Acute Qualifiers: Diabetes mellitus type: type 1 Plan to address problem: DKA protocol IV insulin IV fluids Patient has a low sodium of 125 which should be corrected with correction of blood glucose levels Patient also has a high potassium of 6.6 which should be corrected with IV insulin Severe metabolic acidosis--IV insulin and IV COVID-19 positive test (U07.1, COVID-19) with Acute Respiratory Distress Syndrome (ARDS) (J80, ARDS) (If respiratory failure or sepsis present, add as separate assessment) Nutrition consult Diabetes education again when the patient is alert and oriented ICU admission ICU consult by wood and hardware outfitter requested (2) Acute metabolic encephalopathy Current Visit: Yes Status: Acute Plan to address problem: Patient is altered sensorium secondary to high blood glucose levels and severe metabolic acidosis Altered sensorium should improve with correction of blood glucose levels No other etiology in the differential diagnosis (3) SIRS (systemic inflammatory response syndrome) Current Visit: Yes Status: Acute Plan to address problem: White count is elevated and patient may have been doubtful pneumonia IV antibiotics in the form of Rocephin (4) ISHA (acute kidney injury) Current Visit: Yes Status: Acute Plan to address problem: Secondary to vasomotor nephropathy and severe volume depletion IV fluids for now Nephrology consult if necessary (5) Hyponatremia Current Visit: Yes Status: Acute Plan to address problem: Should correct with correction of blood glucose levels Sodium is 125 (6) Symptomatic anemia Current Visit: Yes Status: Acute Plan to address problem: To transfuse 1 to 2 units of blood cells Etiology unclear Possible nutritional No GI bleed (7) Hyperkalemia Current Visit: Yes Status: Acute Plan to address problem: IV insulin should correct the potassium level Calcium gluconate given (8) Malnutrition Current Visit: Yes Status: Chronic Qualifiers: Protein-calorie malnutrition severity: mild Plan to address problem: Dietitian consult requested for diabetes education. Also to address low albumin level. (9) DVT prophylaxis Current Visit: No Status: Acute Plan to address problem: On heparin and GI prophylaxis (10) Advance care planning Current Visit: No Status: Acute Plan to address problem: Disease education conducted care plan discussed, diagnosis discussed and prognosis patient acknowledged understanding with care plan. +30 minutes. Patient is full code.
[2022-03-07 21:28] LABS: Calcium 7.5 mg/dL (8.4-10.2)
[2022-03-07 22:42] LABS: Bacteria,Urine 1+ /HPF (Negative); Granular Casts,Urine 1 /LPF; Hyaline Casts,Urine 1 /LPF; Mucus,Urine FEW /HPF; Red Blood Cell Casts,Urine 1 /LPF
[2022-03-07 22:44] LABS: Color,Urine Colorless (Yellow)
[2022-03-07 23:10] LABS: Calcium 7.1 mg/dL (8.4-10.2)
[2022-03-07] MEDS ORDERED: SODIUM CHLORIDE 0.9% 1000 ML 1,000 ML IV SCH (23:30)
[2022-03-08] MEDS: INSULIN REGULAR, HUMAN 100 UNITS in SODIUM CHLORIDE 0.9% 99 ML IV SCH (00:47)
[2022-03-08 01:11] LABS: Calcium 7.3 mg/dL (8.4-10.2)
[2022-03-08] MEDS: PANTOPRAZOLE 80 MG in SODIUM CHLORIDE 0.9% 100 ML IV SCH ×2 (02:57→12:15)
[2022-03-08] MEDS ORDERED: OCTREOTIDE 500 MCG in SODIUM CHLORIDE 0.9% 100 ML IV SCH (03:10)
[2022-03-08] MEDS ORDERED: MINERAL OIL/PETROLATUM, WHITE OPHTH OINT 3.5 GM OU PRN (04:03)
[2022-03-08 04:05] LABS: Hematocrit 24.9 % (35.5-45.6); Hemoglobin 7.8 gm/dl (11.8-15.2); Mean Corpuscular HGB Conc 31 % (32-34); Mean Corpuscular Volume 72 fl (84-94); Platelet Count 445 K/mm3 (140-440); Red Blood Count 3.47 M/mm3 (3.65-5.03)
[2022-03-08 04:06] LABS: Red Cell Distribution Width 25.5 % (13.2-15.2)
[2022-03-08 04:23] LABS: Calcium 7.6 mg/dL (8.4-10.2)
[2022-03-08 04:48] LABS: Anisocytosis 2+; Basophils % (Manual) 0 % (0.0-1.8); Dimorphic RBC Yes; Eosinophils % (Manual) 0 % (0.0-4.3); Hypochromasia 1+; Platelet Estimate Consistent w Auto; Total Cells Counted 100
[2022-03-08] MEDS: D5W/0.45% NACL/KCL 20 MEQ 20 MEQ/1,000 ML BAG IV SCH ×2 (04:55→12:15)
[2022-03-08] MEDS ORDERED: CEFEPIME/NS 1 GM/100 ML 1 GM/100 ML BAG IV SCH (07:00)
[2022-03-08] MEDS ORDERED: METOCLOPRAMIDE 10 MG TAB PO SCH (07:30)
[2022-03-08 08:51] LABS: Calcium 7.9 mg/dL (8.4-10.2)
[2022-03-08] MEDS: hydrALAZINE 20 MG/1 ML INJ IV PRN ×2 (09:37→17:05)
[2022-03-08] MEDS ORDERED: NIFEdipine XL 60 MG TAB PO SCH (10:00)
[2022-03-08] MEDS ORDERED: LOSARTAN 50 MG TAB PO SCH (10:00)
[2022-03-08] MEDS ORDERED: CEFEPIME/NS 2 GM/100 ML 2 GM/100 ML BAG IV SCH (10:00)
--- NOTE | 2022-03-08 11:15 | Consultation ---
History of Present Illness - Reason for Consult Consult date: 03/08/22 dka - History of Present Illness 31 y/o male with known diabetes admitted with altered mental state, found to be in DKA, severe with pH less than 7 and hypotensive along with anemia. Resuscitated with blood and IVF's, stared on insulin drip and required pressors briefly. This am awake and alert, off pressors. Remains on insulin drip however anion gap is 16. Started on pPI drip at request of percussion tuner GI doc. Remainder is negative. Past History Past Medical History: diabetes, GERD Medications and Allergies Allergies Allergy/AdvReac Type Severity Reaction Status Date / Time codeine Allergy Hives Verified 01/22/22 15:36 morphine Allergy Angioedema Verified 01/22/22 15:36 tomato Allergy Vomiting Verified 01/22/22 15:36 Home Medications Medication Instructions Recorded Confirmed Last Taken Type Pantoprazole Sodium [Protonix] 40 mg PO HS #30 granpkt. 09/27/19 01/23/22 Unknown Rx Insulin NPH/Regular [NovoLIN 70/30] 18 unit SUB-Q QPMDIAB 30 Days 10/31/20 01/23/22 Unknown Rx Insulin Regular, Human [HumuLIN R] See Protocol SUB-Q ACHS 30 Days 10/31/20 01/23/22 Unknown Rx Famotidine [Pepcid] 20 mg PO BID #60 tablet 01/13/21 01/23/22 Unknown Rx Metoclopramide HCl [Reglan TAB] 5 mg PO TIDAC #21 tablet 01/13/21 01/23/22 Unknown Rx Losartan [Cozaar] 100 mg PO QDAY #30 tab 01/24/22 Unknown Rx NIFEdipine XL [Procardia Xl] 60 mg PO QDAY #30 tablet 01/24/22 Unknown Rx Active Meds: Active Medications Acetaminophen (Acetaminophen 325 Mg Tab) 650 mg PO Q4H PRN PRN Reason: Pain MILD(1-3)/Fever >100.5/QUINTANILLA Dextrose (Dextrose 50% In Water (25gm) 50 Ml Syringe) 0 ml IV Q30MIN PRN; Protocol PRN Reason: Hypoglycemia Hydralazine HCl (Hydralazine 20 Mg/1 Ml Inj) 10 mg IV Q4HR PRN PRN Reason: Hypertension Last Admin: 03/08/22 09:37 Dose: 10 mg Hydralazine HCl (Hydralazine 20 Mg/1 Ml Inj) 20 mg IV ONCE ONE Stop: 03/08/22 11:10 NORepinephrine/NS 8 MG-250 ML (Norepinephrine/Ns 8 Mg-250 Ml (Double Conc)) 8 mg in 250 mls @ 3.75 mls/hr IV TITRATE BREANNE; Protocol Last Titration: 03/07/22 22:37 Dose: 0 mcg/min, 0 mls/hr Insulin Human Regular 100 (units/ Sodium Chloride) 100 mls @ 7 mls/hr IV TITR BREANNE; Protocol Last Titration: 03/08/22 11:07 Dose: 2 units/hr, 2 mls/hr Potassium Chloride/Dextrose/Sod Cl (D5w/0.45% Nacl/Kcl 20 Meq) 20 meq in 1,000 mls @ 125 mls/hr IV DIRECT BREANNE Last Admin: 03/08/22 04:55 Dose: 125 mls/hr Sodium Chloride (Nacl 0.9% 1000 Ml) 1,000 mls @ 125 mls/hr IV DIRECT BREANNE Last Infusion: 03/08/22 04:58 Dose: 0 mls/hr Pantoprazole Sodium 80 mg/ (Sodium Chloride) 100 mls @ 10 mls/hr IV DIRECT BREANNE Last Admin: 03/08/22 02:57 Dose: 8 mg/hr, 10 mls/hr Ceftriaxone Sodium (Rocephin/Ns 2 Gm/100 Ml) 2 gm in 100 mls @ 200 mls/hr IV Q24H BREANNE; Protocol Metoclopramide HCl (Metoclopramide 10 Mg/2 Ml Inj) 10 mg IV Q6H PRN PRN Reason: Nausea And Vomiting Morphine Sulfate (Morphine 2 Mg/1 Ml Inj) 2 mg IV Q4H PRN PRN Reason: Pain, Moderate (4-6) Multi-Ingred Cream/Lotion/Oil/Oint (Mineral Oil/Petrolatum, White Ophth Oint 3.5 Gm) 1 applic OU PRN PRN PRN Reason: Dry Eye(s) Last Admin: 03/08/22 04:11 Dose: 1 applic Ondansetron HCl (Ondansetron 4 Mg/2 Ml Inj) 4 mg IV Q3H PRN PRN Reason: Nausea And Vomiting Sodium Chloride (Sodium Chloride 0.9% 10 Ml Flush Syringe) 10 ml IV BID BREANNE Last Admin: 03/08/22 09:36 Dose: 10 ml Sodium Chloride (Sodium Chloride 0.9% 10 Ml Flush Syringe) 10 ml IV PRN PRN PRN Reason: LINE FLUSH Review of Systems All systems: negative Exam - Constitutional Vitals: Temp Pulse Resp BP Pulse Ox 98 F 104 H 16 179/98 98 03/08/22 07:33 03/08/22 11:00 03/08/22 11:00 03/08/22 11:00 03/08/22 11:00 General appearance: Present: no acute distress - EENT Eyes: Present: PERRL ENT: hearing intact - Neck Neck: Present: supple - Respiratory Respiratory effort: normal Respiratory: bilateral: CTA Results - Labs CBC & Chem 7: 03/08/22 03:45 03/08/22 08:23 Labs: Abnormal lab results 03/07/22 03/07/22 03/07/22 Range/Units 13:52 15:27 15:27 WBC 18.4 H (4.5-11.0) K/mm3 RBC 2.96 L (3.65-5.03) M/mm3 Hgb 6.2 L (11.8-15.2) gm/dl Hct 27.1 L (35.5-45.6) % MCV (84-94) fl MCH 21 L (28-32) pg MCHC 23 L (32-34) % RDW 25.5 H (13.2-15.2) % Plt Count 568 H (140-440) K/mm3 Seg Neuts % (Manual) 96.0 H (40.0-70.0) % Lymphocytes % (Manual) 0 L (13.4-35.0) % Seg Neutrophils # Man 17.7 H (1.8-7.7) K/mm3 Lymphocytes # (Manual) 0.0 L (1.2-5.4) K/mm3 Monocytes # (Manual) (0.0-0.8) K/mm3 ABG pH (7.350-7.450) pH Units ABG pO2 (80.0-90.0) mm Hg ABG HCO3 (20.0-26.0) mmol/L ABG Base Excess (-2.0-3.0) mmol/L ABG Hemoglobin (14.0-18.0) gm/dl Sodium 125 L (137-145) mmol/L Potassium 6.6 H* (3.6-5.0) mmol/L Chloride 83.8 L (98-107) mmol/L Carbon Dioxide 3 L* (22-30) mmol/L BUN 86 H (9-20) mg/dL Creatinine 2.6 H (0.8-1.3) mg/dL Glucose 1582 H* (75-100) mg/dL POC Glucose > 600 H (70-105) mg/dL Lactic Acid (0.7-2.0) mmol/L Calcium 7.5 L (8.4-10.2) mg/dL Phosphorus (2.5-4.5) mg/dL Magnesium (1.7-2.3) mg/dL Alkaline Phosphatase 132 H (35-129) units/L Total Protein 5.9 L (6.3-8.2) g/dL Albumin 3.7 L (3.9-5) g/dL Crossmatch 03/07/22 03/07/22 03/07/22 Range/Units 16:01 18:16 20:47 WBC (4.5-11.0) K/mm3 RBC (3.65-5.03) M/mm3 Hgb (11.8-15.2) gm/dl Hct (35.5-45.6) % MCV (84-94) fl MCH (28-32) pg MCHC (32-34) % RDW (13.2-15.2) % Plt Count (140-440) K/mm3 Seg Neuts % (Manual) (40.0-70.0) % Lymphocytes % (Manual) (13.4-35.0) % Seg Neutrophils # Man (1.8-7.7) K/mm3 Lymphocytes # (Manual) (1.2-5.4) K/mm3 Monocytes # (Manual) (0.0-0.8) K/mm3 ABG pH 6.965 L* (7.350-7.450) pH Units ABG pO2 155.3 H (80.0-90.0) mm Hg ABG HCO3 3.1 L (20.0-26.0) mmol/L ABG Base Excess -26.4 L (-2.0-3.0) mmol/L ABG Hemoglobin 6.4 L (14.0-18.0) gm/dl Sodium 126 L (137-145) mmol/L Potassium 6.2 H* (3.6-5.0) mmol/L Chloride 85.7 L (98-107) mmol/L Carbon Dioxide 3 L* (22-30) mmol/L BUN 89 H (9-20) mg/dL Creatinine 2.6 H (0.8-1.3) mg/dL Glucose 1484 H* (75-100) mg/dL POC Glucose (70-105) mg/dL Lactic Acid 2.20 H* (0.7-2.0) mmol/L Calcium 7.6 L (8.4-10.2) mg/dL Phosphorus 10.70 H (2.5-4.5) mg/dL Magnesium 3.20 H (1.7-2.3) mg/dL Alkaline Phosphatase (35-129) units/L Total Protein (6.3-8.2) g/dL Albumin (3.9-5) g/dL Crossmatch 03/07/22 03/07/22 03/07/22 Range/Units 20:47 20:47 21:08 WBC (4.5-11.0) K/mm3 RBC (3.65-5.03) M/mm3 Hgb (11.8-15.2) gm/dl Hct (35.5-45.6) % MCV (84-94) fl MCH (28-32) pg MCHC (32-34) % RDW (13.2-15.2) % Plt Count (140-440) K/mm3 Seg Neuts % (Manual) (40.0-70.0) % Lymphocytes % (Manual) (13.4-35.0) % Seg Neutrophils # Man (1.8-7.7) K/mm3 Lymphocytes # (Manual) (1.2-5.4) K/mm3 Monocytes # (Manual) (0.0-0.8) K/mm3 ABG pH (7.350-7.450) pH Units ABG pO2 (80.0-90.0) mm Hg ABG HCO3 (20.0-26.0) mmol/L ABG Base Excess (-2.0-3.0) mmol/L ABG Hemoglobin (14.0-18.0) gm/dl Sodium 130 L (137-145) mmol/L Potassium 5.2 H (3.6-5.0) mmol/L Chloride 91.7 L (98-107) mmol/L Carbon Dioxide 6 L* (22-30) mmol/L BUN 86 H (9-20) mg/dL Creatinine 2.7 H (0.8-1.3) mg/dL Glucose 1176 H* (75-100) mg/dL POC Glucose > 600 H (70-105) mg/dL Lactic Acid (0.7-2.0) mmol/L Calcium 7.5 L (8.4-10.2) mg/dL Phosphorus 8.50 H D (2.5-4.5) mg/dL Magnesium 2.80 H (1.7-2.3) mg/dL Alkaline Phosphatase (35-129) units/L Total Protein (6.3-8.2) g/dL Albumin (3.9-5) g/dL Crossmatch See Detail 03/07/22 03/07/22 03/08/22 Range/Units 22:30 22:40 00:46 WBC (4.5-11.0) K/mm3 RBC (3.65-5.03) M/mm3 Hgb (11.8-15.2) gm/dl Hct (35.5-45.6) % MCV (84-94) fl MCH (28-32) pg MCHC (32-34) % RDW (13.2-15.2) % Plt Count (140-440) K/mm3 Seg Neuts % (Manual) (40.0-70.0) % Lymphocytes % (Manual) (13.4-35.0) % Seg Neutrophils # Man (1.8-7.7) K/mm3 Lymphocytes # (Manual) (1.2-5.4) K/mm3 Monocytes # (Manual) (0.0-0.8) K/mm3 ABG pH (7.350-7.450) pH Units ABG pO2 (80.0-90.0) mm Hg ABG HCO3 (20.0-26.0) mmol/L ABG Base Excess (-2.0-3.0) mmol/L ABG Hemoglobin (14.0-18.0) gm/dl Sodium (137-145) mmol/L Potassium (3.6-5.0) mmol/L Chloride 96.7 L (98-107) mmol/L Carbon Dioxide 12 L (22-30) mmol/L BUN 81 H (9-20) mg/dL Creatinine 2.6 H (0.8-1.3) mg/dL Glucose 976 H* (75-100) mg/dL POC Glucose (70-105) mg/dL Lactic Acid 3.00 H* 3.20 H* (0.7-2.0) mmol/L Calcium 7.1 L (8.4-10.2) mg/dL Phosphorus (2.5-4.5) mg/dL Magnesium (1.7-2.3) mg/dL Alkaline Phosphatase (35-129) units/L Total Protein (6.3-8.2) g/dL Albumin (3.9-5) g/dL Crossmatch 03/08/22 03/08/22 03/08/22 Range/Units 00:46 03:45 03:45 WBC 15.0 H (4.5-11.0) K/mm3 RBC 3.47 L (3.65-5.03) M/mm3 Hgb 7.8 L (11.8-15.2) gm/dl Hct 24.9 L (35.5-45.6) % MCV 72 L (84-94) fl MCH 22 L (28-32) pg MCHC 31 L (32-34) % RDW 25.5 H (13.2-15.2) % Plt Count 445 H (140-440) K/mm3 Seg Neuts % (Manual) 84.0 H (40.0-70.0) % Lymphocytes % (Manual) 10.0 L (13.4-35.0) % Seg Neutrophils # Man 12.6 H (1.8-7.7) K/mm3 Lymphocytes # (Manual) (1.2-5.4) K/mm3 Monocytes # (Manual) 0.9 H (0.0-0.8) K/mm3 ABG pH (7.350-7.450) pH Units ABG pO2 (80.0-90.0) mm Hg ABG HCO3 (20.0-26.0) mmol/L ABG Base Excess (-2.0-3.0) mmol/L ABG Hemoglobin (14.0-18.0) gm/dl Sodium (137-145) mmol/L Potassium (3.6-5.0) mmol/L Chloride (98-107) mmol/L Carbon Dioxide 17 L (22-30) mmol/L BUN 82 H (9-20) mg/dL Creatinine 2.5 H (0.8-1.3) mg/dL Glucose 726 H* (75-100) mg/dL POC Glucose (70-105) mg/dL Lactic Acid 3.40 H* (0.7-2.0) mmol/L Calcium 7.3 L (8.4-10.2) mg/dL Phosphorus (2.5-4.5) mg/dL Magnesium (1.7-2.3) mg/dL Alkaline Phosphatase (35-129) units/L Total Protein (6.3-8.2) g/dL Albumin (3.9-5) g/dL Crossmatch 03/08/22 03/08/22 Range/Units 03:45 08:23 WBC (4.5-11.0) K/mm3 RBC (3.65-5.03) M/mm3 Hgb (11.8-15.2) gm/dl Hct (35.5-45.6) % MCV (84-94) fl MCH (28-32) pg MCHC (32-34) % RDW (13.2-15.2) % Plt Count (140-440) K/mm3 Seg Neuts % (Manual) (40.0-70.0) % Lymphocytes % (Manual) (13.4-35.0) % Seg Neutrophils # Man (1.8-7.7) K/mm3 Lymphocytes # (Manual) (1.2-5.4) K/mm3 Monocytes # (Manual) (0.0-0.8) K/mm3 ABG pH (7.350-7.450) pH Units ABG pO2 (80.0-90.0) mm Hg ABG HCO3 (20.0-26.0) mmol/L ABG Base Excess (-2.0-3.0) mmol/L ABG Hemoglobin (14.0-18.0) gm/dl Sodium 146 H 153 H (137-145) mmol/L Potassium (3.6-5.0) mmol/L Chloride 107.2 H 113.2 H (98-107) mmol/L Carbon Dioxide (22-30) mmol/L BUN 75 H 66 H (9-20) mg/dL Creatinine 2.3 H 2.2 H (0.8-1.3) mg/dL Glucose 321 H 187 H (75-100) mg/dL POC Glucose (70-105) mg/dL Lactic Acid (0.7-2.0) mmol/L Calcium 7.6 L 7.9 L (8.4-10.2) mg/dL Phosphorus (2.5-4.5) mg/dL Magnesium (1.7-2.3) mg/dL Alkaline Phosphatase (35-129) units/L Total Protein (6.3-8.2) g/dL Albumin (3.9-5) g/dL Crossmatch - Imaging and Cardiology Chest x-ray: image reviewed Assessment and Plan 31 y/o male with altered mental state, likely secondary to severe acidemia from dka, possible GI bleed with microcytic anemia and questionable lobar pneumonia. 1. Endocrine-DKA has resolved, Gap is now 16. Will continue NPO and insulin drip until evaluated by GI as they may want to scope today, doubt but will see. if no scope, feed patient and transition to long acting insulin and transfer out of the unit 2. GI-await GI evaluation. Continue NPO status and PPI drip. Hold on somatostatin. Trend H/H 3. Pulm- stable on room air. Reviewed CXR. Lobar airspace disease but clinically does not appear to have pneumonia. Will stop cefepime. Continue Rocephin. Not sure that Atypical coverage is needed so will not add zithromax. Assess again tomorrow after use of incentive elver, may even stop Rocpehin. CCt 31 minutes
[2022-03-08] MEDS ORDERED: hydrALAZINE 20 MG/1 ML INJ IV ONE (12:00)
--- NOTE | 2022-03-08 12:41 | Consultation ---
History of Present Illness - Reason for Consult Consult date: 03/08/22 acute renal failure - History of Present Illness The patient is a 31 YO male with history of Type 2 diabetes, Hypertension, Myasthenia gravis and GERD who was brought to [facility] ED 03/07/22 by EMS for altered mental status. As per family patient has been with high blood glucose levels for 2 days. Patient has been trying to control his blood glucose levels but unable to. Admitted to nausea. No h/o fever, chills, vomiting, cp, sob, dysuria or hematuria. In the emergency room blood glucose was 1582, BUN/creatinine of 86/2.6, BUN 86, Creat 2.6, K 6.6, Sodium 125 and bicarb 3. Patient started on Insulin drip admitted to ICU. Nephrology consulted for further evaluation of ISHA. Past History Past Medical History: diabetes, GERD, hypertension, other (See HPI.) Medications and Allergies Allergies Allergy/AdvReac Type Severity Reaction Status Date / Time codeine Allergy Hives Verified 01/22/22 15:36 morphine Allergy Angioedema Verified 01/22/22 15:36 tomato Allergy Vomiting Verified 01/22/22 15:36 Home Medications Medication Instructions Recorded Confirmed Last Taken Type Pantoprazole Sodium [Protonix] 40 mg PO HS #30 fuenteskt 09/27/19 01/23/22 Unknown Rx Insulin NPH/Regular [NovoLIN 70/30] 18 unit SUB-Q QPMDIAB 30 Days 10/31/20 01/23/22 Unknown Rx Insulin Regular, Human [HumuLIN R] See Protocol SUB-Q ACHS 30 Days 10/31/20 01/23/22 Unknown Rx Famotidine [Pepcid] 20 mg PO BID #60 tablet 01/13/21 01/23/22 Unknown Rx Metoclopramide HCl [Reglan TAB] 5 mg PO TIDAC #21 tablet 01/13/21 01/23/22 Unknown Rx Losartan [Cozaar] 100 mg PO QDAY #30 tab 01/24/22 Unknown Rx NIFEdipine XL [Procardia Xl] 60 mg PO QDAY #30 tablet 01/24/22 Unknown Rx Active Meds: Active Medications Acetaminophen (Acetaminophen 325 Mg Tab) 650 mg PO Q4H PRN PRN Reason: Pain MILD(1-3)/Fever >100.5/QUINTANILLA Dextrose (Dextrose 50% In Water (25gm) 50 Ml Syringe) 0 ml IV Q30MIN PRN; Protocol PRN Reason: Hypoglycemia Hydralazine HCl (Hydralazine 20 Mg/1 Ml Inj) 10 mg IV Q4HR PRN PRN Reason: Hypertension Last Admin: 03/08/22 09:37 Dose: 10 mg NORepinephrine/NS 8 MG-250 ML (Norepinephrine/Ns 8 Mg-250 Ml (Double Conc)) 8 mg in 250 mls @ 3.75 mls/hr IV TITRATE BREANNE; Protocol Last Titration: 03/07/22 22:37 Dose: 0 mcg/min, 0 mls/hr Insulin Human Regular 100 (units/ Sodium Chloride) 100 mls @ 7 mls/hr IV TITR BREANNE; Protocol Last Titration: 03/08/22 12:11 Dose: 4 units/hr, 4 mls/hr Potassium Chloride/Dextrose/Sod Cl (D5w/0.45% Nacl/Kcl 20 Meq) 20 meq in 1,000 mls @ 125 mls/hr IV DIRECT BREANNE Last Admin: 03/08/22 12:15 Dose: 125 mls/hr Sodium Chloride (Nacl 0.9% 1000 Ml) 1,000 mls @ 125 mls/hr IV DIRECT BREANNE Last Infusion: 03/08/22 04:58 Dose: 0 mls/hr Pantoprazole Sodium 80 mg/ (Sodium Chloride) 100 mls @ 10 mls/hr IV DIRECT BREANNE Last Admin: 03/08/22 12:15 Dose: 8 mg/hr, 10 mls/hr Ceftriaxone Sodium (Rocephin/Ns 2 Gm/100 Ml) 2 gm in 100 mls @ 200 mls/hr IV Q24H BREANNE; Protocol Metoclopramide HCl (Metoclopramide 10 Mg/2 Ml Inj) 10 mg IV Q6H PRN PRN Reason: Nausea And Vomiting Multi-Ingred Cream/Lotion/Oil/Oint (Mineral Oil/Petrolatum, White Ophth Oint 3.5 Gm) 1 applic OU PRN PRN PRN Reason: Dry Eye(s) Last Admin: 03/08/22 04:11 Dose: 1 applic Ondansetron HCl (Ondansetron 4 Mg/2 Ml Inj) 4 mg IV Q3H PRN PRN Reason: Nausea And Vomiting Sodium Chloride (Sodium Chloride 0.9% 10 Ml Flush Syringe) 10 ml IV BID BREANNE Last Admin: 03/08/22 09:36 Dose: 10 ml Sodium Chloride (Sodium Chloride 0.9% 10 Ml Flush Syringe) 10 ml IV PRN PRN PRN Reason: LINE FLUSH Review of Systems All systems: negative Exam - Vital Signs Vital signs: Vital Signs Pulse Resp Pulse Ox 90 17 100 03/07/22 14:03 03/07/22 14:03 03/07/22 14:03 Results - Lab Results 03/08/22 03:45 03/08/22 08:23 Most recent lab results ABG pH 6.965 pH Units (7.350-7.450) L* 03/07/22 16:01 ABG pCO2 14.1 mm Hg 03/07/22 16:01 ABG pO2 155.3 mm Hg (80.0-90.0) H 03/07/22 16:01 ABG HCO3 3.1 mmol/L (20.0-26.0) L 03/07/22 16:01 ABG O2 Saturation 98.3 % (95.0-99.0) 03/07/22 16:01 Calcium 7.9 mg/dL (8.4-10.2) L 03/08/22 08:23 Phosphorus 8.50 mg/dL (2.5-4.5) H D 03/07/22 20:47 Magnesium 2.80 mg/dL (1.7-2.3) H 03/07/22 20:47 Assessment and Plan 1. Acute kidney injury: Vasomotor ISHA in the setting of DKA. Urine studies and Renal US ordered. Monitor renal function. Creatinine level improving. Avoid nephrotoxic agents. Meds dosage based on GFR. 2. FEN: Hypernatremia, hypotonic IV fluids. Hyperkalemia, improved, monitor. Replete lytes as needed. Monitor lytes and volume status. 3. DKA / h/o IDDM: Presented with bicarb 3, blood glucose 1582. Insulin drip. Hemoglobin A1C A1c 10.1. Appropriate IV fluids. Monitor. 4. SIRS vs. Sepsis, Lactic acidosis: COVID-19 PCR negative. Per primary. Monitor. 5. Acute anemia, Leukocytosis, thrombocytosis: Presented with H/H of 6.9/27.1. S/p 2 units PRBC. Trend and transfuse for hemoglobin less than 7. 6. Hypertension: Adjust BP meds as needed. Monitor. 7. Acute metabolic encephalopathy, POA: Monitor. 8. Myasthenia gravis: Home meds. Subjective: Patient was seen and examined at the bedside. Examination: General appearance: well-developed, appears stated age, no distress HEENT: atraumatic, no icterus Neck: trachea midline Respiratory: ctab Heart: S1S2, regular, no murmur Abdomen: soft, bowel sounds heard, NT Integumentary: no obvious rash Neurologic: alert, conversing, moving extremities, ptosis Ext: no edema
[2022-03-08] MEDS ORDERED: DEXTROSE 50% IN WATER (25GM) 50 ML SYRINGE IV PRN (13:13)
[2022-03-08 13:52] LABS: Creatinine,Urine 46.9 mg/dL (0.1-20.0)
[2022-03-08] MEDS: INSULIN NPH/REGULAR 70/30 INJ SUB-Q SCH (13:55)
[2022-03-08] MEDS: NIFEdipine XL 60 MG TAB PO SCH (13:55)
[2022-03-08] MEDS: hydrALAZINE 25 MG TAB PO SCH ×2 (15:35→22:56)
--- NOTE | 2022-03-08 16:01 | Ultrasound Report ---
Renal ultrasound INDICATION: Acute renal failure FINDINGS: The right kidney measures 12 cm in length and the left kidney measures 12 cm in length. No hydronephrosis appreciated. Urinary bladder is partially fluid distended. High catheter noted. IMPRESSION: No acute findings. Signer Name: Lion Tran MD Signed: 03/08/2022 3:57 PM Workstation Name: [email or web address]
[2022-03-08] MEDS: INSULIN LISPRO 100 UNIT/ML SUB-Q SCH ×2 (16:31→22:58)
--- NOTE | 2022-03-08 16:54 | Progress Note ---
<RASHIDA ARBOLEDA - Last Filed: 03/08/22 16:52> Assessment and Plan Assessment and plan: This is a 31-year-old male with IDDM, HTN, myasthenia gravis and GERD admitted with DKA, leukocytosis, anemia, acute kidney injury, lactic acidosis. Neuro: Acute metabolic encephalopathy (resolved), h/o Myasthenia Gravis -Reorientation as needed -Maintain sleep-wake cycle -As needed analgesia -Obtain home medications Cardiac: h/o HTN -Antihypertensive regimen: Hydralazine, Procardia -Blood pressure monitoring per protocol -Hold home lisinopril in setting of ISHA -As needed hydralazine and labetalol Respiratory: NAD -SPO2 monitoring -Supplemental oxygen as needed -Pulmonary hygiene GI: Mild protein calorie deficiency,GIB, h/o gerd -Patient noted to have hematemesis -GI consulted, appreciate recommendations -Protonix drip -CC diet : High anion gap metabolic acidosis, acute kidney injury likely secondary to vasomotor nephropathy, hypernatremia -Nephrology consulted, appreciate recommendations -Strict intake and output -Renally dose medications -Avoid nephrotoxic medications -FeNa 2.6% -Renal ultrasound shows no hydronephrosis appreciated, urinary bladder is partially fluid distended, High catheter noted -Trend BMP ID: SIRS vs. Sepsis, Lactic acidosis -Presented with hypotension, leukocytosis, hypothermia, CXR with possible infiltrate -COVID-19 PCR negative -Antibiotic therapy with Rocephin -UA (-) -f/u blood culture -Monitor WBC and temperature curve Endo: s/p DKA, h/o IDDM -Presented with anion gap of 39, metabolic acidosis of 3, blood glucose 1582, VBG 6.965 -S/p insulin drip -Hemaglobin A1C A1c 10.1 -Avoid hypoglycemia -SSI -Accu-Cheks AC at bedtime -Long-acting insulin, titrate as needed Heme: Acute anemia, Leukocytosis, thrombocytosis -Presented with H/H of 6.9/27.1 -S/p 2 units PRBC -Trend CBC -Transfuse hemoglobin less than 7 -SCDs to BLE while in bed The high probability of a clinically significant, sudden or life threatening deterioration of the [endo/GI/CV] system(s) required my full and direct attention, intervention and personal management. The aggregate critical care ti me was [60] minutes. This time is in addition to time spent performing reported procedures but includes the following: [x] Data Review and interpretation [x] Patient assessment and monitoring of vital signs [x] Documentation [x] Medication orders and management Disposition Plan: transfer to floor Total Time Spent with Patient (Minutes): 60 History Interval history: This is a 31 year old with IDDM, HTN, myasthenia gravis and GERD who presents the emergency department via EMS for altered mental status. Per family patient had been trying to control his elevated blood sugar for the past several days and noticed that his mentation has had a declined over that time. Upon arrival to the emergency department patient was found to be hypotensive and hypothermic and was aggressively resuscitated with IV fluids. CXR showed bilateral pulmonary opacities. And received central line with the initiation of Levophed. In the emergency department blood glucose was 1582, BUN/creatinine was 2.6/86, leukocytosis at 18.4, anemia at 6.2/27, AG 39. Patient was admitted to the hospitalist service with consults to [facility] for DKA. Hospital course to date: 03/08: Patient noted to have bloody emesis and GI was consulted. Patient was placed on a PPI drip. This morning patient's anion gap was closed and this afternoon patient was transitioned to SSI and started on a CC diet. Patient has been hypertensive and is on hydralazine and labetalol as needed, restarted home Procardia and add added hydralazine. Hospitalist Physical - Constitutional Vitals: Temp Pulse Resp BP Pulse Ox 98.9 F 94 H 19 179/94 97 03/08/22 16:00 03/08/22 16:00 03/08/22 16:00 03/08/22 16:00 03/08/22 16:00 General appearance: Present: no acute distress, obese - EENT Eyes: Present: PERRL, EOM intact ENT: hearing intact, clear oral mucosa - Neck Neck: Present: normal ROM - Respiratory Respiratory effort: normal Respiratory: bilateral: CTA, diminished - Cardiovascular Rhythm: regular Heart Sounds: Present: S1 & S2. Absent: systolic murmur, diastolic murmur - Extremities Extremities: no ischemia, pulses intact, pulses symmetrical, No edema, normal temperature, normal color, Full ROM Peripheral Pulses: within normal limits - Abdominal General gastrointestinal: soft, non-tender, non-distended, normal bowel sounds - Integumentary Integumentary: Present: warm, dry - Psychiatric Psychiatric: appropriate mood/affect, cooperative - Neurologic Neurologic: CNII-XII intact, no focal deficits, moves all extremities - Allied Health Allied health notes reviewed: nursing, RT, social work Results - Labs CBC & Chem 7: 03/08/22 03:45 03/08/22 08:23 Labs: Laboratory Last Values WBC 15.0 K/mm3 (4.5-11.0) H 03/08/22 03:45 RBC 3.47 M/mm3 (3.65-5.03) L 03/08/22 03:45 Hgb 7.8 gm/dl (11.8-15.2) L 03/08/22 03:45 Hct 24.9 % (35.5-45.6) L 03/08/22 03:45 MCV 72 fl (84-94) L 03/08/22 03:45 MCH 22 pg (28-32) L 03/08/22 03:45 MCHC 31 % (32-34) L 03/08/22 03:45 RDW 25.5 % (13.2-15.2) H 03/08/22 03:45 Plt Count 445 K/mm3 (140-440) H 03/08/22 03:45 Add Manual Diff Complete 03/08/22 03:45 Total Counted 100 03/08/22 03:45 Seg Neuts % (Manual) 84.0 % (40.0-70.0) H 03/08/22 03:45 Band Neutrophils % 0 % 03/08/22 03:45 Lymphocytes % (Manual) 10.0 % (13.4-35.0) L 03/08/22 03:45 Reactive Lymphs % (Man) 0 % 03/08/22 03:45 Monocytes % (Manual) 6.0 % (0.0-7.3) 03/08/22 03:45 Eosinophils % (Manual) 0 % (0.0-4.3) 03/08/22 03:45 Basophils % (Manual) 0 % (0.0-1.8) 03/08/22 03:45 Metamyelocytes % 0 % 03/08/22 03:45 Myelocytes % 0 % 03/08/22 03:45 Promyelocytes % 0 % 03/08/22 03:45 Blast Cells % 0 % 03/08/22 03:45 Nucleated RBC % Not Reportable 03/08/22 03:45 Seg Neutrophils # Man 12.6 K/mm3 (1.8-7.7) H 03/08/22 03:45 Band Neutrophils # 0.0 K/mm3 03/08/22 03:45 Lymphocytes # (Manual) 1.5 K/mm3 (1.2-5.4) 03/08/22 03:45 Abs React Lymphs (Man) 0.0 K/mm3 03/08/22 03:45 Monocytes # (Manual) 0.9 K/mm3 (0.0-0.8) H 03/08/22 03:45 Eosinophils # (Manual) 0.0 K/mm3 (0.0-0.4) 03/08/22 03:45 Basophils # (Manual) 0.0 K/mm3 (0.0-0.1) 03/08/22 03:45 Metamyelocytes # 0.0 K/mm3 03/08/22 03:45 Myelocytes # 0.0 K/mm3 03/08/22 03:45 Promyelocytes # 0.0 K/mm3 03/08/22 03:45 Blast Cells # 0.0 K/mm3 03/08/22 03:45 WBC Morphology Not Reportable 03/08/22 03:45 Hypersegmented Neuts Not Reportable 03/08/22 03:45 Hyposegmented Neuts Not Reportable 03/08/22 03:45 Hypogranular Neuts Not Reportable 03/08/22 03:45 Smudge Cells Not Reportable 03/08/22 03:45 Toxic Granulation Not Reportable 03/08/22 03:45 Toxic Vacuolation Not Reportable 03/08/22 03:45 Dohle Bodies Not Reportable 03/08/22 03:45 Pelger-Huet Anomaly Not Reportable 03/08/22 03:45 Emily Rods Not Reportable 03/08/22 03:45 Platelet Estimate Consistent w auto 03/08/22 03:45 Clumped Platelets Not Reportable 03/08/22 03:45 Plt Clumps, EDTA Not Reportable 03/08/22 03:45 Large Platelets Not Reportable 03/08/22 03:45 Giant Platelets Not Reportable 03/08/22 03:45 Platelet Satelliting Not Reportable 03/08/22 03:45 Plt Morphology Comment Not Reportable 03/08/22 03:45 RBC Morphology Not Reportable 03/08/22 03:45 Dimorphic RBCs Yes 03/08/22 03:45 Polychromasia Not Reportable 03/08/22 03:45 Hypochromasia 1+ 03/08/22 03:45 Poikilocytosis Not Reportable 03/08/22 03:45 Anisocytosis 2+ 03/08/22 03:45 Microcytosis Not Reportable 03/08/22 03:45 Macrocytosis Not Reportable 03/08/22 03:45 Spherocytes Not Reportable 03/08/22 03:45 Pappenheimer Bodies Not Reportable 03/08/22 03:45 Sickle Cells Not Reportable 03/08/22 03:45 Target Cells Not Reportable 03/08/22 03:45 Tear Drop Cells Not Reportable 03/08/22 03:45 Ovalocytes Not Reportable 03/08/22 03:45 Helmet Cells Not Reportable 03/08/22 03:45 Elliott-Texline Bodies Not Reportable 03/08/22 03:45 [place] Rings Not Reportable 03/08/22 03:45 Phi Cells Not Reportable 03/08/22 03:45 Bite Cells Not Reportable 03/08/22 03:45 Crenated Cell Not Reportable 03/08/22 03:45 Elliptocytes Not Reportable 03/08/22 03:45 Acanthocytes (Spur) Not Reportable 03/08/22 03:45 Rouleaux Not Reportable 03/08/22 03:45 Hemoglobin C Crystals Not Reportable 03/08/22 03:45 Schistocytes Not Reportable 03/08/22 03:45 Malaria parasites Not Reportable 03/08/22 03:45 Daniel Bodies Not Reportable 03/08/22 03:45 Hem Pathologist Commnt No 03/08/22 03:45 ABG pH 6.965 pH Units (7.350-7.450) L* 03/07/22 16:01 ABG pCO2 14.1 mm Hg 03/07/22 16:01 ABG pO2 155.3 mm Hg (80.0-90.0) H 03/07/22 16:01 ABG HCO3 3.1 mmol/L (20.0-26.0) L 03/07/22 16:01 ABG O2 Saturation 98.3 % (95.0-99.0) 03/07/22 16:01 ABG O2 Content 9.0 (0.0-44) 03/07/22 16:01 ABG Base Excess -26.4 mmol/L (-2.0-3.0) L 03/07/22 16:01 ABG Hemoglobin 6.4 gm/dl (14.0-18.0) L 03/07/22 16:01 ABG Carboxyhemoglobin 2.3 % (0.0-5.0) 03/07/22 16:01 ABG Methemoglobin 0.6 % (0.0-1.5) 03/07/22 16:01 Oxyhemoglobin 95.4 % (95.0-99.0) 03/07/22 16:01 FiO2 21 % 03/07/22 16:01 Sodium 153 mmol/L (137-145) H 03/08/22 08:23 Potassium 3.9 mmol/L (3.6-5.0) 03/08/22 08:23 Chloride 113.2 mmol/L (98-107) H 03/08/22 08:23 Carbon Dioxide 24 mmol/L (22-30) 03/08/22 08:23 Anion Gap 20 mmol/L 03/08/22 08:23 BUN 66 mg/dL (9-20) H 03/08/22 08:23 Creatinine 2.2 mg/dL (0.8-1.3) H 03/08/22 08:23 Estimated GFR 42 ml/min 03/08/22 08:23 BUN/Creatinine Ratio 30 % 03/08/22 08:23 Glucose 187 mg/dL (75-100) H 03/08/22 08:23 POC Glucose 175 mg/dL (70-105) H 03/08/22 14:07 Hemoglobin A1c 10.1 % (4-6) H 03/08/22 13:13 Ketones Quantitative Large (Negative) 03/07/22 15:27 Lactic Acid 3.40 mmol/L (0.7-2.0) H* 03/08/22 03:45 Calcium 7.9 mg/dL (8.4-10.2) L 03/08/22 08:23 Phosphorus 8.50 mg/dL (2.5-4.5) H D 03/07/22 20:47 Magnesium 2.80 mg/dL (1.7-2.3) H 03/07/22 20:47 Total Bilirubin < 0.20 mg/dL (0.1-1.2) 03/07/22 15:27 Direct Bilirubin < 0.2 mg/dL (0-0.2) 03/07/22 15:27 Indirect Bilirubin 0.0 mg/dL 03/07/22 15:27 AST 11 units/L (5-40) 03/07/22 15:27 ALT 10 units/L (7-56) 03/07/22 15:27 Alkaline Phosphatase 132 units/L (35-129) H 03/07/22 15:27 Total Protein 5.9 g/dL (6.3-8.2) L 03/07/22 15:27 Albumin 3.7 g/dL (3.9-5) L 03/07/22 15:27 Albumin/Globulin Ratio 1.7 % 03/07/22 15:27 Urine Color Colorless (Yellow) 03/07/22 22:05 Urine Turbidity Clear (Clear) 03/07/22 22:05 Specific Andrews (Man) 1.010 (1.003-1.030) 03/07/22 22:05 Ur Protein (Man) <30 mg dl mg/dL (Negative) 03/07/22 22:05 Ur Ketones (Man) 2+ (Negative) 03/07/22 22:05 Urine Bilirubin (Man) Negative (Negative) 03/07/22 22:05 Urine WBC (Auto) 4.0 /HPF (0.0-6.0) 03/07/22 22:05 Urine RBC (Auto) 2.0 /HPF (0.0-6.0) 03/07/22 22:05 Urine Bacteria (Auto) 1+ /HPF (Negative) 03/07/22 22:05 Urine RBC (Manual) Trace (Negative) 03/07/22 22:05 Hyaline Casts 1 /LPF 03/07/22 22:05 Granular Casts 1 /LPF 03/07/22 22:05 RBC Casts 1 /LPF 03/07/22 22:05 Urine Mucus Few /HPF 03/07/22 22:05 Urine Yeast (Budding) Few /HPF 03/07/22 22:05 Urine Creatinine 46.9 mg/dL (0.1-20.0) H 03/08/22 12:41 Urine Sodium 83 mmol/L 03/08/22 12:41 Coronavirus (PCR) Negative (Negative) 03/08/22 08:16 Blood Type O POSITIVE 03/07/22 20:47 Antibody Screen Negative 03/07/22 20:47 Crossmatch See Detail 03/07/22 20:47 Microbiology: Microbiology 03/07/22 15:27 Peripheral/Venous Blood Culture - Preliminary Culture in Progress 03/07/22 15:27 Peripheral/Venous Blood Culture - Preliminary Culture in Progress High/IV: Voiding Method Indwelling Catheter Active Medications - Current Medications Current Medications: Generic Name Dose Route Start Last Admin Trade Name Freq PRN Reason Stop Dose Admin Acetaminophen 650 mg 03/07/22 20:29 Acetaminophen 325 Mg Tab PO Q4H PRN Pain MILD(1-3)/Fever >100.5/QUINTANILLA Dextrose 50 ml 03/08/22 13:13 Dextrose 50% In Water (25gm) 50 Ml Syringe IV Q30MIN PRN Hypoglycemia Protocol Hydralazine HCl 10 mg 03/08/22 09:31 03/08/22 09:37 Hydralazine 20 Mg/1 Ml Inj IV 10 mg Q4HR PRN Administration Hypertension Hydralazine HCl 50 mg 03/08/22 16:00 03/08/22 15:35 Hydralazine 25 Mg Tab PO 50 mg Q8HR BREANNE Administration NORepinephrine/NS 8 MG-250 ML 8 mg in 250 mls @ 3.75 mls/hr 03/07/22 16:00 03/07/22 22:37 Norepinephrine/Ns 8 Mg-250 Ml (Double Conc) IV 0 mcg/min TITRATE BREANNE 0 mls/hr Titration Protocol 2 MCG/MIN Sodium Chloride 1,000 mls @ 125 mls/hr 03/07/22 23:30 03/08/22 04:58 Nacl 0.9% 1000 Ml IV 0 mls/hr DIRECT BREANNE Infusion Pantoprazole Sodium 80 mg/ 100 mls @ 10 mls/hr 03/08/22 03:00 03/08/22 12:15 Sodium Chloride IV 8 mg/hr DIRECT BREANNE 10 mls/hr Administration 8 MG/HR Ceftriaxone Sodium 2 gm in 100 mls @ 200 mls/hr 03/09/22 10:00 Rocephin/Ns 2 Gm/100 Ml IV Q24H [facility] Protocol Insulin Human Isoph/Insulin Regular 16 unit 03/08/22 14:00 03/08/22 13:55 Insulin Nph/Regular 70/30 Inj SUB-Q 16 unit QDDIAB BREANNE Administration Insulin Human Isoph/Insulin Regular 6 unit 03/08/22 22:00 Insulin Nph/Regular 70/30 Inj SUB-Q QPMDIAB BREANNE Insulin Human Lispro 0 unit 03/08/22 16:30 03/08/22 16:31 Insulin Lispro 100 Unit/Ml SUB-Q Not Given ACHS [facility] Protocol Labetalol HCl 10 mg 03/08/22 13:06 03/08/22 14:47 Labetalol 20 Mg/4 Ml Inj IV 10 mg Q4HR PRN Administration Hypertension Metoclopramide HCl 10 mg 03/07/22 20:29 Metoclopramide 10 Mg/2 Ml Inj IV Q6H PRN Nausea And Vomiting Multi-Ingred Cream/Lotion/Oil/Oint 1 applic 03/08/22 04:03 03/08/22 04:11 Mineral Oil/Petrolatum, White Ophth Oint 3.5 Gm OU 1 applic PRN PRN Administration Dry Eye(s) Nifedipine 60 mg 03/08/22 14:00 03/08/22 13:55 Nifedipine Xl 60 Mg Tab PO 60 mg QDAY BREANNE Administration Ondansetron HCl 4 mg 03/07/22 20:29 Ondansetron 4 Mg/2 Ml Inj IV Q3H PRN Nausea And Vomiting Sodium Chloride 10 ml 03/07/22 22:00 03/08/22 09:36 Sodium Chloride 0.9% 10 Ml Flush Syringe IV 10 ml BID BREANNE Administration Sodium Chloride 10 ml 03/07/22 20:29 Sodium Chloride 0.9% 10 Ml Flush Syringe IV PRN PRN LINE FLUSH Nutrition/Malnutrition Assess - Dietary Evaluation Nutrition/Malnutrition Findings: Nutrition Notes Start: 03/08/22 12:35 Freq: Status: Active Protocol: Document 03/08/22 12:35 LINDSAY (Rec: 03/08/22 12:47 LINDSAY [id number]) Nutrition Notes Need for Assessment generated from: MD Order,Education Initial or Follow up Brief Note Current Diagnosis Acute Kidney Injury,Diabetes, Hypertension,Malnutrition Other Pertinent Diagnosis DKA, Metabolic Acidosis & Encephalopathy, SIRS, Anemia, GERD, ... Current Diet NPO (since 03/07 20:33). 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 Weight Status Appropriate Subjective/Other Information RD consult for nutrition education assessment. Pt currently on NPO. Pt is on Room Air, O2 saturation @ 98%, according to Physical Assessment History notes. Pt presents swallow difficulty , according to Physical Assessment History notes. Pt has missing teeth, according to Physical Assessment History notes. Pt still in critical condition , not a candidate for Nutrition Education at the time, will assess feasibility on F/U. Percent of energy/protein needs met: Pt currently on NPO. Nutrition Intervention Follow-Up By: 03/09/22 Additional Comments Nutrition education will be provided at F/U, if feasible. Continue monitoring food tolerance, %PO intake of meals , and BM. <BRIANNA POMPA - Last Filed: 03/09/22 14:28> History Interval history: I saw and evaluated the patient. Discussed with the nurse practitioner and agree with their findings and plan as documented in this note. Hospitalist Physical - Constitutional Vitals: Temp Pulse Resp BP Pulse Ox 98.9 F 95 H 18 134/82 100 03/09/22 12:56 03/09/22 12:56 03/09/22 12:56 03/09/22 12:56 03/09/22 12:56 Results - Labs CBC & Chem 7: 03/09/22 06:00 03/09/22 04:00 Labs: Laboratory Last Values WBC 8.8 K/mm3 (4.5-11.0) 03/09/22 06:00 RBC 3.71 M/mm3 (3.65-5.03) 03/09/22 06:00 Hgb 8.6 gm/dl (11.8-15.2) L 03/09/22 06:00 Hct 26.8 % (35.5-45.6) L 03/09/22 06:00 MCV 72 fl (84-94) L 03/09/22 06:00 MCH 23 pg (28-32) L 03/09/22 06:00 MCHC 32 % (32-34) 03/09/22 06:00 RDW 26.7 % (13.2-15.2) H 03/09/22 06:00 Plt Count 389 K/mm3 (140-440) 03/09/22 06:00 Add Manual Diff Complete 03/08/22 03:45 Total Counted 100 03/08/22 03:45 Seg Neuts % (Manual) 84.0 % (40.0-70.0) H 03/08/22 03:45 Band Neutrophils % 0 % 03/08/22 03:45 Lymphocytes % (Manual) 10.0 % (13.4-35.0) L 03/08/22 03:45 Reactive Lymphs % (Man) 0 % 03/08/22 03:45 Monocytes % (Manual) 6.0 % (0.0-7.3) 03/08/22 03:45 Eosinophils % (Manual) 0 % (0.0-4.3) 03/08/22 03:45 Basophils % (Manual) 0 % (0.0-1.8) 03/08/22 03:45 Metamyelocytes % 0 % 03/08/22 03:45 Myelocytes % 0 % 03/08/22 03:45 Promyelocytes % 0 % 03/08/22 03:45 Blast Cells % 0 % 03/08/22 03:45 Nucleated RBC % Not Reportable 03/08/22 03:45 Seg Neutrophils # Man 12.6 K/mm3 (1.8-7.7) H 03/08/22 03:45 Band Neutrophils # 0.0 K/mm3 03/08/22 03:45 Lymphocytes # (Manual) 1.5 K/mm3 (1.2-5.4) 03/08/22 03:45 Abs React Lymphs (Man) 0.0 K/mm3 03/08/22 03:45 Monocytes # (Manual) 0.9 K/mm3 (0.0-0.8) H 03/08/22 03:45 Eosinophils # (Manual) 0.0 K/mm3 (0.0-0.4) 03/08/22 03:45 Basophils # (Manual) 0.0 K/mm3 (0.0-0.1) 03/08/22 03:45 Metamyelocytes # 0.0 K/mm3 03/08/22 03:45 Myelocytes # 0.0 K/mm3 03/08/22 03:45 Promyelocytes # 0.0 K/mm3 03/08/22 03:45 Blast Cells # 0.0 K/mm3 03/08/22 03:45 WBC Morphology Not Reportable 03/08/22 03:45 Hypersegmented Neuts Not Reportable 03/08/22 03:45 Hyposegmented Neuts Not Reportable 03/08/22 03:45 Hypogranular Neuts Not Reportable 03/08/22 03:45 Smudge Cells Not Reportable 03/08/22 03:45 Toxic Granulation Not Reportable 03/08/22 03:45 Toxic Vacuolation Not Reportable 03/08/22 03:45 Dohle Bodies Not Reportable 03/08/22 03:45 Pelger-Huet Anomaly Not Reportable 03/08/22 03:45 Emily Rods Not Reportable 03/08/22 03:45 Platelet Estimate Consistent w auto 03/08/22 03:45 Clumped Platelets Not Reportable 03/08/22 03:45 Plt Clumps, EDTA Not Reportable 03/08/22 03:45 Large Platelets Not Reportable 03/08/22 03:45 Giant Platelets Not Reportable 03/08/22 03:45 Platelet Satelliting Not Reportable 03/08/22 03:45 Plt Morphology Comment Not Reportable 03/08/22 03:45 RBC Morphology Not Reportable 03/08/22 03:45 Dimorphic RBCs Yes 03/08/22 03:45 Polychromasia Not Reportable 03/08/22 03:45 Hypochromasia 1+ 03/08/22 03:45 Poikilocytosis Not Reportable 03/08/22 03:45 Anisocytosis 2+ 03/08/22 03:45 Microcytosis Not Reportable 03/08/22 03:45 Macrocytosis Not Reportable 03/08/22 03:45 Spherocytes Not Reportable 03/08/22 03:45 Pappenheimer Bodies Not Reportable 03/08/22 03:45 Sickle Cells Not Reportable 03/08/22 03:45 Target Cells Not Reportable 03/08/22 03:45 Tear Drop Cells Not Reportable 03/08/22 03:45 Ovalocytes Not Reportable 03/08/22 03:45 Helmet Cells Not Reportable 03/08/22 03:45 Elliott-Texline Bodies Not Reportable 03/08/22 03:45 [place] Rings Not Reportable 03/08/22 03:45 [place] Cells Not Reportable 03/08/22 03:45 Bite Cells Not Reportable 03/08/22 03:45 Crenated Cell Not Reportable 03/08/22 03:45 Elliptocytes Not Reportable 03/08/22 03:45 Acanthocytes (Spur) Not Reportable 03/08/22 03:45 Rouleaux Not Reportable 03/08/22 03:45 Hemoglobin C Crystals Not Reportable 03/08/22 03:45 Schistocytes Not Reportable 03/08/22 03:45 Malaria parasites Not Reportable 03/08/22 03:45 Daniel Bodies Not Reportable 03/08/22 03:45 Hem Pathologist Commnt No 03/08/22 03:45 ABG pH 6.965 pH Units (7.350-7.450) L* 03/07/22 16:01 ABG pCO2 14.1 mm Hg 03/07/22 16:01 ABG pO2 155.3 mm Hg (80.0-90.0) H 03/07/22 16:01 ABG HCO3 3.1 mmol/L (20.0-26.0) L 03/07/22 16:01 ABG O2 Saturation 98.3 % (95.0-99.0) 03/07/22 16:01 ABG O2 Content 9.0 (0.0-44) 03/07/22 16:01 ABG Base Excess -26.4 mmol/L (-2.0-3.0) L 03/07/22 16:01 ABG Hemoglobin 6.4 gm/dl (14.0-18.0) L 03/07/22 16:01 ABG Carboxyhemoglobin 2.3 % (0.0-5.0) 03/07/22 16:01 ABG Methemoglobin 0.6 % (0.0-1.5) 03/07/22 16:01 Oxyhemoglobin 95.4 % (95.0-99.0) 03/07/22 16:01 FiO2 21 % 03/07/22 16:01 Sodium 142 mmol/L (137-145) D 03/09/22 04:00 Potassium 3.0 mmol/L (3.6-5.0) L D 03/09/22 04:00 Chloride 100.6 mmol/L (98-107) 03/09/22 04:00 Carbon Dioxide 26 mmol/L (22-30) 03/09/22 04:00 Anion Gap 18 mmol/L 03/09/22 04:00 BUN 23 mg/dL (9-20) H 03/09/22 04:00 Creatinine 1.1 mg/dL (0.8-1.3) 03/09/22 04:00 Estimated GFR > 60 ml/min 03/09/22 04:00 BUN/Creatinine Ratio 21 % 03/09/22 04:00 Glucose 245 mg/dL (75-100) H 03/09/22 04:00 POC Glucose 309 mg/dL (70-105) H 03/09/22 08:40 Hemoglobin A1c 10.1 % (4-6) H 03/08/22 13:13 Ketones Quantitative Large (Negative) 03/07/22 15:27 Lactic Acid 3.40 mmol/L (0.7-2.0) H* 03/08/22 03:45 Calcium 8.5 mg/dL (8.4-10.2) 03/09/22 04:00 Phosphorus 2.20 mg/dL (2.5-4.5) L D 03/09/22 04:00 Magnesium 2.80 mg/dL (1.7-2.3) H 03/07/22 20:47 Total Bilirubin < 0.20 mg/dL (0.1-1.2) 03/07/22 15:27 Direct Bilirubin < 0.2 mg/dL (0-0.2) 03/07/22 15:27 Indirect Bilirubin 0.0 mg/dL 03/07/22 15:27 AST 11 units/L (5-40) 03/07/22 15:27 ALT 10 units/L (7-56) 03/07/22 15:27 Alkaline Phosphatase 132 units/L (35-129) H 03/07/22 15:27 Total Protein 5.9 g/dL (6.3-8.2) L 03/07/22 15:27 Albumin 3.7 g/dL (3.9-5) L 03/07/22 15:27 Albumin/Globulin Ratio 1.7 % 03/07/22 15:27 Urine Color Colorless (Yellow) 03/07/22 22:05 Urine Turbidity Clear (Clear) 03/07/22 22:05 Specific Andrews (Man) 1.010 (1.003-1.030) 03/07/22 22:05 Ur Protein (Man) <30 mg dl mg/dL (Negative) 03/07/22 22:05 Ur Ketones (Man) 2+ (Negative) 03/07/22 22:05 Urine Bilirubin (Man) Negative (Negative) 03/07/22 22:05 Urine WBC (Auto) 4.0 /HPF (0.0-6.0) 03/07/22 22:05 Urine RBC (Auto) 2.0 /HPF (0.0-6.0) 03/07/22 22:05 Urine Bacteria (Auto) 1+ /HPF (Negative) 03/07/22 22:05 Urine RBC (Manual) Trace (Negative) 03/07/22 22:05 Hyaline Casts 1 /LPF 03/07/22 22:05 Granular Casts 1 /LPF 03/07/22 22:05 RBC Casts 1 /LPF 03/07/22 22:05 Urine Mucus Few /HPF 03/07/22 22:05 Urine Yeast (Budding) Few /HPF 03/07/22 22:05 Urine Creatinine 46.9 mg/dL (0.1-20.0) H 03/08/22 12:41 Urine Sodium 83 mmol/L 03/08/22 12:41 Coronavirus (PCR) Negative (Negative) 03/08/22 08:16 Blood Type O POSITIVE 03/07/22 20:47 Antibody Screen Negative 03/07/22 20:47 Crossmatch See Detail 03/07/22 20:47 Microbiology: Microbiology 03/07/22 15:27 Peripheral/Venous Blood Culture - Preliminary NO GROWTH AFTER 24 HOURS 03/07/22 15:27 Peripheral/Venous Blood Culture - Preliminary NO GROWTH AFTER 24 HOURS High/IV: Voiding Method Indwelling Catheter Active Medications - Current Medications Current Medications: Generic Name Dose Route Start Last Admin Trade Name Freq PRN Reason Stop Dose Admin Acetaminophen 650 mg 03/07/22 20:29 Acetaminophen 325 Mg Tab PO Q4H PRN Pain MILD(1-3)/Fever >100.5/QUINTANILLA Dextrose 50 ml 03/08/22 13:13 Dextrose 50% In Water (25gm) 50 Ml Syringe IV Q30MIN PRN Hypoglycemia Protocol Hydralazine HCl 10 mg 03/08/22 09:31 03/08/22 17:05 Hydralazine 20 Mg/1 Ml Inj IV 10 mg Q4HR PRN Administration Hypertension Hydralazine HCl 50 mg 03/08/22 16:00 03/09/22 05:35 Hydralazine 25 Mg Tab PO 50 mg Q8HR BREANNE Administration Ceftriaxone Sodium 2 gm in 100 mls @ 200 mls/hr 03/09/22 10:00 03/09/22 09:46 Rocephin/Ns 2 Gm/100 Ml IV 200 mls/hr Q24H BREANNE Administration Protocol Potassium Phosphate 40 mmol/ 513.3333 mls @ 83 mls/hr 03/09/22 09:30 03/09/22 09:51 Sodium Chloride IV 03/09/22 15:41 83 mls/hr ONCE ONE Administration Insulin Human Isoph/Insulin Regular 10 unit 03/09/22 17:00 Insulin Nph/Regular 70/30 Inj SUB-Q BIDDIAB BREANNE Insulin Human Lispro 0 unit 03/08/22 16:30 03/09/22 12:10 Insulin Lispro 100 Unit/Ml SUB-Q 4 unit ACHS BREANNE Administration Protocol Labetalol HCl 10 mg 03/08/22 13:06 03/08/22 14:47 Labetalol 20 Mg/4 Ml Inj IV 10 mg Q4HR PRN Administration Hypertension Metoclopramide HCl 10 mg 03/07/22 20:29 Metoclopramide 10 Mg/2 Ml Inj IV Q6H PRN Nausea And Vomiting Multi-Ingred Cream/Lotion/Oil/Oint 1 applic 03/08/22 04:03 03/08/22 04:11 Mineral Oil/Petrolatum, White Ophth Oint 3.5 Gm OU 1 applic PRN PRN Administration Dry Eye(s) Nifedipine 60 mg 03/08/22 14:00 03/09/22 10:09 Nifedipine Xl 60 Mg Tab PO 60 mg QDAY BREANNE Administration Ondansetron HCl 4 mg 08/24/22 20:29 Ondansetron 4 Mg/2 Ml Inj IV Q3H PRN Nausea And Vomiting Pantoprazole Sodium 40 mg 03/09/22 22:00 Pantoprazole 40 Mg Inj IV BID BREANNE Sodium Chloride 10 ml 03/07/22 22:00 03/09/22 09:45 Sodium Chloride 0.9% 10 Ml Flush Syringe IV 10 ml BID BREANNE Administration Sodium Chloride 10 ml 03/07/22 20:29 Sodium Chloride 0.9% 10 Ml Flush Syringe IV PRN PRN LINE FLUSH Nutrition/Malnutrition Assess - Dietary Evaluation Nutrition/Malnutrition Findings: Nutrition Notes Start: 03/08/22 12:35 Freq: Status: Active Protocol: Document 03/09/22 12:04 PIEDAD (Rec: 03/09/22 12:11 PIEDAD [email or web address]) Nutrition Notes Initial or Follow up Assessment Current Diagnosis Diabetes,Hypertension Other Pertinent Diagnosis DKA, GIB, Myasthenia gravis, GERD, pneu Current Diet NPO Labs/Tests K 3 BUN 23 BG 245 Phos 2.2 Pertinent Medications Protonix gtt, 40mmol KPhos x 1 dose Height 5 ft 7 in Weight 71.758 kg [place] Body Weight (kg) 67.27 BMI 24.7 Weight Status Appropriate Subjective/Other Information Pt remains NPO (Day 3). Pt with multiple admissions since December 2021. GI following. Burn Absent Trauma Absent Minimum of two criteria No #1 Nutrition Diagnosis Altered GI function Etiology GIB, DKA, hx of GERD As Evidenced by Signs and Symptoms pt NPO for past 3 days Is patient on ventilator? No Is Patient Ambulatory and/or Out of Bed Yes REE-([facility]-ambulatory/OOB) [ [id number] NUTR.[id number]] Calculation Used for Recommendations [facility] Additional Notes Pro needs 0.8-1g/k-72g/ day Fluid needs 1ml/kcal Nutrition Intervention Change Diet Order: Advance diet to Consistent CHO when medically feasible Goal #1 Diet advancement to meet nutrient needs Anticipated Discharge Needs: CHO-controlled diet Follow-Up By: 03/12/22 Additional Comments F/U: diet advancement, diet education needs
[2022-03-08] MEDS ORDERED: INSULIN NPH/REGULAR 70/30 INJ SUB-Q SCH ×2 (17:00→22:00)
--- NOTE | 2022-03-08 18:10 | Gastroenterology Consultation ---
History of Present Illness - Reason for Consult Consult date: 03/08/22 coffee ground emesis Requesting physician: BRIANNA POMPA - History of Present Illness This is a 31-year-old male with history of insulin-dependent diabetes, hypertension, reflux admitted for DKA, lactic acidosis. GI consulted for episode of coffee-ground emesis. Patient noted to have episodes of emesis with coffee-ground this morning. Per nursing patient has not had any additional ep isodes throughout today. Patient denies any abdominal pain, melena, blood in his stool. Hemoglobin initially was at 6.2 and up to 7.8 this morning. Patient denies any prior history of GI bleed. No prior EGD colonoscopy. No known history of liver disease. Past History Past Medical History: diabetes, GERD Medications and Allergies Allergies Allergy/AdvReac Type Severity Reaction Status Date / Time codeine Allergy Hives Verified 01/22/22 15:36 morphine Allergy Angioedema Verified 01/22/22 15:36 tomato Allergy Vomiting Verified 01/22/22 15:36 Home Medications Medication Instructions Recorded Confirmed Last Taken Type Pantoprazole Sodium [Protonix] 40 mg PO HS #30 09/27/19 01/23/22 Unknown Rx Insulin NPH/Regular [NovoLIN 70/30] 18 unit SUB-Q QPMDIAB 30 Days 10/31/20 01/23/22 Unknown Rx Insulin Regular, Human [HumuLIN R] See Protocol SUB-Q ACHS 30 Days 10/31/20 01/23/22 Unknown Rx Famotidine [Pepcid] 20 mg PO BID #60 tablet 01/13/21 01/23/22 Unknown Rx Metoclopramide HCl [Reglan TAB] 5 mg PO TIDAC #21 tablet 01/13/21 01/23/22 Unknown Rx Losartan [Cozaar] 100 mg PO QDAY #30 tab 01/24/22 Unknown Rx NIFEdipine XL [Procardia Xl] 60 mg PO QDAY #30 tablet 01/24/22 Unknown Rx Active Meds: Active Medications Acetaminophen (Acetaminophen 325 Mg Tab) 650 mg PO Q4H PRN PRN Reason: Pain MILD(1-3)/Fever >100.5/QUINTANILLA Dextrose (Dextrose 50% In Water (25gm) 50 Ml Syringe) 50 ml IV Q30MIN PRN; P rotocol PRN Reason: Hypoglycemia Hydralazine HCl (Hydralazine 20 Mg/1 Ml Inj) 10 mg IV Q4HR PRN PRN Reason: Hypertension Last Admin: 03/08/22 17:05 Dose: 10 mg Hydralazine HCl (Hydralazine 25 Mg Tab) 50 mg PO Q8HR BREANNE Last Admin: 03/08/22 15:35 Dose: 50 mg NORepinephrine/NS 8 MG-250 ML (Norepinephrine/Ns 8 Mg-250 Ml (Double Conc)) 8 mg in 250 mls @ 3.75 mls/hr IV TITRATE BREANNE; Protocol Last Titration: 03/07/22 22:37 Dose: 0 mcg/min, 0 mls/hr Sodium Chloride (Nacl 0.9% 1000 Ml) 1,000 mls @ 125 mls/hr IV DIRECT BREANNE Last Infusion: 03/08/22 04:58 Dose: 0 mls/hr Pantoprazole Sodium 80 mg/ (Sodium Chloride) 100 mls @ 10 mls/hr IV DIRECT BREANNE Last Admin: 03/08/22 12:15 Dose: 8 mg/hr, 10 mls/hr Ceftriaxone Sodium (Rocephin/Ns 2 Gm/100 Ml) 2 gm in 100 mls @ 200 mls/hr IV Q24H BREANNE; Protocol Insulin Human Isoph/Insulin Regular (Insulin Nph/Regular 70/30 Inj) 16 unit SUB-Q QDDIAB BREANNE Last Admin: 03/08/22 13:55 Dose: 16 unit Insulin Human Isoph/Insulin Regular (Insulin Nph/Regular 70/30 Inj) 6 unit SUB- Q QPMDIAB BREANNE Insulin Human Lispro (Insulin Lispro 100 Unit/Ml) 0 unit SUB-Q ACHS BREANNE; Protocol Last Admin: 03/08/22 16:31 Dose: Not Given Labetalol HCl (Labetalol 20 Mg/4 Ml Inj) 10 mg IV Q4HR PRN PRN Reason: Hypertension Last Admin: 03/08/22 14:47 Dose: 10 mg Metoclopramide HCl (Metoclopramide 10 Mg/2 Ml Inj) 10 mg IV Q6H PRN PRN Reason: Nausea And Vomiting Multi-Ingred Cream/Lotion/Oil/Oint (Mineral Oil/Petrolatum, White Ophth Oint 3.5 Gm) 1 applic OU PRN PRN PRN Reason: Dry Eye(s) Last Admin: 03/08/22 04:11 Dose: 1 applic Nifedipine (Nifedipine Xl 60 Mg Tab) 60 mg PO QDAY [facility] Last Admin: 03/08/22 13:55 Dose: 60 mg Ondansetron HCl (Ondansetron 4 Mg/2 Ml Inj) 4 mg IV Q3H PRN PRN Reason: Nausea And Vomiting Sodium Chloride (Sodium Chloride 0.9% 10 Ml Flush Syringe) 10 ml IV BID [facility] Last Admin: 03/08/22 09:36 Dose: 10 ml Sodium Chloride (Sodium Chloride 0.9% 10 Ml Flush Syringe) 10 ml IV PRN PRN PRN Reason: LINE FLUSH Review of Systems - Review of Systems Constitutional: no weight loss, no weight gain, no chills Cardiovascular: no chest pain Gastrointestinal: nausea, vomiting, coffee ground emesis, no abdominal pain, no melena, no hematochezia Neurological: weakness Psychiatric: anxiety Hematologic/Lymphatic: no easy bruising Allergic/Immunologic: no wheezing Exam - Constitutional Vital Signs: Temp Pulse Resp BP Pulse Ox 98.9 F 96 H 12 169/94 98 03/08/22 16:00 03/08/22 17:05 03/08/22 17:00 03/08/22 17:30 03/08/22 17:30 General appearance: no acute distress - EENT Eyes: EOM intact ENT: hearing intact - Respiratory Respiratory effort: normal - Cardiovascular Rhythm: regular Heart Sounds: Present: S1 & S2 - Gastrointestinal General gastrointestinal: Present: soft, non-tender, non-distended - Integumentary Integumentary: Present: clear, warm - Neurologic Neurological: alert and oriented x3 - Psychiatric Psychiatric: appropriate mood/affect - Labs CBC & Chem 7: 03/08/22 03:45 03/08/22 08:23 Lab Results: Laboratory Results - last 24 hr 03/07/22 03/07/22 03/07/22 18:16 20:47 20:47 WBC RBC Hgb Hct MCV MCH MCHC RDW Plt Count Add Manual Diff Total Counted Seg Neuts % (Manual) Band Neutrophils % Lymphocytes % (Manual) Reactive Lymphs % (Man) Monocytes % (Manual) Eosinophils % (Manual) Basophils % (Manual) Metamyelocytes % Myelocytes % Promyelocytes % Blast Cells % Nucleated RBC % Seg Neutrophils # Man Band Neutrophils # Lymphocytes # (Manual) Abs React Lymphs (Man) Monocytes # (Manual) Eosinophils # (Manual) Basophils # (Manual) Metamyelocytes # Myelocytes # Promyelocytes # Blast Cells # WBC Morphology Hypersegmented Neuts Hyposegmented Neuts Hypogranular Neuts Smudge Cells Toxic Granulation Toxic Vacuolation Dohle Bodies Pelger-Huet Anomaly Emily Rods Platelet Estimate Clumped Platelets Plt Clumps, EDTA Large Platelets Giant Platelets Platelet Satelliting Plt Morphology Comment RBC Morphology Dimorphic RBCs Polychromasia Hypochromasia Poikilocytosis Anisocytosis Microcytosis Macrocytosis Spherocytes Pappenheimer Bodies Sickle Cells Target Cells Tear Drop Cells Ovalocytes Helmet Cells [place] Bodies [place]at[place] Rings Phi Cells Bite Cells Crenated Cell Elliptocytes Acanthocytes (Spur) Rouleaux Hemoglobin C Crystals Schistocytes Malaria parasites Daniel Bodies Hem Pathologist Commnt Sodium 126 L Potassium 6.2 H* Chloride 85.7 L Carbon Dioxide 3 L* Anion Gap 44 BUN 89 H Creatinine 2.6 H Estimated GFR 35 BUN/Creatinine Ratio 34 Glucose 1484 H* POC Glucose Hemoglobin A1c Lactic Acid 2.20 H* Calcium 7.6 L Phosphorus 10.70 H Magnesium 3.20 H Urine Color Urine Turbidity Specific [place] (Man) Ur Protein (Man) Ur Ketones (Man) Urine Bilirubin (Man) Urine WBC (Auto) Urine RBC (Auto) Urine Bacteria (Auto) Urine RBC (Manual) Hyaline Casts Granular Casts RBC Casts Urine Mucus Urine Yeast (Budding) Urine Creatinine Urine Sodium Coronavirus (PCR) Blood Type O POSITIVE Antibody Screen Negative Crossmatch See Detail 03/07/22 03/07/22 03/07/22 20:47 21:08 22:05 WBC RBC Hgb Hct MCV MCH MCHC RDW Plt Count Add Manual Diff Total Counted Seg Neuts % (Manual) Band Neutrophils % Lymphocytes % (Manual) Reactive Lymphs % (Man) Monocytes % (Manual) Eosinophils % (Manual) Basophils % (Manual) Metamyelocytes % Myelocytes % Promyelocytes % Blast Cells % Nucleated RBC % Seg Neutrophils # Man Band Neutrophils # Lymphocytes # (Manual) Abs React Lymphs (Man) Monocytes # (Manual) Eosinophils # (Manual) Basophils # (Manual) Metamyelocytes # Myelocytes # Promyelocytes # Blast Cells # WBC Morphology Hypersegmented Neuts Hyposegmented Neuts Hypogranular Neuts Smudge Cells Toxic Granulation Toxic Vacuolation Dohle Bodies Pelger-Huet Anomaly Emily Rods Platelet Estimate Clumped Platelets Plt Clumps, EDTA Large Platelets Giant Platelets Platelet Satelliting Plt Morphology Comment RBC Morphology Dimorphic RBCs Polychromasia Hypochromasia Poikilocytosis Anisocytosis Microcytosis Macrocytosis Spherocytes Pappenheimer Bodies Sickle Cells Target Cells Tear Drop Cells Ovalocytes Helmet Cells [place] Bodies [place] Rings Phi Cells Bite Cells Crenated Cell Elliptocytes Acanthocytes (Spur) Rouleaux Hemoglobin C Crystals Schistocytes Malaria parasites Daniel Bodies Hem Pathologist Commnt Sodium 130 L Potassium 5.2 H Chloride 91.7 L Carbon Dioxide 6 L* Anion Gap 38 BUN 86 H Creatinine 2.7 H Estimated GFR 34 BUN/Creatinine Ratio 32 Glucose 1176 H* POC Glucose > 600 H Hemoglobin A1c Lactic Acid Calcium 7.5 L Phosphorus 8.50 H D Magnesium 2.80 H Urine Color Colorless Urine Turbidity Clear Specific [place] (Man) 1.010 Ur Protein (Man) <30 mg dl Ur Ketones (Man) 2+ Urine Bilirubin (Man) Negative Urine WBC (Auto) 4.0 Urine RBC (Auto) 2.0 Urine Bacteria (Auto) 1+ Urine RBC (Manual) Trace Hyaline Casts 1 Granular Casts 1 RBC Casts 1 Urine Mucus Few Urine Yeast (Budding) Few Urine Creatinine Urine Sodium Coronavirus (PCR) Blood Type Antibody Screen Crossmatch 03/07/22 03/07/22 03/08/22 22:30 22:40 00:46 WBC RBC Hgb Hct MCV MCH MCHC RDW Plt Count Add Manual Diff Total Counted Seg Neuts % (Manual) Band Neutrophils % Lymphocytes % (Manual) Reactive Lymphs % (Man) Monocytes % (Manual) Eosinophils % (Manual) Basophils % (Manual) Metamyelocytes % Myelocytes % Promyelocytes % Blast Cells % Nucleated RBC % Seg Neutrophils # Man Band Neutrophils # Lymphocytes # (Manual) Abs React Lymphs (Man) Monocytes # (Manual) Eosinophils # (Manual) Basophils # (Manual) Metamyelocytes # Myelocytes # Promyelocytes # Blast Cells # WBC Morphology Hypersegmented Neuts Hyposegmented Neuts Hypogranular Neuts Smudge Cells Toxic Granulation Toxic Vacuolation Dohle Bodies Pelger-Huet Anomaly Emily Rods Platelet Estimate Clumped Platelets Plt Clumps, EDTA Large Platelets Giant Platelets Platelet Satelliting Plt Morphology Comment RBC Morphology Dimorphic RBCs Polychromasia Hypochromasia Poikilocytosis Anisocytosis Microcytosis Macrocytosis Spherocytes Pappenheimer Bodies Sickle Cells Target Cells Tear Drop Cells Ovalocytes Helmet Cells [place] Bodies [place] Rings [place] Cells Bite Cells Crenated Cell Elliptocytes Acanthocytes (Spur) Rouleaux Hemoglobin C Crystals Schistocytes Malaria parasites Daniel Bodies Hem Pathologist Commnt Sodium 137 D Potassium 4.7 Chloride 96.7 L Carbon Dioxide 12 L Anion Gap 33 BUN 81 H Creatinine 2.6 H Estimated GFR 35 BUN/Creatinine Ratio 31 Glucose 976 H* POC Glucose Hemoglobin A1c Lactic Acid 3.00 H* 3.20 H* Calcium 7.1 L Phosphorus Magnesium Urine Color Urine Turbidity Specific [place] (Man) Ur Protein (Man) Ur Ketones (Man) Urine Bilirubin (Man) Urine WBC (Auto) Urine RBC (Auto) Urine Bacteria (Auto) Urine RBC (Manual) Hyaline Casts Granular Casts RBC Casts Urine Mucus Urine Yeast (Budding) Urine Creatinine Urine Sodium Coronavirus (PCR) Blood Type Antibody Screen Crossmatch 03/08/22 03/08/22 03/08/22 00:46 01:58 02:59 WBC RBC Hgb Hct MCV MCH MCHC RDW Plt Count Add Manual Diff Total Counted Seg Neuts % (Manual) Band Neutrophils % Lymphocytes % (Manual) Reactive Lymphs % (Man) Monocytes % (Manual) Eosinophils % (Manual) Basophils % (Manual) Metamyelocytes % Myelocytes % Promyelocytes % Blast Cells % Nucleated RBC % Seg Neutrophils # Man Band Neutrophils # Lymphocytes # (Manual) Abs React Lymphs (Man) Monocytes # (Manual) Eosinophils # (Manual) Basophils # (Manual) Metamyelocytes # Myelocytes # Promyelocytes # Blast Cells # WBC Morphology Hypersegmented Neuts Hyposegmented Neuts Hypogranular Neuts Smudge Cells Toxic Granulation Toxic Vacuolation Dohle Bodies Pelger-Huet Anomaly Emily Rods Platelet Estimate Clumped Platelets Plt Clumps, EDTA Large Platelets Giant Platelets Platelet Satelliting Plt Morphology Comment RBC Morphology Dimorphic RBCs Polychromasia Hypochromasia Poikilocytosis Anisocytosis Microcytosis Macrocytosis Spherocytes Pappenheimer Bodies Sickle Cells Target Cells Tear Drop Cells Ovalocytes Helmet Cells [place] Bodies [place] Rings [place] Cells Bite Cells Crenated Cell Elliptocytes Acanthocytes (Spur) Rouleaux Hemoglobin C Crystals Schistocytes Malaria parasites Daniel Bodies Hem Pathologist Commnt Sodium 140 Potassium 4.4 Chloride 100.3 Carbon Dioxide 17 L Anion Gap 27 BUN 82 H Creatinine 2.5 H Estimated GFR 37 BUN/Creatinine Ratio 33 Glucose 726 H* POC Glucose 479 H 301 H Hemoglobin A1c Lactic Acid Calcium 7.3 L Phosphorus Magnesium Urine Color Urine Turbidity Specific [place] (Man) Ur Protein (Man) Ur Ketones (Man) Urine Bilirubin (Man) Urine WBC (Auto) Urine RBC (Auto) Urine Bacteria (Auto) Urine RBC (Manual) Hyaline Casts Granular Casts RBC Casts Urine Mucus Urine Yeast (Budding) Urine Creatinine Urine Sodium Coronavirus (PCR) Blood Type Antibody Screen Crossmatch 03/08/22 03/08/22 03/08/22 03:45 03:45 03:45 WBC 15.0 H RBC 3.47 L Hgb 7.8 L Hct 24.9 L MCV 72 L MCH 22 L MCHC 31 L RDW 25.5 H Plt Count 445 H Add Manual Diff Complete Total Counted 100 Seg Neuts % (Manual) 84.0 H Band Neutrophils % 0 Lymphocytes % (Manual) 10.0 L Reactive Lymphs % (Man) 0 Monocytes % (Manual) 6.0 Eosinophils % (Manual) 0 Basophils % (Manual) 0 Metamyelocytes % 0 Myelocytes % 0 Promyelocytes % 0 Blast Cells % 0 Nucleated RBC % Not Reportable Seg Neutrophils # Man 12.6 H Band Neutrophils # 0.0 Lymphocytes # (Manual) 1.5 Abs React Lymphs (Man) 0.0 Monocytes # (Manual) 0.9 H Eosinophils # (Manual) 0.0 Basophils # (Manual) 0.0 Metamyelocytes # 0.0 Myelocytes # 0.0 Promyelocytes # 0.0 Blast Cells # 0.0 WBC Morphology Not Reportable Hypersegmented Neuts Not Reportable Hyposegmented Neuts Not Reportable Hypogranular Neuts Not Reportable Smudge Cells Not Reportable Toxic Granulation Not Reportable Toxic Vacuolation Not Reportable Dohle Bodies Not Reportable Pelger-Huet Anomaly Not Reportable Emily Rods Not Reportable Platelet Estimate Consistent w auto Clumped Platelets Not Reportable Plt Clumps, EDTA Not Reportable Large Platelets Not Reportable Giant Platelets Not Reportable Platelet Satelliting Not Reportable Plt Morphology Comment Not Reportable RBC Morphology Not Reportable Dimorphic RBCs Yes Polychromasia Not Reportable Hypochromasia 1+ Poikilocytosis Not Reportable Anisocytosis 2+ Microcytosis Not Reportable Macrocytosis Not Reportable Spherocytes Not Reportable Pappenheimer Bodies Not Reportable Sickle Cells Not Reportable Target Cells Not Reportable Tear Drop Cells Not Reportable Ovalocytes Not Reportable Helmet Cells Not Reportable [place] Bodies Not Reportable [place] Rings Not Reportable Phi Cells Not Reportable Bite Cells Not Reportable Crenated Cell Not Reportable Elliptocytes Not Reportable Acanthocytes (Spur) Not Reportable Rouleaux Not Reportable Hemoglobin C Crystals Not Reportable Schistocytes Not Reportable Malaria parasites Not Reportable Daniel Bodies Not Reportable Hem Pathologist Commnt No Sodium 146 H Potassium 4.0 Chloride 107.2 H Carbon Dioxide 22 Anion Gap 21 BUN 75 H Creatinine 2.3 H Estimated GFR 40 BUN/Creatinine Ratio 33 Glucose 321 H POC Glucose Hemoglobin A1c Lactic Acid 3.40 H* Calcium 7.6 L Phosphorus Magnesium Urine Color Urine Turbidity Specific [place] (Man) Ur Protein (Man) Ur Ketones (Man) Urine Bilirubin (Man) Urine WBC (Auto) Urine RBC (Auto) Urine Bacteria (Auto) Urine RBC (Manual) Hyaline Casts Granular Casts RBC Casts Urine Mucus Urine Yeast (Budding) Urine Creatinine Urine Sodium Coronavirus (PCR) Blood Type Antibody Screen Crossmatch 03/08/22 03/08/22 03/08/22 03:47 04:54 05:43 WBC RBC Hgb Hct MCV MCH MCHC RDW Plt Count Add Manual Diff Total Counted Seg Neuts % (Manual) Band Neutrophils % Lymphocytes % (Manual) Reactive Lymphs % (Man) Monocytes % (Manual) Eosinophils % (Manual) Basophils % (Manual) Metamyelocytes % Myelocytes % Promyelocytes % Blast Cells % Nucleated RBC % Seg Neutrophils # Man Band Neutrophils # Lymphocytes # (Manual) Abs React Lymphs (Man) Monocytes # (Manual) Eosinophils # (Manual) Basophils # (Manual) Metamyelocytes # Myelocytes # Promyelocytes # Blast Cells # WBC Morphology Hypersegmented Neuts Hyposegmented Neuts Hypogranular Neuts Smudge Cells Toxic Granulation Toxic Vacuolation Dohle Bodies Pelger-Huet Anomaly Emily Rods Platelet Estimate Clumped Platelets Plt Clumps, EDTA Large Platelets Giant Platelets Platelet Satelliting Plt Morphology Comment RBC Morphology Dimorphic RBCs Polychromasia Hypochromasia Poikilocytosis Anisocytosis Microcytosis Macrocytosis Spherocytes Pappenheimer Bodies Sickle Cells Target Cells Tear Drop Cells Ovalocytes Helmet Cells [place] Bodies [place] Rings [place] Cells Bite Cells Crenated Cell Elliptocytes Acanthocytes (Spur) Rouleaux Hemoglobin C Crystals Schistocytes Malaria parasites Daniel Bodies Hem Pathologist Commnt Sodium Potassium Chloride Carbon Dioxide Anion Gap BUN Creatinine Estimated GFR BUN/Creatinine Ratio Glucose POC Glucose 255 H 226 H 206 H Hemoglobin A1c Lactic Acid Calcium Phosphorus Magnesium Urine Color Urine Turbidity Specific [place] (Man) Ur Protein (Man) Ur Ketones (Man) Urine Bilirubin (Man) Urine WBC (Auto) Urine RBC (Auto) Urine Bacteria (Auto) Urine RBC (Manual) Hyaline Casts Granular Casts RBC Casts Urine Mucus Urine Yeast (Budding) Urine Creatinine Urine Sodium Coronavirus (PCR) Blood Type Antibody Screen Crossmatch 03/08/22 03/08/22 03/08/22 06:55 08:01 08:16 WBC RBC Hgb Hct MCV MCH MCHC RDW Plt Count Add Manual Diff Total Counted Seg Neuts % (Manual) Band Neutrophils % Lymphocytes % (Manual) Reactive Lymphs % (Man) Monocytes % (Manual) Eosinophils % (Manual) Basophils % (Manual) Metamyelocytes % Myelocytes % Promyelocytes % Blast Cells % Nucleated RBC % Seg Neutrophils # Man Band Neutrophils # Lymphocytes # (Manual) Abs React Lymphs (Man) Monocytes # (Manual) Eosinophils # (Manual) Basophils # (Manual) Metamyelocytes # Myelocytes # Promyelocytes # Blast Cells # WBC Morphology Hypersegmented Neuts Hyposegmented Neuts Hypogranular Neuts Smudge Cells Toxic Granulation Toxic Vacuolation Dohle Bodies Pelger-Huet Anomaly Emily Rods Platelet Estimate Clumped Platelets Plt Clumps, EDTA Large Platelets Giant Platelets Platelet Satelliting Plt Morphology Comment RBC Morphology Dimorphic RBCs Polychromasia Hypochromasia Poikilocytosis Anisocytosis Microcytosis Macrocytosis Spherocytes Pappenheimer Bodies Sickle Cells Target Cells Tear Drop Cells Ovalocytes Helmet Cells [place] Bodies [place] Rings [place] Cells Bite Cells Crenated Cell Elliptocytes Acanthocytes (Spur) Rouleaux Hemoglobin C Crystals Schistocytes Malaria parasites Daniel Bodies Hem Pathologist Commnt Sodium Potassium Chloride Carbon Dioxide Anion Gap BUN Creatinine Estimated GFR BUN/Creatinine Ratio Glucose POC Glucose 165 H 175 H Hemoglobin A1c Lactic Acid Calcium Phosphorus Magnesium Urine Color Urine Turbidity Specific [place] (Man) Ur Protein (Man) Ur Ketones (Man) Urine Bilirubin (Man) Urine WBC (Auto) Urine RBC (Auto) Urine Bacteria (Auto) Urine RBC (Manual) Hyaline Casts Granular Casts RBC Casts Urine Mucus Urine Yeast (Budding) Urine Creatinine Urine Sodium Coronavirus (PCR) Negative Blood Type Antibody Screen Crossmatch 03/08/22 03/08/22 03/08/22 08:23 09:22 10:18 WBC RBC Hgb Hct MCV MCH MCHC RDW Plt Count Add Manual Diff Total Counted Seg Neuts % (Manual) Band Neutrophils % Lymphocytes % (Manual) Reactive Lymphs % (Man) Monocytes % (Manual) Eosinophils % (Manual) Basophils % (Manual) Metamyelocytes % Myelocytes % Promyelocytes % Blast Cells % Nucleated RBC % Seg Neutrophils # Man Band Neutrophils # Lymphocytes # (Manual) Abs React Lymphs (Man) Monocytes # (Manual) Eosinophils # (Manual) Basophils # (Manual) Metamyelocytes # Myelocytes # Promyelocytes # Blast Cells # WBC Morphology Hypersegmented Neuts Hyposegmented Neuts Hypogranular Neuts Smudge Cells Toxic Granulation Toxic Vacuolation Dohle Bodies Pelger-Huet Anomaly Emily Rods Platelet Estimate Clumped Platelets Plt Clumps, EDTA Large Platelets Giant Platelets Platelet Satelliting Plt Morphology Comment RBC Morphology Dimorphic RBCs Polychromasia Hypochromasia Poikilocytosis Anisocytosis Microcytosis Macrocytosis Spherocytes Pappenheimer Bodies Sickle Cells Target Cells Tear Drop Cells Ovalocytes Helmet Cells [place] Bodies [place] Rings Phi Cells Bite Cells Crenated Cell Elliptocytes Acanthocytes (Spur) Rouleaux Hemoglobin C Crystals Schistocytes Malaria parasites Daniel Bodies Hem Pathologist Commnt Sodium 153 H Potassium 3.9 Chloride 113.2 H Carbon Dioxide 24 Anion Gap 20 BUN 66 H Creatinine 2.2 H Estimated GFR 42 BUN/Creatinine Ratio 30 Glucose 187 H POC Glucose 155 H 168 H Hemoglobin A1c Lactic Acid Calcium 7.9 L Phosphorus Magnesium Urine Color Urine Turbidity Specific [place] (Man) Ur Protein (Man) Ur Ketones (Man) Urine Bilirubin (Man) Urine WBC (Auto) Urine RBC (Auto) Urine Bacteria (Auto) Urine RBC (Manual) Hyaline Casts Granular Casts RBC Casts Urine Mucus Urine Yeast (Budding) Urine Creatinine Urine Sodium Coronavirus (PCR) Blood Type Antibody Screen Crossmatch 03/08/22 03/08/22 03/08/22 11:06 12:09 12:41 WBC RBC Hgb Hct MCV MCH MCHC RDW Plt Count Add Manual Diff Total Counted Seg Neuts % (Manual) Band Neutrophils % Lymphocytes % (Manual) Reactive Lymphs % (Man) Monocytes % (Manual) Eosinophils % (Manual) Basophils % (Manual) Metamyelocytes % Myelocytes % Promyelocytes % Blast Cells % Nucleated RBC % Seg Neutrophils # Man Band Neutrophils # Lymphocytes # (Manual) Abs React Lymphs (Man) Monocytes # (Manual) Eosinophils # (Manual) Basophils # (Manual) Metamyelocytes # Myelocytes # Promyelocytes # Blast Cells # WBC Morphology Hypersegmented Neuts Hyposegmented Neuts Hypogranular Neuts Smudge Cells Toxic Granulation Toxic Vacuolation Dohle Bodies Pelger-Huet Anomaly Emily Rods Platelet Estimate Clumped Platelets Plt Clumps, EDTA Large Platelets Giant Platelets Platelet Satelliting Plt Morphology Comment RBC Morphology Dimorphic RBCs Polychromasia Hypochromasia Poikilocytosis Anisocytosis Microcytosis Macrocytosis Spherocytes Pappenheimer Bodies Sickle Cells Target Cells Tear Drop Cells Ovalocytes Helmet Cells [place] Bodies [place] Rings Phi Cells Bite Cells Crenated Cell Elliptocytes Acanthocytes (Spur) Rouleaux Hemoglobin C Crystals Schistocytes Malaria parasites Daniel Bodies Hem Pathologist Commnt Sodium Potassium Chloride Carbon Dioxide Anion Gap BUN Creatinine Estimated GFR BUN/Creatinine Ratio Glucose POC Glucose 165 H 184 H Hemoglobin A1c Lactic Acid Calcium Phosphorus Magnesium Urine Color Urine Turbidity Specific [place] (Man) Ur Protein (Man) Ur Ketones (Man) Urine Bilirubin (Man) Urine WBC (Auto) Urine RBC (Auto) Urine Bacteria (Auto) Urine RBC (Manual) Hyaline Casts Granular Casts RBC Casts Urine Mucus Urine Yeast (Budding) Urine Creatinine 46.9 H Urine Sodium 83 Coronavirus (PCR) Blood Type Antibody Screen Crossmatch 03/08/22 03/08/22 03/08/22 13:08 13:13 14:07 WBC RBC Hgb Hct MCV MCH MCHC RDW Plt Count Add Manual Diff Total Counted Seg Neuts % (Manual) Band Neutrophils % Lymphocytes % (Manual) Reactive Lymphs % (Man) Monocytes % (Manual) Eosinophils % (Manual) Basophils % (Manual) Metamyelocytes % Myelocytes % Promyelocytes % Blast Cells % Nucleated RBC % Seg Neutrophils # Man Band Neutrophils # Lymphocytes # (Manual) Abs React Lymphs (Man) Monocytes # (Manual) Eosinophils # (Manual) Basophils # (Manual) Metamyelocytes # Myelocytes # Promyelocytes # Blast Cells # WBC Morphology Hypersegmented Neuts Hyposegmented Neuts Hypogranular Neuts Smudge Cells Toxic Granulation Toxic Vacuolation Dohle Bodies Pelger-Huet Anomaly Emily Rods Platelet Estimate Clumped Platelets Plt Clumps, EDTA Large Platelets Giant Platelets Platelet Satelliting Plt Morphology Comment RBC Morphology Dimorphic RBCs Polychromasia Hypochromasia Poikilocytosis Anisocytosis Microcytosis Macrocytosis Spherocytes Pappenheimer Bodies Sickle Cells Target Cells Tear Drop Cells Ovalocytes Helmet Cells [place] Bodies [place] Rings Phi Cells Bite Cells Crenated Cell Elliptocytes Acanthocytes (Spur) Rouleaux Hemoglobin C Crystals Schistocytes Malaria parasites Daniel Bodies Hem Pathologist Commnt Sodium Potassium Chloride Carbon Dioxide Anion Gap BUN Creatinine Estimated GFR BUN/Creatinine Ratio Glucose POC Glucose 196 H 175 H Hemoglobin A1c 10.1 H Lactic Acid Calcium Phosphorus Magnesium Urine Color Urine Turbidity Specific [place] (Man) Ur Protein (Man) Ur Ketones (Man) Urine Bilirubin (Man) Urine WBC (Auto) Urine RBC (Auto) Urine Bacteria (Auto) Urine RBC (Manual) Hyaline Casts Granular Casts RBC Casts Urine Mucus Urine Yeast (Budding) Urine Creatinine Urine Sodium Coronavirus (PCR) Blood Type Antibody Screen Crossmatch 03/08/22 03/08/22 16:08 17:40 WBC RBC Hgb Hct MCV MCH MCHC RDW Plt Count Add Manual Diff Total Counted Seg Neuts % (Manual) Band Neutrophils % Lymphocytes % (Manual) Reactive Lymphs % (Man) Monocytes % (Manual) Eosinophils % (Manual) Basophils % (Manual) Metamyelocytes % Myelocytes % Promyelocytes % Blast Cells % Nucleated RBC % Seg Neutrophils # Man Band Neutrophils # Lymphocytes # (Manual) Abs React Lymphs (Man) Monocytes # (Manual) Eosinophils # (Manual) Basophils # (Manual) Metamyelocytes # Myelocytes # Promyelocytes # Blast Cells # WBC Morphology Hypersegmented Neuts Hyposegmented Neuts Hypogranular Neuts Smudge Cells Toxic Granulation Toxic Vacuolation Dohle Bodies Pelger-Huet Anomaly Emily Rods Platelet Estimate Clumped Platelets Plt Clumps, EDTA Large Platelets Giant Platelets Platelet Satelliting Plt Morphology Comment RBC Morphology Dimorphic RBCs Polychromasia Hypochromasia Poikilocytosis Anisocytosis Microcytosis Macrocytosis Spherocytes Pappenheimer Bodies Sickle Cells Target Cells Tear Drop Cells Ovalocytes Helmet Cells [place] Bodies Anatone Rings Phi Cells Bite Cells Crenated Cell Elliptocytes Acanthocytes (Spur) Rouleaux Hemoglobin C Crystals Schistocytes Malaria parasites Daniel Bodies Hem Pathologist Commnt Sodium Potassium Chloride Carbon Dioxide Anion Gap BUN Creatinine Estimated GFR BUN/Creatinine Ratio Glucose POC Glucose 104 98 Hemoglobin A1c Lactic Acid Calcium Phosphorus Magnesium Urine Color Urine Turbidity Specific [place] (Man) Ur Protein (Man) Ur Ketones (Man) Urine Bilirubin (Man) Urine WBC (Auto) Urine RBC (Auto) Urine Bacteria (Auto) Urine RBC (Manual) Hyaline Casts Granular Casts RBC Casts Urine Mucus Urine Yeast (Budding) Urine Creatinine Urine Sodium Coronavirus (PCR) Blood Type Antibody Screen Crossmatch Assessment and Plan # Coffee ground emesis - episodes overnight but no additional episodes today. - no melena or bloody stools. - Hgb at 7.8. - suspect 2/2 esophagitis, gastritis, PUD in the setting of DKA. Rec - cont with PPI IV - monitor H/H serially and transfuse as needed. - keep NPO - may need EGD in case of recurrent overt active bleeding and once electrolytes abnormalities resolve. - will follow. - supportive care - antiemetics.
[2022-03-08] MEDS ORDERED: PANTOPRAZOLE 40 MG TAB PO SCH (22:00)
[2022-03-09] MEDS: hydrALAZINE 25 MG TAB PO SCH ×3 (05:35→22:36)
[2022-03-09] MEDS: PANTOPRAZOLE 80 MG in SODIUM CHLORIDE 0.9% 100 ML IV SCH (05:36)
[2022-03-09 06:31] LABS: Hematocrit 26.8 % (35.5-45.6); Hemoglobin 8.6 gm/dl (11.8-15.2); Mean Corpuscular HGB Conc 32 % (32-34); Mean Corpuscular Volume 72 fl (84-94); Platelet Count 389 K/mm3 (140-440); Red Blood Count 3.71 M/mm3 (3.65-5.03)
[2022-03-09 06:32] LABS: Red Cell Distribution Width 26.7 % (13.2-15.2)
[2022-03-09 06:51] LABS: BUN/Creatinine Ratio 21; Blood Urea Nitrogen 23 mg/dL (9-20); Calcium 8.5 mg/dL (8.4-10.2); Hemolysis Index 1
--- NOTE | 2022-03-09 07:30 | Progress Note ---
Assessment and Plan Assessment and plan: History Interval history: This is a 31 year old with IDDM, HTN, myasthenia gravis and GERD who presents the emergency department via EMS for altered mental status. Per family patient had been trying to control his elevated blood sugar for the past several days an d noticed that his mentation has had a declined over that time. Upon arrival to the emergency department patient was found to be hypotensive and hypothermic and was aggressively resuscitated with IV fluids. CXR showed bilateral pulmonary opacities. And received central line with the initiation of Levophed. In the emergency department blood glucose was 1582, BUN/creatinine was 2.6/86, leukocytosis at 18.4, anemia at 6.2/27, AG 39. Patient was admitted to the hospitalist service with consults to [facility] for DKA. Hospital course to date: 03/08: Patient noted to have bloody emesis and GI was consulted. Patient was placed on a PPI drip. This morning patient's anion gap was closed and this afternoon patient was transitioned to [facility] and started on a CC diet. Patient has been hypertensive and is on hydralazine and labetalol as needed, restarted home Procardia and add added hydralazine. 03/09: Patient to remain NPO per GI. Will follow GI plan. No further episodes of bloody emesis reported. Continue rocephin for CAP tx. Potassium low this AM, replaced with 40 MEQ IV. Blood sugars in 300's however due to NPO status will change to 70/30 insulin 10 units bid...can increase once patient clear for diet. Assessment and plan: This is a 31-year-old male with IDDM, HTN, myasthenia gravis and GERD admitted with DKA, leukocytosis, anemia, acute kidney injury, lactic acidosis. Neuro: Acute metabolic encephalopathy (resolved), h/o Myasthenia Gravis -Reorientation as needed -Maintain sleep-wake cycle -As needed analgesia -Obtain home medications Cardiac: h/o HTN -Antihypertensive regimen: Hydralazine, Procardia -Blood pressure monitoring per protocol -Hold home lisinopril in setting of ISHA -As needed hydralazine and labetalol Respiratory: RML Pneumonia, community acquired pneumonia - CXR demonstrates RML infiltrates - tx with rocephin IV -SPO2 monitoring -Supplemental oxygen as needed -Pulmonary hygiene GI: Gastrointestinal bleed, Coffee ground emesis, h/o gerd, Mild protein calorie deficiency, -Patient noted to have hematemesis -GI consulted, appreciate recommendations -Protonix drip -CC diet : High anion gap metabolic acidosis, acute kidney injury likely secondary to vasomotor nephropathy, hypernatremia -Nephrology consulted, appreciate recommendations -Strict intake and output -Renally dose medications -Avoid nephrotoxic medications -FeNa 2.6% -Renal ultrasound shows no hydronephrosis appreciated, urinary bladder is partially fluid distended, High catheter noted -Trend BMP ID: Sepsis POA, RML Pneumonia, Lactic acidosis -Presented with hypotension, leukocytosis, hypothermia, CXR with possible infiltrate -COVID-19 PCR negative -Antibiotic therapy with Rocephin -UA (-) -f/u blood culture -Monitor WBC and temperature curve Endo: s/p DKA, h/o IDDM -Presented with anion gap of 39, metabolic acidosis of 3, blood glucose 1582, VBG 6.965 -S/p insulin drip -Hemaglobin A1C A1c 10.1 -Avoid hypoglycemia -SSI -Accu-Cheks AC at bedtime -Long-acting insulin, titrate as needed Heme: Acute blood loss anemia, Leukocytosis, thrombocytosis -Presented with H/H of 6.9/27.1 -S/p 2 units PRBC -Trend CBC -Transfuse hemoglobin less than 7 -SCDs to BLE while in bed History Interval history: No acute complaints Hospitalist Physical - Physical exam Narrative exam: Physical Exam: VITAL SIGNS: Reviewed. GENERAL: The patient appears normally developed, Vital signs as documented. HEAD: No signs of head trauma. EYES: Pupils are equal. Extraocular motions intact. EARS: Hearing grossly intact. MOUTH: Oropharynx is normal. NECK: No adenopathy, no JVD. CHEST: Chest with clear breath sounds bilaterally. No wheezes, rales, or rhonchi. CARDIAC: Regular rate and rhythm. S1 and S2, without murmurs, gallops, or rubs. VASCULAR: No Edema. Peripheral pulses normal and equal in all extremities. ABDOMEN: Soft, non tender and non distended. No rebound or guarding, and no masses palpated. Bowel Sounds normal. MUSCULOSKELETAL: Good range of motion of all major joints. Extremities without clubbing, cyanosis or edema. NEUROLOGIC EXAM: Alert and oriented x 4. no focal sensory or strength deficits. PSYCHIATRIC: Mood normal. SKIN: detail exam as documented in skin assessment - Constitutional Vitals: Temp Pulse Resp BP Pulse Ox 98.5 F 93 H 20 139/83 97 03/09/22 05:15 03/09/22 05:15 03/09/22 05:15 03/09/22 05:15 03/09/22 05:15 General appearance: Present: no acute distress, obese Results - Labs CBC & Chem 7: 03/09/22 06:00 03/09/22 04:00 Labs: Laboratory Last Values WBC 8.8 K/mm3 (4.5-11.0) 03/09/22 06:00 RBC 3.71 M/mm3 (3.65-5.03) 03/09/22 06:00 Hgb 8.6 gm/dl (11.8-15.2) L 03/09/22 06:00 Hct 26.8 % (35.5-45.6) L 03/09/22 06:00 MCV 72 fl (84-94) L 03/09/22 06:00 MCH 23 pg (28-32) L 03/09/22 06:00 MCHC 32 % (32-34) 03/09/22 06:00 RDW 26.7 % (13.2-15.2) H 03/09/22 06:00 Plt Count 389 K/mm3 (140-440) 03/09/22 06:00 Add Manual Diff Complete 03/08/22 03:45 Total Counted 100 03/08/22 03:45 Seg Neuts % (Manual) 84.0 % (40.0-70.0) H 03/08/22 03:45 Band Neutrophils % 0 % 03/08/22 03:45 Lymphocytes % (Manual) 10.0 % (13.4-35.0) L 03/08/22 03:45 Reactive Lymphs % (Man) 0 % 03/08/22 03:45 Monocytes % (Manual) 6.0 % (0.0-7.3) 03/08/22 03:45 Eosinophils % (Manual) 0 % (0.0-4.3) 03/08/22 03:45 Basophils % (Manual) 0 % (0.0-1.8) 03/08/22 03:45 Metamyelocytes % 0 % 03/08/22 03:45 Myelocytes % 0 % 03/08/22 03:45 Promyelocytes % 0 % 03/08/22 03:45 Blast Cells % 0 % 03/08/22 03:45 Nucleated RBC % Not Reportable 03/08/22 03:45 Seg Neutrophils # Man 12.6 K/mm3 (1.8-7.7) H 03/08/22 03:45 Band Neutrophils # 0.0 K/mm3 03/08/22 03:45 Lymphocytes # (Manual) 1.5 K/mm3 (1.2-5.4) 03/08/22 03:45 Abs React Lymphs (Man) 0.0 K/mm3 03/08/22 03:45 Monocytes # (Manual) 0.9 K/mm3 (0.0-0.8) H 03/08/22 03:45 Eosinophils # (Manual) 0.0 K/mm3 (0.0-0.4) 03/08/22 03:45 Basophils # (Manual) 0.0 K/mm3 (0.0-0.1) 03/08/22 03:45 Metamyelocytes # 0.0 K/mm3 03/08/22 03:45 Myelocytes # 0.0 K/mm3 03/08/22 03:45 Promyelocytes # 0.0 K/mm3 03/08/22 03:45 Blast Cells # 0.0 K/mm3 03/08/22 03:45 WBC Morphology Not Reportable 03/08/22 03:45 Hypersegmented Neuts Not Reportable 03/08/22 03:45 Hyposegmented Neuts Not Reportable 03/08/22 03:45 Hypogranular Neuts Not Reportable 03/08/22 03:45 Smudge Cells Not Reportable 03/08/22 03:45 Toxic Granulation Not Reportable 03/08/22 03:45 Toxic Vacuolation Not Reportable 03/08/22 03:45 Dohle Bodies Not Reportable 03/08/22 03:45 Pelger-Huet Anomaly Not Reportable 03/08/22 03:45 Emily Rods Not Reportable 03/08/22 03:45 Platelet Estimate Consistent w auto 03/08/22 03:45 Clumped Platelets Not Reportable 03/08/22 03:45 Plt Clumps, EDTA Not Reportable 03/08/22 03:45 Large Platelets Not Reportable 03/08/22 03:45 Giant Platelets Not Reportable 03/08/22 03:45 Platelet Satelliting Not Reportable 03/08/22 03:45 Plt Morphology Comment Not Reportable 03/08/22 03:45 RBC Morphology Not Reportable 03/08/22 03:45 Dimorphic RBCs Yes 03/08/22 03:45 Polychromasia Not Reportable 03/08/22 03:45 Hypochromasia 1+ 03/08/22 03:45 Poikilocytosis Not Reportable 03/08/22 03:45 Anisocytosis 2+ 03/08/22 03:45 Microcytosis Not Reportable 03/08/22 03:45 Macrocytosis Not Reportable 03/08/22 03:45 Spherocytes Not Reportable 03/08/22 03:45 Pappenheimer Bodies Not Reportable 03/08/22 03:45 Sickle Cells Not Reportable 03/08/22 03:45 Target Cells Not Reportable 03/08/22 03:45 Tear Drop Cells Not Reportable 03/08/22 03:45 Ovalocytes Not Reportable 03/08/22 03:45 Helmet Cells Not Reportable 03/08/22 03:45 Elliott-[place] Bodies Not Reportable 03/08/22 03:45 [place] Rings Not Reportable 03/08/22 03:45 Phi Cells Not Reportable 03/08/22 03:45 Bite Cells Not Reportable 03/08/22 03:45 Crenated Cell Not Reportable 03/08/22 03:45 Elliptocytes Not Reportable 03/08/22 03:45 Acanthocytes (Spur) Not Reportable 03/08/22 03:45 Rouleaux Not Reportable 03/08/22 03:45 Hemoglobin C Crystals Not Reportable 03/08/22 03:45 Schistocytes Not Reportable 03/08/22 03:45 Malaria parasites Not Reportable 03/08/22 03:45 Daniel Bodies Not Reportable 03/08/22 03:45 Hem Pathologist Commnt No 03/08/22 03:45 ABG pH 6.965 pH Units (7.350-7.450) L* 03/07/22 16:01 ABG pCO2 14.1 mm Hg 03/07/22 16:01 ABG pO2 155.3 mm Hg (80.0-90.0) H 03/07/22 16:01 ABG HCO3 3.1 mmol/L (20.0-26.0) L 03/07/22 16:01 ABG O2 Saturation 98.3 % (95.0-99.0) 03/07/22 16:01 ABG O2 Content 9.0 (0.0-44) 03/07/22 16:01 ABG Base Excess -26.4 mmol/L (-2.0-3.0) L 03/07/22 16:01 ABG Hemoglobin 6.4 gm/dl (14.0-18.0) L 03/07/22 16:01 ABG Carboxyhemoglobin 2.3 % (0.0-5.0) 03/07/22 16:01 ABG Methemoglobin 0.6 % (0.0-1.5) 03/07/22 16:01 Oxyhemoglobin 95.4 % (95.0-99.0) 03/07/22 16:01 FiO2 21 % 03/07/22 16:01 Sodium 142 mmol/L (137-145) D 03/09/22 04:00 Potassium 3.0 mmol/L (3.6-5.0) L D 03/09/22 04:00 Chloride 100.6 mmol/L (98-107) 03/09/22 04:00 Carbon Dioxide 26 mmol/L (22-30) 03/09/22 04:00 Anion Gap 18 mmol/L 03/09/22 04:00 BUN 23 mg/dL (9-20) H 03/09/22 04:00 Creatinine 1.1 mg/dL (0.8-1.3) 03/09/22 04:00 Estimated GFR > 60 ml/min 03/09/22 04:00 BUN/Creatinine Ratio 21 % 03/09/22 04:00 Glucose 245 mg/dL (75-100) H 03/09/22 04:00 POC Glucose 172 mg/dL (70-105) H 03/08/22 22:48 Hemoglobin A1c 10.1 % (4-6) H 03/08/22 13:13 Ketones Quantitative Large (Negative) 03/07/22 15:27 Lactic Acid 3.40 mmol/L (0.7-2.0) H* 03/08/22 03:45 Calcium 8.5 mg/dL (8.4-10.2) 03/09/22 04:00 Phosphorus 2.20 mg/dL (2.5-4.5) L D 03/09/22 04:00 Magnesium 2.80 mg/dL (1.7-2.3) H 03/07/22 20:47 Total Bilirubin < 0.20 mg/dL (0.1-1.2) 03/07/22 15:27 Direct Bilirubin < 0.2 mg/dL (0-0.2) 03/07/22 15:27 Indirect Bilirubin 0.0 mg/dL 03/07/22 15:27 AST 11 units/L (5-40) 03/07/22 15: ALT 10 units/L (7-56) 03/07/22 15:27 Alkaline Phosphatase 132 units/L (35-129) H 03/07/22 15:27 Total Protein 5.9 g/dL (6.3-8.2) L 03/07/22 15:27 Albumin 3.7 g/dL (3.9-5) L 03/07/22 15:27 Albumin/Globulin Ratio 1.7 % 03/07/22 15:27 Urine Color Colorless (Yellow) 03/07/22 22:05 Urine Turbidity Clear (Clear) 03/07/22 22:05 Specific [place] (Man) 1.010 (1.003-1.030) 03/07/22 22:05 Ur Protein (Man) <30 mg dl mg/dL (Negative) 03/07/22 22:05 Ur Ketones (Man) 2+ (Negative) 03/07/22 22:05 Urine Bilirubin (Man) Negative (Negative) 03/07/22 22:05 Urine WBC (Auto) 4.0 /HPF (0.0-6.0) 03/07/22 22:05 Urine RBC (Auto) 2.0 /HPF (0.0-6.0) 03/07/22 22:05 Urine Bacteria (Auto) 1+ /HPF (Negative) 03/07/22 22:05 Urine RBC (Manual) Trace (Negative) 03/07/22 22:05 Hyaline Casts 1 /LPF 03/07/22 22:05 Granular Casts 1 /LPF 03/07/22 22:05 RBC Casts 1 /LPF 03/07/22 22:05 Urine Mucus Few /HPF 03/07/22 22:05 Urine Yeast (Budding) Few /HPF 03/07/22 22:05 Urine Creatinine 46.9 mg/dL (0.1-20.0) H 03/08/22 12:41 Urine Sodium 83 mmol/L 03/08/22 12:41 Coronavirus (PCR) Negative (Negative) 03/08/22 08:16 Blood Type O POSITIVE 03/07/22 20:47 Antibody Screen Negative 03/07/22 20:47 Crossmatch See Detail 03/07/22 20:47 Microbiology: Microbiology 03/07/22 15:27 Peripheral/Venous Blood Culture - Preliminary NO GROWTH AFTER 24 HOURS 03/07/22 15:27 Peripheral/Venous Blood Culture - Preliminary NO GROWTH AFTER 24 HOURS High/IV: Voiding Method Indwelling Catheter Active Medications - Current Medications Current Medications: Generic Name Dose Route Start Last Admin Trade Name Freq PRN Reason Stop Dose Admin Acetaminophen 650 mg 03/07/22 20:29 Acetaminophen 325 Mg Tab PO Q4H PRN Pain MILD(1-3)/Fever >100.5/QUINTANILLA Dextrose 50 ml 03/08/22 13:13 Dextrose 50% In Water (25gm) 50 Ml Syringe IV Q30MIN PRN Hypoglycemia Protocol Hydralazine HCl 10 mg 03/08/22 09:31 03/08/22 17:05 Hydralazine 20 Mg/1 Ml Inj IV 10 mg Q4HR PRN Administration Hypertension Hydralazine HCl 50 mg 03/08/22 16:00 03/09/22 05:35 Hydralazine 25 Mg Tab PO 50 mg Q8HR BREANNE Administration Pantoprazole Sodium 80 mg/ 100 mls @ 10 mls/hr 03/08/22 03:00 03/09/22 05:36 Sodium Chloride IV 8 mg/hr DIRECT BREANNE 10 mls/hr Administration 8 MG/HR Ceftriaxone Sodium 2 gm in 100 mls @ 200 mls/hr 03/09/22 10:00 Rocephin/Ns 2 Gm/100 Ml IV Q24H BREANNE Protocol Potassium Chloride 10 meq in 100 mls @ 100 mls/hr 03/09/22 08:00 Kcl 10meq/100ml IV 03/09/22 11:59 Q1H BREANNE Insulin Human Isoph/Insulin Regular 16 unit 03/08/22 14:00 03/08/22 13:55 Insulin Nph/Regular 70/30 Inj SUB-Q 16 unit QDDIAB BREANNE Administration Insulin Human Isoph/Insulin Regular 6 unit 03/08/22 22:00 03/08/22 22:57 Insulin Nph/Regular 70/30 Inj SUB-Q 6 unit QPMDIAB BREANNE Administration Insulin Human Lispro 0 unit 03/08/22 16:30 03/08/22 22:58 Insulin Lispro 100 Unit/Ml SUB-Q 2 unit ACHS BREANNE Administration Protocol Labetalol HCl 10 mg 03/08/22 13:06 03/08/22 14:47 Labetalol 20 Mg/4 Ml Inj IV 10 mg Q4HR PRN Administration Hypertension Metoclopramide HCl 10 mg 03/07/22 20:29 Metoclopramide 10 Mg/2 Ml Inj IV Q6H PRN Nausea And Vomiting Multi-Ingred Cream/Lotion/Oil/Oint 1 applic 03/08/22 04:03 03/08/22 04:11 Mineral Oil/Petrolatum, White Ophth Oint 3.5 Gm OU 1 applic PRN PRN Administration Dry Eye(s) Nifedipine 60 mg 03/08/22 14:00 03/08/22 13:55 Nifedipine Xl 60 Mg Tab PO 60 mg QDAY BREANNE Administration Ondansetron HCl 4 mg 03/07/22 20:29 Ondansetron 4 Mg/2 Ml Inj IV Q3H PRN Nausea And Vomiting Sodium Chloride 10 ml 03/07/22 22:00 03/08/22 22:57 Sodium Chloride 0.9% 10 Ml Flush Syringe IV 10 ml BID BREANNE Administration Sodium Chloride 10 ml 03/07/22 20:29 Sodium Chloride 0.9% 10 Ml Flush Syringe IV PRN PRN LINE FLUSH Nutrition/Malnutrition Assess - Dietary Evaluation Nutrition/Malnutrition Findings: Nutrition Notes Start: 03/08/22 12:35 Freq: Status: Active Protocol: Document 03/08/22 12:35 LINDSAY (Rec: 03/08/22 12:47 LINDSAY [email or web address]) Nutrition Notes Need for Assessment generated from: MD Order,Education Initial or Follow up Brief Note Current Diagnosis Acute Kidney Injury,Diabetes, Hypertension,Malnutrition Other Pertinent Diagnosis DKA, Metabolic Acidosis & Encephalopathy, SIRS, Anemia, GERD, ... Current Diet NPO (since 03/07 20:33). Height 5 ft 7 in Weight 71.758 kg [place] Body Weight (kg) 67.27 BMI 24.7 Intake Prior to Admission Good Weight change and time frame Pt denies having loss body weight [employer]. Weight Status Appropriate Subjective/Other Information RD consult for nutrition education assessment. Pt currently on NPO. Pt is on Room Air, O2 saturation @ 98%, according to Physical Assessment History notes. Pt presents swallow difficulty , according to Physical Assessment History notes. Pt has missing teeth, according to Physical Assessment History notes. Pt still in critical condition , not a candidate for Nutrition Education at the time, will assess feasibility on F/U. Percent of energy/protein needs met: Pt currently on NPO. Nutrition Intervention Follow-Up By: 03/09/22 Additional Comments Nutrition education will be provided at F/U, if feasible. Continue monitoring food tolerance, %PO intake of meals , and BM.
--- NOTE | 2022-03-09 08:24 | Progress Note ---
Assessment and Plan 1. Acute kidney injury: Vasomotor ISHA in the setting of DKA. Urine studies and Renal US ordered. Monitor renal function. Creatinine level is better. Avoid nephrotoxic agents. Meds dosage based on GFR. 2. FEN: Hypernatremia, improved. Hypokalemia, replete K, monitor. Replete lytes as needed. Monitor lytes and volume status. 3. DKA / h/o IDDM: Presented with bicarb 3, blood glucose 1582. S/p Insulin drip. Hemoglobin A1C A1c 10.1. Monitor. 4. SIRS vs. Sepsis, Lactic acidosis: COVID-19 PCR negative. Per primary. Monitor. 5. Acute anemia, Leukocytosis, thrombocytosis: Presented with H/H of 6.9/27.1. S/p 2 units PRBC. Trend and transfuse for hemoglobin less than 7. 6. Hypertension: Adjust BP meds as needed. Monitor. 7. Acute metabolic encephalopathy, POA: Monitor. 8. Myasthenia gravis: Home meds. Will sign off. Subjective: Patient was seen and examined at the bedside. Examination: General appearance: well-developed, appears stated age, no distress HEENT: atraumatic, no icterus Neck: trachea midline Respiratory: ctab Heart: S1S2, regular, no murmur Abdomen: soft, bowel sounds heard, NT Integumentary: no obvious rash Neurologic: alert, conversing, moving extremities, ptosis Ext: no edema Subjective Date of service: 03/09/22 Objective - Vital Signs Vital signs: Vital Signs - 12hr 03/08/22 03/09/22 03/09/22 22: 00:00 05:15 Temperature 99.3 F 98.5 F Pulse Rate 103 H 96 H 93 H Respiratory 20 20 Rate Blood Pressure 142/81 Blood Pressure 139/83 [Right] O2 Sat by Pulse 97 97 Oximetry - Lab 03/09/22 06:00 03/09/22 04:00 Most recent lab results ABG pH 6.965 pH Units (7.350-7.450) L* 03/07/22 16:01 ABG pCO2 14.1 mm Hg 03/07/22 16:01 ABG pO2 155.3 mm Hg (80.0-90.0) H 03/07/22 16:01 ABG HCO3 3.1 mmol/L (20.0-26.0) L 03/07/22 16:01 ABG O2 Saturation 98.3 % (95.0-99.0) 03/07/22 16:01 Calcium 8.5 mg/dL (8.4-10.2) 03/09/22 04:00 Phosphorus 2.20 mg/dL (2.5-4.5) L D 03/09/22 04:00 Magnesium 2.80 mg/dL (1.7-2.3) H 03/07/22 20:47 Urine Creatinine 46.9 mg/dL (0.1-20.0) H 03/08/22 12:41 Urine Sodium 83 mmol/L 03/08/22 12:41 Medications & Allergies - Medications Allergies/Adverse Reactions: Allergies codeine Allergy (Verified 01/22/22 15:36) Hives morphine Allergy (Verified 01/22/22 15:36) Angioedema tomato Allergy (Verified 01/22/22 15:36) Vomiting Home Medications: Home Medications Medication Instructions Recorded Confirmed Last Taken Type Pantoprazole Sodium [Protonix] 40 mg PO HS #30 gran 09/27/19 01/23/22 Unknown Rx Insulin NPH/Regular [NovoLIN 70/30] 18 unit SUB-Q QPMDIAB 30 Days 10/31/20 01/23/22 Unknown Rx Insulin Regular, Human [HumuLIN R] See Protocol SUB-Q ACHS 30 Days 10/31/20 01/23/22 Unknown Rx Famotidine [Pepcid] 20 mg PO BID #60 tablet 01/13/21 01/23/22 Unknown Rx Metoclopramide HCl [Reglan TAB] 5 mg PO TIDAC #21 tablet 01/13/21 01/23/22 Unknown Rx Losartan [Cozaar] 100 mg PO QDAY #30 tab 01/24/22 Unknown Rx NIFEdipine XL [Procardia Xl] 60 mg PO QDAY #30 tablet 01/24/22 Unknown Rx Active Medications: Generic Name Dose Route Start Last Admin Trade Name Freq PRN Reason Stop Dose Admin Acetaminophen 650 mg 03/07/22 20:29 Acetaminophen 325 Mg Tab PO Q4H PRN Pain MILD(1-3)/Fever >100.5/QUINTANILLA Dextrose 50 ml 03/08/22 13:13 Dextrose 50% In Water (25gm) 50 Ml Syringe IV Q30MIN PRN Hypoglycemia Protocol Hydralazine HCl 10 mg 03/08/22 09:31 03/08/22 17:05 Hydralazine 20 Mg/1 Ml Inj IV 10 mg Q4HR PRN Administration Hypertension Hydralazine HCl 50 mg 03/08/22 16:00 03/09/22 05:35 Hydralazine 25 Mg Tab PO 50 mg Q8HR BREANNE Administration Pantoprazole Sodium 80 mg/ 100 mls @ 10 mls/hr 03/08/22 03:00 03/09/22 05:36 Sodium Chloride IV 8 mg/hr DIRECT BREANNE 10 mls/hr Administration 8 MG/HR Ceftriaxone Sodium 2 gm in 100 mls @ 200 mls/hr 03/09/22 10:00 Rocephin/Ns 2 Gm/100 Ml IV Q24H [facility] Protocol Insulin Human Isoph/Insulin Regular 16 unit 03/08/22 14:00 03/08/22 13:55 Insulin Nph/Regular 70/30 Inj SUB-Q 16 unit QDDIAB BREANNE Administration Insulin Human Isoph/Insulin Regular 6 unit 03/08/22 22:00 03/08/22 22:57 Insulin Nph/Regular 70/30 Inj SUB-Q 6 unit QPMDIAB BREANNE Administration Insulin Human Lispro 0 unit 03/08/22 16:30 03/08/22 22:58 Insulin Lispro 100 Unit/Ml SUB-Q 2 unit ACHS BREANNE Administration Protocol Labetalol HCl 10 mg 03/08/22 13:06 03/08/22 14:47 Labetalol 20 Mg/4 Ml Inj IV 10 mg Q4HR PRN Administration Hypertension Metoclopramide HCl 10 mg 03/07/22 20:29 Metoclopramide 10 Mg/2 Ml Inj IV Q6H PRN Nausea And Vomiting Multi-Ingred Cream/Lotion/Oil/Oint 1 applic 03/08/22 04:03 03/08/22 04:11 Mineral Oil/Petrolatum, White Ophth Oint 3.5 Gm OU 1 applic PRN PRN Administration Dry Eye(s) Nifedipine 60 mg 03/08/22 14:00 03/08/22 13:55 Nifedipine Xl 60 Mg Tab PO 60 mg QDAY BREANNE Administration Ondansetron HCl 4 mg 03/07/22 20:29 Ondansetron 4 Mg/2 Ml Inj IV Q3H PRN Nausea And Vomiting Sodium Chloride 10 ml 03/07/22 22:00 03/08/22 22:57 Sodium Chloride 0.9% 10 Ml Flush Syringe IV 10 ml BID BREANNE Administration Sodium Chloride 10 ml 03/07/22 20:29 Sodium Chloride 0.9% 10 Ml Flush Syringe IV PRN PRN LINE FLUSH
[2022-03-09] MEDS ORDERED: POTASSIUM CHLORIDE 10 MEQ 10 MEQ/100 ML BAG IV SCH (09:00)
[2022-03-09] MEDS ORDERED: POTASSIUM PHOSPHATE 40 MMOL in SODIUM CHLORIDE 0.9% 500 ML 500 ML IV ONE (09:30)
[2022-03-09] MEDS: INSULIN LISPRO 100 UNIT/ML SUB-Q SCH ×4 (09:45→22:37)
[2022-03-09] MEDS: INSULIN NPH/REGULAR 70/30 INJ SUB-Q SCH (09:45)
[2022-03-09] MEDS: cefTRIAXone/NS 2 GM/100 ML 2 GM/100 ML BAG IV SCH (09:46)
[2022-03-09] MEDS: NIFEdipine XL 60 MG TAB PO SCH (10:09)
--- NOTE | 2022-03-09 16:16 | Gastroenterology Progress Note ---
Assessment and Plan # Coffee ground emesis - episodes overnight but no additional episodes today. - no melena or bloody stools. - Hgb down to 6 then responded to transfusion. - suspect 2/2 esophagitis, gastritis, PUD in the setting of DKA. Rec - cont with PPI IV - monitor H/H serially and transfuse as needed. - clear liquid diet today and NPO MN - will plan for EGD tomorrow once electrolytes corrected - discussed with IMS team. Subjective Date of service: 03/09/22 Interval history: Patient without any overt bleeding overnight denies any abdominal pain. No nausea vomiting. Objective - Constitutional Vitals: Temp Pulse Resp BP Pulse Ox 98.9 F 95 H 18 134/82 100 03/09/22 12:56 03/09/22 12:56 03/09/22 12:56 03/09/22 14:27 03/09/22 12:56 General appearance: no acute distress - EENT Eyes: EOM intact ENT: hearing intact - Neck Neck: supple - Respiratory Respiratory effort: normal - Gastrointestinal General gastrointestinal: Present: soft, non-tender - Integumentary Integumentary: Present: clear, warm - Neurologic Neurological: alert and oriented x3 - Labs CBC & Chem 7: 03/09/22 06:00 03/09/22 04:00 Labs: Laboratory Results - last 24 hr 03/08/22 03/08/22 03/08/22 13:13 16:08 17:40 WBC RBC Hgb Hct MCV MCH MCHC RDW Plt Count Sodium Potassium Chloride Carbon Dioxide Anion Gap BUN Creatinine Estimated GFR BUN/Creatinine Ratio Glucose POC Glucose 104 98 Hemoglobin A1c 10.1 H Calcium Phosphorus 03/08/22 03/09/22 03/09/22 22:48 04:00 06:00 WBC 8.8 RBC 3.71 Hgb 8.6 L Hct 26.8 L MCV 72 L MCH 23 L MCHC 32 RDW 26.7 H Plt Count 389 Sodium 142 D Potassium 3.0 L D Chloride 100.6 Carbon Dioxide 26 Anion Gap 18 BUN 23 H Creatinine 1.1 Estimated GFR > 60 BUN/Creatinine Ratio 21 Glucose 245 H POC Glucose 172 H Hemoglobin A1c Calcium 8.5 Phosphorus 2.20 L D 03/09/22 08:40 WBC RBC Hgb Hct MCV MCH MCHC RDW Plt Count Sodium Potassium Chloride Carbon Dioxide Anion Gap BUN Creatinine Estimated GFR BUN/Creatinine Ratio Glucose POC Glucose 309 H Hemoglobin A1c Calcium Phosphorus
[2022-03-09] MEDS ORDERED: INSULIN NPH/REGULAR 70/30 INJ SUB-Q SCH ×2 (17:00)
[2022-03-09] MEDS: PANTOPRAZOLE 40 MG INJ IV SCH (22:36)
[2022-03-10 05:46] LABS: BUN/Creatinine Ratio 19; Blood Urea Nitrogen 15 mg/dL (9-20); Hemolysis Index 19
[2022-03-10] MEDS: hydrALAZINE 25 MG TAB PO SCH ×3 (07:48→22:35)
[2022-03-10] MEDS ORDERED: INSULIN NPH/REGULAR 70/30 INJ SUB-Q SCH (08:28)
--- NOTE | 2022-03-10 08:31 | Progress Note ---
Assessment and Plan Assessment and plan: History Interval history: This is a 31 year old with IDDM, HTN, myasthenia gravis and GERD who presents the emergency department via EMS for altered mental status. Per family patient had been trying to control his elevated blood sugar for the past several days an d noticed that his mentation has had a declined over that time. Upon arrival to the emergency department patient was found to be hypotensive and hypothermic and was aggressively resuscitated with IV fluids. CXR showed bilateral pulmonary opacities. And received central line with the initiation of Levophed. In the emergency department blood glucose was 1582, BUN/creatinine was 2.6/86, leukocytosis at 18.4, anemia at 6.2/27, AG 39. Patient was admitted to the hospitalist service with consults to [facility] for DKA. Hospital course to date: 03/08: Patient noted to have bloody emesis and GI was consulted. Patient was placed on a PPI drip. This morning patient's anion gap was closed and this afternoon patient was transitioned to [facility] and started on a CC diet. Patient has been hypertensive and is on hydralazine and labetalol as needed, restarted home Procardia and add added hydralazine. 03/09: Patient to remain NPO per GI. Will follow GI plan. No further episodes of bloody emesis reported. Continue rocephin for CAP tx. Potassium low this AM, replaced with 40 MEQ IV. Blood sugars in 300's however due to NPO status will change to 70/30 insulin 10 units bid...can increase once patient clear for diet. 03/10: NPO for EGD today. Blood sugars remain elevated. Increase 70/30 insulin to 20 units bid. Assessment and plan: This is a 31-year-old male with IDDM, HTN, myasthenia gravis and GERD admitted with DKA, leukocytosis, anemia, acute kidney injury, lactic acidosis. Neuro: Acute metabolic encephalopathy (resolved), h/o Myasthenia Gravis -Reorientation as needed -Maintain sleep-wake cycle -As needed analgesia -Obtain home medications Cardiac: h/o HTN -Antihypertensive regimen: Hydralazine, Procardia -Blood pressure monitoring per protocol -Hold home lisinopril in setting of ISHA -As needed hydralazine and labetalol Respiratory: RML Pneumonia, community acquired pneumonia - CXR demonstrates RML infiltrates - tx with rocephin IV x 5 day total therapy -SPO2 monitoring -Supplemental oxygen as needed -Pulmonary hygiene GI: Gastrointestinal bleed, Coffee ground emesis, h/o gerd, Mild protein calorie deficiency, -Patient noted to have hematemesis -GI consulted, appreciate recommendations -Protonix 40 mg IV bid -CC diet : High anion gap metabolic acidosis, acute kidney injury likely secondary to vasomotor nephropathy, hypernatremia -Nephrology consulted, appreciate recommendations -Strict intake and output -Renally dose medications -Avoid nephrotoxic medications -FeNa 2.6% -Renal ultrasound shows no hydronephrosis appreciated, urinary bladder is partially fluid distended, High catheter noted -Trend BMP ID: Sepsis POA, RML Pneumonia, Lactic acidosis -Presented with hypotension, leukocytosis, hypothermia, CXR with possible infiltrate -COVID-19 PCR negative -Antibiotic therapy with Rocephin -UA (-) -f/u blood culture -Monitor WBC and temperature curve Endo: s/p DKA, h/o IDDM -Presented with anion gap of 39, metabolic acidosis of 3, blood glucose 1582, VBG 6.965 -S/p insulin drip -Hemaglobin A1C A1c 10.1 -Avoid hypoglycemia -SSI -Accu-Cheks AC at bedtime -Long-acting insulin, titrate as needed Heme: Acute blood loss anemia, Leukocytosis, thrombocytosis -Presented with H/H of 6.9/27.1 -S/p 2 units PRBC -Trend CBC -Transfuse hemoglobin less than 7 -SCDs to BLE while in bed History Interval history: down to endoscopy suite for EGD Hospitalist Physical - Physical exam Narrative exam: Physical Exam: VITAL SIGNS: Reviewed. GENERAL: The patient appears normally developed, Vital signs as documented. HEAD: No signs of head trauma. EYES: Pupils are equal. Extraocular motions intact. EARS: Hearing grossly intact. MOUTH: Oropharynx is normal. NECK: No adenopathy, no JVD. CHEST: Chest with clear breath sounds bilaterally. No wheezes, rales, or rhonchi. CARDIAC: Regular rate and rhythm. S1 and S2, without murmurs, gallops, or rubs. VASCULAR: No Edema. Peripheral pulses normal and equal in all extremities. ABDOMEN: Soft, non tender and non distended. No rebound or guarding, and no masses palpated. Bowel Sounds normal. MUSCULOSKELETAL: Good range of motion of all major joints. Extremities without clubbing, cyanosis or edema. NEUROLOGIC EXAM: Alert and oriented x 4. no focal sensory or strength deficits. PSYCHIATRIC: Mood normal. SKIN: detail exam as documented in skin assessment - Constitutional Vitals: Temp Pulse Resp BP Pulse Ox 98.1 F 101 H 20 145/98 95 03/10/22 05:09 03/10/22 05:09 03/10/22 05:09 03/10/22 05:09 03/10/22 05:09 General appearance: Present: no acute distress, obese Results - Labs CBC & Chem 7: 03/09/22 06:00 03/10/22 05:00 Labs: Laboratory Last Values WBC 8.8 K/mm3 (4.5-11.0) 03/09/22 06:00 RBC 3.71 M/mm3 (3.65-5.03) 03/09/22 06:00 Hgb 8.6 gm/dl (11.8-15.2) L 03/09/22 06:00 Hct 26.8 % (35.5-45.6) L 03/09/22 06:00 MCV 72 fl (84-94) L 03/09/22 06:00 MCH 23 pg (28-32) L 03/09/22 06:00 MCHC 32 % (32-34) 03/09/22 06:00 RDW 26.7 % (13.2-15.2) H 03/09/22 06:00 Plt Count 389 K/mm3 (140-440) 03/09/22 06:00 Add Manual Diff Complete 03/08/22 03:45 Total Counted 100 03/08/22 03:45 Seg Neuts % (Manual) 84.0 % (40.0-70.0) H 03/08/22 03:45 Band Neutrophils % 0 % 03/08/22 03:45 Lymphocytes % (Manual) 10.0 % (13.4-35.0) L 03/08/22 03:45 Reactive Lymphs % (Man) 0 % 03/08/22 03:45 Monocytes % (Manual) 6.0 % (0.0-7.3) 03/08/22 03:45 Eosinophils % (Manual) 0 % (0.0-4.3) 03/08/22 03:45 Basophils % (Manual) 0 % (0.0-1.8) 03/08/22 03:45 Metamyelocytes % 0 % 03/08/22 03:45 Myelocytes % 0 % 03/08/22 03:45 Promyelocytes % 0 % 03/08/22 03:45 Blast Cells % 0 % 03/08/22 03:45 Nucleated RBC % Not Reportable 03/08/22 03:45 Seg Neutrophils # Man 12.6 K/mm3 (1.8-7.7) H 03/08/22 03:45 Band Neutrophils # 0.0 K/mm3 03/08/22 03:45 Lymphocytes # (Manual) 1.5 K/mm3 (1.2-5.4) 03/08/22 03:45 Abs React Lymphs (Man) 0.0 K/mm3 03/08/22 03:45 Monocytes # (Manual) 0.9 K/mm3 (0.0-0.8) H 03/08/22 03:45 Eosinophils # (Manual) 0.0 K/mm3 (0.0-0.4) 03/08/22 03:45 Basophils # (Manual) 0.0 K/mm3 (0.0-0.1) 03/08/22 03:45 Metamyelocytes # 0.0 K/mm3 03/08/22 03:45 Myelocytes # 0.0 K/mm3 03/08/22 03:45 Promyelocytes # 0.0 K/mm3 03/08/22 03:45 Blast Cells # 0.0 K/mm3 03/08/22 03:45 WBC Morphology Not Reportable 03/08/22 03:45 Hypersegmented Neuts Not Reportable 03/08/22 03:45 Hyposegmented Neuts Not Reportable 03/08/22 03:45 Hypogranular Neuts Not Reportable 03/08/22 03:45 Smudge Cells Not Reportable 03/08/22 03:45 Toxic Granulation Not Reportable 03/08/22 03:45 Toxic Vacuolation Not Reportable 03/08/22 03:45 Dohle Bodies Not Reportable 03/08/22 03:45 Pelger-Huet Anomaly Not Reportable 03/08/22 03:45 Emily Rods Not Reportable 03/08/22 03:45 Platelet Estimate Consistent w auto 03/08/22 03:45 Clumped Platelets Not Reportable 03/08/22 03:45 Plt Clumps, EDTA Not Reportable 03/08/22 03:45 Large Platelets Not Reportable 03/08/22 03:45 Giant Platelets Not Reportable 03/08/22 03:45 Platelet Satelliting Not Reportable 03/08/22 03:45 Plt Morphology Comment Not Reportable 03/08/22 03:45 RBC Morphology Not Reportable 03/08/22 03:45 Dimorphic RBCs Yes 03/08/22 03:45 Polychromasia Not Reportable 03/08/22 03:45 Hypochromasia 1+ 03/08/22 03:45 Poikilocytosis Not Reportable 03/08/22 03:45 Anisocytosis 2+ 03/08/22 03:45 Microcytosis Not Reportable 03/08/22 03:45 Macrocytosis Not Reportable 03/08/22 03:45 Spherocytes Not Reportable 03/08/22 03:45 Pappenheimer Bodies Not Reportable 03/08/22 03:45 Sickle Cells Not Reportable 03/08/22 03:45 Target Cells Not Reportable 03/08/22 03:45 Tear Drop Cells Not Reportable 03/08/22 03:45 Ovalocytes Not Reportable 03/08/22 03:45 Helmet Cells Not Reportable 03/08/22 03:45 Elliott-Sattley Bodies Not Reportable 03/08/22 03:45 [place] Rings Not Reportable 03/08/22 03:45 Phi Cells Not Reportable 03/08/22 03:45 Bite Cells Not Reportable 03/08/22 03:45 Crenated Cell Not Reportable 03/08/22 03:45 Elliptocytes Not Reportable 03/08/22 03:45 Acanthocytes (Spur) Not Reportable 03/08/22 03:45 Rouleaux Not Reportable 03/08/22 03:45 Hemoglobin C Crystals Not Reportable 03/08/22 03:45 Schistocytes Not Reportable 03/08/22 03:45 Malaria parasites Not Reportable 03/08/22 03:45 Daniel Bodies Not Reportable 03/08/22 03:45 Hem Pathologist Commnt No 03/08/22 03:45 ABG pH 6.965 pH Units (7.350-7.450) L* 03/07/22 16:01 ABG pCO2 14.1 mm Hg 03/07/22 16:01 ABG pO2 155.3 mm Hg (80.0-90.0) H 03/07/22 16:01 ABG HCO3 3.1 mmol/L (20.0-26.0) L 03/07/22 16:01 ABG O2 Saturation 98.3 % (95.0-99.0) 03/07/22 16:01 ABG O2 Content 9.0 (0.0-44) 03/07/22 16:01 ABG Base Excess -26.4 mmol/L (-2.0-3.0) L 03/07/22 16:01 ABG Hemoglobin 6.4 gm/dl (14.0-18.0) L 03/07/22 16:01 ABG Carboxyhemoglobin 2.3 % (0.0-5.0) 03/07/22 16:01 ABG Methemoglobin 0.6 % (0.0-1.5) 03/07/22 16:01 Oxyhemoglobin 95.4 % (95.0-99.0) 03/07/22 16:01 FiO2 21 % 03/07/22 16:01 Sodium 135 mmol/L (137-145) L 03/10/22 05:00 Potassium 4.6 mmol/L (3.6-5.0) D 03/10/22 05:00 Chloride 97.4 mmol/L (98-107) L 03/10/22 05:00 Carbon Dioxide 26 mmol/L (22-30) 03/10/22 05:00 Anion Gap 16 mmol/L 03/10/22 05:00 BUN 15 mg/dL (9-20) 03/10/22 05:00 Creatinine 0.8 mg/dL (0.8-1.3) 03/10/22 05:00 Estimated GFR > 60 ml/min 03/10/22 05:00 BUN/Creatinine Ratio 19 % 03/10/22 05:00 Glucose 383 mg/dL (75-100) H 03/10/22 05:00 POC Glucose 401 mg/dL (70-105) H 03/10/22 07:16 Hemoglobin A1c 10.1 % (4-6) H 03/08/22 13:13 Ketones Quantitative Large (Negative) 03/07/22 15:27 Lactic Acid 3.40 mmol/L (0.7-2.0) H* 03/08/22 03:45 Calcium 9.0 mg/dL (8.4-10.2) 03/10/22 05:00 Phosphorus 2.20 mg/dL (2.5-4.5) L D 03/09/22 04:00 Magnesium 2.80 mg/dL (1.7-2.3) H 03/07/22 20:47 Total Bilirubin < 0.20 mg/dL (0.1-1.2) 03/07/22 15:27 Direct Bilirubin < 0.2 mg/dL (0-0.2) 03/07/22 15:27 Indirect Bilirubin 0.0 mg/dL 03/07/22 15:27 AST 11 units/L (5-40) 03/07/22 15:27 ALT 10 units/L (7-56) 03/07/22 15:27 Alkaline Phosphatase 132 units/L (35-129) H 03/07/22 15:27 Total Protein 5.9 g/dL (6.3-8.2) L 03/07/22 15:27 Albumin 3.7 g/dL (3.9-5) L 03/07/22 15:27 Albumin/Globulin Ratio 1.7 % 03/07/22 15:27 Urine Color Colorless (Yellow) 03/07/22 22:05 Urine Turbidity Clear (Clear) 03/07/22 22:05 Specific [place] (Man) 1.010 (1.003-1.030) 03/07/22 22:05 Ur Protein (Man) <30 mg dl mg/dL (Negative) 03/07/22 22:05 Ur Ketones (Man) 2+ (Negative) 03/07/22 22:05 Urine Bilirubin (Man) Negative (Negative) 03/07/22 22:05 Urine WBC (Auto) 4.0 /HPF (0.0-6.0) 03/07/22 22:05 Urine RBC (Auto) 2.0 /HPF (0.0-6.0) 03/07/22 22:05 Urine Bacteria (Auto) 1+ /HPF (Negative) 03/07/22 22:05 Urine RBC (Manual) Trace (Negative) 03/07/22 22:05 Hyaline Casts 1 /LPF 03/07/22 22:05 Granular Casts 1 /LPF 03/07/22 22:05 RBC Casts 1 /LPF 03/07/22 22:05 Urine Mucus Few /HPF 03/07/22 22:05 Urine Yeast (Budding) Few /HPF 03/07/22 22:05 Urine Creatinine 46.9 mg/dL (0.1-20.0) H 03/08/22 12:41 Urine Sodium 83 mmol/L 03/08/22 12:41 Coronavirus (PCR) Negative (Negative) 03/08/22 08:16 Blood Type O POSITIVE 03/07/22 20:47 Antibody Screen Negative 03/07/22 20:47 Crossmatch See Detail 03/07/22 20:47 Microbiology: Microbiology 03/07/22 15:27 Peripheral/Venous Blood Culture - Preliminary NO GROWTH AFTER 48 HOURS 03/07/22 15:27 Peripheral/Venous Blood Culture - Preliminary NO GROWTH AFTER 48 HOURS High/IV: Voiding Method Indwelling Catheter Active Medications - Current Medications Current Medications: Generic Name Dose Route Start Last Admin Trade Name Freq PRN Reason Stop Dose Admin Acetaminophen 650 mg 03/07/22 20:29 Acetaminophen 325 Mg Tab PO Q4H PRN Pain MILD(1-3)/Fever >100.5/QUINTANILLA Dextrose 50 ml 03/08/22 13:13 Dextrose 50% In Water (25gm) 50 Ml Syringe IV Q30MIN PRN Hypoglycemia Protocol Hydralazine HCl 10 mg 03/08/22 09:31 03/08/22 17:05 Hydralazine 20 Mg/1 Ml Inj IV 10 mg Q4HR PRN Administration Hypertension Hydralazine HCl 50 mg 03/08/22 16:00 03/10/22 07:48 Hydralazine 25 Mg Tab PO 50 mg Q8HR BREANNE Administration Ceftriaxone Sodium 2 gm in 100 mls @ 200 mls/hr 03/09/22 10:00 03/09/22 09:46 Rocephin/Ns 2 Gm/100 Ml IV 200 mls/hr Q24H BREANNE Administration Protocol Insulin Human Isoph/Insulin Regular 20 unit 03/10/22 08:28 Insulin Nph/Regular 70/30 Inj SUB-Q BIDDIAB BREANNE Insulin Human Lispro 0 unit 03/08/22 16:30 03/09/22 22:37 Insulin Lispro 100 Unit/Ml SUB-Q Not Given ACHS [facility] Protocol Labetalol HCl 10 mg 03/08/22 13:06 03/08/22 14:47 Labetalol 20 Mg/4 Ml Inj IV 10 mg Q4HR PRN Administration Hypertension Metoclopramide HCl 10 mg 03/07/22 20:29 Metoclopramide 10 Mg/2 Ml Inj IV Q6H PRN Nausea And Vomiting Multi-Ingred Cream/Lotion/Oil/Oint 1 applic 03/08/22 04:03 03/08/22 04:11 Mineral Oil/Petrolatum, White Ophth Oint 3.5 Gm OU 1 applic PRN PRN Administration Dry Eye(s) Nifedipine 60 mg 03/08/22 14:00 03/09/22 10:09 Nifedipine Xl 60 Mg Tab PO 60 mg QDAY BREANNE Administration Ondansetron HCl 4 mg 03/07/22 20:29 Ondansetron 4 Mg/2 Ml Inj IV Q3H PRN Nausea And Vomiting Pantoprazole Sodium 40 mg 03/09/22 22:00 03/09/22 22:36 Pantoprazole 40 Mg Inj IV 40 mg BID BREANNE Administration Sodium Chloride 10 ml 03/07/22 22:00 03/09/22 22:36 Sodium Chloride 0.9% 10 Ml Flush Syringe IV 10 ml BID BREANNE Administration Sodium Chloride 10 ml 03/07/22 20:29 Sodium Chloride 0.9% 10 Ml Flush Syringe IV PRN PRN LINE FLUSH Nutrition/Malnutrition Assess - Dietary Evaluation Nutrition/Malnutrition Findings: Nutrition Notes Start: 03/08/22 12:35 Freq: Status: Active Protocol: Document 03/09/22 12:04 [facility] (Rec: 03/09/22 12:11 [facility] [id number]) Nutrition Notes Initial or Follow up Assessment Current Diagnosis Diabetes,Hypertension Other Pertinent Diagnosis DKA, GIB, Myasthenia gravis, GERD, pneu Current Diet NPO Labs/Tests K 3 BUN 23 BG 245 Phos 2.2 Pertinent Medications Protonix gtt, 40mmol KPhos x 1 dose Height 5 ft 7 in Weight 71.758 kg [place] Body Weight (kg) 67.27 BMI 24.7 Weight Status Appropriate Subjective/Other Information Pt remains NPO (Day 3). Pt with multiple admissions since December 2021. GI following. Burn Absent Trauma Absent Minimum of two criteria No #1 Nutrition Diagnosis Altered GI function Etiology GIB, DKA, hx of GERD As Evidenced by Signs and Symptoms pt NPO for past 3 days Is patient on ventilator? No Is Patient Ambulatory and/or Out of Bed Yes REE-([facility]-ambulatory/OOB) [ [id number] [id number]] Calculation Used for Recommendations [facility] Additional Notes Pro needs 0.8-1g/k-72g/ day Fluid needs 1ml/kcal Nutrition Intervention Change Diet Order: Advance diet to Consistent CHO when medically feasible Goal #1 Diet advancement to meet nutrient needs Anticipated Discharge Needs: CHO-controlled diet Follow-Up By: 03/12/22 Additional Comments F/U: diet advancement, diet education needs
[2022-03-10] MEDS: PANTOPRAZOLE 40 MG INJ IV SCH ×2 (09:37→22:30)
[2022-03-10] MEDS: INSULIN LISPRO 100 UNIT/ML SUB-Q SCH ×4 (09:37→22:48)
[2022-03-10] MEDS: NIFEdipine XL 60 MG TAB PO SCH (09:42)
[2022-03-10] MEDS: cefTRIAXone/NS 2 GM/100 ML 2 GM/100 ML BAG IV SCH (09:49)
[2022-03-10] MEDS ORDERED: WATER FOR IRRIG STERILE 250 ML BOTTLE IR ONE (10:03)
[2022-03-10] MEDS ORDERED: WATER FOR IRRIG STERILE 1,000 ML BOTTLE ONE (10:03)
[2022-03-10] MEDS ORDERED: SODIUM CHLORIDE 0.9% 1000 ML 1,000 ML ONE (10:04)
[2022-03-10] MEDS ORDERED: EPINEPHrine 1 MG/10 ML SYRINGE ONE (10:04)
[2022-03-10] MEDS ORDERED: INSULIN REGULAR, HUMAN 100 UNITS/1 ML IV ONE (10:46)
--- NOTE | 2022-03-10 11:11 | Anesthesia Day of Surgery ---
Anesthesia Day of Surgery - Day of Surgery Patient Examined: Yes Patient H&P Reviewed: Yes Patient is NPO: Yes Beta Blockers: No Cardiac Clearance: No Pulmonary Clearance: No
--- NOTE | 2022-03-10 11:11 | Anesthesia Consultation ---
Anesthesia Consult and Med Hx Date of service: 03/10/22 - Airway Anesthetic Teeth Evaluation: Poor, Chipped ROM Head & Neck: Adequate Mental/Hyoid Distance: Adequate Mallampati Class: Class I Intubation Access Assessment: Good - Pulmonary Exam CTA: Yes - Pre-Operative Health Status ASA Pre-Surgery Classification: ASA3, Emergency - Pulmonary Hx Asthma: No Hx Pneumonia: No - Cardiovascular System Hx Hypertension: Yes - Central Nervous System Hx Neuromuscular Disorder: Yes (Mysthenia Gravis) Hx Seizures: No - Gastrointestinal Hx Gastroesophageal Reflux Disease: Yes (Upper GI bleed) - Endocrine Hx Renal Disease: Yes (ISHA) Hx Non-Insulin Dependent Diabetes: Yes - Hematic Hx Anemia: Yes - Other Systems Hx Alcohol Use: No Hx Cancer: No Hx Obesity: No
[2022-03-10] MEDS ORDERED: propofoL 200 MG/20 ML VIAL IV ONE ×2 (11:13→11:20)
[2022-03-10] MEDS ORDERED: ONDANSETRON 4 MG/2 ML INJ ONE (11:13)
[2022-03-10] MEDS ORDERED: fentaNYL 100 MCG/2 ML INJ ONE (11:13)
--- NOTE | 2022-03-10 11:29 | Operative Report ---
Operative Report Operative Report: Esophagogastroduodenoscopy Procedure Note with biopsies Date of procedure: 03/10/2022 Endoscopist: Paxton Escobar Pre-op diagnosis/indication: Upper GI bleed (coffee ground emesis), Iron deficiency anemia Post-op diagnosis: Severe erosive esophagitis; duodenitis MEDICATIONS: MAC COMPLICATIONS: No immediate complications ESTIMATED BLOOD LOSS: Minimal DESCRIPTION OF PROCEDURE: After consent was obtained, the patient was placed in the left lateral decubitis position. The olympus endoscope was inserted into the patient's mouth under direct vision and advanced to the 2nd portion of the duodenum without difficulty. The patient tolerated the procedure well. The views of the mucosa were good. The patient's vital signs were monitored continuously throughout the procedure. FINDINGS: There was severe (LA Grade IV) ulcerative esophagitis in the mid and distal esophagus without high risk bleeding stigmata. The stomach appeared normal. There was moderately severe erythematous mucosa in the duodenal sweep/first portion of the duodenum. Biopsied obtained. No high risk bleeding lesions. Bile seen in the duodenum. IMPRESSION: 1. Severe (LA Grade IV) ulcerative esophagitis 2. Duodenitis. Biopsied RECOMMENDATIONS: -PPI BID dosing daily for 2 months, then once per day afterwards -follow-up pathology -can resume previous diet from gi stand point -follow-up in GI clinic in 3 weeks. recommend repeat EGD in 2-3 months to assess for healing of esophagitis and r/o underlying wills's esophagus. Will sign off, please call as needed.
[2022-03-10] MEDS ORDERED: PHENYLEPHRINE/NS 1,000 MCG/10 ML SYRINGE (OR USE) IV ONE (11:30)
--- NOTE | 2022-03-10 11:54 | Post Anesthesia Evaluation ---
- Post Anesthesia Evaluation Patient Participated: Yes Airway Patent: Yes Stable Respiratory Function: Yes Nausea/Vomiting: No Temp > 96.8F: Yes Pain Manageable: Yes Adequeate Hydration: Yes Anesthesia Complications: No Block Receding Appropriately: Not Applicable Patient on Ventilator: No
[2022-03-11] MEDS: hydrALAZINE 25 MG TAB PO SCH (06:50)
--- NOTE | 2022-03-11 07:57 | Discharge Summary ---
Providers - Providers Date of Admission: 03/07/22 20:30 Date of discharge: 03/11/22 Attending physician: BRIANNA POMPA MD 03/07/22 20:42 Consult to Dietitian/Nutrition [CONS] Routine Physician Instructions: Reason For Exam: DKA Reason for Consult: Nutrition Recommendations Reason for Consult: Diet education 03/08/22 06:13 Consult to Physician [CONS] Routine Comment: called office/ lynn Consulting Provider: KATE MARIA Physician Instructions: Reason For Exam: ISHA 03/08/22 08:17 Consult to Physician [CONS] Routine Comment: called answ. serv/ lynn Consulting Provider: GABE JAMESON Physician Instructions: Reason For Exam: Red Emesis. Primary care physician: [employer] Hospitalization Reason for admission: altered mental status Condition: Stable Hospital course: Interval history: This is a 31 year old with IDDM, HTN, myasthenia gravis and GERD who presents the emergency department via EMS for altered mental status. Per family patient had been trying to control his elevated blood sugar for the past several days and noticed that his mentation has had a declined over that time. Upon arrival to the emergency department patient was found to be hypotensive and hypothermic and was aggressively resuscitated with IV fluids. CXR showed bilateral pulmonary opacities. And received central line with the initiation of Levophed. In the emergency department blood glucose was 1582, BUN/creatinine was 2.6/86, leukocytosis at 18.4, anemia at 6.2/27, AG 39. Patient was admitted to the hospitalist service with consults to [facility] for DKA. Hospital course to date: 03/08: Patient noted to have bloody emesis and GI was consulted. Patient was placed on a PPI drip. This morning patient's anion gap was closed and this afternoon patient was transitioned to SSI and started on a CC diet. Patient has been hypertensive and is on hydralazine and labetalol as needed, restarted home Procardia and add added hydralazine. 03/09: Patient to remain NPO per GI. Will follow GI plan. No further episodes of bloody emesis reported. Continue rocephin for CAP tx. Potassium low this AM, replaced with 40 MEQ IV. Blood sugars in 300's however due to NPO status will change to 70/30 insulin 10 units bid...can increase once patient clear for diet. 03/10: NPO for EGD today. Blood sugars remain elevated. Increase 70/30 insulin to 20 units bid. Operative report shows ulcerative esophagitis and duodenitis. GI recommends PPI BID x 2 mo. 03/11: Discharge home today. Tolerating diet well. Rx for protonix, insulin, procardia xl, losartan sent electronically to pharmacy. Assessment and plan: This is a 31-year-old male with IDDM, HTN, myasthenia gravis and GERD admitted with DKA, leukocytosis, anemia, acute kidney injury, lactic acidosis. Neuro: Acute metabolic encephalopathy (resolved), h/o Myasthenia Gravis -Reorientation as needed -Maintain sleep-wake cycle -As needed analgesia -Obtain home medications Cardiac: h/o HTN -Antihypertensive regimen: Hydralazine, Procardia -Blood pressure monitoring per protocol -Hold home lisinopril in setting of ISHA -As needed hydralazine and labetalol Respiratory: RML Pneumonia, community acquired pneumonia - CXR demonstrates RML infiltrates - tx with rocephin IV x 5 day total therapy, completed -SPO2 monitoring -Supplemental oxygen as needed -Pulmonary hygiene GI: Gastrointestinal bleed, Coffee ground emesis, h/o gerd, Mild protein calorie deficiency, -Patient noted to have hematemesis -GI consulted, appreciate recommendations -Protonix 40 mg IV bid -CC diet : High anion gap metabolic acidosis, acute kidney injury likely secondary to vasomotor nephropathy, hypernatremia -Nephrology consulted, appreciate recommendations -Strict intake and output -Renally dose medications -Avoid nephrotoxic medications -FeNa 2.6% -Renal ultrasound shows no hydronephrosis appreciated, urinary bladder is partially fluid distended, High catheter noted -Trend BMP ID: Sepsis POA, RML Pneumonia, Lactic acidosis -Presented with hypotension, leukocytosis, hypothermia, CXR with possible infiltrate -COVID-19 PCR negative -Antibiotic therapy with Rocephin -UA (-) -f/u blood culture -Monitor WBC and temperature curve Endo: s/p DKA, h/o IDDM -Presented with anion gap of 39, metabolic acidosis of 3, blood glucose 1582, VBG 6.965 -S/p insulin drip -Hemaglobin A1C A1c 10.1 -Avoid hypoglycemia -SSI -Accu-Cheks AC at bedtime -Long-acting insulin, titrate as needed Heme: Acute blood loss anemia, Leukocytosis, thrombocytosis -Presented with H/H of 6.9/27.1 -S/p 2 units PRBC -Trend CBC -Transfuse hemoglobin less than 7 -SCDs to BLE while in bed Disposition: 01 HOME / SELF CARE / HOMELESS Final Discharge Diagnosis (Prints w/discharge instructions): acute metabolic encephalopathy, diabetic ketoacidosis, ulcerative esophagitis, duodenitis, RML pneumonia, sepsis poa Time spent for discharge: 35 Core Measure Documentation - Palliative Care Palliative Care/ Comfort Measures: Not Applicable - Core Measures Any of the following diagnoses?: none Exam - Constitutional Vitals: Temp Pulse Resp BP Pulse Ox 97.4 F L 106 H 18 136/100 95 03/11/22 04:09 03/11/22 06:50 03/11/22 04:09 03/11/22 06:50 03/11/22 04:09 Plan Follow up with: PRIMARY CARE, [Primary Care Provider] - 3-5 Days Prescriptions: Losartan [Cozaar] 100 mg PO QDAY 30 Days #30 tab Insulin NPH/Regular [NovoLIN 70/30] 30 unit SUB-Q BIDDIAB 30 Days #3 vial NIFEdipine XL [Procardia Xl] 60 mg PO QDAY 30 Days #30 tablet Pantoprazole [Protonix] 40 mg PO BID 30 Days #60 tablet
[2022-03-11] MEDS ORDERED: INSULIN NPH/REGULAR 70/30 INJ SUB-Q SCH (08:03)
[2022-03-11] MEDS: INSULIN LISPRO 100 UNIT/ML SUB-Q SCH ×2 (09:31→12:25)
[2022-03-11] MEDS: PANTOPRAZOLE 40 MG INJ IV SCH (09:31)
[2022-03-11] MEDS: NIFEdipine XL 60 MG TAB PO SCH (09:31)
[2022-03-11] MEDS: cefTRIAXone/NS 2 GM/100 ML 2 GM/100 ML BAG IV SCH (09:36)
[2022-03-11 12:14] VITALS: BP 133/104
== END 2022-03-11 12:30 | disposition home or self-care (01) | DRG 871 ==
LOC: ED 13:39 → CC1 20:30 → 3A 03-08 18:23
PROVIDERS: ADMIT Internal Medicine; ATTEND Internal Medicine
PROC: 30233N1 Transfusion of Nonautologous Red Blood Cells into Peripheral Vein, Percutaneous Approach (ICD-10-PCS; principal; 2022-03-07)
PROC: 4A033R1 Measurement of Arterial Saturation, Peripheral, Percutaneous Approach (ICD-10-PCS; 2022-03-07)
PROC: 02HV33Z Insertion of Infusion Device into Superior Vena Cava, Percutaneous Approach (ICD-10-PCS; 2022-03-07)
PROC: B548ZZA Ultrasonography of Superior Vena Cava, Guidance (ICD-10-PCS; 2022-03-07)
PROC: 0DB98ZX Excision of Duodenum, Via Natural or Artificial Opening Endoscopic, Diagnostic (ICD-10-PCS; 2022-03-10)
DX: A41.9 Sepsis, unspecified organism (principal); E10.10 Type 1 diabetes mellitus with ketoacidosis without coma; J18.9 Pneumonia, unspecified organism; G93.41 Metabolic encephalopathy; N17.0 Acute kidney failure with tubular necrosis; K22.11 Ulcer of esophagus with bleeding; K29.81 Duodenitis with bleeding; E87.1 Hypo-osmolality and hyponatremia; E44.1 Mild protein-calorie malnutrition; D62 Acute posthemorrhagic anemia; Z20.822 Contact with and (suspected) exposure to COVID-19; E87.5 Hyperkalemia; D64.9 Anemia, unspecified; I10 Essential (primary) hypertension; K21.9 Gastro-esophageal reflux disease without esophagitis; G70.00 Myasthenia gravis without (acute) exacerbation; Z68.24 Body mass index [BMI] 24.0-24.9, adult; Z88.6 Allergy status to analgesic agent; Z88.5 Allergy status to narcotic agent; Z88.8 Allergy status to other drugs, medicaments and biological substances; Z79.4 Long term (current) use of insulin; Z79.899 Other long term (current) drug therapy
CPT/HCPCS: 36415; 71045; 76770; 80048; 80076; 81001; 82010; 82140; 82570; 82803; 82962; 83036; 83735; 84100; 84300; 85007; 85025; 85027; 86850; 86900; 86901; 86920; 87040; 88305; 99291; G0378; J2354; J3480; J3490; J7510; Q0177; Q9967; C9113; J0171; J0360; J0692; J0696; J1815; J1956; J2370; J2405; J2543; J2704; J3010; J7030; J7040; P9016; U0003

== ENCOUNTER 2022-03-31 00:20 | Emergency (ER) | payer OTHER ==
[2022-03-31] MEDS ORDERED: SODIUM CHLORIDE 0.9% 1000 ML 1,000 ML IV ONE (01:34)
[2022-03-31] MEDS ORDERED: SODIUM CHLORIDE 0.9% 100 ML IVPB IV SCH (02:00)
[2022-03-31 02:13] LABS: Hematocrit 26.5 % (35.5-45.6); Hemoglobin 8.6 gm/dl (11.8-15.2); Mean Corpuscular HGB Conc 32 % (32-34); Mean Corpuscular Volume 73 fl (84-94); Platelet Count 600 K/mm3 (140-440); Red Blood Count 3.62 M/mm3 (3.65-5.03)
[2022-03-31 02:15] LABS: Red Cell Distribution Width 31.1 % (13.2-15.2)
[2022-03-31 02:22] LABS: ABG Base Excess 11.2 mmol/L (-2.0-3.0); ABG PCO2 47.3 mm Hg; ABG PH 7.5 pH Units (7.350-7.450); ABG PO2 61.7 mm Hg (80.0-90.0)
[2022-03-31 02:34] LABS: Albumin 4.3 g/dL (3.9-5); Calcium 8.4 mg/dL (8.4-10.2)
--- NOTE | 2022-03-31 02:41 | XRay Report ---
CHEST 1 VIEW INDICATION / CLINICAL INFORMATION: CP. COMPARISON: 03/07/2022 FINDINGS: SUPPORT DEVICES: None. Previously noted central venous line has been removed. HEART / MEDIASTINUM: No significant abnormality. LUNGS / PLEURA: No significant pulmonary or pleural abnormality. No pneumothorax. Previously noted pu lmonary opacities and edema have resolved since the last chest radiograph of 03/07/2022. ADDITIONAL FINDINGS: No significant additional findings. IMPRESSION: 1. No acute findings. Signer Name: Sydnee Jeffrey MD Signed: 03/31/2022 2:37 AM Workstation Name: [id number]
--- NOTE | 2022-03-31 02:49 | Emergency Department Report ---
ED General Adult HPI - General Chief complaint: Hyperglycemia Stated complaint: HYPERGLYCEMIA Time Seen by Provider: 03/31/22 01:49 Source: patient, EMS Mode of arrival: Stretcher Limitations: No Limitations - History of Present Illness Initial comments: This is a pleasant 31-year-old male with medical history of diabetes weakness possibly insulin Novolin 70/30 and according patient he used 30 in the morning and 30 at nighttime however patient has been out of his medication. Patient denies any other discomfort. Patient denies fever chill night sweat dizziness blurred vision lightheadedness headache tinnitus ear pain runny nose sore throat loss of taste loss of smell chest pain palpitation short breath cough abdominal pain nausea vomiting diarrhea constipation joint pain muscle pain new rash and heat or cold intolerance. Patient states he feels rejuvenated at the time my evaluation when patient is currently getting his second liters of fluid. - Related Data Previous Rx's Medication Instructions Recorded Last Taken Type Pantoprazole Sodium [Protonix] 40 mg PO HS #30 granpkt. 09/27/19 Unknown Rx Insulin NPH/Regular [NovoLIN 70/30] 18 unit SUB-Q QPMDIAB 30 Days 10/31/20 Unknown Rx Insulin Regular, Human [HumuLIN R] See Protocol SUB-Q ACHS 30 Days 10/31/20 Unknown Rx Famotidine [Pepcid] 20 mg PO BID #60 tablet 01/13/21 Unknown Rx Metoclopramide HCl [Reglan TAB] 5 mg PO TIDAC #21 tablet 01/13/21 Unknown Rx NIFEdipine XL [Procardia Xl] 60 mg PO QDAY #30 tablet 01/24/22 Unknown Rx Insulin NPH/Regular [NovoLIN 70/30] 30 unit SUB-Q BIDDIAB 30 Days #3 03/11/22 Unknown Rx vial Losartan [Cozaar] 100 mg PO QDAY 30 Days #30 tab 03/11/22 Unknown Rx NIFEdipine XL [Procardia Xl] 60 mg PO QDAY 30 Days #30 tablet 03/11/22 Unknown Rx Pantoprazole [Protonix] 40 mg PO BID 30 Days #60 tablet 03/11/22 Unknown Rx Insulin NPH Hum/Reg Insulin Hm 15 unit SQ Q12HR #10 03/31/22 Unknown Rx [Novolin 70-30 Flexpen] Allergies Allergy/AdvReac Type Severity Reaction Status Date / Time codeine Allergy Hives Verified 01/22/22 15:36 morphine Allergy Angioedema Verified 01/22/22 15:36 tomato Allergy Vomiting Verified 01/22/22 15:36 ED Review of Systems ROS: Stated complaint: HYPERGLYCEMIA Other details as noted in HPI Comment: All other systems reviewed and negative ED Past Medical Hx - Past Medical History Previous Medical History?: Yes Hx Hypertension: Yes Hx Congestive Heart Failure: No Hx Diabetes: Yes Hx Renal Disease: Yes (ISHA) Hx Seizures: No Hx Asthma: No Additional medical history: Myasthenia gravis - Surgical History Past Surgical History?: No - Social History Smoking Status: Never Smoker Substance Use Type: None - Medications Home Medications: Home Medications Medication Instructions Recorded Confirmed Last Taken Type Pantoprazole Sodium [Protonix] 40 mg PO HS #30 09/27/19 01/23/22 Unknown Rx Insulin NPH/Regular [NovoLIN 70/30] 18 unit SUB-Q QPMDIAB 30 Days 10/31/20 01/23/22 Unknown Rx Insulin Regular, Human [HumuLIN R] See Protocol SUB-Q ACHS 30 Days 10/31/20 01/23/22 Unknown Rx Famotidine [Pepcid] 20 mg PO BID #60 tablet 01/13/21 01/23/22 Unknown Rx Metoclopramide HCl [Reglan TAB] 5 mg PO TIDAC #21 tablet 01/13/21 01/23/22 Unknown Rx NIFEdipine XL [Procardia Xl] 60 mg PO QDAY #30 tablet 01/24/22 Unknown Rx Insulin NPH/Regular [NovoLIN 70/30] 30 unit SUB-Q BIDDIAB 30 Days #3 03/11/22 Unknown Rx vial Losartan [Cozaar] 100 mg PO QDAY 30 Days #30 tab 03/11/22 Unknown Rx NIFEdipine XL [Procardia Xl] 60 mg PO QDAY 30 Days #30 tablet 03/11/22 Unknown Rx Pantoprazole [Protonix] 40 mg PO BID 30 Days #60 tablet 03/11/22 Unknown Rx Insulin NPH Hum/Reg Insulin Hm 15 unit SQ Q12HR #10 03/31/22 Unknown Rx [Novolin 70-30 Flexpen] ED Physical Exam - General Limitations: No Limitations General appearance: alert, in no apparent distress - Head Head exam: Present: atraumatic, normocephalic, normal inspection - Eye Eye exam: Present: normal appearance, PERRL, EOMI Pupils: Present: normal accommodation - ENT ENT exam: Present: normal exam, mucous membranes moist - Neck Neck exam: Present: normal inspection, full ROM - Respiratory Respiratory exam: Present: normal lung sounds bilaterally - Cardiovascular Cardiovascular Exam: Present: regular rate, normal rhythm, normal heart sounds - GI/Abdominal GI/Abdominal exam: Present: soft - Extremities Exam Extremities exam: Present: normal inspection, full ROM, normal capillary refill - Back Exam Back exam: Present: normal inspection, full ROM - Neurological Exam Neurological exam: Present: alert, oriented X3, CN II-XII intact - Psychiatric Psychiatric exam: Present: normal affect, normal mood ED Course Vital Signs 03/31/22 03/31/22 03/31/22 00:20 01:26 01:31 Temperature 98.2 F Pulse Rate 104 H 107 H Respiratory 18 10 L Rate Blood Pressure 150/96 O2 Sat by Pulse 100 89 100 Oximetry 03/31/22 03/31/22 03/31/22 01:45 01:59 02:01 Temperature Pulse Rate 107 H 107 H Respiratory 13 11 L Rate Blood Pressure 176/117 176/117 O2 Sat by Pulse 99 99 90 Oximetry 03/31/22 03/31/22 03/31/22 02:15 02:31 02:45 Temperature Pulse Rate 109 H 102 H 105 H Respiratory 10 L 12 16 Rate Blood Pressure 176/117 172/116 172/116 O2 Sat by Pulse 96 97 98 Oximetry 03/31/22 03/31/22 03/31/22 03:01 03:15 03:31 Temperature Pulse Rate 104 H 112 H 108 H Respiratory 11 L 11 L 13 Rate Blood Pressure 172/116 172/116 172/116 O2 Sat by Pulse Oximetry 03/31/22 03/31/22 03/31/22 03:45 04:01 04:15 Temperature Pulse Rate 103 H 103 H 104 H Respiratory 8 L 14 14 Rate Blood Pressure 172/116 172/116 172/116 O2 Sat by Pulse Oximetry 03/31/22 03/31/22 04:31 04:45 Temperature Pulse Rate 103 H 104 H Respiratory 16 16 Rate Blood Pressure 172/116 172/116 O2 Sat by Pulse Oximetry - Reevaluation(s) Reevaluation #1: 03/31/22 03:15 NOT IN DKA; WILL GIVE INSULIN AND INSURE GLUCOSE DOWN TRENDING. 03/31/22 05:15 AFTER SPEAKING TO THE PATIENT, IT APPEARS PATIENT DOESN'T KNOW WHAT HIS DOSAGE ARE. PATIENT STATES HE FINALLY HAVE INSURANCE AND WILL MAKE AN APPOINTMENT WITH PRIMARY CARE PROVIDER OF HIS CHOICE TO BE SEEN IMMEDIATELY FOR CONTINUE MANAGEMENT OF HIS DIABETES MELLITUS. ED Medical Decision Making - Lab Data Result diagrams: 03/31/22 01:35 03/31/22 01:35 Critical care attestation.: If time is entered above; I have spent that time in minutes in the direct care of this critically ill patient, excluding procedure time. ED Disposition Clinical Impression: Hyperglycemia due to type 1 diabetes mellitus, Medically noncompliant Disposition: 01 HOME / SELF CARE / HOMELESS Is pt being admited?: No Does the pt Need Aspirin: No Condition: Stable Instructions: Diabetes Mellitus Type 2 in Adults (ED), Insulin Treatment for Diabetes Mellitus Additional Instructions: MAKE A FOLLOW UP APPOINTMENT WITH PRIMARY CARE PROVIDER OF YOUR CHOICE TO BE SEEN WITHIN 3 DAYS FOR FURTHER OUTPATIENT EVALUATION OF YOUR DIABETES MELLITUS. Prescriptions: Insulin NPH Hum/Reg Insulin Hm [Novolin 70-30 Flexpen] 15 unit SQ Q12HR #10 Referrals: SHARITA JACKSON MD [Primary Care Provider] - 3-5 Days Forms: Work/School Release Form(ED) Time of Disposition: 02:49
[2022-03-31 02:50] LABS: Basophils % (Manual) 0 % (0.0-1.8); Eosinophils % (Manual) 0 % (0.0-4.3); Total Cells Counted 100
[2022-03-31 02:51] LABS: Anisocytosis 3+; Dimorphic RBC Yes; Hypochromasia 1+; Platelet Estimate Consistent w Auto
[2022-03-31 02:54] LABS: ABG Methemoglobin 0.5 % (0.0-1.5); ABG Oxygen Saturation 83.8 % (95.0-99.0)
[2022-03-31] MEDS ORDERED: LACTATED RINGERS 1,000 ML IV ONE (02:57)
[2022-03-31 03:09] LABS: Color,Urine Colorless (Yellow)
[2022-03-31] MEDS ORDERED: INSULIN REGULAR, HUMAN 100 UNITS/1 ML IV ONE (03:14)
[2022-03-31 05:40] VITALS: BP 161/87
[2022-03-31 06:12] LABS: BUN/Creatinine Ratio 25; Blood Urea Nitrogen 37 mg/dL (9-20); Calcium 8.2 mg/dL (8.4-10.2); Hemolysis Index 1
== END 2022-03-31 05:41 | disposition home or self-care (01) ==
LOC: ED 00:20
DX: E10.65 Type 1 diabetes mellitus with hyperglycemia (principal); I10 Essential (primary) hypertension; Z91.19 Patient's noncompliance with other medical treatment and regimen; Z88.5 Allergy status to narcotic agent; Z91.018 Allergy to other foods; Z79.4 Long term (current) use of insulin; Z79.899 Other long term (current) drug therapy
CPT/HCPCS: 36415; 71045; 80048; 80053; 81001; 82010; 82140; 82803; 82805; 82962; 83690; 83735; 85007; 85025; 93005; 96361; 96374; 99284; J7030; Q9967; J1815